=== PATIENT | female | born 1985 | race American Indian/Alaskan Native ===

== ENCOUNTER 2016-10-03 17:30 | Emergency (ER) | payer MEDICAID ==
--- NOTE | 2016-10-03 18:03 | EDM.PDOC ---
ED HPI Trauma - General Chief Complaint: Lower Extremity Injury/Pain Stated Complaint: LT LEG PAIN Time Seen by Provider: 10/03/16 17:40 Source: Reports: Patient History Limitations: Reports: No limitations - History of Present Illness INITIAL COMMENTS - FREE TEXT/NARRATIVE: Patient to the ER with c/o left leg/foot pain. She states she doctors with Dr. Delicia Aaron. She states she has traumatic nerve pain and has had a toe on the left foot removed. She states she gets her pain pills refilled by Dr. Aaron every 12 days. She called the clinic today and Dr. Aaron was out of the office until Saturday. She is wanting her pain pills refilled. She states she was up all night last night pacing and could not sleep due to the pain. Occurred When: other (chronic) Severity: severe Pain/Injury Location: Reports: lower extremity, left Associated Symptoms: Reports: no other symptoms Allergies/ADRs: Allergies No Known Allergies Allergy (Verified 10/03/16 17:45) Home Medications: Ambulatory Orders Acetaminophen [Acetaminophen Extra Strength] 2 tab PO Q6H PRN 08/08/15 [ Confirmed 10/03/16] LORazepam [Ativan] 1 tab PO BID 08/08/15 [Confirmed 10/03/16] QUEtiapine Fumarate [Seroquel] 2 tab PO BEDTIME 08/08/15 [Confirmed 10/03/16] Escitalopram Oxalate [Lexapro] 2 tab PO DAILY 02/08/16 [Confirmed 10/03/16] Multivitamin with Minerals [Multivitamins with Minerals] 1 tab PO DAILY [Confirmed 10/03/16] Ibuprofen [Motrin] 800 mg PO Q6H PRN 10/03/16 [Confirmed 10/03/16] oxyCODONE HCl [Oxycodone HCl] 20 mg PO 5XDAY PRN 10/03/16 [Confirmed 10/03/16] Past Medical History - Past Health History Medical/Surgical History: Denies Medical/Surgical History HEENT History: Reports: None, Impaired vision Cardiovascular History: Reports: Heart murmur Respiratory History: Reports: None Gastrointestinal History: Reports: PUD Genitourinary History: Reports: Renal calculus, STD, Other (see below) Other Genitourinary History: GENITAL WARTS SURVEY TECHNOLOGIST History: Reports: None, Musculoskeletal History: Reports: Back pain, chronic Neurological History: Reports: Seizure Other Neuro History: Seizure in Fe. or October 2015, Seizure 01/03/16: Seizure [id number] Psychiatric History: Reports: Anxiety, Depression, PTSD, Suicide attempt, Other (see below) Other Psychiatric History: CONVERSION DISORDER;. Suicide attempt 2008, Hosp. 2014 with suicidal feelings. Hx of noncompliance Endocrine/Metabolic History: Reports: None Hematologic History: Reports: None Immunologic History: Reports: None Oncologic (Cancer) History: Reports: None Dermatologic History: Reports: None - Infectious Disease History Infectious Disease History: Reports: Chicken pox Other Infectious Disease History: genital warts - Past Surgical History Head Surgeries/Procedures: Reports: None HEENT Surgical History: Reports: Other (see below) Other HEENT Surgeries/Procedures: LACERATION OF PINNA Cardiovascular Surgical History: Reports: None Respiratory Surgical History: Reports: None GI Surgical History: Reports: None Female Surgical History: Reports: None, Tubal ligation Musculoskeletal Surgical History: Reports: Other (see below) Other Musculoskeletal Surgeries/Procedures:: LEFT FOOT 3RD DIGIT TOE SURGERY X3 Social & Family History - Family History Family Medical History: Noncontributory - Tobacco Use Smoking Status *Q: Current Some Day Smoker Years of Tobacco use: 4 Packs/Tins Daily: 3 Used Tobacco, but Quit: No Second Hand Smoke Exposure: No - Caffeine Use Caffeine Use: Reports: Soda, Tea - Alcohol Use Days Per Week of Alcohol Use: 0 Number of Drinks Per Day: 4 Total Drinks Per Week: 0 - Recreational Drug Use Recreational Drug Use: No Recreational Drug Type: Reports: Marijuana/Hashish - Living Situation & Occupation Living situation: Reports: with family Occupation: employed Review of Systems - Review of Systems Review Of Systems: ROS reveals no pertinent complaints other than HPI. Trauma Exam - Physical Exam Exam: See Below Exam Limited By: No limitations General Appearance: Reports: alert, WD/WN, moderate distress Head: Reports: atraumatic, normocephalic Eyes: bilateral eye: normal inspection Ears: Reports: normal external exam, normal canal, hearing grossly normal, normal TMs Nose: Reports: normal inspection, normal mucousa, no blood Throat/Mouth: Reports: Normal inspection, Normal lips, Normal teeth, Normal gums , Normal oropharynx, Normal voice, No airway compromise Neck: Reports: non-tender, full range of motion, normal alignment, normal inspection Respiratory Exam: Reports: no respiratory distress, lungs clear, normal breath sounds Cardiovascular: Reports: normal peripheral pulses, regular rate, rhythm, no edema, no gallop, no JVD, no murmur, no rub GI/Abdominal: Reports: normal bowel sounds, soft, non tender, no organomegaly, no distention, no abnormal bruit, no mass (Female) Exam: Deferred Rectal (Female) Exam: Deferred Back: Reports: full range of motion, normal inspection, non-tender Extremities: Reports: no evidence of injury, no pedal edema, pain with movement , other (left foot pain) Neurologic: Reports: stem cutter II-XII nml as tested, no motor/sensory deficits, alert , normal mood/affect, oriented x 3 Skin: Reports: Normal color, Warm/dry Course - Vital Signs Last Recorded V/S: Last Vital Signs Temp 99.2 F 10/03/16 17:39 Pulse 95 10/03/16 17:39 Resp 20 10/03/16 17:39 BP 125/84 10/03/16 17:39 Pulse Ox 99 10/03/16 17:39 Departure - Departure Time of Disposition: 17:58 Disposition: Home, Self-Care 01 Condition: fair Clinical Impression: Neuropathic pain Instructions: Neuropathic Pain Forms: ED Department Discharge Additional Instructions: Neurontin 300mg po every 12 hours daily. Dispensed 6 (six) tablets. Follow up with primary care provider as soon as able.
== END 2016-10-03 18:06 | disposition home or self-care (01) ==
LOC: DL.ED 17:30
CPT/HCPCS: 99283

== ENCOUNTER 2016-10-30 18:46 | Emergency (ER) | payer MEDICAID ==
[2016-10-30 18:54] VITALS: BP 121/83
[2016-10-30 19:46] LABS: CHLORIDE,CL 100 mmol/L (101-111); SODIUM,NA 138 mmol/L (135-145)
--- NOTE | 2016-10-30 20:28 | EDM.PDOC ---
ED HPI GENERAL MEDICAL PROBLEM - General Chief Complaint: Chest Pain Stated Complaint: CHST PAIN/ABD PAIN Time Seen by Provider: 10/30/16 20:25 Source of Information: Reports: Patient History Limitations: Reports: No limitations - History of Present Illness INITIAL COMMENTS - FREE TEXT/NARRATIVE: 31 yo [place] Female c/o low abdome pain and N&V w/ some chest discomfort X 3 days Onset: gradual Onset Date: 10/27/16 Onset Time: 12:00 Duration: Day(s):, Getting worse Location: Reports: chest, abdomen Quality: Reports: Ache, Dull, Pressure Severity: moderate Worsens with: Reports: Eating, Movement Associated Symptoms: Reports: chest pain Left Chest Pain Score (Numeric/FACES): 6 - Related Data Allergies Allergy/AdvReac Type Severity Reaction Status Date / Time No Known Allergies Allergy Verified 10/30/16 18:54 Home Meds: Home Meds Acetaminophen [Acetaminophen Extra Strength] 2 tab PO Q6H PRN 08/08/15 [History] LORazepam [Ativan] 1 tab PO BID 08/08/15 [History] QUEtiapine Fumarate [Seroquel] 2 tab PO BEDTIME 08/08/15 [History] Escitalopram Oxalate [Lexapro] 2 tab PO DAILY 02/08/16 [History] Multivitamin with Minerals [Multivitamins with Minerals] 1 tab PO DAILY [History] Ibuprofen [Motrin] 800 mg PO Q6H PRN 10/03/16 [History] oxyCODONE HCl [Oxycodone HCl] 20 mg PO 5XDAY PRN 10/03/16 [History] Past Medical History - Past Health History Medical/Surgical History: Denies Medical/Surgical History HEENT History: Reports: None, Impaired vision Cardiovascular History: Reports: Heart murmur Respiratory History: Reports: None Gastrointestinal History: Reports: PUD Genitourinary History: Reports: Renal calculus, STD, Other (see below) Other Genitourinary History: GENITAL WARTS [employer] PERSON History: Reports: Musculoskeletal History: Reports: Back pain, chronic Neurological History: Reports: Seizure Other Neuro History: Seizure in Sep. or October 2015, Seizure 01/03/16: Seizure [id number] Psychiatric History: Reports: Anxiety, Depression, PTSD, Suicide attempt, Other (see below) Other Psychiatric History: CONVERSION DISORDER;. Suicide attempt 2008, Hosp. 2014 with suicidal feelings. Hx of noncompliance Endocrine/Metabolic History: Reports: None Hematologic History: Reports: None Immunologic History: Reports: None Oncologic (Cancer) History: Reports: None Dermatologic History: Reports: None - Infectious Disease History Infectious Disease History: Reports: Chicken pox Other Infectious Disease History: genital warts - Past Surgical History Head Surgeries/Procedures: Reports: None HEENT Surgical History: Reports: Other (see below) Other HEENT Surgeries/Procedures: LACERATION OF PINNA Cardiovascular Surgical History: Reports: None Respiratory Surgical History: Reports: None GI Surgical History: Reports: None Female Surgical History: Reports: None, Tubal ligation Musculoskeletal Surgical History: Reports: Other (see below) Other Musculoskeletal Surgeries/Procedures:: LEFT FOOT 3RD DIGIT TOE SURGERY X3 Social & Family History - Family History Family Medical History: Noncontributory - Tobacco Use Smoking Status *Q: Current Every Day Smoker Years of Tobacco use: 5 Packs/Tins Daily: 0.3 Used Tobacco, but Quit: No Second Hand Smoke Exposure: Yes - Caffeine Use Caffeine Use: Reports: Soda, Tea - Alcohol Use Days Per Week of Alcohol Use: 0 Number of Drinks Per Day: 4 Total Drinks Per Week: 0 - Recreational Drug Use Recreational Drug Use: No Recreational Drug Type: Reports: Marijuana/Hashish - Living Situation & Occupation Living situation: Reports: with family Occupation: employed ED ROS GENERAL - Review of Systems Review Of Systems: See Below Constitutional: Reports: no symptoms HEENT: Reports: No symptoms Respiratory: Reports: No Symptoms Cardiovascular: Reports: Chest pain Endocrine: Reports: no symptoms GI/Abdominal: Reports: Abdominal pain, Constipation (pt. take oxycontin for pain ) : Reports: no symptoms Musculoskeletal: Reports: no symptoms Skin: Reports: no symptoms Neurological: Reports: No Symptoms Psychiatric: Reports: No symptoms Hematologic/Lymphatic: Reports: no symptoms Immunologic: Reports: no symptoms ED EXAM, GENERAL - Physical Exam Exam: See Below Exam Limited By: No limitations General Appearance: alert, WD/WN, no apparent distress Ears: normal external exam Nose: normal inspection Throat/Mouth: Normal inspection Head: atraumatic Neck: normal inspection Respiratory/Chest: no respiratory distress, lungs clear Cardiovascular: normal peripheral pulses, regular rate, rhythm GI/Abdominal: distended, abnormal bowel sounds: Extremities: normal inspection Neurological: alert, oriented, CN II-XII intact Psychiatric: normal affect Skin Exam: Warm Lymphatic: no adenopathy Course - Vital Signs Last Recorded V/S: Last Vital Signs Temp 36.0 C 10/30/16 18:50 Pulse 86 10/30/16 18:50 Resp 18 10/30/16 18:50 BP 121/83 10/30/16 18:50 Pulse Ox 100 10/30/16 18:50 - Orders/Labs/Meds Orders: Active Orders 24 hr Category Date Time Status EKG 12 Lead [EKG Documentation Completion] [RC] STAT Care 10/30/16 19:38 Active HCG QUALITATIVE,URINE [URCHEM] Stat Lab 10/30/16 19:07 Uncollected UA W/MICROSCOPIC [URIN] Stat Lab 10/30/16 19:07 Uncollected Labs: Laboratory Tests 10/30/16 10/30/16 Range/Units 19:20 19:20 WBC 6.3 (5.0-10.0) 10^3/uL RBC 4.25 (4.2-5.4) 10^6/uL Hgb 11.5 L (12.0-16.0) g/dL Hct 36.4 L (37.0-47.0) % MCV 85.6 (80-100) fL MCH 27.1 (27.0-34.0) pg MCHC 31.6 L (33.0-35.0) g/dL Plt Count 340 (150-450) 10^3/uL Sodium 138 (135-145) mmol/L Potassium 4.2 (3.6-5.0) mmol/L Chloride 100 L (101-111) mmol/L Carbon Dioxide 30.0 (21.0-31.0) mmol/L Anion Gap 12.2 BUN 12 (7-18) mg/dL Creatinine 0.8 (0.6-1.3) mg/dL Est Cr Clr Drug Dosing 100.90 mL/min Estimated GFR (MDRD) > 60 BUN/Creatinine Ratio 15.00 Glucose 93 (74-105) mg/dL Calcium 9.1 (8.4-10.2) mg/dl Total Bilirubin 0.2 (0.2-1.0) mg/dL AST 23 (10-42) IU/L ALT 16 (10-60) IU/L Alkaline Phosphatase 60 (42-121) IU/L Troponin I < 0.02 (0.00-0.02) ng/ml Total Protein 7.3 (6.7-8.2) g/dl Albumin 3.9 (3.2-5.5) g/dl Globulin 3.4 Albumin/Globulin Ratio 1.15 Departure - Departure Time of Disposition: 20:33 Disposition: Home, Self-Care 01 Condition: good Clinical Impression: Non-cardiac chest pain, Constipation by delayed colonic transit Forms: ED Department Discharge Additional Instructions: Please increase intake of Water Tonight: 1) Try Fleet Enema X 1 2) Drink One Bottle of Magnesium Citrate and follow with 3 glasses of water 3) Take one Tablespoon of [place] oil and 3 glasses of water if poor results from above. 4) Chew prunes daily and increase fiber in diret ( Fruits/Vegetables ) TRY Movantik 25MG QD # 30 FOR OPIOID INDUCED CONSTIPATION F/U w/ PCP - My Orders Last 24 Hours: My Active Orders 10/30/16 19:07 HCG QUALITATIVE,URINE [URCHEM] Stat UA W/MICROSCOPIC [URIN] Stat 10/30/16 19:38 EKG 12 Lead [EKG Documentation Completion] [RC] STAT - Assessment/Plan Last 24 Hours: My Active Orders 10/30/16 19:07 HCG QUALITATIVE,URINE [URCHEM] Stat UA W/MICROSCOPIC [URIN] Stat 10/30/16 19:38 EKG 12 Lead [EKG Documentation Completion] [RC] STAT
--- NOTE | 2016-10-31 22:40 | EKG ---
10/30/2016 - KENZIE MCCANN - EKG shows normal sinus rhythm. [facility] /[id number]
== END 2016-10-30 20:45 | disposition home or self-care (01) ==
LOC: DL.ED 18:46
DX: R07.89 Other chest pain (principal); K59.01 Slow transit constipation; F41.9 Anxiety disorder, unspecified; F32.9 Major depressive disorder, single episode, unspecified; F17.210 Nicotine dependence, cigarettes, uncomplicated; Z79.899 Other long term (current) drug therapy
CPT/HCPCS: 36415; 71020; 74020; 80053; 84484; 85027; 93005; 99285

== ENCOUNTER 2017-08-12 11:45 | Emergency (ER) | payer MEDICAID ==
[2017-08-12] MEDS ORDERED: Sodium Chloride 0.9% 1,000 ML IV ONE (12:14)
[2017-08-12] MEDS ORDERED: diphenhydrAMINE 50 MG/ML SDV IVPUSH ONE (12:14)
[2017-08-12] MEDS ORDERED: fentaNYL 100 MCG/2 ML SDV IVPUSH ONE ×2 (12:15→14:26)
--- NOTE | 2017-08-12 12:27 | EDM.PDOC ---
ED HPI GENERAL MEDICAL PROBLEM - General Chief Complaint: Abdominal Pain Stated Complaint: APPY? Time Seen by Provider: 08/12/17 12:10 Source of Information: Reports: Patient History Limitations: Reports: No Limitations - History of Present Illness INITIAL COMMENTS - FREE TEXT/NARRATIVE: Patient comes emergency department today with complaints of right lower quadrant abdominal pain which started last night. Last night she felt like she had a bunch of bloating and/or gas pain in her right lower quadrant. It has continued throughout the night and got much worse throughout the day. She has vomited multiple times. She has a few loose stools but not real diarrheal. No fever or chills. No chest pain or shortness of breath no difficulty breathing. She denies any flank pain. She denies any hematuria dysuria or urinary frequency. She denies any chance of being . She denies any change in vaginal discharge or bleeding. She still has her gallbladder and her appendix and has had no surgeries on her abdomen. Right Lower Abdominal Pain Score (Numeric/FACES): 8 - Related Data Allergies Allergy/AdvReac Type Severity Reaction Status Date / Time No Known Allergies Allergy Verified 08/12/17 11:51 Home Meds: Home Meds Acetaminophen [Acetaminophen Extra Strength] 2 tab PO Q6H PRN 08/08/15 [History] LORazepam [Ativan] 1 mg PO BID 08/08/15 [History] QUEtiapine Fumarate [Seroquel] 150 mg PO BEDTIME 08/08/15 [History] Escitalopram Oxalate [Lexapro] 15 mg PO BID 02/08/16 [History] Multivitamin with Minerals [Multivitamins with Minerals] 1 tab PO DAILY [History] Ibuprofen [Motrin] 800 mg PO Q6H PRN 10/03/16 [History] oxyCODONE HCl [Oxycodone HCl] 20 mg PO QID PRN 10/03/16 [History] Past Medical History - Past Health History Medical/Surgical History: Denies Medical/Surgical History HEENT History: Reports: Impaired Vision Cardiovascular History: Reports: Heart Murmur Respiratory History: Reports: None Gastrointestinal History: Reports: PUD Genitourinary History: Reports: Renal Calculus, STD, Other (See Below) Other Genitourinary History: GENITAL WARTS [employer]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 or October 2015, Seizure 01/03/16: Seizure [id number] Psychiatric History: Reports: Anxiety, Depression, PTSD, Suicide Attempt, Other (See Below) Other Psychiatric History: CONVERSION DISORDER;. Suicide attempt 2008, Hosp. 2014 with suicidal feelings. Hx of noncompliance Endocrine/Metabolic History: Reports: None Hematologic History: Reports: None Immunologic History: Reports: None Oncologic (Cancer) History: Reports: None Dermatologic History: Reports: None - Infectious Disease History Infectious Disease History: Reports: Chicken Pox Other Infectious Disease History: genital warts - Past Surgical History Head Surgeries/Procedures: Reports: None HEENT Surgical History: Reports: Other (See Below) Respiratory Surgical History: Reports: None GI Surgical History: Reports: None Female Surgical History: Reports: None, Tubal Ligation Musculoskeletal Surgical History: Reports: Other (See Below) Social & Family History - Family History Family Medical History: Noncontributory - Tobacco Use Smoking Status *Q: Current Every Day Smoker Years of Tobacco use: 16 Packs/Tins Daily: 1 Used Tobacco, but Quit: No Second Hand Smoke Exposure: Yes - Caffeine Use Caffeine Use: Reports: Coffee - Alcohol Use Days Per Week of Alcohol Use: 0 Number of Drinks Per Day: 4 Total Drinks Per Week: 0 - Recreational Drug Use Recreational Drug Use: No Recreational Drug Type: Reports: Marijuana/Hashish - Living Situation & Occupation Living situation: Reports: with Family Occupation: Employed ED ROS GENERAL - Review of Systems Review Of Systems: ROS reveals no pertinent complaints other than HPI. ED EXAM, GI/ABD - Physical Exam Exam: See Below Text/Narrative:: Patient is laying on her side in the position and appears quite uncomfortable. Exam Limited By: No Limitations General Appearance: Alert, WD/WN (Obese patient), Moderate Distress Eyes: Bilateral: EOMI Ears: Normal External Exam, Normal Canal Nose: Normal Inspection, Normal Mucosa Throat/Mouth: Normal Inspection, Normal Lips, Normal Oropharynx Head: Atraumatic, Normocephalic Neck: Normal Inspection, Supple, Non-Tender Respiratory/Chest: No Respiratory Distress, Lungs Clear, Normal Breath Sounds Cardiovascular: Normal Peripheral Pulses, Regular Rate, Rhythm GI/Abdominal Exam: Guarding, Rebound (Right lower quadrant.), Tender (Right lower quadrant. Rest of the abdomen has referred pain to the right lower quadrant.). No: Normal Bowel Sounds (Hypoactive) (Female) Exam: Deferred Rectal (Female) Exam: Deferred Back Exam: Normal Inspection. No: CVA Tenderness (L), CVA Tenderness (R) Extremities: Normal Inspection, Normal Capillary Refill Neurological: Alert, Oriented, CN II-XII Intact Psychiatric: Normal Affect, Normal Mood Skin Exam: Intact, No Rash, Diaphoretic, Pallor Course - Vital Signs Last Recorded V/S: Last Vital Signs Temp 37.1 C 08/12/17 16:52 Pulse 81 08/12/17 16:52 Resp 16 08/12/17 16:52 BP 124/72 08/12/17 16:52 Pulse Ox 98 08/12/17 16:52 - Orders/Labs/Meds Orders: Active Orders 24 hr Category Date Time Status Peripheral IV Care [RC] . DIRECTED Care 08/12/17 12:15 Active Sodium Chloride 0.9% [Saline Flush] Med 08/12/17 12:15 Active 10 ml FLUSH ASDIRECTED PRN Peripheral IV Insertion Adult [OM.PC] Stat Oth 08/12/17 12:14 Ordered Medication Orders Sodium Chloride (Saline Flush) 10 ml FLUSH ASDIRECTED PRN PRN Reason: Keep Vein Open Last Admin: 08/12/17 15:04 Dose: 10 ml Admin: 08/12/17 12:34 Dose: 10 ml Labs: Laboratory Tests 08/12/17 08/12/17 08/12/17 Range/Units 12:24 12:24 12:24 WBC 7.7 (5.0-10.0) 10^3/uL RBC 4.46 (4.2-5.4) 10^6/uL Hgb 11.2 L (12.0-16.0) g/dL Hct 36.4 L (37.0-47.0) % MCV 81.6 D (80-100) fL MCH 25.1 L (27.0-34.0) pg MCHC 30.8 L (33.0-35.0) g/dL Plt Count 431 D (150-450) 10^3/uL Neut % (Auto) 50.8 (42.2-75.2) % Lymph % (Auto) 40.4 (20.5-50.1) % Dickson % (Auto) 4.9 (2-8) % Eos % (Auto) 3.4 H (1.0-3.0) % Baso % (Auto) 0.5 (0.0-1.0) % Sodium 140 (135-145) mmol/L Potassium 4.0 (3.6-5.0) mmol/L Chloride 105 (101-111) mmol/L Carbon Dioxide 24.0 (21.0-31.0) mmol/L Anion Gap 15.0 BUN 11 (7-18) mg/dL Creatinine 0.8 (0.6-1.3) mg/dL Est Cr Clr Drug Dosing 99.99 mL/min Estimated GFR (MDRD) > 60 BUN/Creatinine Ratio 13.75 Glucose 106 H (74-105) mg/dL Lactic Acid 1.1 (0.5-2.2) mmol/L Calcium 8.9 (8.4-10.2) mg/dl Total Bilirubin 0.1 L (0.2-1.0) mg/dL AST 18 (10-42) IU/L ALT 15 (10-60) IU/L Alkaline Phosphatase 55 (42-121) IU/L C-Reactive Protein (0.0-1.3) mg/dL Total Protein 7.5 (6.7-8.2) g/dl Albumin 4.0 (3.2-5.5) g/dl Globulin 3.5 Albumin/Globulin Ratio 1.14 Urine Color (YELLOW) Urine Appearance (CLEAR) Urine pH (5.0-9.0) Ur Specific [place] (1.005-1.030) Urine Protein (NEGATIVE) Urine Glucose (UA) (NEGATIVE) Urine Ketones (NEGATIVE) Urine Occult Blood (NEGATIVE) Urine Nitrite (NEGATIVE) Urine Bilirubin (NEGATIVE) Urine Urobilinogen (0.2-1.0) mg/dL Ur Leukocyte Esterase (NEGATIVE) Urine RBC /HPF Urine WBC (0-5/HPF) /HPF Ur Epithelial Cells /HPF Urine Bacteria (0-FEW/HPF) /HPF Urine Mucus /LPF Urine HCG, Qual 08/12/17 08/12/17 08/12/17 Range/Units 12:24 12:41 12:41 WBC (5.0-10.0) 10^3/uL RBC (4.2-5.4) 10^6/uL Hgb (12.0-16.0) g/dL Hct (37.0-47.0) % MCV (80-100) fL MCH (27.0-34.0) pg MCHC (33.0-35.0) g/dL Plt Count (150-450) 10^3/uL Neut % (Auto) (42.2-75.2) % Lymph % (Auto) (20.5-50.1) % Dickson % (Auto) (2-8) % Eos % (Auto) (1.0-3.0) % Baso % (Auto) (0.0-1.0) % Sodium (135-145) mmol/L Potassium (3.6-5.0) mmol/L Chloride (101-111) mmol/L Carbon Dioxide (21.0-31.0) mmol/L Anion Gap BUN (7-18) mg/dL Creatinine (0.6-1.3) mg/dL Est Cr Clr Drug Dosing mL/min Estimated GFR (MDRD) BUN/Creatinine Ratio Glucose (74-105) mg/dL Lactic Acid (0.5-2.2) mmol/L Calcium (8.4-10.2) mg/dl Total Bilirubin (0.2-1.0) mg/dL AST (10-42) IU/L ALT (10-60) IU/L Alkaline Phosphatase (42-121) IU/L C-Reactive Protein < 0.5 (0.0-1.3) mg/dL Total Protein (6.7-8.2) g/dl Albumin (3.2-5.5) g/dl Globulin Albumin/Globulin Ratio Urine Color Yellow (YELLOW) Urine Appearance Slightly cloudy (CLEAR) Urine pH 7.0 (5.0-9.0) Ur Specific [place] 1.025 (1.005-1.030) Urine Protein Negative (NEGATIVE) Urine Glucose (UA) Negative (NEGATIVE) Urine Ketones Negative (NEGATIVE) Urine Occult Blood Negative (NEGATIVE) Urine Nitrite Negative (NEGATIVE) Urine Bilirubin Negative (NEGATIVE) Urine Urobilinogen 0.2 (0.2-1.0) mg/dL Ur Leukocyte Esterase Negative (NEGATIVE) Urine RBC 0-5 /HPF Urine WBC 0-5 (0-5/HPF) /HPF Ur Epithelial Cells Many H /HPF Urine Bacteria Few (0-FEW/HPF) /HPF Urine Mucus Many H /LPF Urine HCG, Qual Negative Meds: Medications Generic Name Dose Route Start Last Admin Trade Name Luly PRN Reason Stop Dose Admin Sodium Chloride 10 ml 08/12/17 12:15 08/12/17 15:04 Saline Flush FLUSH 10 ml ASDIRECTED PRN Administration Keep Vein Open Discontinued Medications Generic Name Dose Route Start Last Admin Trade Name Luly PRN Reason Stop Dose Admin Diphenhydramine HCl 25 mg 08/12/17 12:14 08/12/17 12:33 Benadryl IVPUSH 08/12/17 12:15 25 mg ONETIME ONE Administration Fentanyl 50 mcg 08/12/17 12:15 08/12/17 12:33 Sublimaze IVPUSH 08/12/17 12:16 50 mcg ONETIME ONE Administration Fentanyl 50 mcg 08/12/17 14:26 08/12/17 15:03 Sublimaze IVPUSH 08/12/17 14:27 50 mcg ONETIME ONE Administration Sodium Chloride 1,000 mls @ 999 mls/hr 08/12/17 12:14 08/12/17 12:33 Normal Saline IV 08/12/17 13:14 999 mls/hr .BOLUS ONE Administration Iopamidol 100 ml 08/12/17 13:54 08/12/17 13:59 Isovue-300 (61%) IVPUSH 08/12/17 13:55 100 ml ONETIME ONE Administration - Radiology Interpretation Free Text/Narrative:: CT abdomen and pelvis with IV contrast. No acute intraperitoneal abnormality. Normal appendix and kidneys. Evidence of tubal ligation. Cholelithiasis Pelvic ultrasound. Physiologic ovarian cyst. Normal uterus. No pelvic adnexal mass lesion or free fluid in the cul-de-sac. Per radiology. - Re-Assessments/Exams Free Text/Narrative Re-Assessment/Exam: 08/12/17 12:26 IV normal saline 1 L wide open. Benadryl 25 mg IV push. Fentanyl 50 g IV push. 08/12/17 17:10 Patient did feel much better with the above therapy. She is resting completely on the cot. She does have oxycodone at home that she uses for pain in her right foot. She can use this for pain at home. We did incidentally find that she has some gallstones without any evidence of acute cholecystitis. Ultrasound shows an ovarian cyst most likely causing her pain. Laboratory evaluation is unremarkable. Departure - Departure Time of Disposition: 17:08 Disposition: Home, Self-Care 01 Clinical Impression: Cholelithiasis Qualifiers: Cholelithiasis location: gallbladder Cholecystitis presence: without cholecystitis Biliary obstruction: without biliary obstruction Qualified Code(s) : K80.20 - Calculus of gallbladder without cholecystitis without obstruction Ovarian cyst Qualifiers: Laterality: right Qualified Code(s): N83.201 - Unspecified ovarian cyst, right side - Discharge Information Instructions: Abdominal Pain, Adult, [id number], Cholelithiasis, [id number] , Ovarian Cyst, [id number] Forms: ED Department Discharge Additional Instructions: Tylenol and/or ibuprofen as needed for pain. Rest over the next couple of days. You may use her oxycodone that you have at home for pain at this time. Caution sedation. Treatment in emergency department if new or worsening symptoms. Primary care provider in the next 4-6 days if not improving sooner if worse. - My Orders Last 24 Hours: My Active Orders 08/12/17 12:14 Peripheral IV Insertion Adult [OM.PC] Stat 08/12/17 12:15 Peripheral IV Care [RC] . DIRECTED Sodium Chloride 0.9% [Saline Flush] 10 ml FLUSH ASDIRECTED PRN - Assessment/Plan Last 24 Hours: My Active Orders 08/12/17 12:14 Peripheral IV Insertion Adult [OM.PC] Stat 08/12/17 12:15 Peripheral IV Care [RC] . DIRECTED Sodium Chloride 0.9% [Saline Flush] 10 ml FLUSH ASDIRECTED PRN Assessment:: Ovarian cyst. Cholelithiasis no evidence of cholecystitis. Plan: Tylenol and/or ibuprofen as needed for pain. Rest over the next couple of days. You may use her oxycodone that you have at home for pain at this time. Caution sedation. Treatment in emergency department if new or worsening symptoms. Primary care provider in the next 4-6 days if not improving sooner if worse.
[2017-08-12] MEDS: Sodium Chloride 0.9% 10 ML Syringe FLUSH PRN ×2 (12:34→15:04)
[2017-08-12 12:52] LABS: CHLORIDE,CL 105 mmol/L (101-111); SODIUM,NA 140 mmol/L (135-145)
[2017-08-12] MEDS ORDERED: Iopamidol 612 MG/ML 100 ML Bottle IVPUSH ONE (13:54)
--- NOTE | 2017-08-12 14:18 | CT ---
CLINICAL HISTORY: 32-year-old 250 pound smoker with low-grade fever and right lower quadrant pain (no rmal white blood cell count and urinalysis) who was reported on CT exam 17 August 2016 to have "tuba l ligation and right ovarian cyst but normal appendix". Reevaluate please. (NOTE: Patient has had [facility] abdominal CT exams 2013, 2015, 2016 and 2017 prior to this exam) SCAN TECHNIQUE: Volume acquisition of data from the abdomen and pelvis obtained without oral contrast but during the intravenous administration of 100 cc nonionic Isovue contrast while the patient was l rhonda supine on the Siemens multislice CT scanner [place], [place] (3 c c/s via injector). INTERPRETATION: 1. Apparent gallstone (faintly calcified wall) lodged in the neck of the distended gallbladder right upper quadrant new since 17 August 2016. No other intraluminal calcifications or signs of mucosal wa ll edema. Normal liver. Pancreas unremarkable. 2. Normal reniform size, axis and configuration. No sign of nephrolithiasis or obstructive uropathy. Normal urinary bladder. 3. Normal appendix RLQ. Stomach, spleen, pancreas and adrenal glands unremarkable. 4. Normal midline uterus. Small cyst both ovaries but no sign of adnexal mass lesion or inflammatory "dirty" peritoneal fat. (Surgical clips oviducts bilaterally) 5. No pelvic or abdominal mass lesion, pelvic/mesenteric/retroperitoneal lymphadenopathy, inflammator y peritoneal fat, sign of mechanical bowel obstruction, ascites or free intraperitoneal air. 6. Normal caliber aortoiliac vessels. No heart. Lung bases clear. CONCLUSION: No acute intraperitoneal abnormality. Normal appendix and kidneys. Evidence of tubal liga tion. Cholelithiasis.
--- NOTE | 2017-08-12 16:00 | US ---
Clinical history: 32-year-old female right lower quadrant pelvic pain (LMP 04 August 2017) noted on CT scan earlier today to have probable "cholelithiasis" but no acute intraperitoneal abnormality (sm all ovarian cysts). Normal WBC and urinalysis. Interpretation: Midline uterus normal size and anatomic configuration with smooth contour. No sign of myometrial fibroid mass lesion or intra/\\slash extrauterine gestational sac. Uterus measures 10.7 cm L x 6.5 cm W4 0.8 cm AP diameter and has a normal 8.5 mm thin central endomet rial "stripe". Symmetric normal-appearing ovaries with tiny physiologic follicular type cysts (largest cyst right ov raman measures 9 x 10 mm while the largest cyst in the left ovary measures 17 x 10 mm diameter). No extraovarian adnexal mass lesions or free fluid in the cul-de-sac. Right ovary measures 2.8 cm L x 1.9 cm W x 2.2 cm AP diameter. Left ovary measures 2.6 cm L x 2.3 cm W1 0.8 cm AP diameter. CONCLUSION: Physiologic ovarian cysts. Normal uterus. No pelvic adnexal mass lesion or free fluid in the cul-de-sac.
[2017-08-12 16:52] VITALS: BP 124/72
[2017-08-12] MEDS ORDERED: Ketorolac 30 MG/ML SDV IVPUSH ONE (17:20)
== END 2017-08-12 17:46 | disposition home or self-care (01) ==
LOC: DL.ED 11:45
DX: K80.20 Calculus of gallbladder without cholecystitis without obstruction (principal); N83.201 Unspecified ovarian cyst, right side; F17.210 Nicotine dependence, cigarettes, uncomplicated; Z79.899 Other long term (current) drug therapy
CPT/HCPCS: 36415; 74177; 76830; 76857; 80053; 81001; 81025; 83605; 85025; 86140; 96361; 96374; 96375; 96376; 99284; J1200; J1885; J3010; J7030; J7050; Q9967

== ENCOUNTER 2017-11-23 14:40 | Emergency (ER) | payer MEDICAID ==
[2017-11-23 15:04] VITALS: BP 121/80
== END 2017-11-23 17:41 | disposition left against medical advice (07) ==
LOC: DL.ED 14:40
DX: Z53.21 Procedure and treatment not carried out due to patient leaving prior to being seen by health care provider (principal)

== ENCOUNTER 2017-12-06 22:10 | Emergency (ER) | payer MEDICAID ==
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
[2017-12-06 23:06] LABS: CHLORIDE,CL 107 mmol/L (101-111); SODIUM,NA 138 mmol/L (135-145)
[2017-12-07] MEDS ORDERED: Ketorolac 30 MG/ML SDV IM ONE (00:47)
[2017-12-07 01:00] VITALS: BP 116/93
== END 2017-12-07 01:03 | disposition home or self-care (01) ==
LOC: DL.ED 22:10
DX: S06.0X1A Concussion with loss of consciousness of 30 minutes or less, initial encounter (principal); S00.33XA Contusion of nose, initial encounter; F17.210 Nicotine dependence, cigarettes, uncomplicated; Z79.899 Other long term (current) drug therapy; Y04.8XXA Assault by other bodily force, initial encounter
CPT/HCPCS: 36415; 70450; 72125; 74176; 80053; 80305; 81001; 81025; 85025; 96372; 99284; G0480; J1885

== ENCOUNTER 2018-03-23 21:07 | Emergency (ER) | payer MEDICAID ==
[2018-03-23 21:26] VITALS: BP 115/65
[2018-03-23] MEDS ORDERED: Ondansetron 4 MG/2 ML SDV IV ONE (22:06)
[2018-03-23] MEDS ORDERED: Morphine 2 MG/ML Syringe IVPUSH ONE (22:06)
[2018-03-23] MEDS ORDERED: Sodium Chloride 0.9% 1,000 ML IV ONE (22:06)
--- NOTE | 2018-03-23 22:08 | EDM.PDOC ---
ED HPI GENERAL MEDICAL PROBLEM - General Chief Complaint: Abdominal Pain Stated Complaint: APPENDICITIS [id number] Time Seen by Provider: 03/23/18 22:07 Source of Information: Reports: Patient History Limitations: Reports: No Limitations - History of Present Illness INITIAL COMMENTS - FREE TEXT/NARRATIVE: onset RLQ pain last night not getting better unable to hold anything down all day worse tonight Right Lower Abdomen Pain Score (Numeric/FACES): 9 - Related Data Allergies Allergy/AdvReac Type Severity Reaction Status Date / Time No Known Allergies Allergy Verified 08/12/17 11:51 Home Meds: Home Meds Acetaminophen [Acetaminophen Extra Strength] 2 tab PO Q6H PRN 08/08/15 [History] QUEtiapine Fumarate [Seroquel] 150 mg PO BEDTIME 08/08/15 [History] Escitalopram Oxalate [Lexapro] 15 mg PO BID 02/08/16 [History] Multivitamin with Minerals [Multivitamins with Minerals] 1 tab PO DAILY [History] Ibuprofen [Motrin] 800 mg PO Q6H PRN 10/03/16 [History] Past Medical History - Past Health History Medical/Surgical History: Denies Medical/Surgical History HEENT History: Reports: Impaired Vision Cardiovascular History: Reports: Heart Murmur Respiratory History: Reports: None Gastrointestinal History: Reports: PUD Genitourinary History: Reports: Renal Calculus, STD, Other (See Below) Other Genitourinary History: GENITAL WARTS 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 Suicide attempt 2007, Hosp. 2013 with suicidal feelings. Hx of noncompliance Endocrine/Metabolic History: Reports: None Hematologic History: Reports: None Immunologic History: Reports: None Oncologic (Cancer) History: Reports: None Dermatologic History: Reports: None - Infectious Disease History Infectious Disease History: Reports: Chicken Pox Other Infectious Disease History: genital warts - Past Surgical History Head Surgeries/Procedures: Reports: None HEENT Surgical History: Reports: Other (See Below) Respiratory Surgical History: Reports: None GI Surgical History: Reports: None Female Surgical History: Reports: None, Tubal Ligation Musculoskeletal Surgical History: Reports: Amputation, Other (See Below) Other Musculoskeletal Surgeries/Procedures:: left foot surgeries Social & Family History - Family History Family Medical History: Noncontributory - Tobacco Use Smoking Status *Q: Current Every Day Smoker Years of Tobacco use: 15 Packs/Tins Daily: 1 - Caffeine Use Caffeine Use: Reports: Coffee, Energy Drinks, Tea - Recreational Drug Use Recreational Drug Use: No - Living Situation & Occupation Living situation: Reports: with Family Occupation: Employed ED ROS GENERAL - Review of Systems Review Of Systems: ROS reveals no pertinent complaints other than HPI. ED EXAM, GI/ABD - Physical Exam Exam: See Below Exam Limited By: No Limitations General Appearance: Alert, WD/WN, Mild Distress, Moderate Distress, Other ( crying) Ears: Hearing Grossly Normal Throat/Mouth: Normal Voice, No Airway Compromise Head: Atraumatic Neck: Non-Tender, Full Range of Motion Respiratory/Chest: No Respiratory Distress Cardiovascular: Regular Rate, Rhythm GI/Abdominal Exam: Guarding, Tender, Other (RLQ). No: Distended, Rigid, Rebound Neurological: Alert, Oriented, Normal Cognition, No Motor/Sensory Deficits Psychiatric: Tearful Skin Exam: Warm, Dry, Normal Color Course - Vital Signs Last Recorded V/S: Last Vital Signs Temp 36.3 C 03/23/18 21:25 Pulse 78 03/23/18 21:25 Resp 20 03/23/18 21:25 BP 115/65 03/23/18 21:25 Pulse Ox 100 03/23/18 21:25 - Orders/Labs/Meds Orders: Active Orders 24 hr Category Date Time Status Abdomen Pelvis w Cont [CT] Urgent Exams 03/23/18 22:51 Taken UA W/MICROSCOPIC [URIN] Stat Lab 03/23/18 21:36 Ordered Labs: Laboratory Tests 03/23/18 03/23/18 03/23/18 Range/Units 21:42 21:42 21:42 WBC 8.2 (5.0-10.0) 10^3/uL RBC 4.49 (4.2-5.4) 10^6/uL Hgb 11.8 L (12.0-16.0) g/dL Hct 37.3 (37.0-47.0) % MCV 83.1 D (80-100) fL MCH 26.3 L (27.0-34.0) pg MCHC 31.6 L (33.0-35.0) g/dL Plt Count 355 (150-450) 10^3/uL Neut % (Auto) 62.5 (42.2-75.2) % Lymph % (Auto) 30.0 (20.5-50.1) % [place] % (Auto) 5.5 (2-8) % Eos % (Auto) 1.6 (1.0-3.0) % Baso % (Auto) 0.4 (0.0-1.0) % Sodium 139 (135-145) mmol/L Potassium 3.7 (3.6-5.0) mmol/L Chloride 104 (101-111) mmol/L Carbon Dioxide 26.0 (21.0-31.0) mmol/L Anion Gap 12.7 BUN 13 (7-18) mg/dL Creatinine 0.8 (0.6-1.3) mg/dL Est Cr Clr Drug Dosing 100.93 mL/min Estimated GFR (MDRD) > 60 BUN/Creatinine Ratio 16.25 Glucose 93 (74-105) mg/dL Calcium 9.3 (8.4-10.2) mg/dl Total Bilirubin 0.3 (0.2-1.0) mg/dL AST 22 (10-42) IU/L ALT 20 (10-60) IU/L Alkaline Phosphatase 56 (42-121) IU/L Total Protein 7.5 (6.7-8.2) g/dl Albumin 4.1 (3.2-5.5) g/dl Globulin 3.4 Albumin/Globulin Ratio 1.21 HCG, Qual Negative Meds: Medications Discontinued Medications Generic Name Dose Route Start Last Admin Trade Name Freq PRN Reason Stop Dose Admin Butorphanol Tartrate 2 mg 03/23/18 23:23 03/23/18 23:27 Stadol IVPUSH 03/23/18 23:24 2 mg ONETIME ONE Administration Hydromorphone HCl 1 mg 03/23/18 22:39 03/23/18 22:47 Dilaudid IVPUSH 03/23/18 22:40 1 mg ONETIME ONE Administration Sodium Chloride 1,000 mls @ 999 mls/hr 03/23/18 22:06 03/23/18 22:18 Normal Saline IV 03/23/18 23:06 999 mls/hr .BOLUS ONE Administration Iopamidol 100 ml 03/23/18 22:51 03/23/18 23:00 Isovue-300 (61%) IVPUSH 03/23/18 22:52 100 ml ONETIME ONE Administration Morphine Sulfate 2 mg 03/23/18 22:06 03/23/18 22:23 Morphine IVPUSH 03/23/18 22:07 2 mg ONETIME ONE Administration Ondansetron HCl 4 mg 03/23/18 22:06 03/23/18 22:23 Zofran IV 03/23/18 22:07 4 mg ONETIME ONE Administration - Re-Assessments/Exams Free Text/Narrative Re-Assessment/Exam: 03/24/18 00:14 results discussed with pt. Departure - Departure Time of Disposition: 00:14 Disposition: Home, Self-Care 01 Condition: Good Clinical Impression: Cyst of ovary, right - Discharge Information Instructions: Ovarian Cyst Forms: ED Department Discharge Additional Instructions: 1) rest 2) see clinic tomorrow for follow up on OVARIAN CYSTE rx togo; ativan 1mg x 1 - My Orders Last 24 Hours: My Active Orders 03/23/18 21:36 UA W/MICROSCOPIC [URIN] Stat 03/23/18 22:51 Abdomen Pelvis w Cont [CT] Urgent - Assessment/Plan Last 24 Hours: My Active Orders 03/23/18 21:36 UA W/MICROSCOPIC [URIN] Stat 03/23/18 22:51 Abdomen Pelvis w Cont [CT] Urgent
[2018-03-23 22:15] LABS: ANION GAP 12.7; CHLORIDE,CL 104 mmol/L (101-111); SODIUM,NA 139 mmol/L (135-145)
[2018-03-23] MEDS ORDERED: HYDROmorphone 0.5 MG/0.5 ML Syringe IVPUSH ONE (22:39)
[2018-03-23] MEDS ORDERED: Iopamidol 612 MG/ML 100 ML Bottle IVPUSH ONE (22:51)
[2018-03-23] MEDS ORDERED: Butorphanol 2 MG/ML SDV IVPUSH ONE (23:23)
[2018-03-24] MEDS ORDERED: LORazepam 1 MG Tab ONE (00:18)
== END 2018-03-24 00:29 | disposition home or self-care (01) ==
LOC: DL.ED 21:07
DX: N83.201 Unspecified ovarian cyst, right side (principal); F17.210 Nicotine dependence, cigarettes, uncomplicated; Z79.899 Other long term (current) drug therapy
CPT/HCPCS: 36415; 74177; 80053; 84703; 85025; 96361; 96374; 96375; 99284; A9270; J0595; J1170; J2270; J2405; J7030; Q9967

== ENCOUNTER 2018-09-29 14:29 | Emergency (ER) | payer SELFPAY ==
[2018-09-29 15:18] LABS: ANION GAP 13.3; CHLORIDE,CL 101 mmol/L (101-111); SODIUM,NA 137 mmol/L (135-145)
--- NOTE | 2018-09-29 15:20 | EDM.PDOC ---
ED HPI GENERAL MEDICAL PROBLEM - General Stated Complaint: CHEST AND STOMACH PAIN Time Seen by Provider: 09/29/18 15:10 Source of Information: Reports: Patient History Limitations: Reports: No Limitations - History of Present Illness INITIAL COMMENTS - FREE TEXT/NARRATIVE: This 33 yo female patient reports to the ED with chest pain and shortness of breath. The patient initially stated that her chest pain started 1 year ago, then stated it started today. The patient reports her shortness of breath started a "couple of days ago, but got worse today", but then stated her shortness of breath started "just before she got into the ED. The patient reports she has been having seizures for the past 5-10 years, but is currently not on any medications for her seizures. The patient reports she did start Propranolol 2 weeks ago. The patient reported to nursing staff that she had nausea, vomiting and diarrhea. The patient also denied any chest pain or shortness of breath to nursing staff. The patient denies any drug or alcohol use. Onset: Unknown/Unsure Duration: Constant, Getting Worse Location: Reports: Chest, Abdomen, Generalized Quality: Reports: Other Severity: Moderate Improves with: Reports: None Worsens with: Reports: None Context: Reports: Other Left Chest Pain Score (Numeric/FACES): 10 Abdomen Pain Score (Numeric/FACES): 10 - Related Data Allergies Allergy/AdvReac Type Severity Reaction Status Date / Time No Known Allergies Allergy Verified 09/29/18 14:39 Home Meds: Home Meds Acetaminophen [Acetaminophen Extra Strength] 2 tab PO Q6H PRN 08/08/15 [History] QUEtiapine Fumarate [Seroquel] 150 mg PO BEDTIME 08/08/15 [History] Escitalopram Oxalate [Lexapro] 15 mg PO BID 02/08/16 [History] Multivitamin with Minerals [Multivitamins with Minerals] 1 tab PO DAILY [History] Ibuprofen [Motrin] 800 mg PO Q6H PRN 10/03/16 [History] Past Medical History - Past Health History Medical/Surgical History: Denies Medical/Surgical History HEENT History: Reports: Impaired Vision Cardiovascular History: Reports: Heart Murmur Respiratory History: Reports: None Gastrointestinal History: Reports: PUD Genitourinary History: Reports: Renal Calculus, STD, Other (See Below) Other Genitourinary History: GENITAL WARTS 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 or October 2015, Seizure 01/03/16: Seizure [id number] states seizures now in the last 3 days- states they are from "PTSD, and only happen when she is stressed and sick", and describes them as her staring into space and not responding to people who are talking to her. Psychiatric History: Reports: Anxiety, Depression, PTSD, Suicide Attempt, Other (See Below) Other Psychiatric History: CONVERSION DISORDER;. Suicide attempt 2007, Hosp. 2013 with suicidal feelings. Hx of noncompliance Endocrine/Metabolic History: Reports: None Hematologic History: Reports: None Immunologic History: Reports: None Oncologic (Cancer) History: Reports: None Dermatologic History: Reports: None - Infectious Disease History Infectious Disease History: Reports: Chicken Pox Other Infectious Disease History: genital warts - Past Surgical History Head Surgeries/Procedures: Reports: None HEENT Surgical History: Reports: Other (See Below) Respiratory Surgical History: Reports: None GI Surgical History: Reports: None Female Surgical History: Reports: None, Tubal Ligation Musculoskeletal Surgical History: Reports: Amputation, Other (See Below) Other Musculoskeletal Surgeries/Procedures:: left foot surgeries Social & Family History - Family History Family Medical History: Noncontributory - Tobacco Use Smoking Status *Q: Current Every Day Smoker Years of Tobacco use: 15 Packs/Tins Daily: 0.5 - Caffeine Use Caffeine Use: Reports: Coffee, Energy Drinks, Tea - Recreational Drug Use Recreational Drug Use: No - Living Situation & Occupation Living situation: Reports: with Family Occupation: Employed ED ROS GENERAL - Review of Systems Review Of Systems: ROS reveals no pertinent complaints other than HPI. ED EXAM, GENERAL - Physical Exam Exam: See Below Exam Limited By: No Limitations General Appearance: Alert, WD/WN, Mild Distress, Obese Eye Exam: Bilateral Eye: EOMI, Normal Inspection, PERRL Ears: Normal External Exam, Normal Canal, Hearing Grossly Normal, Normal TMs Nose: Normal Inspection, Normal Mucosa, No Blood Throat/Mouth: Normal Inspection, Normal Lips, Normal Teeth, Normal Gums, Normal Oropharynx, Normal Voice, No Airway Compromise Head: Atraumatic, Normocephalic Neck: Normal Inspection, Supple, Non-Tender, Full Range of Motion Respiratory/Chest: No Respiratory Distress, Lungs Clear, Normal Breath Sounds, No Accessory Muscle Use, Chest Non-Tender Cardiovascular: Normal Peripheral Pulses, Regular Rate, Rhythm, No Edema, No Gallop, No JVD, No Murmur, No Rub GI/Abdominal: Normal Bowel Sounds, Soft, Non-Tender, No Organomegaly, No Distention, No Abnormal Bruit, No Mass (Female) Exam: Deferred Rectal (Female) Exam: Deferred Back Exam: Normal Inspection Extremities: Normal Inspection, Normal Range of Motion, Non-Tender, Normal Capillary Refill, No Pedal Edema Neurological: Alert, Oriented, CN II-XII Intact, Normal Cognition, Normal Gait, Normal Reflexes, No Motor/Sensory Deficits Skin Exam: Warm, Dry, Intact, Normal Color, No Rash Lymphatic: No Adenopathy Course - Vital Signs Last Recorded V/S: Last Vital Signs Temp 37.0 C 09/29/18 14:44 Pulse 100 09/29/18 16:02 Resp 12 09/29/18 16:02 BP 115/69 09/29/18 16:02 Pulse Ox 100 09/29/18 16:02 - Orders/Labs/Meds Orders: Active Orders 24 hr Category Date Time Status EKG Documentation Completion [RC] URGENT Care 09/29/18 14:33 Ordered Sodium Chloride 0.9% [Normal Saline] 1,000 ml Med 09/29/18 15:24 Ordered IV .BOLUS Medication Orders Sodium Chloride (Normal Saline) 1,000 mls @ 999 mls/hr IV .BOLUS ONE Stop: 09/29/18 16:24 Last Admin: 09/29/18 15:45 Dose: 999 mls/hr Labs: Laboratory Tests 09/29/18 09/29/18 09/29/18 Range/Units 14:52 14:52 14:52 WBC 6.9 (5.0-10.0) 10^3/uL RBC 4.23 (4.2-5.4) 10^6/uL Hgb 11.2 L (12.0-16.0) g/dL Hct 35.2 L (37.0-47.0) % MCV 83.2 (80-100) fL MCH 26.5 L (27.0-34.0) pg MCHC 31.8 L (33.0-35.0) g/dL Plt Count 319 D (150-450) 10^3/uL Neut % (Auto) 48.5 (42.2-75.2) % Lymph % (Auto) 42.2 (20.5-50.1) % [place] % (Auto) 5.1 (2-8) % Eos % (Auto) 3.9 H (1.0-3.0) % Baso % (Auto) 0.3 (0.0-1.0) % Sodium 137 (135-145) mmol/L Potassium 3.3 L (3.6-5.0) mmol/L Chloride 101 (101-111) mmol/L Carbon Dioxide 26.0 (21.0-31.0) mmol/L Anion Gap 13.3 BUN 12 (7-18) mg/dL Creatinine 0.8 (0.6-1.3) mg/dL Est Cr Clr Drug Dosing 99.08 mL/min Estimated GFR (MDRD) > 60 BUN/Creatinine Ratio 15.00 Glucose 112 H (74-105) mg/dL Calcium 8.5 (8.4-10.2) mg/dl Total Bilirubin 0.6 (0.2-1.0) mg/dL AST 21 (10-42) IU/L ALT 18 (10-60) IU/L Alkaline Phosphatase 61 (42-121) IU/L Troponin I < 0.02 (0.00-0.02) ng/ml Total Protein 6.9 (6.7-8.2) g/dl Albumin 3.7 (3.2-5.5) g/dl Globulin 3.2 Albumin/Globulin Ratio 1.16 Amylase 17 L (28-100) U/L Urine Color (YELLOW) Urine Appearance (CLEAR) Urine pH (5.0-9.0) Ur Specific [place] (1.005-1.030) Urine Protein (NEGATIVE) Urine Glucose (UA) (NEGATIVE) Urine Ketones (NEGATIVE) Urine Occult Blood (NEGATIVE) Urine Nitrite (NEGATIVE) Urine Bilirubin (NEGATIVE) Urine Urobilinogen (0.2-1.0) mg/dL Ur Leukocyte Esterase (NEGATIVE) Urine HCG, Qual Urine Opiates Screen (NEGATIVE) Ur Oxycodone Screen (NEGATIVE) Urine Methadone Screen (NEGATIVE) Ur Barbiturates Screen (NEGATIVE) U Tricyclic Antidepress (NEGATIVE) Ur Phencyclidine Scrn (NEGATIVE) Ur Amphetamine Screen (NEGATIVE) U Methamphetamines Scrn (NEGATIVE) Urine MDMA Screen (NEGATIVE) U Benzodiazepines Scrn (NEGATIVE) Urine Cocaine Screen (NEGATIVE) U Marijuana (THC) Screen (NEGATIVE) Ethyl Alcohol < 5 mg/dL 09/29/18 09/29/18 09/29/18 Range/Units 16:01 16:01 16:01 WBC (5.0-10.0) 10^3/uL RBC (4.2-5.4) 10^6/uL Hgb (12.0-16.0) g/dL Hct (37.0-47.0) % MCV (80-100) fL MCH (27.0-34.0) pg MCHC (33.0-35.0) g/dL Plt Count (150-450) 10^3/uL Neut % (Auto) (42.2-75.2) % Lymph % (Auto) (20.5-50.1) % [place] % (Auto) (2-8) % Eos % (Auto) (1.0-3.0) % Baso % (Auto) (0.0-1.0) % Sodium (135-145) mmol/L Potassium (3.6-5.0) mmol/L Chloride (101-111) mmol/L Carbon Dioxide (21.0-31.0) mmol/L Anion Gap BUN (7-18) mg/dL Creatinine (0.6-1.3) mg/dL Est Cr Clr Drug Dosing mL/min Estimated GFR (MDRD) BUN/Creatinine Ratio Glucose (74-105) mg/dL Calcium (8.4-10.2) mg/dl Total Bilirubin (0.2-1.0) mg/dL AST (10-42) IU/L ALT (10-60) IU/L Alkaline Phosphatase (42-121) IU/L Troponin I (0.00-0.02) ng/ml Total Protein (6.7-8.2) g/dl Albumin (3.2-5.5) g/dl Globulin Albumin/Globulin Ratio Amylase (28-100) U/L Urine Color Yellow (YELLOW) Urine Appearance Clear (CLEAR) Urine pH 6.0 (5.0-9.0) Ur Specific [place] >= 1.030 (1.005-1.030) Urine Protein Negative (NEGATIVE) Urine Glucose (UA) Negative (NEGATIVE) Urine Ketones Negative (NEGATIVE) Urine Occult Blood Negative (NEGATIVE) Urine Nitrite Negative (NEGATIVE) Urine Bilirubin Negative (NEGATIVE) Urine Urobilinogen 0.2 (0.2-1.0) mg/dL Ur Leukocyte Esterase Negative (NEGATIVE) Urine HCG, Qual Negative Urine Opiates Screen Negative (NEGATIVE) Ur Oxycodone Screen Positive H (NEGATIVE) Urine Methadone Screen Negative (NEGATIVE) Ur Barbiturates Screen Negative (NEGATIVE) U Tricyclic Antidepress Positive H (NEGATIVE) Ur Phencyclidine Scrn Negative (NEGATIVE) Ur Amphetamine Screen Negative (NEGATIVE) U Methamphetamines Scrn Negative (NEGATIVE) Urine MDMA Screen Negative (NEGATIVE) U Benzodiazepines Scrn Negative (NEGATIVE) Urine Cocaine Screen Negative (NEGATIVE) U Marijuana (THC) Screen Positive H (NEGATIVE) Ethyl Alcohol mg/dL Meds: Medications Generic Name Dose Route Start Last Admin Trade Name Freq PRN Reason Stop Dose Admin Sodium Chloride 1,000 mls @ 999 mls/hr 09/29/18 15:24 09/29/18 15:45 Normal Saline IV 09/29/18 16:24 999 mls/hr .BOLUS ONE Administration - Re-Assessments/Exams Free Text/Narrative Re-Assessment/Exam: 09/29/18 15:38 The patient reported to nursing staff she was now having left sided facial numbness and left arm numbness. The patient initially reported the numbness started 3 days ago, but again changed the story to it just started when she got into the ED. 09/29/18 16:17 The patient was advised of the remaining lab results and chest x-ray results when the patient stated she was having a rash behind her left ear. The patient reports all of these symptoms started after she was started on the Propranolol. The patient was encouraged to return to the provider that prescribed that medication for any medication adjustments. Departure - Departure Time of Disposition: 16:19 Disposition: Home, Self-Care 01 Condition: Fair Clinical Impression: Medication side effects - Discharge Information *PRESCRIPTION DRUG MONITORING PROGRAM REVIEWED*: Yes *COPY OF PRESCRIPTION DRUG MONITORING REPORT IN PATIENT LINO: Yes Forms: ED Department Discharge Care Plan Goals: The patient was advised of the examination, lab, EKG and x-ray results during the visit. The patient was given a liter of IV fluids while in the ED. The patient was encouraged to return to the provider that prescribed her the most recent medication for continued evaluation and further management. If the patient has any additional symptoms or concerns, the patient should either return to the emergency department or visit her primary care facility. - My Orders Last 24 Hours: My Active Orders 09/29/18 14:33 EKG Documentation Completion [RC] URGENT 09/29/18 15:24 Sodium Chloride 0.9% [Normal Saline] 1,000 ml IV .BOLUS - Assessment/Plan Last 24 Hours: My Active Orders 09/29/18 14:33 EKG Documentation Completion [RC] URGENT 09/29/18 15:24 Sodium Chloride 0.9% [Normal Saline] 1,000 ml IV .BOLUS
[2018-09-29] MEDS ORDERED: Sodium Chloride 0.9% 1,000 ML IV ONE (15:24)
[2018-09-29 16:03] VITALS: BP 115/69
--- NOTE | 2018-09-29 16:13 | CR ---
Clinical history: 33-year-old female shortness of breath. Interpretation: No acute new cardiopulmonary abnormality identified in the interval since 30 October 2016 exam. Normal cardiac silhouette and pulmonary vascularity. No alveolar edema or dependent effusion. Hardy thorax unremarkable. No air trapping. No new lung mass, hilar lymphadenopathy or focal lobar pneumonia. No atelectasis/collapse. No pneumothorax.
== END 2018-09-29 16:28 | disposition home or self-care (01) ==
LOC: DL.ED 14:29
DX: R06.02 Shortness of breath (principal); R20.0 Anesthesia of skin; R21 Rash and other nonspecific skin eruption; T44.7X5A Adverse effect of beta-adrenoreceptor antagonists, initial encounter; F17.210 Nicotine dependence, cigarettes, uncomplicated; F41.9 Anxiety disorder, unspecified; F32.9 Major depressive disorder, single episode, unspecified; Z79.899 Other long term (current) drug therapy
CPT/HCPCS: 36415; 71046; 80053; 80305-QW; 81003; 81025; 82150; 84484; 85025; 87804; 93005; 96365; 99284; G0480; J7030

== ENCOUNTER 2019-01-25 18:47 | Emergency (ER) | payer MEDICAID, OTHER ==
[2019-01-25 19:24] VITALS: BP 127/87; PULSE 103
[2019-01-25] MEDS ORDERED: Ondansetron 4 MG/2 ML SDV IV ONE (20:02)
[2019-01-25] MEDS ORDERED: Ketorolac 30 MG/ML SDV IVPUSH ONE (20:02)
--- NOTE | 2019-01-25 20:06 | EDM.PDOC ---
ED HPI GENERAL MEDICAL PROBLEM - General Chief Complaint: Genitourinary Problem Stated Complaint: KIDNEY STONES [id number] Time Seen by Provider: 01/25/19 20:04 Source of Information: Reports: Patient History Limitations: Reports: No Limitations - History of Present Illness INITIAL COMMENTS - FREE TEXT/NARRATIVE: h/o K stones usually on left but today on right. onset this am and pain woke her up. 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: Reports: Acetaminophen Right Lower Back Pain Score (Numeric/FACES): 9 - Related Data Allergies Allergy/AdvReac Type Severity Reaction Status Date / Time No Known Allergies Allergy Verified 01/25/19 19:24 Home Meds: Home Meds Acetaminophen [Acetaminophen Extra Strength] 2 tab PO Q6H PRN 08/08/15 [History] QUEtiapine Fumarate [Seroquel] 150 mg PO BEDTIME 08/08/15 [History] Escitalopram Oxalate [Lexapro] 15 mg PO DAILY 02/08/16 [History] Multivitamin with Minerals [Multivitamins with Minerals] 1 tab PO DAILY [History] Past Medical History - Past Health History Medical/Surgical History: Denies Medical/Surgical History HEENT History: Reports: Impaired Vision Cardiovascular History: Reports: Heart Murmur Respiratory History: Reports: None Gastrointestinal History: Reports: PUD Genitourinary History: Reports: Renal Calculus, STD, Other (See Below) Other Genitourinary History: 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 Psychiatric History: Reports: Anxiety, Depression, PTSD, Suicide Attempt, Other (See Below) Other Psychiatric History: CONVERSION DISORDER;. Suicide attempt 2007, Hosp. 2013 with suicidal feelings. Hx of noncompliance Endocrine/Metabolic History: Reports: None Hematologic History: Reports: None Immunologic History: Reports: None Oncologic (Cancer) History: Reports: None Dermatologic History: Reports: None - Infectious Disease History Infectious Disease History: Reports: Chicken Pox Other Infectious Disease History: genital warts - Past Surgical History Head Surgeries/Procedures: Reports: None HEENT Surgical History: Reports: Other (See Below) Respiratory Surgical History: Reports: None GI Surgical History: Reports: None Female Surgical History: Reports: None, Tubal Ligation Musculoskeletal Surgical History: Reports: Amputation, Other (See Below) Other Musculoskeletal Surgeries/Procedures:: left foot surgeries 3rd toe Social & Family History - Family History Family Medical History: Noncontributory - Tobacco Use Smoking Status *Q: Current Every Day Smoker Years of Tobacco use: 10 Packs/Tins Daily: 0.5 Second Hand Smoke Exposure: No - Caffeine Use Caffeine Use: Reports: Coffee - Recreational Drug Use Recreational Drug Use: No - Living Situation & Occupation Living situation: Reports: with Family Occupation: Employed ED ROS GENERAL - Review of Systems Review Of Systems: ROS reveals no pertinent complaints other than HPI. ED EXAM, RENAL/ - Physical Exam Exam: See Below Exam Limited By: No Limitations General Appearance: Alert, WD/WN, Mild Distress, Other (discomfort) Ears: Hearing Grossly Normal Throat/Mouth: Normal Voice, No Airway Compromise Head: Atraumatic Neck: Non-Tender, Full Range of Motion Respiratory/Chest: No Respiratory Distress Cardiovascular: Regular Rate, Rhythm GI/Abdominal: Soft, Non-Tender Back Exam: CVA Tenderness (R) Neurological: Alert, Oriented, Normal Cognition, Normal Gait, No Motor/Sensory Deficits Psychiatric: Tearful Skin Exam: Warm, Dry, Normal Color Lymphatic: No Adenopathy Course - Vital Signs Last Recorded V/S: Last Vital Signs Temp 36.3 C 01/25/19 19:19 Pulse 103 H 01/25/19 19:19 Resp 20 01/25/19 19:19 BP 127/87 01/25/19 19:19 Pulse Ox 100 01/25/19 19:19 - Orders/Labs/Meds Orders: Active Orders 24 hr Category Date Time Status Abdomen Pelvis wo Cont [CT] Urgent Exams 01/25/19 20:25 Taken CULTURE URINE [RM] Routine Lab 01/25/19 19:08 Received Orphenadrine [Norflex] Med 01/25/19 22:00 Ordered 60 mg IM Q12H Medication Orders Orphenadrine Citrate (Norflex) 60 mg IM Q12H IONA Labs: Laboratory Tests 01/25/19 01/25/19 01/25/19 Range/Units 19:08 19:08 19:08 WBC (5.0-10.0) 10^3/uL RBC (4.2-5.4) 10^6/uL Hgb (12.0-16.0) g/dL Hct (37.0-47.0) % MCV (80-100) fL MCH (27.0-34.0) pg MCHC (33.0-35.0) g/dL Plt Count (150-450) 10^3/uL Neut % (Auto) (42.2-75.2) % Lymph % (Auto) (20.5-50.1) % [place] % (Auto) (2-8) % Eos % (Auto) (1.0-3.0) % Baso % (Auto) (0.0-1.0) % Sodium (135-145) mmol/L Potassium (3.6-5.0) mmol/L Chloride (101-111) mmol/L Carbon Dioxide (21.0-31.0) mmol/L Anion Gap BUN (7-18) mg/dL Creatinine (0.6-1.3) mg/dL Est Cr Clr Drug Dosing mL/min Estimated GFR (MDRD) BUN/Creatinine Ratio Glucose (74-105) mg/dL Calcium (8.4-10.2) mg/dl Total Bilirubin (0.2-1.0) mg/dL AST (10-42) IU/L ALT (10-60) IU/L Alkaline Phosphatase (42-121) IU/L Total Protein (6.7-8.2) g/dl Albumin (3.2-5.5) g/dl Globulin Albumin/Globulin Ratio Urine Color Yellow (YELLOW) Urine Appearance Clear (CLEAR) Urine pH 7.0 (5.0-9.0) Ur Specific [place] 1.025 (1.005-1.030) Urine Protein Negative (NEGATIVE) Urine Glucose (UA) Negative (NEGATIVE) Urine Ketones Negative (NEGATIVE) Urine Occult Blood Negative (NEGATIVE) Urine Nitrite Negative (NEGATIVE) Urine Bilirubin Negative (NEGATIVE) Urine Urobilinogen 0.2 (0.2-1.0) mg/dL Ur Leukocyte Esterase Trace H (NEGATIVE) Urine RBC 0-5 /HPF Urine WBC 5-10 H (0-5/HPF) /HPF Ur Epithelial Cells Moderate H (NOT SEEN) /HPF Urine Bacteria Few (0-FEW/HPF) /HPF Urine Mucus Few H (NOT SEEN) /LPF Urine HCG, Qual Negative Urine Opiates Screen Negative (NEGATIVE) Ur Oxycodone Screen Positive H (NEGATIVE) Urine Methadone Screen Negative (NEGATIVE) Ur Barbiturates Screen Negative (NEGATIVE) U Tricyclic Antidepress Positive H (NEGATIVE) Ur Phencyclidine Scrn Negative (NEGATIVE) Ur Amphetamine Screen Negative (NEGATIVE) U Methamphetamines Scrn Negative (NEGATIVE) Urine MDMA Screen Negative (NEGATIVE) U Benzodiazepines Scrn Negative (NEGATIVE) Urine Cocaine Screen Negative (NEGATIVE) U Marijuana (THC) Screen Positive H (NEGATIVE) 01/25/19 01/25/19 Range/Units 19:36 19:36 WBC 7.4 (5.0-10.0) 10^3/uL RBC 4.89 (4.2-5.4) 10^6/uL Hgb 13.0 D (12.0-16.0) g/dL Hct 40.7 (37.0-47.0) % MCV 83.2 (80-100) fL MCH 26.6 L (27.0-34.0) pg MCHC 31.9 L (33.0-35.0) g/dL Plt Count 366 (150-450) 10^3/uL Neut % (Auto) 60.7 (42.2-75.2) % Lymph % (Auto) 31.2 (20.5-50.1) % [place] % (Auto) 6.4 (2-8) % Eos % (Auto) 1.4 (1.0-3.0) % Baso % (Auto) 0.3 (0.0-1.0) % Sodium 138 (135-145) mmol/L Potassium 4.1 (3.6-5.0) mmol/L Chloride 106 (101-111) mmol/L Carbon Dioxide 23.0 (21.0-31.0) mmol/L Anion Gap 13.1 BUN 16 (7-18) mg/dL Creatinine 0.7 (0.6-1.3) mg/dL Est Cr Clr Drug Dosing 109.01 mL/min Estimated GFR (MDRD) > 60 BUN/Creatinine Ratio 22.85 Glucose 104 (74-105) mg/dL Calcium 9.3 (8.4-10.2) mg/dl Total Bilirubin 0.3 (0.2-1.0) mg/dL AST 19 (10-42) IU/L ALT 16 (10-60) IU/L Alkaline Phosphatase 59 (42-121) IU/L Total Protein 8.0 (6.7-8.2) g/dl Albumin 4.3 (3.2-5.5) g/dl Globulin 3.7 Albumin/Globulin Ratio 1.16 Urine Color (YELLOW) Urine Appearance (CLEAR) Urine pH (5.0-9.0) Ur Specific [place] (1.005-1.030) Urine Protein (NEGATIVE) Urine Glucose (UA) (NEGATIVE) Urine Ketones (NEGATIVE) Urine Occult Blood (NEGATIVE) Urine Nitrite (NEGATIVE) Urine Bilirubin (NEGATIVE) Urine Urobilinogen (0.2-1.0) mg/dL Ur Leukocyte Esterase (NEGATIVE) Urine RBC /HPF Urine WBC (0-5/HPF) /HPF Ur Epithelial Cells (NOT SEEN) /HPF Urine Bacteria (0-FEW/HPF) /HPF Urine Mucus (NOT SEEN) /LPF Urine HCG, Qual Urine Opiates Screen (NEGATIVE) Ur Oxycodone Screen (NEGATIVE) Urine Methadone Screen (NEGATIVE) Ur Barbiturates Screen (NEGATIVE) U Tricyclic Antidepress (NEGATIVE) Ur Phencyclidine Scrn (NEGATIVE) Ur Amphetamine Screen (NEGATIVE) U Methamphetamines Scrn (NEGATIVE) Urine MDMA Screen (NEGATIVE) U Benzodiazepines Scrn (NEGATIVE) Urine Cocaine Screen (NEGATIVE) U Marijuana (THC) Screen (NEGATIVE) Meds: Medications Generic Name Dose Route Start Last Admin Trade Name Freq PRN Reason Stop Dose Admin Orphenadrine Citrate 60 mg 01/25/19 22:00 Norflex IM Q12H IONA Discontinued Medications Generic Name Dose Route Start Last Admin Trade Name Freq PRN Reason Stop Dose Admin Ketorolac Tromethamine 30 mg 01/25/19 20:02 01/25/19 20:15 Toradol IVPUSH 01/25/19 20:03 30 mg ONETIME ONE Administration Morphine Sulfate 2 mg 01/25/19 21:26 01/25/19 21:31 Morphine IVPUSH 01/25/19 21:27 2 mg ONETIME ONE Administration Ondansetron HCl 4 mg 01/25/19 20:02 01/25/19 20:18 Zofran IV 01/25/19 20:03 4 mg ONETIME ONE Administration Trimethoprim/Sulfamethoxazole 1 tab 01/25/19 21:54 Septra Ds PO 01/25/19 21:55 ONETIME ONE - Re-Assessments/Exams Free Text/Narrative Re-Assessment/Exam: 01/25/19 21:55 results discussed with pt Departure - Departure Time of Disposition: 21:55 Disposition: Home, Self-Care 01 Condition: Good Clinical Impression: Lumbar paraspinal muscle spasm, UTI, Urinary tract infectious disease - Discharge Information Instructions: Muscle Cramps and Spasms, [id number] Forms: ED Department Discharge Additional Instructions: 1) avoid bending lifting straining 2) try ice or heat to sore areas 3) see clinic tomorrow for possible MRI SCAN of back rx given; bactrim DS bid x 20 - My Orders Last 24 Hours: My Active Orders 01/25/19 19:08 CULTURE URINE [RM] Routine 01/25/19 20:25 Abdomen Pelvis wo Cont [CT] Urgent 01/25/19 22:00 Orphenadrine [Norflex] 60 mg IM Q12H - Assessment/Plan Last 24 Hours: My Active Orders 01/25/19 19:08 CULTURE URINE [RM] Routine 01/25/19 20:25 Abdomen Pelvis wo Cont [CT] Urgent 01/25/19 22:00 Orphenadrine [Norflex] 60 mg IM Q12H
[2019-01-25 20:08] LABS: ANION GAP 13.1; CHLORIDE,CL 106 mmol/L (101-111); SODIUM,NA 138 mmol/L (135-145)
[2019-01-25] MEDS ORDERED: Morphine 2 MG/ML Syringe IVPUSH ONE (21:26)
[2019-01-25] MEDS ORDERED: Sulfamethoxazole/Trimethoprim 800-160 MG Tab PO ONE (21:54)
== END 2019-01-25 22:11 | disposition home or self-care (01) ==
LOC: DL.ED 18:47
DX: N39.0 Urinary tract infection, site not specified (principal); M62.830 Muscle spasm of back; F41.9 Anxiety disorder, unspecified; F32.9 Major depressive disorder, single episode, unspecified; F17.210 Nicotine dependence, cigarettes, uncomplicated; Z98.51 Tubal ligation status; Z79.899 Other long term (current) drug therapy
CPT/HCPCS: 36415; 74176; 80053; 80305; 81001; 81025; 85025; 87086; 96372; 96374; 96375; 99284; A9270; J1885; J2270; J2360; J2405

== ENCOUNTER 2019-01-29 08:06 | Day surgery (SDC) | payer MEDICAID ==
[~2019-01-29 08:06] MED LIST: Lactated Ringers 1,000 ML IV SCH; Sodium Chloride 0.9% 10 ML Syringe FLUSH PRN; ceFAZolin 2 GM in Premix Bag 1 BAG IV ONE
[2019-01-29] MEDS ORDERED: Midazolam 1 MG/ML 2 ML SDV IV ONE (08:07)
[2019-01-29] MEDS ORDERED: Ondansetron 4 MG/2 ML SDV IV ONE (08:07)
[2019-01-29] MEDS ORDERED: Dexamethasone 4 MG/ML SDV IV ONE (08:07)
[2019-01-29] MEDS ORDERED: fentaNYL 100 MCG/2 ML SDV IV ONE (08:07)
[2019-01-29] MEDS ORDERED: Propofol 200 MG/20 ML SDV IV ONE (08:07)
[2019-01-29] MEDS ORDERED: Ketorolac 30 MG/ML SDV IVPUSH ONE (08:07)
[2019-01-29] MEDS ORDERED: Lidocaine 1% 30 ML SDV ONE (09:24)
[2019-01-29] MEDS ORDERED: Bupivacaine 0.5% 30 ML SDV ONE (09:24)
[2019-01-29] MEDS ORDERED: Bupivacaine 0.5% 30 ML SDV INJECT ONE ×3 (10:03→13:12)
[2019-01-29] MEDS ORDERED: Lidocaine 1% 30 ML SDV INJECT ONE ×3 (10:03→13:12)
[2019-01-29] MEDS ORDERED: Betamethasone Acetate/Betamethasone Sod Phosphate 30 MG/5 ML MDV ONE ×2 (10:14→11:01)
[2019-01-29] MEDS ORDERED: Acetaminophen/oxyCODONE 325-5 MG Tab PO PRN (11:13)
--- NOTE | 2019-01-29 11:16 | PCM.OPNOTE ---
- General Post-Op/Procedure Note Date of Surgery/Procedure: 01/29/19 Operative Procedure(s): left foot revision 3rd digit amputation phalanx base and scar tissue excision, betamethasone injection Pre Op Diagnosis: left foot painful 3rd amputation site with scar tissue Post-Op Diagnosis: alphonso Anesthesia Technique: Local, MAC Primary Surgeon: Selam Aaron Anesthesia Provider: Walter Vilchis EBL in mLs: 5 Complications: none Condition: Good Free Text/Narrative:: Intake & Output 01/28/19 01/29/19 01/29/19 22:59 06:59 14:59 Intake Total 50 Balance 50 Pt tolerated procedure well and was transported to recovery with vascular status intact to left foot. Well padded compression dressing applied.
[2019-01-29] MEDS ORDERED: Pregabalin 75 MG Cap PO PRN (12:00)
[2019-01-29 12:32] VITALS: BP 96/75
[2019-01-29] MEDS ORDERED: Betamethasone Acetate/Betamethasone Sod Phosphate 30 MG/5 ML MDV IM ONE (13:12)
--- NOTE | 2019-01-30 21:02 | OR ---
DATE: 01/29/2019 PREOPERATIVE DIAGNOSIS: Left foot painful amputation site of the third digit with scar tissue. POSTOPERATIVE DIAGNOSIS: Left foot painful amputation site of the third digit with scar tissue. PROCEDURE PERFORMED: Left foot revision of third digit amputation of the proximal phalanx base with scar tissue excision. ANESTHESIA: Local MAC with preoperative local block of 10 mL of 1:1 mixture of 1% lidocaine plain and 0.5% Marcaine plain. TOURNIQUET TIME: 52 minutes of pneumatic ankle tourniquet. ESTIMATED BLOOD LOSS: Minimal. SPECIMENS: None. COMPLICATIONS: None. INDICATIONS: Therese is a 33-year-old female who presents for chronic left foot pain. She had an amputation of the left third digit a couple of years ago. She has been having pain in her foot still to that area. It is causing her to walk differently and has caused a stress fracture in her foot as well as sesamoid pain. Those have both since healed with Cam boot, but her third digit area is still very painful. Now she is having pain to underneath the amputation site where she feels a rubbing/clicking when she is trying to push off during gait. The foot will swell up on her. She has tried wearing ankle braces, which does help. She also is using a TENS unit and Voltaren Gel. She still gets cramping at night in that foot. She has also tried physical therapy and injections in the past. X-rays of the left foot reveal amputation site at the third digit with the base still intact of the proximal phalanx. MRI of the left foot reveals a stress fracture at base of second metatarsal, some increased signal at the tibial sesamoid, there is increased signal to the distal third digit amputation site, which looks like either possible seroma versus inflammation tissue at that site. No signs of neuroma. The patient voiced good understanding of the proposed procedure and possible complications and elects to have surgery at this time. DESCRIPTION OF PROCEDURE: The patient was taken to the operating room lying in supine position. After adequate anesthesia induction as described above, the left foot was prepped and draped in the usual sterile fashion. A pneumatic ankle tourniquet was inflated to 225 mmHg. Attention was then directed to the amputation site of the left foot third digit where a linear incision was made overlying the base of the proximal phalanx of the third toe. Sharp and blunt dissection were performed down to the level of the proximal phalanx base. Care was taken to retract all neurovascular structures. There was some scar tissue in this area and that was removed. The proximal phalanx base was completely excised from the foot. The area was inspected and there was noted to be some scarred tissue at the distal aspect of the amputation site. This was removed with a skin plasty going down all the way to the scar tissue. I also took the tendons and transected the tendons as far proximally as I could, both on the dorsal and plantar surface of that toe. I checked the second interspace where she was having some pain and there was not any type of neuroma or nerve present in that area. I inspected the area for any other signs of scar tissue or inflammation tissue and it was all cleared. I then simulated weightbearing push- offs, and I was not able to feel the clicking or rubbing that was present preoperatively. The area was then irrigated with copious amounts of sterile saline. Deep closure was completed with 3-0 Vicryl and skin closure was completed with 4-0 nylon and that skin plasty on the distal aspect closed nicely. I then injected the second and third interspace with betamethasone. The area was then dressed with Xeroform to the incision site, fluffs, Webril, and a well padded compression dressing was applied. She was placed into a Cam boot. The patient tolerated the procedure well and was transferred to recovery with vital signs stable and vascular status intact as noted by immediate hyperemia to all digits upon deflation of the ankle tourniquet. She was then discharged home when she met hospital discharge requirements. [facility] /[id number]
== END 2019-01-29 13:05 | disposition home or self-care (01) ==
LOC: DL.SDS 08:06
PROVIDERS: ATTEND Podiatrist
DX: M79.672 Pain in left foot (principal); G89.28 Other chronic postprocedural pain; L90.5 Scar conditions and fibrosis of skin; Z89.432 Acquired absence of left foot; K27.9 Peptic ulcer, site unspecified, unspecified as acute or chronic, without hemorrhage or perforation; F41.9 Anxiety disorder, unspecified; F32.9 Major depressive disorder, single episode, unspecified; F43.10 Post-traumatic stress disorder, unspecified; F17.210 Nicotine dependence, cigarettes, uncomplicated; F12.10 Cannabis abuse, uncomplicated; E66.9 Obesity, unspecified; Z68.38 Body mass index [BMI] 38.0-38.9, adult; Z79.899 Other long term (current) drug therapy
CPT/HCPCS: 81025; A4217; A9270-GY; J0690; J0702; J1100; J1885; J2001; J2250; J2405; J2704; J3010; J3490; J7120

== ENCOUNTER 2019-05-28 12:47 | Observation (INO) | payer MEDICAID ==
--- NOTE | 2019-05-28 13:19 | EDM.PDOC ---
ED HPI GENERAL MEDICAL PROBLEM - General Chief Complaint: Gastrointestinal Problem Stated Complaint: UNABLE TO CONTAIN SOLID FOOD Time Seen by Provider: 05/28/19 13:18 Source of Information: Reports: Patient, RN, RN Notes Reviewed History Limitations: Reports: No Limitations - History of Present Illness INITIAL COMMENTS - FREE TEXT/NARRATIVE: Pt to ER with c/o N/V since Saturday. Patient states no one else around her has been ill. She states she was in the ICU with her mother and unsure if she picked something up there. Patient states she last tried to have a popsicle at 0100 but vomited it up. Admits to chills, chest pains, and SOB at times. Denies diarrhea, fever, cough. Denies chances of , states tubes tied. States last BM this morning and was normal for her. Onset: Sudden Onset Date: 05/25/19 Duration: Intermittent Location: Reports: Abdomen Abdomen Pain Score (Numeric/FACES): 7 - Related Data Allergies Allergy/AdvReac Type Severity Reaction Status Date / Time No Known Allergies Allergy Verified 05/28/19 12:58 Home Meds: Home Meds Acetaminophen [Acetaminophen Extra Strength] 1,000 mg PO Q6H PRN 08/08/15 [ History] QUEtiapine Fumarate [Seroquel] 150 mg PO BEDTIME 08/08/15 [History] Escitalopram Oxalate [Lexapro] 15 mg PO DAILY 02/08/16 [History] Multivitamin with Minerals [Multivitamins with Minerals] 1 tab PO DAILY [History] Albuterol [Proventil HFA] 1 - 2 puff INH ASDIRECTED 01/28/19 [History] Cyclobenzaprine [Flexeril] 10 mg PO ASDIRECTED 01/28/19 [History] Diclofenac Sodium [Voltaren 1% Gel] 1 applic TOP ASDIRECTED PRN 01/28/19 [ History] buPROPion [Wellbutrin SR] 150 mg PO DAILY 01/28/19 [History] oxyCODONE HCl/Acetaminophen [Percocet 10-325 mg Tablet] 1 tab PO ASDIRECTED PRN 01/28/19 [History] Past Medical History - Past Health History Medical/Surgical History: Denies Medical/Surgical History HEENT History: Reports: Impaired Vision Other HEENT History: WEARS GLASSES Cardiovascular History: Reports: Heart Murmur Respiratory History: Reports: None Gastrointestinal History: Reports: PUD Genitourinary History: Reports: Renal Calculus, STD, Other (See Below) Other Genitourinary History: GENITAL WARTS VETERINARY PATHOLOGIST History: Reports: , Other (See Below) Other VETERINARY PATHOLOGIST History: HX OF GENITAL WARTS Musculoskeletal History: Reports: Arthritis, Back Pain, Chronic Other Musculoskeletal History: LEFT FOOT Neurological History: Reports: Seizure Other Neuro History: Seizure in or October 2015, Seizure 01/03/16: Seizure [id number] states they are from "PTSD, and only happen when she is stressed and sick", and describes them as her staring into space and not responding to people who are talking to her. Psychiatric History: Reports: Anxiety, Depression, PTSD, Suicide Attempt, Other (See Below) Other Psychiatric History: CONVERSION DISORDER;. Suicide attempt 2007, Hosp. 2013 with suicidal feelings. Hx of noncompliance Endocrine/Metabolic History: Reports: None, Obesity/BMI 30+ Hematologic History: Reports: None Immunologic History: Reports: None Oncologic (Cancer) History: Reports: None Dermatologic History: Reports: None - Infectious Disease History Infectious Disease History: Reports: Chicken Pox Other Infectious Disease History: genital warts - Past Surgical History Head Surgeries/Procedures: Reports: None HEENT Surgical History: Reports: Other (See Below) Other HEENT Surgeries/Procedures: LACERATION OF PINNA Cardiovascular Surgical History: Reports: None Respiratory Surgical History: Reports: None GI Surgical History: Reports: None Female Surgical History: Reports: None, Tubal Ligation Endocrine Surgical History: Reports: None Neurological Surgical History: Reports: None Musculoskeletal Surgical History: Reports: Amputation, Other (See Below) Other Musculoskeletal Surgeries/Procedures:: left foot surgeries 3rd toe Social & Family History - Family History Family Medical History: Noncontributory - Tobacco Use Smoking Status *Q: Current Every Day Smoker Years of Tobacco use: 15 Packs/Tins Daily: 0.5 Second Hand Smoke Exposure: No - Caffeine Use Caffeine Use: Reports: Coffee, Soda Other Caffeine Use: OCCASIONAL COFEE. OCCASIONAL ENERGY DRINK - Recreational Drug Use Recreational Drug Use: No - Living Situation & Occupation Living situation: Reports: with Family Occupation: Employed ED ROS GENERAL - Review of Systems Review Of Systems: ROS reveals no pertinent complaints other than HPI. ED EXAM, GI/ABD - Physical Exam Exam: See Below Exam Limited By: No Limitations General Appearance: Alert, WD/WN, Mild Distress Eyes: Bilateral: Normal Appearance, EOMI Ears: Normal External Exam, Hearing Grossly Normal Nose: Normal Inspection Throat/Mouth: Normal Inspection, Normal Voice, No Airway Compromise Head: Atraumatic, Normocephalic Neck: Normal Inspection, Supple, Non-Tender, Full Range of Motion Respiratory/Chest: No Respiratory Distress, Lungs Clear, Normal Breath Sounds, No Accessory Muscle Use, Chest Non-Tender Cardiovascular: Normal Peripheral Pulses, Regular Rate, Rhythm, No Edema, No Gallop, No JVD, No Murmur, No Rub GI/Abdominal Exam: Normal Bowel Sounds, Soft, No Organomegaly, No Distention, No Abnormal Bruit, No Mass, Pelvis Stable, Tender (Female) Exam: Deferred Rectal (Female) Exam: Deferred Back Exam: Normal Inspection, Full Range of Motion, NT Extremities: Normal Inspection, Normal Range of Motion, Non-Tender, Normal Capillary Refill, No Pedal Edema Neurological: Alert, Oriented, CN II-XII Intact, Normal Cognition, Normal Gait, Normal Reflexes, No Motor/Sensory Deficits Psychiatric: Normal Affect, Normal Mood Skin Exam: Dry, Intact, No Rash, Cool, Pallor Lymphatic: No Adenopathy Course - Vital Signs Last Recorded V/S: Last Vital Signs Temp 98.6 F 05/28/19 16:01 Pulse 80 05/28/19 16:01 Resp 18 05/28/19 16:01 BP 117/55 L 05/28/19 16:01 Pulse Ox 100 05/28/19 16:01 - Orders/Labs/Meds Orders: Active Orders 24 hr Category Date Time Status Peripheral IV Care [RC] . DIRECTED Care 05/28/19 13:24 Active Sodium Chloride 0.9% [Saline Flush] Med 05/28/19 13:24 Active 10 ml FLUSH ASDIRECTED PRN Peripheral IV Insertion Adult [OM.PC] Stat Oth 05/28/19 13:24 Ordered Medication Orders Sodium Chloride (Saline Flush) 10 ml FLUSH ASDIRECTED PRN PRN Reason: Keep Vein Open Last Admin: 05/28/19 13:58 Dose: 10 ml Labs: Laboratory Tests 05/28/19 05/28/19 05/28/19 Range/Units 13:45 13:45 13:45 WBC 7.6 (5.0-10.0) 10^3/uL RBC 4.79 (4.2-5.4) 10^6/uL Hgb 12.7 (12.0-16.0) g/dL Hct 40.0 (37.0-47.0) % MCV 83.5 (80-100) fL MCH 26.5 L (27.0-34.0) pg MCHC 31.8 L (33.0-35.0) g/dL Plt Count 402 (150-450) 10^3/uL Neut % (Auto) 67.4 (42.2-75.2) % Lymph % (Auto) 23.1 (20.5-50.1) % Victoria % (Auto) 4.8 (2-8) % Eos % (Auto) 4.2 H (1.0-3.0) % Baso % (Auto) 0.5 (0.0-1.0) % Sodium 137 (135-145) mmol/L Potassium 4.5 (3.6-5.0) mmol/L Chloride 102 (101-111) mmol/L Carbon Dioxide 25.0 (21.0-31.0) mmol/L Anion Gap 14.5 BUN 11 (7-18) mg/dL Creatinine 0.7 (0.6-1.3) mg/dL Est Cr Clr Drug Dosing 110.10 mL/min Estimated GFR (MDRD) > 60 BUN/Creatinine Ratio 15.71 Glucose 99 (74-105) mg/dL Calcium 9.3 (8.4-10.2) mg/dl Total Bilirubin 0.8 (0.2-1.0) mg/dL AST 30 (10-42) IU/L ALT 22 (10-60) IU/L Alkaline Phosphatase 60 (42-121) IU/L Total Protein 8.1 (6.7-8.2) g/dl Albumin 4.2 (3.2-5.5) g/dl Globulin 3.9 Albumin/Globulin Ratio 1.08 Amylase 20 L (28-100) U/L Lipase 26 (22-51) U/L HCG, Qual Urine Color (YELLOW) Urine Appearance (CLEAR) Urine pH (5.0-9.0) Ur Specific [place] (1.005-1.030) Urine Protein (NEGATIVE) Urine Glucose (UA) (NEGATIVE) Urine Ketones (NEGATIVE) Urine Occult Blood (NEGATIVE) Urine Nitrite (NEGATIVE) Urine Bilirubin (NEGATIVE) Urine Urobilinogen (0.2-1.0) mg/dL Ur Leukocyte Esterase (NEGATIVE) Urine Opiates Screen (NEGATIVE) Ur Oxycodone Screen (NEGATIVE) Urine Methadone Screen (NEGATIVE) Ur Barbiturates Screen (NEGATIVE) U Tricyclic Antidepress (NEGATIVE) Ur Phencyclidine Scrn (NEGATIVE) Ur Amphetamine Screen (NEGATIVE) U Methamphetamines Scrn (NEGATIVE) Urine MDMA Screen (NEGATIVE) U Benzodiazepines Scrn (NEGATIVE) Urine Cocaine Screen (NEGATIVE) U Marijuana (THC) Screen (NEGATIVE) Ethyl Alcohol < 5 mg/dL 05/28/19 05/28/19 05/28/19 Range/Units 13:45 15:20 15:20 WBC (5.0-10.0) 10^3/uL RBC (4.2-5.4) 10^6/uL Hgb (12.0-16.0) g/dL Hct (37.0-47.0) % MCV (80-100) fL MCH (27.0-34.0) pg MCHC (33.0-35.0) g/dL Plt Count (150-450) 10^3/uL Neut % (Auto) (42.2-75.2) % Lymph % (Auto) (20.5-50.1) % Victoria % (Auto) (2-8) % Eos % (Auto) (1.0-3.0) % Baso % (Auto) (0.0-1.0) % Sodium (135-145) mmol/L Potassium (3.6-5.0) mmol/L Chloride (101-111) mmol/L Carbon Dioxide (21.0-31.0) mmol/L Anion Gap BUN (7-18) mg/dL Creatinine (0.6-1.3) mg/dL Est Cr Clr Drug Dosing mL/min Estimated GFR (MDRD) BUN/Creatinine Ratio Glucose (74-105) mg/dL Calcium (8.4-10.2) mg/dl Total Bilirubin (0.2-1.0) mg/dL AST (10-42) IU/L ALT (10-60) IU/L Alkaline Phosphatase (42-121) IU/L Total Protein (6.7-8.2) g/dl Albumin (3.2-5.5) g/dl Globulin Albumin/Globulin Ratio Amylase (28-100) U/L Lipase (22-51) U/L HCG, Qual Negative Urine Color Yellow (YELLOW) Urine Appearance Clear (CLEAR) Urine pH 7.0 (5.0-9.0) Ur Specific [place] 1.015 (1.005-1.030) Urine Protein Negative (NEGATIVE) Urine Glucose (UA) Negative (NEGATIVE) Urine Ketones 40 H (NEGATIVE) Urine Occult Blood Negative (NEGATIVE) Urine Nitrite Negative (NEGATIVE) Urine Bilirubin Negative (NEGATIVE) Urine Urobilinogen 0.2 (0.2-1.0) mg/dL Ur Leukocyte Esterase Negative (NEGATIVE) Urine Opiates Screen Negative (NEGATIVE) Ur Oxycodone Screen Positive H (NEGATIVE) Urine Methadone Screen Negative (NEGATIVE) Ur Barbiturates Screen Negative (NEGATIVE) U Tricyclic Antidepress Negative (NEGATIVE) Ur Phencyclidine Scrn Negative (NEGATIVE) Ur Amphetamine Screen Negative (NEGATIVE) U Methamphetamines Scrn Negative (NEGATIVE) Urine MDMA Screen Negative (NEGATIVE) U Benzodiazepines Scrn Negative (NEGATIVE) Urine Cocaine Screen Negative (NEGATIVE) U Marijuana (THC) Screen Positive H (NEGATIVE) Ethyl Alcohol mg/dL Meds: Medications Generic Name Dose Route Start Last Admin Trade Name Freq PRN Reason Stop Dose Admin Sodium Chloride 10 ml 05/28/19 13:24 05/28/19 13:58 Saline Flush FLUSH 10 ml ASDIRECTED PRN Administration Keep Vein Open Discontinued Medications Generic Name Dose Route Start Last Admin Trade Name Freq PRN Reason Stop Dose Admin Hydromorphone HCl 1 mg 05/28/19 15:20 05/28/19 15:24 Dilaudid IVPUSH 05/28/19 15:21 1 mg ONETIME ONE Administration Lactated Ringer's 1,000 mls @ 999 mls/hr 05/28/19 13:24 05/28/19 13:54 Ringers, Lactated IV 05/28/19 14:24 999 mls/hr .BOLUS ONE Administration Sodium Chloride 1,000 mls @ 999 mls/hr 05/28/19 15:20 05/28/19 15:23 Normal Saline IV 05/28/19 16:20 999 mls/hr .BOLUS ONE Administration Iopamidol 100 ml 05/28/19 14:24 05/28/19 15:03 Isovue-300 (61%) IVPUSH 05/28/19 14:25 100 ml ONETIME ONE Administration Metoclopramide HCl 10 mg 05/28/19 14:23 05/28/19 14:28 Reglan IVPUSH 05/28/19 14:24 10 mg ONETIME ONE Administration Ondansetron HCl 4 mg 05/28/19 13:24 05/28/19 13:57 Zofran IV 05/28/19 13:25 4 mg ONETIME ONE Administration Promethazine HCl 25 mg 05/28/19 14:42 05/28/19 14:53 Phenergan IM 05/28/19 14:43 25 mg ONETIME ONE Administration - Radiology Interpretation Free Text/Narrative:: CT Abdomen/Pelvis with contrast: Tubal ligation. Diverticulosis left colon. Solitary 3 cm left ovarian cyst. No sign of acute inflammation or other intraperitoneal abnormality. See rad report - Re-Assessments/Exams Free Text/Narrative Re-Assessment/Exam: 05/28/19 16:20 Discussed patient case with Dr. Pedro who agreed to accept the patient for observation admission. 05/28/19 16:21 Departure - Departure Time of Disposition: 16:21 Disposition: Refer to Observation Condition: Fair Clinical Impression: Vomiting Abdominal pain Qualifiers: Abdominal location: lower abdomen, unspecified Qualified Code(s): R10.30 - Lower abdominal pain, unspecified - Discharge Information *PRESCRIPTION DRUG MONITORING PROGRAM REVIEWED*: No *COPY OF PRESCRIPTION DRUG MONITORING REPORT IN PATIENT LINO: No Forms: ED Department Discharge - My Orders Last 24 Hours: My Active Orders 05/28/19 13:24 Peripheral IV Care [RC] . DIRECTED Sodium Chloride 0.9% [Saline Flush] 10 ml FLUSH ASDIRECTED PRN Peripheral IV Insertion Adult [OM.PC] Stat - Assessment/Plan Last 24 Hours: My Active Orders 05/28/19 13:24 Peripheral IV Care [RC] . DIRECTED Sodium Chloride 0.9% [Saline Flush] 10 ml FLUSH ASDIRECTED PRN Peripheral IV Insertion Adult [OM.PC] Stat
[2019-05-28] MEDS ORDERED: Lactated Ringers 1,000 ML IV ONE (13:24)
[2019-05-28] MEDS ORDERED: Ondansetron 4 MG/2 ML SDV IV ONE (13:24)
[2019-05-28] MEDS ORDERED: Sodium Chloride 0.9% 10 ML Syringe FLUSH PRN (13:24)
[2019-05-28 14:12] LABS: ANION GAP 14.5; CHLORIDE,CL 102 mmol/L (101-111); SODIUM,NA 137 mmol/L (135-145)
[2019-05-28] MEDS ORDERED: Metoclopramide 10 MG/2 ML SDV IVPUSH ONE (14:23)
[2019-05-28] MEDS ORDERED: Iopamidol 612 MG/ML 100 ML Bottle IVPUSH ONE (14:24)
[2019-05-28] MEDS ORDERED: Promethazine 25 MG/ML SDV IM ONE (14:42)
[2019-05-28] MEDS ORDERED: Sodium Chloride 0.9% 1,000 ML IV ONE (15:20)
[2019-05-28] MEDS ORDERED: HYDROmorphone 1 MG/ML Syringe IVPUSH ONE (15:20)
--- NOTE | 2019-05-28 16:07 | CT ---
EXAMINATION: Abdomen Pelvis w Cont SEX: Female AGE: 34 years CLINICAL HISTORY: 34-year-old 260 pound female complaining of 3 days LUQ PAIN and severe vomiting (with abd pain). Scan technique: Volume acquisition of data from the abdomen and pelvis obtained on emergency basis without oral contrast but during the intravenous administration 100 cc nonionic Isovue (3 cc/s via injector) while patient was lying supine on the Siemens multislice scanner [place], [place]. All data archived in the PACS system for storage, reformatting axial/sagittal/coronal planes and study. Interpretation: 1. Gallbladder distended (RUQ) but otherwise unremarkable. No calcified stones or wall inflammation. 2. Liver, stomach, spleen, pancreas and adrenal glands unremarkable. 3. Normal reniform size, axis, configuration bilaterally. No sign of renal cortical mass lesion, nephrolithiasis or obstructive uropathy. Symmetrically distended normal appearing urinary bladder. 4. Diverticula scattered along the course of descending left colon but without associated signs of inflammation i.e. no pericolonic inflammatory "dirty" peritoneal fat, abscess, mechanical bowel obstruction, ascites or free intraperitoneal air. 5. Bilateral tubal ligation (fluid in the endometrial canal). 3 cm diameter cyst left ovary. 6. No other pelvic mass lesion and no sign of pelvic, mesenteric, retroperitoneal lymphadenopathy or abdominal mass lesion. 7. No ventral wall hernias (large abdominal pannus). No mechanical bowel obstruction. Normal appendix RLQ. 8. Normal cardiac silhouette. Lung bases clear. Lumbar spine unremarkable. Normal aorta iliac vessels. CONCLUSION: Tubal ligation. Diverticulosis left colon. Solitary 3 cm left ovarian cyst. No sign of acute inflammation or other intraperitoneal abnormality.
[2019-05-28 16:52] VITALS: BP 146/93; PULSE 81
[2019-05-28] MEDS ORDERED: Morphine 2 MG/ML Syringe IVPUSH PRN (17:12)
[2019-05-28] MEDS ORDERED: Zolpidem 5 MG Tab PO PRN (17:12)
[2019-05-28] MEDS ORDERED: Ondansetron 4 MG/2 ML SDV IVPUSH PRN (17:12)
[2019-05-28] MEDS ORDERED: Pantoprazole 40 MG Vial IVPUSH SCH (17:12)
[2019-05-28] MEDS ORDERED: Cyclobenzaprine 10 MG Tab PO PRN (17:16)
[2019-05-28] MEDS ORDERED: Non-Formulary Medication 1 Each (Diclofenac Sodium [Voltaren 1% Gel] 1 APPLIC) TOP PRN (17:16)
[2019-05-28] MEDS ORDERED: Acetaminophen 500 MG Tab PO PRN (17:16)
[2019-05-28] MEDS ORDERED: GI Cocktail Oral Solution 30 ML PO PRN (17:18)
[2019-05-28] MEDS ORDERED: Sucralfate Suspension 1 GM/10 ML Cup PO SCH (17:30)
[2019-05-28] MEDS ORDERED: oxyCODONE 5 MG Tab PO PRN (17:34)
[2019-05-28] MEDS ORDERED: Acetaminophen/oxyCODONE 325-5 MG Tab PO PRN (17:45)
--- NOTE | 2019-05-28 17:46 | HP ---
CHIEF COMPLAINT: Nausea, vomiting, and abdominal pain. HISTORY OF PRESENTING ILLNESS: Ms. Therese Decker is a 34-year-old female with a medical history significant for depression, anxiety, posttraumatic stress disorder, history of marijuana use and tobacco use in the past, obesity who presented to the ER with complaints of increasing abdominal pain, nausea, vomiting for the last 4 days. The patient was given Zofran, Reglan, and also Dilaudid in the ER which did not help her and needing admission to the hospital. At this time, the patient claims that the abdominal pain has been going on for the last 4 days, which has been progressively getting worse. She also complains of nausea and vomiting. She had at least 8 to 10 episodes of vomiting each day. The abdominal pain is mostly in the epigastric region, which is 7 to 8 out of 10 in intensity, aggravated on eating, relieved partially with pain medication, radiating towards the back, associated with nausea and vomiting. Denied any fevers or chills in the last few days. No complaints of chest pain. No complaints of shortness of breath. The patient had good bowel movements. Her last bowel movement was this morning. The patient had a CT scan of the abdomen and pelvis done in the emergency room, which did not show any acute pathology, except for distended gallbladder without any evidence of cholelithiasis. She denied any history of similar complaints in the past. The patient denied any history of chest pains on exertion. No history of dyspnea on exertion. No history of orthopnea or paroxysmal nocturnal dyspnea. The patient denied any history of hematemesis, hematochezia, or melenic stools. Normal bowel and bladder habits otherwise. REVIEW OF SYSTEMS: A complete review of system including skin; ear, nose, and throat; cardiovascular system; respiratory system; gastrointestinal system; genitourinary system; hematology, oncology; neurology; allergy, immunology; constitutional were all evaluated and were negative except for the above-said notes. PAST MEDICAL HISTORY: Significant for anxiety, depression, seizures, posttraumatic stress disorder, history of marijuana use, chronic opioid use and continued use, history of suicidal thoughts in the past. PAST SURGICAL HISTORY: Significant for toe surgery with amputation. FAMILY HISTORY: Significant for cancer in her mother, depression and bipolar disorder in her sister, and diabetes and cancer in her maternal grandmother. SOCIAL HISTORY: The patient has history of smoking tobacco, but the patient claims that she has not been using tobacco lately. History of alcohol intake, the patient claims that her last alcohol intake was back in November. History of marijuana use, but the patient denied any recent marijuana abuse. ALLERGIES: No known drug allergies. PHYSICAL EXAMINATION: Vitals: Temperature of 98.5, pulse of 81, blood pressure 131/75, respiratory rate of 20, saturating at 100% on room air. General Appearance: The patient is well oriented to time, place, and person. Follows commands spontaneously. Cardiovascular System: S1, S2 heard with normal intensity. No gallops. Respiratory System: Clear to auscultation bilaterally. No wheeze. No crepitations. Abdomen: Soft. Bowel sounds positive. Mild tenderness in the epigastric region. No rigidity. No guarding. No rebound tenderness. Extremities: No edema of bilateral lower extremities. MEDICATIONS: Home medications include Percocet 10/325 mg every 8 hours as needed, Wellbutrin 150 mg at bedtime, Seroquel 150 mg at bedtime, multivitamin 1 tablet at bedtime, Lexapro 15 mg at bedtime, Flexeril 10 mg at bedtime as needed, albuterol 1 to 2 puffs inhalation as needed. LABORATORY DATA: WBC 7.6, hemoglobin 12.7, hematocrit 40, platelet count 402. Sodium 137, potassium 4.5, chloride 102, bicarb 25, BUN 11, creatinine 0.7, glucose 99. Total bilirubin 0.8, AST 30, ALT 22, alkaline phosphatase 60. Lipase 26. Beta-HCG negative. Urinalysis negative for nitrites, negative for leukocytes. Urine toxicology screen positive for oxycodone and positive for marijuana. Ethyl alcohol less than 5. ASSESSMENT: 1. Intractable nausea and vomiting. 2. Abdominal pain, possible gastritis. 3. History of anxiety, depression, posttraumatic stress disorder, obesity. PLAN: 1. Intractable nausea and vomiting. The patient presents with nausea, vomiting, and abdominal pain. Unsure if the patient had any viral gastroenteritis versus gastritis. The patient will be admitted to the hospital. We will keep her n.p.o. for now. We will have her on IV fluids. We will start her on IV Protonix and also have her on sucralfate for symptom control, and we will closely follow. We will use Reglan as needed. Put her on antiemetic protocol including Zofran. The patient's urine toxicology screen is positive for marijuana, but the patient denies any use of marijuana, unsure if the patient has any withdrawals. Use Ativan as needed for anxiety and for symptom control. Closely follow. 2. DVT prophylaxis. We will have her on Lovenox for DVT prophylaxis. 3. Abdominal pain. The patient is complaining of increasing abdominal pain. The patient has normal laboratory testing including normal lipase. CT scan of the abdomen and pelvis did not show any acute etiology to explain for her abdominal pain. She has mildly distended gallbladder, which could be resulting from nausea and vomiting also, but no evidence of cholelithiasis or choledocholithiasis. No evidence of pancreatitis noted. The patient noted to have some ovarian cyst, benign, and diverticulosis, other than that no acute pathology to explain her abdominal pain. Discussed with Rosa, ER physician, regarding the plan of care. Reviewed the labs and medications. Reviewed the old charts. ADDENDUM: Patient left AMA few hours after admission, claiming her abdominal pain has improved and She needs to go home to take care of her pets. She is advised to take Tums for discomfort. She is advised to come back to ER if her symptoms gets worse. [facility] /[id number] [place]
[2019-05-28] MEDS ORDERED: QUEtiapine 100 MG Tab PO SCH (21:00)
[2019-05-28] MEDS ORDERED: buPROPion 150 MG Tab.SR PO SCH (21:00)
[2019-05-28] MEDS ORDERED: Multivitamins, Therapeutic with Minerals Tab PO SCH (21:00)
[2019-05-28] MEDS ORDERED: Escitalopram 10 MG Tab PO SCH (21:00)
[2019-05-29] MEDS ORDERED: Enoxaparin 40 MG/0.4 ML Syringe SUBCUT SCH (09:00)
== END 2019-05-28 18:10 | disposition left against medical advice (07) ==
LOC: DL.ED 12:47 → DL.MS 16:23
PROVIDERS: ADMIT Internal Medicine; ATTEND Internal Medicine
DX: R11.2 Nausea with vomiting, unspecified (principal); R10.13 Epigastric pain; F32.9 Major depressive disorder, single episode, unspecified; E66.9 Obesity, unspecified; Z87.891 Personal history of nicotine dependence; Z79.899 Other long term (current) drug therapy; Z68.41 Body mass index [BMI] 40.0-44.9, adult
CPT/HCPCS: 36415; 74177; 80053; 80305; 80320; 81003; 82150; 83690; 84703; 85025; 96361; 96372; 96374; 96375; 99285; A9270; C9113; G0378; J1170; J2405; J2550; J2765; J7030; J7120; Q9967; G0480

== ENCOUNTER 2019-10-08 19:22 | Emergency (ER) | payer MEDICAID ==
[2019-10-08] MEDS ORDERED: Ondansetron 4 MG Tab.DIS PO ONE (19:23)
[2019-10-08] MEDS ORDERED: Ondansetron 4 MG/2 ML SDV IVPUSH ONE (19:33)
[2019-10-08] MEDS ORDERED: Sodium Chloride 0.9% 10 ML Syringe FLUSH PRN (19:33)
[2019-10-08] MEDS ORDERED: Sodium Chloride 0.9% 1,000 ML IV ONE (19:44)
--- NOTE | 2019-10-08 19:44 | EDM.PDOC ---
ED HPI GENERAL MEDICAL PROBLEM - General Chief Complaint: Abdominal Pain Stated Complaint: APENDIX, RIGHT SIDE PAIN, PER PT Time Seen by Provider: 10/08/19 19:44 Source of Information: Reports: Patient, RN, RN Notes Reviewed History Limitations: Reports: No Limitations - History of Present Illness INITIAL COMMENTS - FREE TEXT/NARRATIVE: Patient presents to ER with complaint of right lower quadrant pain. Patient states a sharp shooting pain began suddenly a few hours ago. Patient states she' s been vomiting for the last 3 days and has been unable to keep anything down. Patient states normal bowel movements. Patient states history of tubal ligation , no chances of . Patient states 3 months ago she had surgery because her "gallbladder ruptured". states she still has her appendix. Onset: Today, Sudden Duration: Intermittent Location: Reports: Abdomen Quality: Reports: Sharp, Stabbing Severity: Moderate Right Upper Abdomen Pain Score (Numeric/FACES): 8 - Related Data Allergies Allergy/AdvReac Type Severity Reaction Status Date / Time No Known Allergies Allergy Verified 05/28/19 16:47 Home Meds: Home Meds Acetaminophen [Acetaminophen Extra Strength] 1,000 mg PO Q6H PRN 08/08/15 [ History] QUEtiapine Fumarate [Seroquel] 150 mg PO BEDTIME 08/08/15 [History] Escitalopram Oxalate [Lexapro] 15 mg PO BEDTIME 02/08/16 [History] Multivitamin with Minerals [Multivitamins with Minerals] 1 tab PO BEDTIME [History] Albuterol [Proventil HFA] 1 - 2 puff INH ASDIRECTED 01/28/19 [History] Cyclobenzaprine [Flexeril] 10 mg PO BEDTIME PRN 01/28/19 [History] Diclofenac Sodium [Voltaren 1% Gel] 1 applic TOP ASDIRECTED PRN 01/28/19 [ History] buPROPion [Wellbutrin SR] 150 mg PO BEDTIME 01/28/19 [History] oxyCODONE HCl/Acetaminophen [Percocet 10-325 mg Tablet] 1 tab PO Q8H PRN [History] Past Medical History - Past Health History Medical/Surgical History: Denies Medical/Surgical History HEENT History: Reports: Impaired Vision Other HEENT History: WEARS GLASSES Cardiovascular History: Reports: Heart Murmur, Other (See Below) Other Cardiovascular History: as child Respiratory History: Reports: None Gastrointestinal History: Reports: PUD Genitourinary History: Reports: Renal Calculus, STD, Other (See Below) Other Genitourinary History: GENITAL WARTS CATEGORY ANALYST History: Reports: , Other (See Below) Other CATEGORY ANALYST History: HX OF GENITAL WARTS Musculoskeletal History: Reports: Arthritis, Back Pain, Chronic Other Musculoskeletal History: LEFT FOOT Neurological History: Reports: Seizure Other Neuro History: Seizure in or October 2015, Seizure 01/03/16: Seizure [id number] states they are from "PTSD, and only happen when she is stressed and sick", and describes them as her staring into space and not responding to people who are talking to her. Psychiatric History: Reports: Anxiety, Depression, PTSD, Suicide Attempt, Other (See Below) Other Psychiatric History: CONVERSION DISORDER;. Suicide attempt 2007, Hosp. 2013 with suicidal feelings. Hx of noncompliance Endocrine/Metabolic History: Reports: None, Obesity/BMI 30+ Hematologic History: Reports: None Immunologic History: Reports: None Oncologic (Cancer) History: Reports: None Dermatologic History: Reports: None - Infectious Disease History Infectious Disease History: Reports: Human Papilloma Virus (HPV) Other Infectious Disease History: genital warts - Past Surgical History Head Surgeries/Procedures: Reports: None HEENT Surgical History: Reports: Other (See Below) Other HEENT Surgeries/Procedures: LACERATION OF PINNA Cardiovascular Surgical History: Reports: None Respiratory Surgical History: Reports: None GI Surgical History: Reports: None Female Surgical History: Reports: None, Tubal Ligation Endocrine Surgical History: Reports: None Neurological Surgical History: Reports: None Musculoskeletal Surgical History: Reports: Amputation, Other (See Below) Other Musculoskeletal Surgeries/Procedures:: left foot surgeries 3rd toe Social & Family History - Family History Family Medical History: Noncontributory - Tobacco Use Smoking Status *Q: Current Every Day Smoker Years of Tobacco use: 15 Packs/Tins Daily: 0.5 Second Hand Smoke Exposure: Yes - Caffeine Use Caffeine Use: Reports: Coffee, Soda Other Caffeine Use: OCCASIONAL COFEE. OCCASIONAL ENERGY DRINK - Recreational Drug Use Recreational Drug Use: No - Living Situation & Occupation Living situation: Reports: with Family Occupation: Employed ED ROS GENERAL - Review of Systems Review Of Systems: Comprehensive ROS is negative, except as noted in HPI. ED EXAM, GI/ABD - Physical Exam Exam: See Below Exam Limited By: No Limitations General Appearance: Alert, WD/WN, Moderate Distress Eyes: Bilateral: Normal Appearance, EOMI Ears: Normal External Exam, Hearing Grossly Normal Nose: Normal Inspection Throat/Mouth: Normal Inspection, Normal Voice, No Airway Compromise Head: Atraumatic, Normocephalic Neck: Normal Inspection, Supple, Non-Tender, Full Range of Motion Respiratory/Chest: No Respiratory Distress, Lungs Clear, Normal Breath Sounds, No Accessory Muscle Use, Chest Non-Tender Cardiovascular: Normal Peripheral Pulses, Regular Rate, Rhythm, No Edema, No Gallop, No JVD, No Murmur, No Rub GI/Abdominal Exam: Normal Bowel Sounds, Soft, Tender (right lower quadrant, right upper quadrant) (Female) Exam: Deferred Rectal (Female) Exam: Normal Exam, Normal Rectal Tone Back Exam: Normal Inspection, Full Range of Motion Extremities: Normal Inspection, Normal Range of Motion, Non-Tender, Normal Capillary Refill, No Pedal Edema Neurological: Alert, Oriented, CN II-XII Intact, Normal Cognition, Normal Gait, Normal Reflexes, No Motor/Sensory Deficits Psychiatric: Normal Affect, Normal Mood Skin Exam: Warm, Dry, Intact, Normal Color, No Rash Lymphatic: No Adenopathy Course - Vital Signs Last Recorded V/S: Last Vital Signs Temp 97.8 F 10/08/19 19:26 Pulse 115 H 10/08/19 19:26 Resp 18 10/08/19 19:26 BP 134/101 H 10/08/19 19:26 Pulse Ox 100 10/08/19 19:26 - Orders/Labs/Meds Orders: Active Orders 24 hr Category Date Time Status Peripheral IV Care [RC] . DIRECTED Care 10/08/19 19:34 Active CULTURE BLOOD [BC] Stat Lab 10/08/19 19:40 Received Ondansetron [Zofran] Med 10/08/19 23:52 Once 4 mg IV ONETIME ONE Sodium Chloride 0.9% [Saline Flush] Med 10/08/19 19:33 Active 10 ml FLUSH ASDIRECTED PRN fentaNYL [Sublimaze] Med 10/08/19 23:52 Once 100 mcg IVPUSH ONETIME ONE Peripheral IV Insertion Adult [OM.PC] Routine Oth 10/08/19 19:33 Ordered Medication Orders Sodium Chloride (Saline Flush) 10 ml FLUSH ASDIRECTED PRN PRN Reason: Keep Vein Open Last Admin: 10/08/19 19:48 Dose: 10 ml Labs: Laboratory Tests 10/08/19 10/08/19 10/08/19 Range/Units 19:40 19:40 19:40 WBC 8.3 (5.0-10.0) 10^3/uL RBC 4.34 (4.2-5.4) 10^6/uL Hgb 11.5 L (12.0-16.0) g/dL Hct 35.4 L (37.0-47.0) % MCV 81.6 (80-100) fL MCH 26.5 L (27.0-34.0) pg MCHC 32.5 L (33.0-35.0) g/dL Plt Count 429 (150-450) 10^3/uL Neut % (Auto) 52.9 (42.2-75.2) % Lymph % (Auto) 36.0 (20.5-50.1) % [place] % (Auto) 8.2 H (2-8) % Eos % (Auto) 2.5 (1.0-3.0) % Baso % (Auto) 0.4 (0.0-1.0) % Sodium 138 (135-145) mmol/L Potassium 3.8 (3.6-5.0) mmol/L Chloride 107 (101-111) mmol/L Carbon Dioxide 23.0 (21.0-31.0) mmol/L Anion Gap 11.8 BUN 10 (7-18) mg/dL Creatinine 0.8 (0.6-1.3) mg/dL Est Cr Clr Drug Dosing 94.51 mL/min Estimated GFR (MDRD) > 60 BUN/Creatinine Ratio 12.50 Glucose 109 H (74-105) mg/dL Lactic Acid 1.3 (0.5-2.0) mmol/L Calcium 9.3 (8.4-10.2) mg/dl Total Bilirubin 0.3 (0.2-1.0) mg/dL AST 23 (10-42) IU/L ALT 29 (10-60) IU/L Alkaline Phosphatase 75 (42-121) IU/L Total Protein 7.8 (6.7-8.2) g/dl Albumin 4.4 (3.2-5.5) g/dl Globulin 3.4 Albumin/Globulin Ratio 1.29 Urine Color (YELLOW) Urine Appearance (CLEAR) Urine pH (5.0-9.0) Ur Specific [place] (1.005-1.030) Urine Protein (NEGATIVE) Urine Glucose (UA) (NEGATIVE) Urine Ketones (NEGATIVE) Urine Occult Blood (NEGATIVE) Urine Nitrite (NEGATIVE) Urine Bilirubin (NEGATIVE) Urine Urobilinogen (0.2-1.0) mg/dL Ur Leukocyte Esterase (NEGATIVE) Urine HCG, Qual Urine Opiates Screen (NEGATIVE) Ur Oxycodone Screen (NEGATIVE) Urine Methadone Screen (NEGATIVE) Ur Barbiturates Screen (NEGATIVE) U Tricyclic Antidepress (NEGATIVE) Ur Phencyclidine Scrn (NEGATIVE) Ur Amphetamine Screen (NEGATIVE) U Methamphetamines Scrn (NEGATIVE) Urine MDMA Screen (NEGATIVE) U Benzodiazepines Scrn (NEGATIVE) Urine Cocaine Screen (NEGATIVE) U Marijuana (THC) Screen (NEGATIVE) 10/08/19 10/08/19 10/08/19 Range/Units 21:02 21:02 21:02 WBC (5.0-10.0) 10^3/uL RBC (4.2-5.4) 10^6/uL Hgb (12.0-16.0) g/dL Hct (37.0-47.0) % MCV (80-100) fL MCH (27.0-34.0) pg MCHC (33.0-35.0) g/dL Plt Count (150-450) 10^3/uL Neut % (Auto) (42.2-75.2) % Lymph % (Auto) (20.5-50.1) % [place] % (Auto) (2-8) % Eos % (Auto) (1.0-3.0) % Baso % (Auto) (0.0-1.0) % Sodium (135-145) mmol/L Potassium (3.6-5.0) mmol/L Chloride (101-111) mmol/L Carbon Dioxide (21.0-31.0) mmol/L Anion Gap BUN (7-18) mg/dL Creatinine (0.6-1.3) mg/dL Est Cr Clr Drug Dosing mL/min Estimated GFR (MDRD) BUN/Creatinine Ratio Glucose (74-105) mg/dL Lactic Acid (0.5-2.0) mmol/L Calcium (8.4-10.2) mg/dl Total Bilirubin (0.2-1.0) mg/dL AST (10-42) IU/L ALT (10-60) IU/L Alkaline Phosphatase (42-121) IU/L Total Protein (6.7-8.2) g/dl Albumin (3.2-5.5) g/dl Globulin Albumin/Globulin Ratio Urine Color Yellow (YELLOW) Urine Appearance Slightly cloudy (CLEAR) Urine pH 6.0 (5.0-9.0) Ur Specific [place] >= 1.030 (1.005-1.030) Urine Protein Negative (NEGATIVE) Urine Glucose (UA) Negative (NEGATIVE) Urine Ketones Negative (NEGATIVE) Urine Occult Blood Negative (NEGATIVE) Urine Nitrite Negative (NEGATIVE) Urine Bilirubin Negative (NEGATIVE) Urine Urobilinogen 0.2 (0.2-1.0) mg/dL Ur Leukocyte Esterase Negative (NEGATIVE) Urine HCG, Qual Negative Urine Opiates Screen Positive H (NEGATIVE) Ur Oxycodone Screen Positive H (NEGATIVE) Urine Methadone Screen Negative (NEGATIVE) Ur Barbiturates Screen Negative (NEGATIVE) U Tricyclic Antidepress Negative (NEGATIVE) Ur Phencyclidine Scrn Negative (NEGATIVE) Ur Amphetamine Screen Negative (NEGATIVE) U Methamphetamines Scrn Negative (NEGATIVE) Urine MDMA Screen Negative (NEGATIVE) U Benzodiazepines Scrn Negative (NEGATIVE) Urine Cocaine Screen Negative (NEGATIVE) U Marijuana (THC) Screen Positive H (NEGATIVE) Meds: Medications Generic Name Dose Route Start Last Admin Trade Name Freq PRN Reason Stop Dose Admin Sodium Chloride 10 ml 10/08/19 19:33 10/08/19 19:48 Saline Flush FLUSH 10 ml ASDIRECTED PRN Administration Keep Vein Open Discontinued Medications Generic Name Dose Route Start Last Admin Trade Name Freq PRN Reason Stop Dose Admin Dicyclomine HCl 20 mg 10/08/19 22:38 10/08/19 23:02 Bentyl IM 10/08/19 22:39 20 mg ONETIME ONE Administration Hydromorphone HCl 1 mg 10/08/19 20:04 10/08/19 20:13 Dilaudid IVPUSH 10/08/19 20:05 1 mg ONETIME ONE Administration Sodium Chloride 1,000 mls @ 999 mls/hr 10/08/19 19:44 10/08/19 19:46 Normal Saline IV 10/08/19 20:44 999 mls/hr .BOLUS ONE Administration Iopamidol 100 ml 10/08/19 21:14 10/08/19 21:24 Isovue-300 (61%) IVPUSH 10/08/19 21:15 100 ml ONETIME ONE Administration Ondansetron HCl 4 mg 10/08/19 19:33 10/08/19 19:48 Zofran IVPUSH 10/08/19 19:34 4 mg ONETIME ONE Administration Simethicone 160 mg 10/08/19 23:19 10/08/19 23:27 Simethicone PO 10/08/19 23:20 160 mg ONETIME ONE Administration - Radiology Interpretation Free Text/Narrative:: CT Abdomen/Pelvis with contrast: FINDINGS: Lungs: The lung bases are clear. There are no pleural effusions. Liver: There is diffuse fatty infiltration of the liver. No focal hepatic lesions are identified. Gallbladder and bile ducts: The gallbladder is surgically absent. There is no biliary ductal dilatation. Pancreas: The pancreas is within normal limits. Spleen: The spleen is normal in size. Adrenals: The adrenal glands are normal in appearance. Kidneys and ureters: The kidneys are symmetric in size. There are tiny nonobstructing calculi in both kidneys. There is no hydronephrosis. No ureteral calculi are identified. Stomach and bowel: The stomach is moderately distended with ingested material. No pathologically dilated small bowel loops are identified. There is no evidence of colonic wall thickening or pericolonic inflammation. Appendix: There is a normal appendix in the right lower quadrant. Intraperitoneal space: There is no free air or free fluid in the abdomen or pelvis. Vasculature: The abdominal aorta is normal in caliber. The celiac axis, SMA and ALEJANDRO are patent. Lymph nodes: No pathologically enlarged lymph nodes are identified in the abdomen or pelvis. Bladder: The urinary bladder is decompressed and not well evaluated. Reproductive: The uterus is normal in appearance. There are bilateral adnexal clips in keeping with prior tubal ligation. The ovaries appear unremarkable. Bones/joints: There is normal alignment throughout the visualized portion of the spine. No acute fractures or aggressive bone lesions are identified. Soft tissues: There is a small umbilical hernia which is fat containing only, unchanged. IMPRESSION: 1. There are small nonobstructing renal calculi, but there is no evidence of hydronephrosis or ureteral calculus. 2. Fatty infiltration of the liver, finding which can be due to benign steatosis versus alcoholic or non alcoholic steatohepatitis. 3. Normal appendix. 4. If the patient's pain might be gynecologic in etiology, further evaluation with pelvic ultrasound might be helpful. Thank you for allowing us to participate in the care of your patient. Dictated and Authenticated by: Martha Paula MD 10/08/2019 10:19 PM Central Time ([place] & [place]) See rad report Departure - Departure Time of Disposition: 22:27 Disposition: Home, Self-Care 01 Condition: Fair Clinical Impression: Abdominal pain Qualifiers: Abdominal location: lower abdomen, unspecified Qualified Code(s): R10.30 - Lower abdominal pain, unspecified Constipation Qualifiers: Constipation type: unspecified constipation type Qualified Code(s): K59.00 - Constipation, unspecified - Discharge Information *PRESCRIPTION DRUG MONITORING PROGRAM REVIEWED*: No *COPY OF PRESCRIPTION DRUG MONITORING REPORT IN PATIENT LINO: No Instructions: Abdominal Pain, Adult, [id number], Constipation, Adult, Easy-to -Read Forms: ED Department Discharge Additional Instructions: Rx: Zofran Drink plenty of water Use MiraLAX or mag citrate [id number] as directed for constipation Follow-up with her primary care provider Sepsis Event Note - Evaluation Sepsis Screening Result: No Definite Risk - Focused Exam Vital Signs: Vital Signs Temp Pulse Resp BP Pulse Ox 10/08/19 19:26 97.8 F 115 H 18 134/101 H 100 Date Exam was Performed: 10/08/19 Time Exam was Performed: 23:53 - My Orders Last 24 Hours: My Active Orders 10/08/19 19:33 Sodium Chloride 0.9% [Saline Flush] 10 ml FLUSH ASDIRECTED PRN Peripheral IV Insertion Adult [OM.PC] Routine 10/08/19 19:34 Peripheral IV Care [RC] . DIRECTED 10/08/19 19:40 CULTURE BLOOD [BC] Stat 10/08/19 23:52 Ondansetron [Zofran] 4 mg IV ONETIME ONE fentaNYL [Sublimaze] 100 mcg IVPUSH ONETIME ONE - Assessment/Plan Last 24 Hours: My Active Orders 10/08/19 19:33 Sodium Chloride 0.9% [Saline Flush] 10 ml FLUSH ASDIRECTED PRN Peripheral IV Insertion Adult [OM.PC] Routine 10/08/19 19:34 Peripheral IV Care [RC] . DIRECTED 10/08/19 19:40 CULTURE BLOOD [BC] Stat 10/08/19 23:52 Ondansetron [Zofran] 4 mg IV ONETIME ONE fentaNYL [Sublimaze] 100 mcg IVPUSH ONETIME ONE
[2019-10-08 20:04] LABS: ANION GAP 11.8; CHLORIDE,CL 107 mmol/L (101-111); SODIUM,NA 138 mmol/L (135-145)
[2019-10-08] MEDS ORDERED: HYDROmorphone 1 MG/ML Syringe IVPUSH ONE (20:04)
[2019-10-08] MEDS ORDERED: Iopamidol 612 MG/ML 100 ML Bottle IVPUSH ONE (21:14)
[2019-10-08] MEDS ORDERED: Dicyclomine 20 MG/2 ML SDV IM ONE (22:38)
[2019-10-08] MEDS ORDERED: Simethicone 80 MG Tab.Chew PO ONE (23:19)
[2019-10-08] MEDS ORDERED: fentaNYL 100 MCG/2 ML SDV IVPUSH ONE ×2 (23:52→23:56)
[2019-10-08] MEDS ORDERED: Ondansetron 4 MG/2 ML SDV IV ONE (23:52)
[2019-10-09] MEDS ORDERED: Ondansetron 4 MG Tab.DIS ONE (00:12)
[2019-10-09 00:39] VITALS: BP 133/88; PULSE 103
== END 2019-10-09 00:35 | disposition home or self-care (01) ==
LOC: DL.ED 19:22
DX: K59.00 Constipation, unspecified (principal); R10.11 Right upper quadrant pain; F41.9 Anxiety disorder, unspecified; F32.9 Major depressive disorder, single episode, unspecified; F17.210 Nicotine dependence, cigarettes, uncomplicated; Z79.899 Other long term (current) drug therapy
CPT/HCPCS: 36415; 74177; 80053; 80305; 81003; 81025; 83605; 85025; 87040; 96361; 96372; 96374; 96375; 96376; 99284; A9270; J0500; J1170; J2405; J3010; J7030; Q9967; 99283

== ENCOUNTER 2020-01-21 17:22 | Emergency (ER) | payer MEDICAID ==
[2020-01-21] MEDS ORDERED: Aspirin 81 MG Tab.Chew PO ONE (17:28)
--- NOTE | 2020-01-21 17:31 | EDM.PDOC ---
ED HPI GENERAL MEDICAL PROBLEM - General Stated Complaint: chest pain Time Seen by Provider: 01/21/20 17:30 Source of Information: Reports: Patient History Limitations: Reports: No Limitations - History of Present Illness INITIAL COMMENTS - FREE TEXT/NARRATIVE: This 34 yo female patient reports to the ED with a 30 minute history of chest pain. The patient reports her chest pain started when she was cleaning the house and taking her daughter's dog outside when the pain started. The patient reports her pain is sharp. The patient also reports heaviness to her left arm and some numbness in the left side of her face. The patient reports she took some Tylenol at the onset of her symptoms. 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 Onset: Today Duration: Minutes: (30), Constant Location: Reports: Chest (left sided chest pain) Quality: Reports: Ache, Sharp Severity: Moderate Improves with: Reports: None Worsens with: Reports: None Context: Reports: Other Associated Symptoms: Reports: Chest Pain Treatments PATIENT SERVICE COORDINATOR: Reports: Acetaminophen Chest Pain Score (Numeric/FACES): 7 - Related Data Allergies Allergy/AdvReac Type Severity Reaction Status Date / Time No Known Allergies Allergy Verified 01/21/20 17:30 Home Meds: Home Meds Acetaminophen [Acetaminophen Extra Strength] 1,000 mg PO Q6H PRN 08/08/15 [History] QUEtiapine Fumarate [Seroquel] 150 mg PO BEDTIME 08/08/15 [History] Escitalopram Oxalate [Lexapro] 15 mg PO BEDTIME 02/08/16 [History] Multivitamin with Minerals [Multivitamins with Minerals] 1 tab PO BEDTIME 02/08/16 [History] Albuterol [Proventil HFA] 1 - 2 puff INH ASDIRECTED 01/28/19 [History] Cyclobenzaprine [Flexeril] 10 mg PO BEDTIME PRN 01/28/19 [History] Diclofenac Sodium [Voltaren 1% Gel] 1 applic TOP ASDIRECTED PRN 01/28/19 [History] buPROPion [Wellbutrin SR] 150 mg PO BEDTIME 01/28/19 [History] oxyCODONE HCl/Acetaminophen [Percocet 10-325 mg Tablet] 1 tab PO Q8H PRN 01/28/19 [History] Past Medical History - Past Health History Medical/Surgical History: Denies Medical/Surgical History HEENT History: Reports: Impaired Vision Other HEENT History: WEARS GLASSES Cardiovascular History: Reports: Heart Murmur, Other (See Below) Other Cardiovascular History: as child Respiratory History: Reports: None Gastrointestinal History: Reports: PUD Genitourinary History: Reports: Renal Calculus, STD, Other (See Below) Other Genitourinary History: GENITAL WARTS 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 Psychiatric History: Reports: Anxiety, Depression, PTSD, Suicide Attempt, Other (See Below) Other Psychiatric History: CONVERSION DISORDER;. Suicide attempt 2007, Hosp. 2013 with suicidal feelings. Hx of noncompliance Endocrine/Metabolic History: Reports: None, Obesity/BMI 30+ Hematologic History: Reports: None Immunologic History: Reports: None Oncologic (Cancer) History: Reports: None Dermatologic History: Reports: None - Infectious Disease History Infectious Disease History: Reports: Human Papilloma Virus (HPV) Other Infectious Disease History: genital warts - Past Surgical History Head Surgeries/Procedures: Reports: None HEENT Surgical History: Reports: Other (See Below) Other HEENT Surgeries/Procedures: LACERATION OF PINNA Cardiovascular Surgical History: Reports: None Respiratory Surgical History: Reports: None GI Surgical History: Reports: None Female Surgical History: Reports: None, Tubal Ligation Endocrine Surgical History: Reports: None Neurological Surgical History: Reports: None Musculoskeletal Surgical History: Reports: Amputation, Other (See Below) Other Musculoskeletal Surgeries/Procedures:: left foot surgeries 3rd toe Social & Family History - Family History Family Medical History: Noncontributory - Caffeine Use Caffeine Use: Reports: Coffee, Soda Other Caffeine Use: OCCASIONAL COFEE. OCCASIONAL ENERGY DRINK - Living Situation & Occupation Living situation: Reports: with Family Occupation: Employed ED ROS GENERAL - Review of Systems Review Of Systems: Comprehensive ROS is negative, except as noted in HPI. ED EXAM, GENERAL - Physical Exam Exam: See Below Exam Limited By: No Limitations General Appearance: Alert, WD/WN, Mild Distress, Obese Eye Exam: Bilateral Eye: EOMI, Normal Inspection, PERRL Ears: Normal External Exam, Normal Canal, Hearing Grossly Normal, Normal TMs Nose: Normal Inspection, Normal Mucosa, No Blood Throat/Mouth: Normal Inspection, Normal Lips, Normal Teeth, Normal Gums, Normal Oropharynx, Normal Voice, No Airway Compromise Head: Atraumatic, Normocephalic Neck: Normal Inspection, Supple, Non-Tender, Full Range of Motion Respiratory/Chest: No Respiratory Distress, Lungs Clear, Normal Breath Sounds, No Accessory Muscle Use, Chest Non-Tender Cardiovascular: Normal Peripheral Pulses GI/Abdominal: Normal Bowel Sounds, Soft, Non-Tender, No Organomegaly, No Distention, No Abnormal Bruit, No Mass, Other (obese) (Female) Exam: Deferred Rectal (Female) Exam: Deferred Back Exam: Normal Inspection, Full Range of Motion, NT Extremities: Normal Inspection, Normal Range of Motion, Non-Tender, Normal Capillary Refill, No Pedal Edema Neurological: Alert, Oriented, CN II-XII Intact, Normal Cognition, Normal Gait, Normal Reflexes, No Motor/Sensory Deficits Psychiatric: Normal Affect, Normal Mood Skin Exam: Warm, Dry, Intact, Normal Color, No Rash Lymphatic: No Adenopathy Course - Vital Signs Last Recorded V/S: Last Vital Signs Temp 36.6 C 01/21/20 17:32 Pulse 84 01/21/20 17:32 Resp 18 01/21/20 17:32 BP 136/75 01/21/20 17:32 Pulse Ox 100 01/21/20 17:32 - Orders/Labs/Meds Orders: Active Orders 24 hr Category Date Time Status EKG Documentation Completion [RC] STAT Care 01/21/20 17:24 Ordered Labs: Laboratory Tests 01/21/20 01/21/20 01/21/20 Range/Units 17:35 17:35 17:35 WBC 9.0 (5.0-10.0) 10^3/uL RBC 4.07 L (4.2-5.4) 10^6/uL Hgb 10.5 L (12.0-16.0) g/dL Hct 33.6 L (37.0-47.0) % MCV 82.6 (80-100) fL MCH 25.8 L (27.0-34.0) pg MCHC 31.3 L (33.0-35.0) g/dL Plt Count 381 (150-450) 10^3/uL Neut % (Auto) 49.6 (42.2-75.2) % Lymph % (Auto) 41.4 (20.5-50.1) % [place] % (Auto) 7.0 (2-8) % Eos % (Auto) 1.8 (1.0-3.0) % Baso % (Auto) 0.2 (0.0-1.0) % Sodium 140 (136-145) mmol/L Potassium 4.2 (3.5-5.1) mmol/L Chloride 105 (98-107) mmol/L Carbon Dioxide 31 (21-32) mmol/L Anion Gap 8.2 (7-13) mEq/L BUN 15 (7-18) mg/dL Creatinine 0.97 (0.55-1.02) mg/dL Est Cr Clr Drug Dosing 77.95 mL/min Estimated GFR (MDRD) > 60 BUN/Creatinine Ratio 15.5 (No establ ref range) Glucose 97 (74-99) mg/dL Lactic Acid 1.1 (0.4-2.0) mmol/L Calcium 7.9 L (8.5-10.1) mg/dL Total Bilirubin 0.2 (0.2-1.0) mg/dL AST 12 L (15-37) U/L ALT 25 (14-59) U/L Alkaline Phosphatase 65 (46-116) U/L Troponin I < 0.017 (0.000-0.056) ng/mL Total Protein 6.6 (6.4-8.2) g/dL Albumin 3.3 L (3.4-5.0) g/dL Globulin 3.3 Albumin/Globulin Ratio 1.00 Urine Color (YELLOW) Urine Appearance (CLEAR) Urine pH (5.0-9.0) Ur Specific [place] (1.005-1.030) Urine Protein (NEGATIVE) Urine Glucose (UA) (NEGATIVE) Urine Ketones (NEGATIVE) Urine Occult Blood (NEGATIVE) Urine Nitrite (NEGATIVE) Urine Bilirubin (NEGATIVE) Urine Urobilinogen (0.2-1.0) mg/dL Ur Leukocyte Esterase (NEGATIVE) Urine Opiates Screen (NEGATIVE) Ur Oxycodone Screen (NEGATIVE) Urine Methadone Screen (NEGATIVE) Ur Barbiturates Screen (NEGATIVE) U Tricyclic Antidepress (NEGATIVE) Ur Phencyclidine Scrn (NEGATIVE) Ur Amphetamine Screen (NEGATIVE) U Methamphetamines Scrn (NEGATIVE) Urine MDMA Screen (NEGATIVE) U Benzodiazepines Scrn (NEGATIVE) Urine Cocaine Screen (NEGATIVE) U Marijuana (THC) Screen (NEGATIVE) 01/21/20 01/21/20 Range/Units 17:53 17:53 WBC (5.0-10.0) 10^3/uL RBC (4.2-5.4) 10^6/uL Hgb (12.0-16.0) g/dL Hct (37.0-47.0) % MCV (80-100) fL MCH (27.0-34.0) pg MCHC (33.0-35.0) g/dL Plt Count (150-450) 10^3/uL Neut % (Auto) (42.2-75.2) % Lymph % (Auto) (20.5-50.1) % [place] % (Auto) (2-8) % Eos % (Auto) (1.0-3.0) % Baso % (Auto) (0.0-1.0) % Sodium (136-145) mmol/L Potassium (3.5-5.1) mmol/L Chloride (98-107) mmol/L Carbon Dioxide (21-32) mmol/L Anion Gap (7-13) mEq/L BUN (7-18) mg/dL Creatinine (0.55-1.02) mg/dL Est Cr Clr Drug Dosing mL/min Estimated GFR (MDRD) BUN/Creatinine Ratio (No establ ref range) Glucose (74-99) mg/dL Lactic Acid (0.4-2.0) mmol/L Calcium (8.5-10.1) mg/dL Total Bilirubin (0.2-1.0) mg/dL AST (15-37) U/L ALT (14-59) U/L Alkaline Phosphatase (46-116) U/L Troponin I (0.000-0.056) ng/mL Total Protein (6.4-8.2) g/dL Albumin (3.4-5.0) g/dL Globulin Albumin/Globulin Ratio Urine Color Yellow (YELLOW) Urine Appearance Clear (CLEAR) Urine pH 8.0 (5.0-9.0) Ur Specific [place] 1.020 (1.005-1.030) Urine Protein Negative (NEGATIVE) Urine Glucose (UA) Negative (NEGATIVE) Urine Ketones Negative (NEGATIVE) Urine Occult Blood Negative (NEGATIVE) Urine Nitrite Negative (NEGATIVE) Urine Bilirubin Negative (NEGATIVE) Urine Urobilinogen 0.2 (0.2-1.0) mg/dL Ur Leukocyte Esterase Negative (NEGATIVE) Urine Opiates Screen Positive H (NEGATIVE) Ur Oxycodone Screen Positive H (NEGATIVE) Urine Methadone Screen Negative (NEGATIVE) Ur Barbiturates Screen Negative (NEGATIVE) U Tricyclic Antidepress Negative (NEGATIVE) Ur Phencyclidine Scrn Negative (NEGATIVE) Ur Amphetamine Screen Negative (NEGATIVE) U Methamphetamines Scrn Negative (NEGATIVE) Urine MDMA Screen Negative (NEGATIVE) U Benzodiazepines Scrn Negative (NEGATIVE) Urine Cocaine Screen Negative (NEGATIVE) U Marijuana (THC) Screen Positive H (NEGATIVE) Meds: Medications Discontinued Medications Generic Name Dose Route Start Last Admin Trade Name Freq PRN Reason Stop Dose Admin Aspirin 324 mg 01/21/20 17:28 01/21/20 17:42 Aspirin PO 01/21/20 17:29 324 mg ONETIME ONE Administration Departure - Departure Time of Disposition: 18:17 Disposition: Home, Self-Care 01 Condition: Fair Clinical Impression: Left-sided chest wall pain Left shoulder pain Qualifiers: Chronicity: acute Qualified Code(s): M25.512 - Pain in left shoulder Instructions: Nonspecific Chest Pain, Adult, [id number] Forms: ED Department Discharge Care Plan Goals: The patient was advised of the examination, lab, EKG and x-ray results during the visit. The patient was encouraged to continue to monitor her symptoms. The patient should follow-up with her primary care facility for continued evaluation and management. If the patient has any additional symptoms or concerns, the patient should either return to the emergency department or visit her primary care facility. Sepsis Event Note (ED) - Focused Exam Vital Signs: Vital Signs Temp Pulse Resp BP Pulse Ox 01/21/20 17:32 36.6 C 84 18 136/75 100 - My Orders Last 24 Hours: My Active Orders 01/21/20 17:24 EKG Documentation Completion [RC] STAT - Assessment/Plan Last 24 Hours: My Active Orders 01/21/20 17:24 EKG Documentation Completion [RC] STAT
[2020-01-21 17:37] VITALS: BP 136/75; PULSE 84
--- NOTE | 2020-01-21 17:58 | CR ---
PROCEDURE INFORMATION: Exam: XR Chest, 1 View Exam date and time: 01/21/2020 5:47 PM Age: 34 years old Clinical indication: Other: Pain; Additional info: Chest pain (left side) TECHNIQUE: Imaging protocol: XR of the chest Views: 1 view. COMPARISON: CR Chest 2V 09/29/2018 3:54 PM FINDINGS: Lungs: Unremarkable. No consolidation. Pleural space: Unremarkable. No pleural effusion. No pneumothorax. Heart/Mediastinum: Unremarkable. No cardiomegaly. Bones/joints: Unremarkable. IMPRESSION: No acute findings.
[2020-01-21 18:01] LABS: ANION GAP 8.2 mEq/L (7-13); CHLORIDE,CL 105 mmol/L (98-107); SODIUM,NA 140 mmol/L (136-145)
== END 2020-01-21 18:22 | disposition home or self-care (01) ==
LOC: DL.ED 17:22
DX: R07.89 Other chest pain (principal); M25.512 Pain in left shoulder; F41.9 Anxiety disorder, unspecified; F32.9 Major depressive disorder, single episode, unspecified; E66.9 Obesity, unspecified; Z68.41 Body mass index [BMI] 40.0-44.9, adult; Z79.899 Other long term (current) drug therapy
CPT/HCPCS: 36415; 71045; 80053; 80305-QW; 81003; 83605; 84484; 85025; 93005; 99285-25; A9270-GY

== ENCOUNTER 2020-05-31 19:40 | Emergency (ER) | payer MEDICAID ==
[2020-05-31] MEDS ORDERED: Ondansetron 4 MG/2 ML SDV ONE (19:50)
[2020-05-31] MEDS ORDERED: Ondansetron 4 MG/2 ML SDV IVPUSH ONE (19:52)
[2020-05-31] MEDS ORDERED: Iopamidol 612 MG/ML 100 ML Bottle IVPUSH ONE (20:17)
[2020-05-31] MEDS ORDERED: HYDROmorphone 1 MG/ML Syringe IVPUSH ONE ×2 (20:17→20:35)
[2020-05-31] MEDS ORDERED: Sodium Chloride 0.9% 1,000 ML IV ONE (20:18)
[2020-05-31 20:20] LABS: ANION GAP 12.9 mEq/L (7-13); CHLORIDE,CL 105 mmol/L (98-107); SODIUM,NA 142 mmol/L (136-145)
--- NOTE | 2020-05-31 21:17 | CT ---
PROCEDURE INFORMATION: Exam: CT Abdomen And Pelvis With Contrast Exam date and time: 05/31/2020 8:32 PM Age: 35 years old Clinical indication: Abdominal pain; Generalized; Additional info: Rlq pain TECHNIQUE: Imaging protocol: Computed tomography of the abdomen and pelvis with intravenous contrast. Radiation optimization: All CT scans at this facility use at least one of these dose optimization techniques: automated exposure control; mA and/or kV adjustment per patient size (includes targeted exams where dose is matched to clinical indication); or iterative reconstruction. Contrast material: [id number]; Contrast volume: 97 ml; Contrast route: INTRAVENOUS (IV); COMPARISON: CT Abdomen Pelvis w Cont 10/08/2019 9:38 PM FINDINGS: Liver: Normal. No mass. Gallbladder and bile ducts: The gallbladder is absent. There is mild dilation of the extrahepatic bile ducts which may be seen following cholecystectomy. Pancreas: Normal. No ductal dilation. Spleen: Normal. No splenomegaly. Adrenal glands: Normal. No mass. Kidneys and ureters: There are a couple punctate nonobstructive left renal stones. No hydronephrosis or hydroureter. No ureteral stones. Normal bilateral renal parenchymal enhancement. Stomach and bowel: Unremarkable. No obstruction. No mucosal thickening. Appendix: Normal appendix. No acute appendicitis. Intraperitoneal space: There is trivial free pelvic fluid which is nonspecific but may be physiologic. No focal fluid collections. No free air. Vasculature: Unremarkable. No abdominal aortic aneurysm. Lymph nodes: Unremarkable. No enlarged lymph nodes. Urinary bladder: Unremarkable as visualized. Reproductive: Status post tubal ligation. Bones/joints: Unremarkable. No acute fracture. Soft tissues: There is a small fat-containing umbilical hernia. IMPRESSION: 1. No acute findings. No acute appendicitis. 2. Non-acute findings are described above.
[2020-05-31] MEDS ORDERED: Ketorolac 30 MG/ML SDV IVPUSH ONE (21:20)
[2020-05-31] MEDS ORDERED: Famotidine 20 MG/2 ML SDV IVPUSH ONE (21:51)
[2020-05-31 22:12] VITALS: BP 128/95; PULSE 74
--- NOTE | 2020-05-31 22:12 | EDM.PDOC ---
ED HPI GENERAL MEDICAL PROBLEM - General Chief Complaint: Abdominal Pain Stated Complaint: SEVERE APPENDIX PAIN Time Seen by Provider: 05/31/20 19:50 Source of Information: Reports: Patient History Limitations: Reports: No Limitations - History of Present Illness INITIAL COMMENTS - FREE TEXT/NARRATIVE: ED with c/o sever lower abdominal pain with intermittent nausea and diarrhea since yesterday. No cough, No ENT sx. No known exposure. Unsure if any blood in diarrhea, No hx of GI bleed. 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 ROOM NURSE: Reports: Acetaminophen Right Upper Abdomen Pain Score (Numeric/FACES): 9 - Related Data Allergies Allergy/AdvReac Type Severity Reaction Status Date / Time No Known Allergies Allergy Verified 05/31/20 19:56 Home Meds: Home Meds Acetaminophen [Acetaminophen Extra Strength] 1,000 mg PO Q6H PRN 08/08/15 [History] QUEtiapine Fumarate [Seroquel] 150 mg PO BEDTIME 08/08/15 [History] Escitalopram Oxalate [Lexapro] 15 mg PO BEDTIME 02/08/16 [History] Multivitamin with Minerals [Multivitamins with Minerals] 1 tab PO BEDTIME 02/08/16 [History] Albuterol [Proventil HFA] 1 - 2 puff INH ASDIRECTED 01/28/19 [History] Cyclobenzaprine [Flexeril] 10 mg PO BEDTIME PRN 01/28/19 [History] Diclofenac Sodium [Voltaren 1% Gel] 1 applic TOP ASDIRECTED PRN 01/28/19 [History] buPROPion [Wellbutrin SR] 150 mg PO BEDTIME 01/28/19 [History] oxyCODONE HCl/Acetaminophen [Percocet 10-325 mg Tablet] 1 tab PO Q8H PRN 01/28/19 [History] Past Medical History - Past Health History Medical/Surgical History: Denies Medical/Surgical History HEENT History: Reports: Impaired Vision Other HEENT History: WEARS GLASSES Cardiovascular History: Reports: Heart Murmur, Other (See Below) Other Cardiovascular History: as child Respiratory History: Reports: None Gastrointestinal History: Reports: PUD Genitourinary History: Reports: Renal Calculus, STD, Other (See Below) Other Genitourinary History: GENITAL WARTS 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 Psychiatric History: Reports: Anxiety, Depression, PTSD, Suicide Attempt, Other (See Below) Other Psychiatric History: CONVERSION DISORDER;. Suicide attempt 2007, Hosp. 2014 with suicidal feelings. Hx of noncompliance Endocrine/Metabolic History: Reports: None, Obesity/BMI 30+ Hematologic History: Reports: None Immunologic History: Reports: None Oncologic (Cancer) History: Reports: None Dermatologic History: Reports: None - Infectious Disease History Infectious Disease History: Reports: Human Papilloma Virus (HPV) Other Infectious Disease History: genital warts - Past Surgical History Head Surgeries/Procedures: Reports: None HEENT Surgical History: Reports: Other (See Below) Other HEENT Surgeries/Procedures: LACERATION OF PINNA Cardiovascular Surgical History: Reports: None Respiratory Surgical History: Reports: None GI Surgical History: Reports: None Female Surgical History: Reports: None, Tubal Ligation Endocrine Surgical History: Reports: None Neurological Surgical History: Reports: None Musculoskeletal Surgical History: Reports: Amputation, Other (See Below) Other Musculoskeletal Surgeries/Procedures:: left foot surgeries 3rd toe Social & Family History - Family History Family Medical History: Noncontributory - Tobacco Use Years of Tobacco use: 10 Packs/Tins Daily: 0.5 - Caffeine Use Caffeine Use: Reports: Coffee Other Caffeine Use: OCCASIONAL COFEE. OCCASIONAL ENERGY DRINK - Recreational Drug Use Recreational Drug Use: No - Living Situation & Occupation Living situation: Reports: with Family Occupation: Employed ED ROS GENERAL - Review of Systems Review Of Systems: Comprehensive ROS is negative, except as noted in HPI. ED EXAM, GI/ABD - Physical Exam Exam: See Below Exam Limited By: No Limitations General Appearance: Alert, Moderate Distress Eyes: Bilateral: EOMI Ears: Normal TMs Nose: Normal Inspection Throat/Mouth: Normal Inspection Head: Atraumatic, Normocephalic Neck: Normal Inspection, Full Range of Motion Respiratory/Chest: No Respiratory Distress, Lungs Clear, Normal Breath Sounds Cardiovascular: Normal Peripheral Pulses, Regular Rate, Rhythm GI/Abdominal Exam: Rebound, Tender (mid, RLQ), Abnormal Bowel Sounds (decrease). No: Distended, Guarding, Mass Back Exam: Normal Inspection, Full Range of Motion Extremities: Normal Inspection, Normal Range of Motion Course - Vital Signs Last Recorded V/S: Last Vital Signs Temp 97.1 F 05/31/20 22:11 Pulse 74 05/31/20 22:11 Resp 19 05/31/20 22:11 BP 128/95 H 05/31/20 22:11 Pulse Ox 98 05/31/20 22:11 - Orders/Labs/Meds Orders: Active Orders 24 hr Category Date Time Status CULTURE BLOOD [BC] Stat Lab 05/31/20 20:06 Received Labs: Laboratory Tests 05/31/20 05/31/20 05/31/20 Range/Units 19:46 19:46 20:06 WBC 8.5 (5.0-10.0) 10^3/uL RBC 4.58 (4.2-5.4) 10^6/uL Hgb 11.6 L (12.0-16.0) g/dL Hct 37.1 (37.0-47.0) % MCV 81.0 (80-100) fL MCH 25.3 L (27.0-34.0) pg MCHC 31.3 L (33.0-35.0) g/dL Plt Count 461 H D (150-450) 10^3/uL Neut % (Auto) 60.8 (42.2-75.2) % Lymph % (Auto) 29.5 (20.5-50.1) % [place] % (Auto) 8.3 H (2-8) % Eos % (Auto) 0.7 L (1.0-3.0) % Baso % (Auto) 0.7 (0.0-1.0) % Sodium 142 (136-145) mmol/L Potassium 3.9 (3.5-5.1) mmol/L Chloride 105 (98-107) mmol/L Carbon Dioxide 28 (21-32) mmol/L Anion Gap 12.9 (7-13) mEq/L BUN 12 (7-18) mg/dL Creatinine 0.87 (0.55-1.02) mg/dL Est Cr Clr Drug Dosing 87.77 mL/min Estimated GFR (MDRD) > 60 BUN/Creatinine Ratio 13.8 (No establ ref range) Glucose 123 H (74-99) mg/dL Lactic Acid 1.1 (0.4-2.0) mmol/L Calcium 8.9 (8.5-10.1) mg/dL Total Bilirubin 0.3 (0.2-1.0) mg/dL AST 17 (15-37) U/L ALT 29 (14-59) U/L Alkaline Phosphatase 64 (46-116) U/L Total Protein 7.5 (6.4-8.2) g/dL Albumin 3.8 (3.4-5.0) g/dL Globulin 3.7 Albumin/Globulin Ratio 1.0 Amylase 35 (25-115) U/L Lipase 168 (73-393) U/L HCG, Qual Negative Urine Color (YELLOW) Urine Appearance (CLEAR) Urine pH (5.0-9.0) Ur Specific [place] (1.005-1.030) Urine Protein (NEGATIVE) Urine Glucose (UA) (NEGATIVE) Urine Ketones (NEGATIVE) Urine Occult Blood (NEGATIVE) Urine Nitrite (NEGATIVE) Urine Bilirubin (NEGATIVE) Urine Urobilinogen (0.2-1.0) mg/dL Ur Leukocyte Esterase (NEGATIVE) Urine Opiates Screen (NEGATIVE) Ur Oxycodone Screen (NEGATIVE) Urine Methadone Screen (NEGATIVE) Ur Barbiturates Screen (NEGATIVE) U Tricyclic Antidepress (NEGATIVE) Ur Phencyclidine Scrn (NEGATIVE) Ur Amphetamine Screen (NEGATIVE) U Methamphetamines Scrn (NEGATIVE) Urine MDMA Screen (NEGATIVE) U Benzodiazepines Scrn (NEGATIVE) Urine Cocaine Screen (NEGATIVE) U Marijuana (THC) Screen (NEGATIVE) 05/31/20 05/31/20 Range/Units 21:15 21:20 WBC (5.0-10.0) 10^3/uL RBC (4.2-5.4) 10^6/uL Hgb (12.0-16.0) g/dL Hct (37.0-47.0) % MCV (80-100) fL MCH (27.0-34.0) pg MCHC (33.0-35.0) g/dL Plt Count (150-450) 10^3/uL Neut % (Auto) (42.2-75.2) % Lymph % (Auto) (20.5-50.1) % [place] % (Auto) (2-8) % Eos % (Auto) (1.0-3.0) % Baso % (Auto) (0.0-1.0) % Sodium (136-145) mmol/L Potassium (3.5-5.1) mmol/L Chloride (98-107) mmol/L Carbon Dioxide (21-32) mmol/L Anion Gap (7-13) mEq/L BUN (7-18) mg/dL Creatinine (0.55-1.02) mg/dL Est Cr Clr Drug Dosing mL/min Estimated GFR (MDRD) BUN/Creatinine Ratio (No establ ref range) Glucose (74-99) mg/dL Lactic Acid (0.4-2.0) mmol/L Calcium (8.5-10.1) mg/dL Total Bilirubin (0.2-1.0) mg/dL AST (15-37) U/L ALT (14-59) U/L Alkaline Phosphatase (46-116) U/L Total Protein (6.4-8.2) g/dL Albumin (3.4-5.0) g/dL Globulin Albumin/Globulin Ratio Amylase (25-115) U/L Lipase (73-393) U/L HCG, Qual Urine Color Yellow (YELLOW) Urine Appearance Slightly cloudy (CLEAR) Urine pH 7.0 (5.0-9.0) Ur Specific [place] 1.020 (1.005-1.030) Urine Protein Negative (NEGATIVE) Urine Glucose (UA) Negative (NEGATIVE) Urine Ketones Negative (NEGATIVE) Urine Occult Blood Negative (NEGATIVE) Urine Nitrite Negative (NEGATIVE) Urine Bilirubin Negative (NEGATIVE) Urine Urobilinogen 0.2 (0.2-1.0) mg/dL Ur Leukocyte Esterase Negative (NEGATIVE) Urine Opiates Screen Positive H (NEGATIVE) Ur Oxycodone Screen Negative (NEGATIVE) Urine Methadone Screen Negative (NEGATIVE) Ur Barbiturates Screen Negative (NEGATIVE) U Tricyclic Antidepress Negative (NEGATIVE) Ur Phencyclidine Scrn Negative (NEGATIVE) Ur Amphetamine Screen Negative (NEGATIVE) U Methamphetamines Scrn Negative (NEGATIVE) Urine MDMA Screen Negative (NEGATIVE) U Benzodiazepines Scrn Negative (NEGATIVE) Urine Cocaine Screen Negative (NEGATIVE) U Marijuana (THC) Screen Positive H (NEGATIVE) Meds: Medications Discontinued Medications Generic Name Dose Route Start Last Admin Trade Name Luly PRN Reason Stop Dose Admin Famotidine 20 mg 05/31/20 21:51 05/31/20 22:07 Pepcid IVPUSH 05/31/20 21:52 20 mg ONETIME ONE Administration Hydromorphone HCl 1 mg 05/31/20 20:17 05/31/20 20:20 Dilaudid IVPUSH 05/31/20 20:18 1 mg ONETIME ONE Administration Hydromorphone HCl 1 mg 05/31/20 20:35 05/31/20 20:38 Dilaudid IVPUSH 05/31/20 20:36 1 mg ONETIME ONE Administration Sodium Chloride 1,000 mls @ 999 mls/hr 05/31/20 20:18 05/31/20 20:22 Normal Saline IV 05/31/20 21:18 999 mls/hr .BOLUS ONE Administration Iopamidol 100 ml 05/31/20 20:17 05/31/20 21:03 Isovue-300 (61%) IVPUSH 05/31/20 20:18 100 ml ONETIME ONE Administration Ketorolac Tromethamine 30 mg 05/31/20 21:20 05/31/20 22:09 Toradol IVPUSH 05/31/20 21:21 30 mg ONETIME ONE Administration Ondansetron HCl Confirm 05/31/20 19:50 05/31/20 20:00 Zofran Administered 05/31/20 19:51 Not Given Dose 4 mg .ROUTE .STK-MED ONE Ondansetron HCl 4 mg 05/31/20 19:52 05/31/20 19:59 Zofran IVPUSH 05/31/20 19:53 4 mg ONETIME ONE Administration - Re-Assessments/Exams Free Text/Narrative Re-Assessment/Exam: Pain appears controlled with medication. Lessening of moaning and thrashing especially when staff not in direct visual field. Results of labs and CT discussed. Departure - Departure Time of Disposition: 22:09 Disposition: Home, Self-Care 01 Condition: Good Clinical Impression: Gastroenteritis - Discharge Information *PRESCRIPTION DRUG MONITORING PROGRAM REVIEWED*: No *COPY OF PRESCRIPTION DRUG MONITORING REPORT IN PATIENT LINO: No Instructions: Abdominal Pain, Adult, [id number] Forms: ED Department Discharge Additional Instructions: light diet start liquid if tolerating then advance slowly bland foods, low fat avoid milk products for 24 hours, avoid alcohol caffeine follow up as needed Sepsis Event Note (ED) - Evaluation Sepsis Screening Result: No Definite Risk - Focused Exam Vital Signs: Vital Signs Temp Pulse Resp BP Pulse Ox 05/31/20 22:11 97.1 F 74 19 128/95 H 98 05/31/20 19:45 98.6 F 110 H 22 H 149/83 H 98 - My Orders Last 24 Hours: My Active Orders 05/31/20 20:06 CULTURE BLOOD [BC] Stat - Assessment/Plan Last 24 Hours: My Active Orders 05/31/20 20:06 CULTURE BLOOD [BC] Stat
== END 2020-05-31 22:38 | disposition home or self-care (01) ==
LOC: DL.ED 19:40
DX: K52.9 Noninfective gastroenteritis and colitis, unspecified (principal)
CPT/HCPCS: 36415; 74177; 80053; 80305; 81003; 82150; 82272; 83605; 83690; 84703; 85025; 87040; 96374; 96375; 99284; J1170; J1885; J2405; J3490; J7030; Q9967

== ENCOUNTER 2020-08-19 00:28 | Emergency (ER) | payer MEDICAID ==
[2020-08-19 00:43] VITALS: BP 138/91; PULSE 108
--- NOTE | 2020-08-19 01:13 | EDM.PDOC ---
ED HPI GENERAL MEDICAL PROBLEM - General Chief Complaint: Lower Extremity Injury/Pain Stated Complaint: NERVE DAMAGE TROUBLE WALKING Time Seen by Provider: 08/19/20 00:50 Source of Information: Reports: Patient History Limitations: Reports: No Limitations - History of Present Illness INITIAL COMMENTS - FREE TEXT/NARRATIVE: ED c/o severe right heel pain x 2 weeks, unable ot sleep tonight and past few night. no injury. foot some times swells. Increased pain with weight bearing. Denies injury. Had been seeing foot Dr for Left but provider moved and has not found new one. Was on Gabapentin and Nucynta. Rx stopped until new provider. Last filled 07/27. Has tried tylenol and ibuprofen and not helping. Right Foot Pain Score (Numeric/FACES): 6 - Related Data Allergies Allergy/AdvReac Type Severity Reaction Status Date / Time No Known Allergies Allergy Verified 08/19/20 00:38 Home Meds: Home Meds Acetaminophen [Acetaminophen Extra Strength] 1,000 mg PO Q6H PRN 08/08/15 [History] QUEtiapine Fumarate [Seroquel] 150 mg PO BEDTIME 08/08/15 [History] Escitalopram Oxalate [Lexapro] 15 mg PO BEDTIME 02/08/16 [History] Multivitamin with Minerals [Multivitamins with Minerals] 1 tab PO BEDTIME 02/08/16 [History] Albuterol [Proventil HFA] 1 - 2 puff INH ASDIRECTED 01/28/19 [History] Cyclobenzaprine [Flexeril] 10 mg PO BEDTIME PRN 01/28/19 [History] Diclofenac Sodium [Voltaren 1% Gel] 1 applic TOP ASDIRECTED PRN 01/28/19 [History] buPROPion [Wellbutrin SR] 150 mg PO BEDTIME 01/28/19 [History] oxyCODONE HCl/Acetaminophen [Percocet 10-325 mg Tablet] 1 tab PO Q8H PRN 01/28/19 [History] Past Medical History - Past Health History Medical/Surgical History: Denies Medical/Surgical History HEENT History: Reports: Impaired Vision Other HEENT History: WEARS GLASSES Cardiovascular History: Reports: Heart Murmur, Other (See Below) Other Cardiovascular History: as child Respiratory History: Reports: None Gastrointestinal History: Reports: PUD Genitourinary History: Reports: Renal Calculus, STD, Other (See Below) Other Genitourinary History: GENITAL WARTS 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 Psychiatric History: Reports: Anxiety, Depression, PTSD, Suicide Attempt, Other (See Below) Other Psychiatric History: CONVERSION DISORDER;. Suicide attempt 2007, Hosp. 2013 with suicidal feelings. Hx of noncompliance Endocrine/Metabolic History: Reports: None, Obesity/BMI 30+ Hematologic History: Reports: None Immunologic History: Reports: None Oncologic (Cancer) History: Reports: None Dermatologic History: Reports: None - Infectious Disease History Infectious Disease History: Reports: Human Papilloma Virus (HPV) Other Infectious Disease History: genital warts - Past Surgical History Head Surgeries/Procedures: Reports: None HEENT Surgical History: Reports: Other (See Below) Other HEENT Surgeries/Procedures: LACERATION OF PINNA Cardiovascular Surgical History: Reports: None Respiratory Surgical History: Reports: None GI Surgical History: Reports: None Female Surgical History: Reports: None, Tubal Ligation Endocrine Surgical History: Reports: None Neurological Surgical History: Reports: None Musculoskeletal Surgical History: Reports: Amputation, Other (See Below) Other Musculoskeletal Surgeries/Procedures:: left foot surgeries 3rd toe Social & Family History - Family History Family Medical History: No Pertinent Family History - Tobacco Use Tobacco Use Status *Q: Current Every Day Tobacco User Years of Tobacco use: 10 Packs/Tins Daily: 0.5 - Caffeine Use Caffeine Use: Reports: Coffee, Energy Drinks, Soda, Tea Other Caffeine Use: OCCASIONAL COFEE. OCCASIONAL ENERGY DRINK - Recreational Drug Use Recreational Drug Use: No - Living Situation & Occupation Living situation: Reports: with Family Occupation: Employed Review of Systems - Review of Systems Review Of Systems: Comprehensive ROS is negative, except as noted in HPI. ED EXAM, GENERAL - Physical Exam Exam: See Below Exam Limited By: No Limitations General Appearance: Alert, Mild Distress, Obese Ears: Normal External Exam Nose: Normal Inspection Throat/Mouth: Normal Voice Neck: Full Range of Motion Cardiovascular: Normal Peripheral Pulses, Regular Rate, Rhythm Extremities: Normal Range of Motion, Other (No redness or swelling. No open lesions, No callous . Tender mid heel plantar surface, mild tenderness mid arch with lateral pressure. ). No: Pedal Edema Neurological: Alert, Oriented, Normal Cognition Course - Vital Signs Last Recorded V/S: Last Vital Signs Temp 97.6 F 08/19/20 00:40 Pulse 108 H 08/19/20 00:40 Resp 22 H 08/19/20 00:40 BP 138/91 H 08/19/20 00:40 Pulse Ox 100 08/19/20 00:40 Departure - Departure Time of Disposition: 01:50 Disposition: Home, Self-Care 01 Condition: Good Clinical Impression: Heel spur Qualifiers: Laterality: right Qualified Code(s): M77.31 - Calcaneal spur, right foot - Discharge Information *PRESCRIPTION DRUG MONITORING PROGRAM REVIEWED*: Yes *COPY OF PRESCRIPTION DRUG MONITORING REPORT IN PATIENT LINO: Yes Instructions: Heel Spur, Plantar Fasciitis Forms: ED Department Discharge Additional Instructions: follow up with Podiatry cushion heel support limit weight bearing alternate tylenol 650mg and ibuprofen 600mg every 4 hours as needed benadryl 25mg at bedtime as needed Sepsis Event Note (ED) - Evaluation Sepsis Screening Result: No Definite Risk - Focused Exam Vital Signs: Vital Signs Temp Pulse Resp BP Pulse Ox 08/19/20 00:40 97.6 F 108 H 22 H 138/91 H 100
--- NOTE | 2020-08-19 01:33 | CR ---
PROCEDURE INFORMATION: Exam: XR Right Foot Complete Exam date and time: 08/19/2020 1:10 AM Age: 35 years old Clinical indication: Other: No trauma; Additional info: Right foot heel pain, TECHNIQUE: Imaging protocol: XR Right foot. Views: 3 or more views. COMPARISON: No relevant prior studies available. FINDINGS: Bones/joints: Small plantar calcaneal spur measuring approximately 7 mm in length. Calcaneus is otherwise unremarkable. Mild hallux valgus of the great toe. No fractures. No suspicious bone lesions. Soft tissues: No soft tissue swelling or foreign body. No plantar fascial calcification. IMPRESSION: 1. Small plantar calcaneal spur. 2. Mild hallux valgus. 3. No acute findings of bones or soft tissue.
[2020-08-19] MEDS ORDERED: diphenhydrAMINE 25 MG Tab PO ONE (01:49)
[2020-08-19] MEDS ORDERED: Ketorolac 30 MG/ML SDV IM ONE (01:49)
== END 2020-08-19 02:10 | disposition home or self-care (01) ==
LOC: DL.ED 00:28
DX: M77.31 Calcaneal spur, right foot (principal); E66.9 Obesity, unspecified; Z72.0 Tobacco use; Z68.41 Body mass index [BMI] 40.0-44.9, adult
CPT/HCPCS: 73630; 96372; 99283; A9270; J1885

== ENCOUNTER 2020-09-04 22:54 | Emergency (ER) | payer MEDICAID ==
[2020-09-04] MEDS ORDERED: Hydrocortisone/Neomycin/Polymyxin B Otic Susp 10 ML Bottle EARBOTH ONE (22:55)
--- NOTE | 2020-09-04 23:48 | EDM.PDOC ---
ED HPI GENERAL MEDICAL PROBLEM - General Chief Complaint: ENT Problem Stated Complaint: DOUBLE EAR INFECTION Time Seen by Provider: 09/04/20 23:45 Source of Information: Reports: Patient History Limitations: Reports: No Limitations - History of Present Illness INITIAL COMMENTS - FREE TEXT/NARRATIVE: states her grand kids gave her bilateral ear infection. - Related Data Allergies Allergy/AdvReac Type Severity Reaction Status Date / Time No Known Allergies Allergy Verified 08/19/20 00:38 Home Meds: Home Meds Acetaminophen [Acetaminophen Extra Strength] 1,000 mg PO Q6H PRN 08/08/15 [History] QUEtiapine Fumarate [Seroquel] 150 mg PO BEDTIME 08/08/15 [History] Escitalopram Oxalate [Lexapro] 15 mg PO BEDTIME 02/08/16 [History] Multivitamin with Minerals [Multivitamins with Minerals] 1 tab PO BEDTIME 02/08/16 [History] Albuterol [Proventil HFA] 1 - 2 puff INH ASDIRECTED 01/28/19 [History] Cyclobenzaprine [Flexeril] 10 mg PO BEDTIME PRN 01/28/19 [History] Diclofenac Sodium [Voltaren 1% Gel] 1 applic TOP ASDIRECTED PRN 01/28/19 [History] buPROPion [Wellbutrin SR] 150 mg PO BEDTIME 01/28/19 [History] oxyCODONE HCl/Acetaminophen [Percocet 10-325 mg Tablet] 1 tab PO Q8H PRN 01/28/19 [History] Past Medical History - Past Health History Medical/Surgical History: Denies Medical/Surgical History HEENT History: Reports: Impaired Vision Other HEENT History: WEARS GLASSES Cardiovascular History: Reports: Heart Murmur, Other (See Below) Other Cardiovascular History: as child Respiratory History: Reports: None Gastrointestinal History: Reports: PUD Genitourinary History: Reports: Renal Calculus, STD, Other (See Below) Other Genitourinary History: GENITAL WARTS 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 or October 2015, Seizure 01/03/16: Seizure [id number] states they are from "PTSD, and only happen when she is stressed and sick", and describes them as her staring into space and not responding to people who are talking to her. Psychiatric History: Reports: Anxiety, Depression, PTSD, Suicide Attempt, Other (See Below) Other Psychiatric History: CONVERSION DISORDER;. Suicide attempt 2008, Hosp. 2014 with suicidal feelings. Hx of noncompliance Endocrine/Metabolic History: Reports: None, Obesity/BMI 30+ Hematologic History: Reports: None Immunologic History: Reports: None Oncologic (Cancer) History: Reports: None Dermatologic History: Reports: None - Infectious Disease History Infectious Disease History: Reports: Human Papilloma Virus (HPV) Other Infectious Disease History: genital warts - Past Surgical History Head Surgeries/Procedures: Reports: None HEENT Surgical History: Reports: Other (See Below) Other HEENT Surgeries/Procedures: LACERATION OF PINNA Cardiovascular Surgical History: Reports: None Respiratory Surgical History: Reports: None GI Surgical History: Reports: None Female Surgical History: Reports: None, Tubal Ligation Endocrine Surgical History: Reports: None Neurological Surgical History: Reports: None Musculoskeletal Surgical History: Reports: Amputation, Other (See Below) Other Musculoskeletal Surgeries/Procedures:: left foot surgeries 3rd toe Social & Family History - Family History Family Medical History: No Pertinent Family History - Caffeine Use Caffeine Use: Reports: Coffee, Energy Drinks, Soda, Tea Other Caffeine Use: OCCASIONAL COFEE. OCCASIONAL ENERGY DRINK - Living Situation & Occupation Living situation: Reports: with Family Occupation: Employed ED ROS ENT - Review of Systems Review Of Systems: Comprehensive ROS is negative, except as noted in HPI. ED EXAM, ENT - Physical Exam Exam: See Below Exam Limited By: No Limitations General Appearance: Alert, WD/WN, Mild Distress, Other (tearful) Ears: Hearing Grossly Normal, Canal Swelling, TM Dullness, Other (bilateral) Nose: Normal Inspection Mouth/Throat: Normal Inspection Head: Atraumatic Neck: Non-Tender, Full Range of Motion Respiratory/Chest: No Respiratory Distress Cardiovascular: Regular Rate, Rhythm GI/Abdominal: Soft, Non-Tender (Female) Exam: Deferred Rectal (Female) Exam: Deferred Back: Full Range of Motion Extremities: Normal Range of Motion Neurological: Alert, Oriented, Normal Cognition, Normal Gait, No Motor/Sensory Deficits Psychiatric: Tearful Skin: Warm, Dry, Normal Color Lymphatic: No Adenopathy Course - Orders/Labs/Meds Meds: Medications Discontinued Medications Generic Name Dose Route Start Last Admin Trade Name Luly PRN Reason Stop Dose Admin Hydrocodone Bitart/Acetaminophen 1 tab 09/04/20 23:44 [place] 325-10 Mg PO 09/04/20 23:45 ONETIME ONE Azithromycin 500 mg 09/04/20 23:44 Zithromax PO 09/04/20 23:45 ONETIME ONE Departure - Departure Time of Disposition: 23:47 Disposition: Home, Self-Care 01 Condition: Good Clinical Impression: Otitis externa Qualifiers: Otitis externa type: diffuse Chronicity: acute Laterality: bilateral Qualified Code(s): H60.313 - Diffuse otitis externa, bilateral Otitis media Qualifiers: Otitis media type: serous Chronicity: acute Laterality: bilateral Recurrence: non-recurrent Qualified Code(s): H65.03 - Acute serous otitis media, bilateral - Discharge Information Instructions: Otitis Externa, [id number] Additional Instructions: 1) don't get water into ears 2) follow up at clinic rx togo; corticosporin otic 2 drops qid x 1 week rx given; z-miguel angel
[2020-09-04 23:49] VITALS: BP 131/92; PULSE 88
[2020-09-04] MEDS: Acetaminophen/HYDROcodone 325-10 MG Tab PO ONE (23:57)
[2020-09-04] MEDS: Azithromycin 250 MG Tab PO ONE (23:57)
[2020-09-04] MEDS: Hydrocortisone/Neomycin/Polymyxin B Otic Susp 10 ML Bottle ONE (23:58)
== END 2020-09-05 00:01 | disposition home or self-care (01) ==
LOC: DL.ED 22:54
DX: H65.03 Acute serous otitis media, bilateral (principal); H60.313 Diffuse otitis externa, bilateral; H60.503 Unspecified acute noninfective otitis externa, bilateral; E66.9 Obesity, unspecified; Z68.38 Body mass index [BMI] 38.0-38.9, adult; Z79.899 Other long term (current) drug therapy
CPT/HCPCS: 99282; A9270

== ENCOUNTER 2020-09-09 14:06 | Emergency (ER) | payer MEDICAID ==
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
[2020-09-09] MEDS ORDERED: LORazepam 1 MG Tab PO ONE (14:27)
[2020-09-09 14:28] VITALS: BP 157/93; PULSE 127
--- NOTE | 2020-09-09 15:05 | CR ---
PROCEDURE INFORMATION: Exam: XR Chest, 1 View Exam date and time: 09/09/2020 2:55 PM Age: 35 years old Clinical indication: Chest pain; Additional info: Chest pain, short of breath, cold exposure TECHNIQUE: Imaging protocol: XR of the chest Views: 1 view. COMPARISON: CR Chest 1V Frontal 01/21/2020 5:47 PM FINDINGS: Lungs: Unremarkable. No consolidation. Pleural spaces: Unremarkable. No pleural effusion. No pneumothorax. Heart/Mediastinum: Unremarkable. No cardiomegaly. Bones/joints: Unremarkable. IMPRESSION: No acute findings.
[2020-09-09] MEDS ORDERED: Lidocaine 2% Viscous Solution 15 ML Cup PO ONE (15:26)
== END 2020-09-09 16:10 | disposition home or self-care (01) ==
LOC: DL.ED 14:06
DX: T69.9XXA Effect of reduced temperature, unspecified, initial encounter (principal); F41.9 Anxiety disorder, unspecified; E66.9 Obesity, unspecified; Z68.39 Body mass index [BMI] 39.0-39.9, adult; Z79.899 Other long term (current) drug therapy
CPT/HCPCS: 71045; 99283; A9270

== ENCOUNTER 2020-09-25 22:30 | Emergency (ER) | payer MEDICAID ==
[2020-09-25 22:39] VITALS: BP 114/62; PULSE 102
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
[2020-09-25] MEDS ORDERED: LORazepam 2 MG/ML SDV IVPUSH ONE (23:12)
[2020-09-25 23:18] LABS: ANION GAP 15.5 mEq/L (7-13); CHLORIDE,CL 102 mmol/L (98-107); SODIUM,NA 140 mmol/L (136-145)
[2020-09-25] MEDS ORDERED: Ketorolac 30 MG/ML SDV IVPUSH ONE (23:43)
[2020-09-25] MEDS ORDERED: GI Cocktail Oral Solution 30 ML PO ONE (23:43)
== END 2020-09-26 00:29 | disposition home or self-care (01) ==
LOC: DL.ED 22:30
DX: F41.9 Anxiety disorder, unspecified (principal); E66.9 Obesity, unspecified; Z72.0 Tobacco use; Z68.41 Body mass index [BMI] 40.0-44.9, adult
CPT/HCPCS: 36415; 80053; 80305; 80307; 81001; 81025; 84484; 85025; 93005; 93010; 96374; 96375; 99284; 99285; A9270; J1885; J2060

== ENCOUNTER 2020-10-12 21:59 | Emergency (ER) | payer MEDICAID ==
[2020-10-12] MEDS ORDERED: Cyclobenzaprine 10 MG Tab PO ONE ×2 (22:00→23:50)
[2020-10-12 22:54] VITALS: BP 142/98; PULSE 73
[2020-10-13] MEDS ORDERED: Ketorolac 30 MG/ML SDV IVPUSH ONE (00:04)
--- NOTE | 2020-10-13 00:07 | EDM.PDOC ---
ED HPI GENERAL MEDICAL PROBLEM - General Chief Complaint: Abdominal Pain Stated Complaint: SEVERE CRAMPING Time Seen by Provider: 10/12/20 23:00 Source of Information: Reports: Patient, RN, RN Notes Reviewed History Limitations: Reports: No Limitations - History of Present Illness INITIAL COMMENTS - FREE TEXT/NARRATIVE: Patient presents to the ED via personal vehicle with complaints of menstrual cramping. The patient reports she is on day two of her menses and is experiencing significant bilateral lower abdominal cramping. She states this is not unusual for her to experience during her cycle. The patient reports she typically takes Flexeril for this problem, but she is currently out of this medication and does not have an appointment with her primary until October 17. She states she has been evaluated by an OBGYN and is awaiting a hysterectomy d/t menorrhagia and dysmenorrhea. She denies fever, shaking chills, nausea, vomiting, dysuria, hematuria, melena, or hematochezia. She does attest to mild diarrhea which is normal for her during menses. The patient reports she has attempted supportive cares at home, including warm baths, heating pad to the abdomen, multiple doses of Tylenol 1000mg, and one dose of Motrin 400mg. She reports [id number] alleviation of pain with these measures. Lower Abdomen Pain Score (Numeric/FACES): 8 - Related Data Allergies Allergy/AdvReac Type Severity Reaction Status Date / Time No Known Allergies Allergy Verified 10/12/20 22:54 Home Meds: Home Meds QUEtiapine Fumarate [Seroquel] 150 mg PO BEDTIME 08/08/15 [History] cloNIDine [Catapres] 0.1 mg PO Q8H 09/25/20 [History] Past Medical History - Past Health History Medical/Surgical History: Denies Medical/Surgical History HEENT History: Reports: Impaired Vision Other HEENT History: WEARS GLASSES Cardiovascular History: Reports: Heart Murmur, Other (See Below) Other Cardiovascular History: as child Respiratory History: Reports: None Gastrointestinal History: Reports: PUD Genitourinary History: Reports: Renal Calculus, STD, Other (See Below) Other Genitourinary History: GENITAL WARTS 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 Psychiatric History: Reports: Anxiety, Depression, PTSD, Suicide Attempt, Other (See Below) Other Psychiatric History: CONVERSION DISORDER;. Suicide attempt 2008, Hosp. 2014 with suicidal feelings. 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) Other Infectious Disease History: genital warts - Past Surgical History Head Surgeries/Procedures: Reports: None HEENT Surgical History: Reports: Other (See Below) Other HEENT Surgeries/Procedures: LACERATION OF PINNA Cardiovascular Surgical History: Reports: None Respiratory Surgical History: Reports: None GI Surgical History: Reports: None Female Surgical History: Reports: None, Tubal Ligation Endocrine Surgical History: Reports: None Neurological Surgical History: Reports: None Musculoskeletal Surgical History: Reports: Amputation, Other (See Below) Other Musculoskeletal Surgeries/Procedures:: left foot surgeries 3rd toe Social & Family History - Family History Family Medical History: No Pertinent Family History - Tobacco Use Tobacco Use Status *Q: Current Every Day Tobacco User Years of Tobacco use: 15 Packs/Tins Daily: 1 - Caffeine Use Caffeine Use: Reports: Coffee Other Caffeine Use: OCCASIONAL COFEE. OCCASIONAL ENERGY DRINK - Recreational Drug Use Recreational Drug Use: No - Living Situation & Occupation Living situation: Reports: with Family Occupation: Employed ED ROS GENERAL - Review of Systems Review Of Systems: Comprehensive ROS is negative, except as noted in HPI. ED EXAM, GI/ABD - Physical Exam Exam: See Below Exam Limited By: No Limitations General Appearance: Alert, Mild Distress (Abdominal cramping) Throat/Mouth: Normal Inspection, Normal Voice, No Airway Compromise Head: Atraumatic, Normocephalic Respiratory/Chest: No Respiratory Distress, Lungs Clear, Normal Breath Sounds, No Accessory Muscle Use, Chest Non-Tender Cardiovascular: Normal Peripheral Pulses, Regular Rate, Rhythm, No Edema, No Gallop, No JVD, No Murmur, No Rub GI/Abdominal Exam: Soft, No Distention, No Mass, Pelvis Stable, Guarding, Tender (To palpation of bilateral lower abdomen), Abnormal Bowel Sounds (Hyperactive bowel sounds). No: Rigid, Rebound, Hernia (Female) Exam: Deferred Rectal (Female) Exam: Deferred Back Exam: Normal Inspection, Full Range of Motion. No: CVA Tenderness (L), CVA Tenderness (R), Muscle Spasm, Paraspinal Tenderness, Vertebral Tenderness Extremities: Normal Inspection, Normal Range of Motion, Non-Tender, Normal Capillary Refill, No Pedal Edema Neurological: Alert, Oriented, CN II-XII Intact, Normal Cognition, Normal Gait, No Motor/Sensory Deficits Psychiatric: Anxious, Tearful Skin Exam: Warm, Dry, Intact, Normal Color, No Rash. No: Ecchymosis, Erythema, Jaundice, Mottled, Pallor, Petechiae Course - Vital Signs Last Recorded V/S: Last Vital Signs Temp 97.5 F 10/12/20 22:36 Pulse 73 10/12/20 22:36 Resp 17 10/12/20 22:36 BP 142/98 H 10/12/20 22:36 Pulse Ox 100 10/12/20 22:36 - Orders/Labs/Meds Labs: Laboratory Tests 10/12/20 Range/Units 23:25 Urine Color Yellow (YELLOW) Urine Appearance Slightly cloudy (CLEAR) Urine pH 6.0 (5.0-9.0) Ur Specific [place]oks >= 1.030 (1.005-1.030) Urine Protein Negative (NEGATIVE) Urine Glucose (UA) Negative (NEGATIVE) Urine Ketones Negative (NEGATIVE) Urine Occult Blood Moderate H (NEGATIVE) Urine Nitrite Negative (NEGATIVE) Urine Bilirubin Negative (NEGATIVE) Urine Urobilinogen 0.2 (0.2-1.0) mg/dL Ur Leukocyte Esterase Negative (NEGATIVE) Urine RBC 5-10 H /HPF Urine WBC 0-5 (0-5/HPF) /HPF Ur Epithelial Cells Few (NOT SEEN) /HPF Urine Bacteria Rare (0-FEW/HPF) /HPF - Re-Assessments/Exams Free Text/Narrative Re-Assessment/Exam: 10/13/20 UA unremarkable for acute processes; no evidence of infection. Occult blood and RBCs likely related to menses. Discussed findings of examination of lab work with patient. Will treat acute pain with Flexeril, as per patient's normal plan of care. Patient verbalizes refusal of Flexeril stating she has to work in the AM and Flexeril will make her too sleepy. She states she would like a medication to treat her pain "right now." Will treat with Ketorolac 30mg IM. Patient request to take Flexeril with her for after work as she cannot get into her primary for a few more days. Patient verbalized understanding and agreement with the plan of care. Departure - Departure Time of Disposition: 00:05 Disposition: Home, Self-Care 01 Condition: Good Clinical Impression: Severe menstrual cramps - Discharge Information *PRESCRIPTION DRUG MONITORING PROGRAM REVIEWED*: Not Applicable *COPY OF PRESCRIPTION DRUG MONITORING REPORT IN PATIENT LINO: Not Applicable Instructions: Abdominal Pain, Adult, [id number] Referrals: Nikolay Sanders NP [Primary Care Provider] - Forms: ED Department Discharge Additional Instructions: 1.) Follow up with your primary care provider, as previously scheduled. 2.) Do not take ibuprofen or NSAIDS until tomorrow, as the medication you received in the emergency department is similar to these medications. 3.) Drink plenty of water to stay hydrated. Sepsis Event Note (ED) - Evaluation Sepsis Screening Result: No Definite Risk - Focused Exam Vital Signs: Vital Signs Temp Pulse Resp BP Pulse Ox 10/12/20 22:36 97.5 F 73 17 142/98 H 100
== END 2020-10-13 00:14 | disposition home or self-care (01) ==
LOC: DL.ED 21:59
DX: N94.6 Dysmenorrhea, unspecified (principal); E66.9 Obesity, unspecified; Z79.899 Other long term (current) drug therapy; Z72.0 Tobacco use
CPT/HCPCS: 81001; 96374; 99284; A9270; J1885

== ENCOUNTER 2020-12-22 17:36 | Emergency (ER) | payer MEDICAID ==
[2020-12-22 17:55] VITALS: BP 114/67; PULSE 102
--- NOTE | 2020-12-22 18:00 | EDM.PDOC ---
ED HPI GENERAL MEDICAL PROBLEM - General Source of Information: Reports: Patient History Limitations: Reports: No Limitations - History of Present Illness Onset: Today Duration: Intermittent (4 episodes today) Location: Reports: Generalized Quality: Reports: Other Severity: Moderate Improves with: Reports: None Worsens with: Reports: None Context: Reports: Other Head Pain Score (Numeric/FACES): 6 <Molina Ruiz - Last Filed: 12/22/20 18:45> <Efra Romero - Last Filed: 12/22/20 22:57> - General Chief Complaint: Neurological Problem Stated Complaint: [facility] Time Seen by Provider: 12/22/20 17:50 - History of Present Illness INITIAL COMMENTS - FREE TEXT/NARRATIVE: This 35 yo female patient was brought to the ED by [facility] due to frequent seizures today. The patient reports she has had four different seizures today (first one was about 0200 this morning). The patient reports she has a history of seizures, has not had a seizure in about 1 year and is not taking any medications for her seizures. The patient reports she did have an appointment with neurology in the past, but was not started on any seizure medications. The patient reports she was advised that she has seizures due to her PTSD. The patient reports her seizures were witnessed by her boyfriend ("who knows what seizures are"). The patient denies any incontinence, but reports she did bite her tongue during one of the seizures. The patient reports she currently has a small headache and her legs hurt from having seizures. The patient has not taken anything today for her seizures. (Molina Ruiz) - Related Data Allergies Allergy/AdvReac Type Severity Reaction Status Date / Time No Known Allergies Allergy Verified 12/22/20 17:59 Home Meds: Home Meds QUEtiapine Fumarate [Seroquel] 150 mg PO BEDTIME 08/08/15 [History] cloNIDine [Catapres] 0.1 mg PO Q8H 09/25/20 [History] Past Medical History - Past Health History Medical/Surgical History: Denies Medical/Surgical History HEENT History: Reports: Impaired Vision Other HEENT History: WEARS GLASSES Cardiovascular History: Reports: Heart Murmur, Other (See Below) Other Cardiovascular History: as child Respiratory History: Reports: None Gastrointestinal History: Reports: PUD Genitourinary History: Reports: Renal Calculus, STD, Other (See Below) Other Genitourinary History: GENITAL WARTS 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 Psychiatric History: Reports: Anxiety, Depression, PTSD, Suicide Attempt, Other (See Below) Other Psychiatric History: CONVERSION DISORDER;. Suicide attempt 2007, Hosp. 2013 with suicidal feelings. 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) Other Infectious Disease History: genital warts - Past Surgical History Head Surgeries/Procedures: Reports: None HEENT Surgical History: Reports: Other (See Below) Other HEENT Surgeries/Procedures: LACERATION OF PINNA Cardiovascular Surgical History: Reports: None Respiratory Surgical History: Reports: None GI Surgical History: Reports: None Female Surgical History: Reports: None, Tubal Ligation Endocrine Surgical History: Reports: None Neurological Surgical History: Reports: None Musculoskeletal Surgical History: Reports: Amputation, Other (See Below) Other Musculoskeletal Surgeries/Procedures:: left foot surgeries 3rd toe <Molina Ruiz M - Last Filed: 12/22/20 18:45> Social & Family History - Family History Family Medical History: No Pertinent Family History - Caffeine Use Caffeine Use: Reports: Coffee Other Caffeine Use: OCCASIONAL COFEE. OCCASIONAL ENERGY DRINK - Living Situation & Occupation Living situation: Reports: with Family Occupation: Employed <Molina Ruiz - Last Filed: 12/22/20 18:45> ED ROS GENERAL - Review of Systems Review Of Systems: Comprehensive ROS is negative, except as noted in HPI. <Molina Ruiz - Last Filed: 12/22/20 18:45> - Physical Exam Exam: See Below Exam Limited By: No Limitations General Appearance: Alert, WD/WN, Moderate Distress, Obese Eye Exam: Bilateral Eye: EOMI, Normal Inspection, PERRL Ears: Normal External Exam, Normal Canal, Hearing Grossly Normal, Normal TMs Nose: Normal Inspection, Normal Mucosa, No Blood Throat/Mouth: Normal Lips, Normal Teeth, Normal Gums, Normal Voice, No Airway Compromise, Evidence of Tongue Biting Head Exam: Atraumatic, Normocephalic Respiratory/Chest: No Respiratory Distress, Lungs Clear, Normal Breath Sounds, No Accessory Muscle Use, Chest Non-Tender Cardiovascular: Normal Peripheral Pulses, Regular Rate, Rhythm, No Edema, No Gallop, No JVD, No Murmur, No Rub GI/Abdominal: Normal Bowel Sounds, Soft, Non-Tender, No Organomegaly, No Distention, No Abnormal Bruit, No Mass (Female) Exam: Deferred Rectal (Female) Exam: Deferred Neuro Exam (Abbreviated): Alert, Oriented, CN II-XII Intact, Normal Cognition, Normal Gait, Normal Reflexes, No Motor/Sensory Deficits Back Exam: Normal Inspection, Full Range of Motion, NT Extremities: Normal Inspection, Normal Range of Motion, Non-Tender, No Pedal Edema, Normal Capillary Refill Psychiatric: Normal Affect, Normal Mood Skin Exam: Warm, Dry, Intact, Normal Color, No Rash <Molina Ruiz M - Last Filed: 12/22/20 18:45> Course <Efra Romero - Last Filed: 12/22/20 22:57> - Vital Signs Last Recorded V/S: Last Vital Signs Temp 98.5 F 12/22/20 17:54 Pulse 102 H 12/22/20 17:54 Resp 20 12/22/20 17:54 BP 114/67 12/22/20 17:54 Pulse Ox 100 12/22/20 17:54 - Orders/Labs/Meds Labs: Laboratory Tests 12/22/20 12/22/20 12/22/20 Range/Units 17:57 17:57 17:57 WBC 12.3 H (5.0-10.0) 10^3/uL RBC 4.32 (4.2-5.4) 10^6/uL Hgb 10.5 L (12.0-16.0) g/dL Hct 34.5 L (37.0-47.0) % MCV 79.9 L (80-100) fL MCH 24.3 L (27.0-34.0) pg MCHC 30.4 L (33.0-35.0) g/dL Plt Count 447 (150-450) 10^3/uL Neut % (Auto) 91.2 H (42.2-75.2) % Lymph % (Auto) 4.5 L (20.5-50.1) % [place] % (Auto) 3.9 (2-8) % Eos % (Auto) 0.2 L (1.0-3.0) % Baso % (Auto) 0.2 (0.0-1.0) % Sodium 142 (136-145) mmol/L Potassium 3.9 (3.5-5.1) mmol/L Chloride 104 (98-107) mmol/L Carbon Dioxide 26 (21-32) mmol/L Anion Gap 15.9 H (7-13) mEq/L BUN 15 (7-18) mg/dL Creatinine 0.88 (0.55-1.02) mg/dL Est Cr Clr Drug Dosing TNP Estimated GFR (MDRD) > 60 BUN/Creatinine Ratio 17.0 (No establ ref range) Glucose 101 H (70-99) mg/dL Lactic Acid 1.6 (0.4-2.0) mmol/L Calcium 8.3 L (8.5-10.1) mg/dL Total Bilirubin 0.4 (0.2-1.0) mg/dL AST 24 (15-37) U/L ALT 47 (14-59) U/L Alkaline Phosphatase 80 (46-116) U/L Total Protein 7.2 (6.4-8.2) g/dL Albumin 3.5 (3.4-5.0) g/dL Globulin 3.7 Albumin/Globulin Ratio 0.9 HCG, Qual Urine Color (YELLOW) Urine Appearance (CLEAR) Urine pH (5.0-9.0) Ur Specific [place] (1.005-1.030) Urine Protein (NEGATIVE) Urine Glucose (UA) (NEGATIVE) Urine Ketones (NEGATIVE) Urine Occult Blood (NEGATIVE) Urine Nitrite (NEGATIVE) Urine Bilirubin (NEGATIVE) Urine Urobilinogen (0.2-1.0) mg/dL Ur Leukocyte Esterase (NEGATIVE) Urine RBC /HPF Urine WBC (0-5/HPF) /HPF Ur Epithelial Cells (NOT SEEN) /HPF Amorphous Sediment (NOT SEEN) /HPF Urine Bacteria (0-FEW/HPF) /HPF Urine Mucus (NOT SEEN) /LPF Urine Other Urine Opiates Screen (NEGATIVE) Ur Oxycodone Screen (NEGATIVE) Urine Methadone Screen (NEGATIVE) Ur Barbiturates Screen (NEGATIVE) U Tricyclic Antidepress (NEGATIVE) Ur Phencyclidine Scrn (NEGATIVE) Ur Amphetamine Screen (NEGATIVE) U Methamphetamines Scrn (NEGATIVE) Urine MDMA Screen (NEGATIVE) U Benzodiazepines Scrn (NEGATIVE) Urine Cocaine Screen (NEGATIVE) U Marijuana (THC) Screen (NEGATIVE) 12/22/20 12/22/20 12/22/20 Range/Units 17:57 21:42 21:42 WBC (5.0-10.0) 10^3/uL RBC (4.2-5.4) 10^6/uL Hgb (12.0-16.0) g/dL Hct (37.0-47.0) % MCV (80-100) fL MCH (27.0-34.0) pg MCHC (33.0-35.0) g/dL Plt Count (150-450) 10^3/uL Neut % (Auto) (42.2-75.2) % Lymph % (Auto) (20.5-50.1) % [place] % (Auto) (2-8) % Eos % (Auto) (1.0-3.0) % Baso % (Auto) (0.0-1.0) % Sodium (136-145) mmol/L Potassium (3.5-5.1) mmol/L Chloride (98-107) mmol/L Carbon Dioxide (21-32) mmol/L Anion Gap (7-13) mEq/L BUN (7-18) mg/dL Creatinine (0.55-1.02) mg/dL Est Cr Clr Drug Dosing Estimated GFR (MDRD) BUN/Creatinine Ratio (No establ ref range) Glucose (70-99) mg/dL Lactic Acid (0.4-2.0) mmol/L Calcium (8.5-10.1) mg/dL Total Bilirubin (0.2-1.0) mg/dL AST (15-37) U/L ALT (14-59) U/L Alkaline Phosphatase (46-116) U/L Total Protein (6.4-8.2) g/dL Albumin (3.4-5.0) g/dL Globulin Albumin/Globulin Ratio HCG, Qual Negative Urine Color Yellow (YELLOW) Urine Appearance Slightly cloudy (CLEAR) Urine pH 6.0 (5.0-9.0) Ur Specific [place] >= 1.030 (1.005-1.030) Urine Protein Trace H (NEGATIVE) Urine Glucose (UA) Negative (NEGATIVE) Urine Ketones Trace H (NEGATIVE) Urine Occult Blood Negative (NEGATIVE) Urine Nitrite Negative (NEGATIVE) Urine Bilirubin Negative (NEGATIVE) Urine Urobilinogen 1.0 (0.2-1.0) mg/dL Ur Leukocyte Esterase Negative (NEGATIVE) Urine RBC 0-5 /HPF Urine WBC 0-5 (0-5/HPF) /HPF Ur Epithelial Cells Moderate H (NOT SEEN) /HPF Amorphous Sediment Few (NOT SEEN) /HPF Urine Bacteria Occasional (0-FEW/HPF) /HPF Urine Mucus Moderate H (NOT SEEN) /LPF Urine Other See note Urine Opiates Screen Negative (NEGATIVE) Ur Oxycodone Screen Positive H (NEGATIVE) Urine Methadone Screen Negative (NEGATIVE) Ur Barbiturates Screen Negative (NEGATIVE) U Tricyclic Antidepress Negative (NEGATIVE) Ur Phencyclidine Scrn Negative (NEGATIVE) Ur Amphetamine Screen Negative (NEGATIVE) U Methamphetamines Scrn Negative (NEGATIVE) Urine MDMA Screen Negative (NEGATIVE) U Benzodiazepines Scrn Negative (NEGATIVE) Urine Cocaine Screen Negative (NEGATIVE) U Marijuana (THC) Screen Positive H (NEGATIVE) Meds: Medications Discontinued Medications Generic Name Dose Route Start Last Admin Trade Name Freq PRN Reason Stop Dose Admin Lactated Ringer's 1,000 mls @ 1,000 mls/hr 12/22/20 20:06 12/22/20 20:24 Ringers, Lactated IV 12/22/20 21:05 1,000 mls/hr .BOLUS ONE Administration Ketorolac Tromethamine 30 mg 12/22/20 22:34 12/22/20 22:41 Ketorolac 30 Mg/Ml Sdv IVPUSH 12/22/20 22:35 30 mg ONETIME ONE Administration - Radiology Interpretation Free Text/Narrative:: CT of the head per radiology shows no acute intercranial process. (Efra Romero) - Re-Assessments/Exams Free Text/Narrative Re-Assessment/Exam: 12/22/20 19:53 Assumed care of the patient at shift change at 1900 hrs. The patient has received no medications for her reported seizures and has had no seizure activity while in the ED. In the CT scanner waiting for results. 12/22/20 22:56 CT of the head per radiology shows no acute intracranial process. Urine drug screen positive for oxycodone and marijuana. The patient was monitored for multiple hours in the emergency department and had no recurrence of any seizure activity. She rested quite comfortably. She had no complaints other than some generalized muscle aches that she reports from having these multiple reported seizures although we have seen no activity and she is on a normal lactic acid in the emergency department. She has been followed by neurology in the past and has not been placed on anything for her reported seizures in the past. We will discharge her home have her follow-up with primary care this could be somewhat related to a psychosomatic overlay that she reports herself from having seizures from PTSD and being little bit more stressed recently. Have her follow-up with her primary care if any continued problems long-term management of her chronic illness. Discharge directions as below are explained to the patient she was comfortable this plan and her questions were answered. (Efra Romero) Departure <Molina Ruiz - Last Filed: 12/22/20 18:45> - Departure Time of Disposition: 22:31 <Efra Romero - Last Filed: 12/22/20 22:57> - Departure Disposition: Home, Self-Care 01 Clinical Impression: Seizure - Discharge Information Instructions: Non-Epileptic Seizures, Adult, Seizure, Adult, [id number] Referrals: PCP,None [Primary Care Provider] - Forms: ED Department Discharge Additional Instructions: Home rest tonight. Continue your previous medications. Follow up with PCP in the next 2-3 days. Return to the ED if new or worsening symptoms. Sepsis Event Note (ED) - Focused Exam Vital Signs: Vital Signs Temp Pulse Resp BP Pulse Ox 12/22/20 17:54 98.5 F 102 H 20 114/67 100
[2020-12-22 18:21] LABS: ANION GAP 15.9 mEq/L (7-13); CHLORIDE,CL 104 mmol/L (98-107); SODIUM,NA 142 mmol/L (136-145)
--- NOTE | 2020-12-22 19:27 | CT ---
PROCEDURE INFORMATION: Exam: CT Head Without Contrast Exam date and time: 12/22/2020 6:54 PM Age: 35 years old Clinical indication: Other: Siezure; Additional info: Seizures TECHNIQUE: Imaging protocol: Computed tomography of the head without contrast. Total images: 149 Radiation optimization: All CT scans at this facility use at least one of these dose optimization techniques: automated exposure control; mA and/or kV adjustment per patient size (includes targeted exams where dose is matched to clinical indication); or iterative reconstruction. COMPARISON: CT Head wo Cont 12/06/2017 11:06 PM FINDINGS: Brain: Normal. No hemorrhage. Unremarkable white matter. No mass effect. Cerebral ventricles: No ventriculomegaly. Bones/joints: Unremarkable. No acute fracture. Paranasal sinuses: Minimal mucosal thickening right sphenoid sinus. Mastoid air cells: Visualized mastoid air cells are well aerated. Soft tissues: Unremarkable. IMPRESSION: No acute intracranial process.
[2020-12-22] MEDS ORDERED: Lactated Ringers 1,000 ML IV ONE (20:06)
[2020-12-22] MEDS ORDERED: Ketorolac 30 MG/ML SDV IVPUSH ONE (22:34)
== END 2020-12-22 22:49 | disposition home or self-care (01) ==
LOC: DL.ED 17:36
DX: R56.9 Unspecified convulsions (principal); E66.9 Obesity, unspecified; Z68.30 Body mass index [BMI] 30.0-30.9, adult
CPT/HCPCS: 36415; 70450; 80053; 80305-QW; 81001; 83605; 84703; 85025; 96374; 99283; 99285-25; J1885; J7120

== ENCOUNTER 2020-12-27 00:27 | Emergency (ER) | payer MEDICAID ==
[2020-12-27 00:44] VITALS: BP 127/74; PULSE 90
[2020-12-27 01:10] LABS: CHLORIDE,CL 108 mmol/L (98-107); SODIUM,NA 143 mmol/L (136-145)
--- NOTE | 2020-12-27 02:13 | EDM.PDOC ---
ED HPI GENERAL MEDICAL PROBLEM - General Chief Complaint: General Stated Complaint: FEVER,SEIZURES ON SATURDAY Time Seen by Provider: 12/27/20 00:45 Source of Information: Reports: Patient History Limitations: Reports: No Limitations - History of Present Illness INITIAL COMMENTS - FREE TEXT/NARRATIVE: ED with c/o of feeling "sick", vague c/o intermittent fever, chills, nausea, No vomiting. Chronic diarrhea, No change. No urnary symptoms, but urine dark. Was in ED last week with 6 seizures. No medication for seizures. Has seen neurolgy remotely. In clinic today. Covid testing done. No exposure. Has cough, smoker, reports as chronic. . Rt. lower abd. pain Pain Score (Numeric/FACES): 4 - Related Data Allergies Allergy/AdvReac Type Severity Reaction Status Date / Time No Known Allergies Allergy Verified 12/27/20 00:38 Home Meds: Home Meds QUEtiapine Fumarate [Seroquel] 150 mg PO BEDTIME 08/08/15 [History] cloNIDine [Catapres] 0.1 mg PO Q8H 09/25/20 [History] Past Medical History - Past Health History Medical/Surgical History: Denies Medical/Surgical History HEENT History: Reports: Impaired Vision Other HEENT History: WEARS GLASSES Cardiovascular History: Reports: Heart Murmur, Other (See Below) Other Cardiovascular History: as child Respiratory History: Reports: None Gastrointestinal History: Reports: PUD Genitourinary History: Reports: Renal Calculus, STD, Other (See Below) Other Genitourinary History: GENITAL WARTS 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 or October 2015, Seizure 01/03/16: Seizure [id number] states they are from "PTSD, and only happen when she is stressed and sick", and describes them as her staring into space and not responding to people who are talking to her. Psychiatric History: Reports: Anxiety, Depression, PTSD, Suicide Attempt, Other (See Below) Other Psychiatric History: CONVERSION DISORDER;. Suicide attempt 2007, Hosp. 2014 with suicidal feelings. 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) Other Infectious Disease History: genital warts - Past Surgical History Head Surgeries/Procedures: Reports: None HEENT Surgical History: Reports: Other (See Below) Other HEENT Surgeries/Procedures: LACERATION OF PINNA Cardiovascular Surgical History: Reports: None Respiratory Surgical History: Reports: None GI Surgical History: Reports: None Female Surgical History: Reports: None, Tubal Ligation Endocrine Surgical History: Reports: None Neurological Surgical History: Reports: None Musculoskeletal Surgical History: Reports: Amputation, Other (See Below) Other Musculoskeletal Surgeries/Procedures:: left foot surgeries 3rd toe Social & Family History - Family History Family Medical History: No Pertinent Family History - Tobacco Use Tobacco Use Status *Q: Never Tobacco User - Caffeine Use Caffeine Use: Reports: Coffee Other Caffeine Use: OCCASIONAL COFEE. OCCASIONAL ENERGY DRINK - Recreational Drug Use Recreational Drug Use: No - Living Situation & Occupation Living situation: Reports: with Family Occupation: Employed ED ROS GENERAL - Review of Systems Review Of Systems: Comprehensive ROS is negative, except as noted in HPI. ED EXAM, GENERAL - Physical Exam Exam: See Below Exam Limited By: No Limitations General Appearance: Alert, Anxious Eye Exam: Bilateral Eye: EOMI, PERRL Ears: Normal External Exam, Hearing Grossly Normal Nose: Normal Inspection Throat/Mouth: Normal Inspection Head: Atraumatic, Normocephalic Neck: Normal Inspection, Full Range of Motion Respiratory/Chest: No Respiratory Distress, Lungs Clear, Normal Breath Sounds Cardiovascular: Normal Peripheral Pulses, Regular Rate, Rhythm GI/Abdominal: Normal Bowel Sounds, Soft, Non-Tender. No: Guarding, Rebound Back Exam: Normal Inspection, Full Range of Motion Extremities: Normal Inspection Neurological: Alert, Oriented, Normal Cognition Psychiatric: Flat Affect Skin Exam: Warm, Dry, Intact, Normal Color Course - Vital Signs Last Recorded V/S: Last Vital Signs Temp 97.8 F 12/27/20 00:38 Pulse 90 12/27/20 00:38 Resp 20 12/27/20 00:38 BP 127/74 12/27/20 00:38 Pulse Ox 99 12/27/20 00:38 - Orders/Labs/Meds Labs: Laboratory Tests 12/27/20 12/27/20 12/27/20 Range/Units 00:45 00:45 00:45 WBC 7.0 (5.0-10.0) 10^3/uL RBC 4.06 L (4.2-5.4) 10^6/uL Hgb 10.0 L (12.0-16.0) g/dL Hct 32.8 L (37.0-47.0) % MCV 80.8 (80-100) fL MCH 24.6 L (27.0-34.0) pg MCHC 30.5 L (33.0-35.0) g/dL Plt Count 430 (150-450) 10^3/uL Neut % (Auto) 46.9 (42.2-75.2) % Lymph % (Auto) 38.5 (20.5-50.1) % [place] % (Auto) 6.6 (2-8) % Eos % (Auto) 7.6 H (1.0-3.0) % Baso % (Auto) 0.4 (0.0-1.0) % Sodium 143 (136-145) mmol/L Potassium 4.0 (3.5-5.1) mmol/L Chloride 108 H (98-107) mmol/L Carbon Dioxide 27 (21-32) mmol/L Anion Gap 12.0 (7-13) mEq/L BUN 14 (7-18) mg/dL Creatinine 0.76 (0.55-1.02) mg/dL Est Cr Clr Drug Dosing 98.56 mL/min Estimated GFR (MDRD) > 60 BUN/Creatinine Ratio 18.4 (No establ ref range) Glucose 94 (70-99) mg/dL Lactic Acid 0.6 (0.4-2.0) mmol/L Calcium 8.5 (8.5-10.1) mg/dL Total Bilirubin 0.2 (0.2-1.0) mg/dL AST 13 L (15-37) U/L ALT 32 (14-59) U/L Alkaline Phosphatase 89 (46-116) U/L Total Protein 6.8 (6.4-8.2) g/dL Albumin 3.2 L (3.4-5.0) g/dL Globulin 3.6 Albumin/Globulin Ratio 0.89 Amylase 25 (25-115) U/L Lipase 90 (73-393) U/L TSH, Ultra Sensitive (0.36-3.74) uIU/mL Urine Color (YELLOW) Urine Appearance (CLEAR) Urine pH (5.0-9.0) Ur Specific [place] (1.005-1.030) Urine Protein (NEGATIVE) Urine Glucose (UA) (NEGATIVE) Urine Ketones (NEGATIVE) Urine Occult Blood (NEGATIVE) Urine Nitrite (NEGATIVE) Urine Bilirubin (NEGATIVE) Urine Urobilinogen (0.2-1.0) mg/dL Ur Leukocyte Esterase (NEGATIVE) Urine Opiates Screen (NEGATIVE) Ur Oxycodone Screen (NEGATIVE) Urine Methadone Screen (NEGATIVE) Ur Barbiturates Screen (NEGATIVE) U Tricyclic Antidepress (NEGATIVE) Ur Phencyclidine Scrn (NEGATIVE) Ur Amphetamine Screen (NEGATIVE) U Methamphetamines Scrn (NEGATIVE) Urine MDMA Screen (NEGATIVE) U Benzodiazepines Scrn (NEGATIVE) Urine Cocaine Screen (NEGATIVE) U Marijuana (THC) Screen (NEGATIVE) 12/27/20 12/27/20 12/27/20 Range/Units 00:45 01:40 01:40 WBC (5.0-10.0) 10^3/uL RBC (4.2-5.4) 10^6/uL Hgb (12.0-16.0) g/dL Hct (37.0-47.0) % MCV (80-100) fL MCH (27.0-34.0) pg MCHC (33.0-35.0) g/dL Plt Count (150-450) 10^3/uL Neut % (Auto) (42.2-75.2) % Lymph % (Auto) (20.5-50.1) % [place] % (Auto) (2-8) % Eos % (Auto) (1.0-3.0) % Baso % (Auto) (0.0-1.0) % Sodium (136-145) mmol/L Potassium (3.5-5.1) mmol/L Chloride (98-107) mmol/L Carbon Dioxide (21-32) mmol/L Anion Gap (7-13) mEq/L BUN (7-18) mg/dL Creatinine (0.55-1.02) mg/dL Est Cr Clr Drug Dosing mL/min Estimated GFR (MDRD) BUN/Creatinine Ratio (No establ ref range) Glucose (70-99) mg/dL Lactic Acid (0.4-2.0) mmol/L Calcium (8.5-10.1) mg/dL Total Bilirubin (0.2-1.0) mg/dL AST (15-37) U/L ALT (14-59) U/L Alkaline Phosphatase (46-116) U/L Total Protein (6.4-8.2) g/dL Albumin (3.4-5.0) g/dL Globulin Albumin/Globulin Ratio Amylase (25-115) U/L Lipase (73-393) U/L TSH, Ultra Sensitive 2.43 (0.36-3.74) uIU/mL Urine Color Yellow (YELLOW) Urine Appearance Clear (CLEAR) Urine pH 6.5 (5.0-9.0) Ur Specific [place] >= 1.030 (1.005-1.030) Urine Protein Negative (NEGATIVE) Urine Glucose (UA) Negative (NEGATIVE) Urine Ketones Negative (NEGATIVE) Urine Occult Blood Negative (NEGATIVE) Urine Nitrite Negative (NEGATIVE) Urine Bilirubin Negative (NEGATIVE) Urine Urobilinogen 0.2 (0.2-1.0) mg/dL Ur Leukocyte Esterase Negative (NEGATIVE) Urine Opiates Screen Negative (NEGATIVE) Ur Oxycodone Screen Negative (NEGATIVE) Urine Methadone Screen Negative (NEGATIVE) Ur Barbiturates Screen Negative (NEGATIVE) U Tricyclic Antidepress Negative (NEGATIVE) Ur Phencyclidine Scrn Negative (NEGATIVE) Ur Amphetamine Screen Negative (NEGATIVE) U Methamphetamines Scrn Negative (NEGATIVE) Urine MDMA Screen Negative (NEGATIVE) U Benzodiazepines Scrn Negative (NEGATIVE) Urine Cocaine Screen Negative (NEGATIVE) U Marijuana (THC) Screen Positive H (NEGATIVE) Departure - Departure Time of Disposition: 01:54 Disposition: Home, Self-Care 01 Condition: Good Clinical Impression: Malaise, Mild dehydration - Discharge Information *PRESCRIPTION DRUG MONITORING PROGRAM REVIEWED*: No *COPY OF PRESCRIPTION DRUG MONITORING REPORT IN PATIENT LINO: No Instructions: Weakness, [id number] Referrals: Bc Tristan [Primary Care Provider] - Forms: ED Department Discharge Additional Instructions: Clinic follow up for neurology consult increase fluids clinic recheck tylenol 650mg every 4 hours as needed for discomfort/fever no driving until seen by neurology Sepsis Event Note (ED) - Evaluation Sepsis Screening Result: No Definite Risk - Focused Exam Vital Signs: Vital Signs Temp Pulse Resp BP Pulse Ox 12/27/20 00:38 97.8 F 90 20 127/74 99
== END 2020-12-27 02:24 | disposition home or self-care (01) ==
LOC: DL.ED 00:27
DX: E86.0 Dehydration (principal); E66.9 Obesity, unspecified; Z68.41 Body mass index [BMI] 40.0-44.9, adult; Z79.899 Other long term (current) drug therapy
CPT/HCPCS: 36415; 80053; 80305-QW; 81003; 82150; 83605; 83690; 84443; 85025; 99284

== ENCOUNTER 2020-12-28 12:47 | Emergency (ER) | payer MEDICAID ==
[2020-12-28 13:25] VITALS: BP 155/85; PULSE 101
[2020-12-28 13:42] LABS: CORONAVIRUS COVID-19 NAA NEGATIVE (NEGATIVE)
[2020-12-28 13:44] LABS: ANION GAP 16.4 mEq/L (7-13); CHLORIDE,CL 103 mmol/L (98-107); SODIUM,NA 142 mmol/L (136-145)
--- NOTE | 2020-12-28 14:19 | EDM.PDOC ---
ED HPI GENERAL MEDICAL PROBLEM - General Chief Complaint: General Stated Complaint: AMBULANCE Time Seen by Provider: 12/28/20 14:00 Source of Information: Reports: Patient History Limitations: Reports: No Limitations - History of Present Illness INITIAL COMMENTS - FREE TEXT/NARRATIVE: This 35 yo female patient was brought to the ED by [facility] due to shortness of breath, chest pain and left upper quadrant abdominal pain. The patient reports she has been seen in this ED 3 times over the past 6 days. The patient reports her initial visit was on 12/22/20 for seizures. The patient was seen yesterday for a viral upper respiratory tract infection. The patient reports she wanted to go to the [place] ED today. The patient reports her symptoms started today at 1200 and have been getting worse. The patient has been coughing and reports a wet cough. Onset: Today Onset Date: 12/28/20 Onset Time: 12:00 Duration: Constant, Getting Worse Location: Reports: Chest, Abdomen Quality: Reports: Ache, Sharp, Stabbing Severity: Severe Improves with: Reports: None Worsens with: Reports: None Context: Reports: Other Associated Symptoms: Reports: Chest Pain, cough w sputum, Shortness of Breath Generalized Pain Score (Numeric/FACES): 8 - Related Data Allergies Allergy/AdvReac Type Severity Reaction Status Date / Time No Known Allergies Allergy Verified 12/28/20 13:25 Home Meds: Home Meds QUEtiapine Fumarate [Seroquel] 150 mg PO BEDTIME 08/08/15 [History] cloNIDine [Catapres] 0.1 mg PO Q8H 09/25/20 [History] Past Medical History - Past Health History Medical/Surgical History: Denies Medical/Surgical History HEENT History: Reports: Impaired Vision Other HEENT History: WEARS GLASSES Cardiovascular History: Reports: Heart Murmur, Other (See Below) Other Cardiovascular History: as child Respiratory History: Reports: None Gastrointestinal History: Reports: PUD Genitourinary History: Reports: Renal Calculus, STD, Other (See Below) Other Genitourinary History: GENITAL WARTS 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 Psychiatric History: Reports: Anxiety, Depression, PTSD, Suicide Attempt, Other (See Below) Other Psychiatric History: CONVERSION DISORDER;. Suicide attempt 2008, Hosp. 2014 with suicidal feelings. 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) Other Infectious Disease History: genital warts - Past Surgical History Head Surgeries/Procedures: Reports: None HEENT Surgical History: Reports: Other (See Below) Other HEENT Surgeries/Procedures: LACERATION OF PINNA Cardiovascular Surgical History: Reports: None Respiratory Surgical History: Reports: None GI Surgical History: Reports: None Female Surgical History: Reports: None, Tubal Ligation Endocrine Surgical History: Reports: None Neurological Surgical History: Reports: None Musculoskeletal Surgical History: Reports: Amputation, Other (See Below) Other Musculoskeletal Surgeries/Procedures:: left foot surgeries 3rd toe Social & Family History - Family History Family Medical History: No Pertinent Family History - Tobacco Use Tobacco Use Status *Q: Current Every Day Tobacco User Years of Tobacco use: 18 Packs/Tins Daily: 1 - Caffeine Use Caffeine Use: Reports: Coffee Other Caffeine Use: OCCASIONAL COFEE. OCCASIONAL ENERGY DRINK - Recreational Drug Use Recreational Drug Use: Yes - Living Situation & Occupation Living situation: Reports: with Family Occupation: Employed ED ROS GENERAL - Review of Systems Review Of Systems: Comprehensive ROS is negative, except as noted in HPI. ED EXAM, GENERAL - Physical Exam Exam: See Below Exam Limited By: No Limitations General Appearance: Alert, WD/WN, Moderate Distress, Obese Eye Exam: Bilateral Eye: EOMI, Normal Inspection, PERRL Ears: Normal External Exam, Normal Canal, Hearing Grossly Normal, Normal TMs Nose: Normal Inspection, Normal Mucosa, No Blood Throat/Mouth: Normal Inspection, Normal Lips, Normal Teeth, Normal Gums, Normal Oropharynx, Normal Voice, No Airway Compromise Head: Atraumatic, Normocephalic Neck: Normal Inspection, Supple, Non-Tender, Full Range of Motion Respiratory/Chest: Decreased Breath Sounds, Rhonchi Cardiovascular: Normal Peripheral Pulses, Regular Rate, Rhythm, No Edema, No Gallop, No JVD, No Murmur, No Rub GI/Abdominal: Normal Bowel Sounds, No Organomegaly, No Distention, No Abnormal Bruit, No Mass, Pelvis Stable, Tender (left upper quadrant), Other (morbid obesity) (Female) Exam: Deferred Rectal (Female) Exam: Deferred Back Exam: Normal Inspection, Full Range of Motion, NT Extremities: Normal Inspection, Normal Range of Motion, Non-Tender, Normal Capillary Refill, No Pedal Edema Neurological: Alert, Oriented, CN II-XII Intact, Normal Cognition, Normal Gait, Normal Reflexes, No Motor/Sensory Deficits Psychiatric: Depressed Mood, Flat Affect Skin Exam: Warm, Dry, Intact, Normal Color, No Rash Lymphatic: No Adenopathy #1 Interpretation EKG Date: 12/28/20 Time: 14:49 Rhythm: NSR Rate (Beats/Min): 82 Spur: Normal P-Wave: Present QRS: Normal ST-T: Normal QT: Normal Comparison: NA - No Prior EKG Course - Vital Signs Last Recorded V/S: Last Vital Signs Temp 98.6 F 12/28/20 13:21 Pulse 101 H 12/28/20 13:21 Resp 18 12/28/20 13:21 BP 155/85 H 12/28/20 13:21 Pulse Ox 100 12/28/20 13:21 - Orders/Labs/Meds Orders: Active Orders 24 hr Category Date Time Status EKG Documentation Completion [RC] STAT Care 12/28/20 14:10 Active cefTRIAXone [Rocephin] 1 gm Med 12/28/20 15:55 Ordered Sodium Chloride 0.9% [Normal Saline] 50 ml IV ONETIME Medication Orders Ceftriaxone Sodium 1 gm/ (Sodium Chloride) 50 mls @ 100 mls/hr IV ONETIME ONE Stop: 12/28/20 16:24 Labs: Laboratory Tests 12/28/20 12/28/20 12/28/20 Range/Units 12:52 13:14 13:14 WBC 8.9 (5.0-10.0) 10^3/uL RBC 4.46 (4.2-5.4) 10^6/uL Hgb 10.7 L (12.0-16.0) g/dL Hct 35.5 L (37.0-47.0) % MCV 79.6 L (80-100) fL MCH 24.0 L (27.0-34.0) pg MCHC 30.1 L (33.0-35.0) g/dL Plt Count 474 H (150-450) 10^3/uL Neut % (Auto) 53.6 (42.2-75.2) % Lymph % (Auto) 36.7 (20.5-50.1) % [place] % (Auto) 5.5 (2-8) % Eos % (Auto) 3.9 H (1.0-3.0) % Baso % (Auto) 0.3 (0.0-1.0) % D-Dimer, Quantitative (0-400) ng/mL Sodium 142 (136-145) mmol/L Potassium 3.4 L (3.5-5.1) mmol/L Chloride 103 (98-107) mmol/L Carbon Dioxide 26 (21-32) mmol/L Anion Gap 16.4 H (7-13) mEq/L BUN 15 (7-18) mg/dL Creatinine 0.86 (0.55-1.02) mg/dL Est Cr Clr Drug Dosing 100.61 mL/min Estimated GFR (MDRD) > 60 BUN/Creatinine Ratio 17.4 (No establ ref range) Glucose 140 H (70-99) mg/dL Lactic Acid (0.4-2.0) mmol/L Calcium 8.7 (8.5-10.1) mg/dL Total Bilirubin 0.2 (0.2-1.0) mg/dL AST 18 (15-37) U/L ALT 31 (14-59) U/L Alkaline Phosphatase 80 (46-116) U/L Troponin I (0.000-0.056) ng/mL Total Protein 7.5 (6.4-8.2) g/dL Albumin 3.6 (3.4-5.0) g/dL Globulin 3.9 Albumin/Globulin Ratio 0.9 Amylase (25-115) U/L Lipase (73-393) U/L Urine Color (YELLOW) Urine Appearance (CLEAR) Urine pH (5.0-9.0) Ur Specific [place] (1.005-1.030) Urine Protein (NEGATIVE) Urine Glucose (UA) (NEGATIVE) Urine Ketones (NEGATIVE) Urine Occult Blood (NEGATIVE) Urine Nitrite (NEGATIVE) Urine Bilirubin (NEGATIVE) Urine Urobilinogen (0.2-1.0) mg/dL Ur Leukocyte Esterase (NEGATIVE) Salicylates (2.8-20(Therapeutic)) mg/dL Urine Opiates Screen (NEGATIVE) Ur Oxycodone Screen (NEGATIVE) Urine Methadone Screen (NEGATIVE) Acetaminophen (10-30 (Therapeutic)) ug/mL Ur Barbiturates Screen (NEGATIVE) U Tricyclic Antidepress (NEGATIVE) Ur Phencyclidine Scrn (NEGATIVE) Ur Amphetamine Screen (NEGATIVE) U Methamphetamines Scrn (NEGATIVE) Urine MDMA Screen (NEGATIVE) U Benzodiazepines Scrn (NEGATIVE) Urine Cocaine Screen (NEGATIVE) U Marijuana (THC) Screen (NEGATIVE) Influenza Type A RNA Negative (NEGATIVE) Influenza Type B RNA Negative (NEGATIVE) SARS-CoV-2 RNA (JEEVAN) Negative (NEGATIVE) 12/28/20 12/28/20 12/28/20 Range/Units 13:14 13:14 13:14 WBC (5.0-10.0) 10^3/uL RBC (4.2-5.4) 10^6/uL Hgb (12.0-16.0) g/dL Hct (37.0-47.0) % MCV (80-100) fL MCH (27.0-34.0) pg MCHC (33.0-35.0) g/dL Plt Count (150-450) 10^3/uL Neut % (Auto) (42.2-75.2) % Lymph % (Auto) (20.5-50.1) % [place] % (Auto) (2-8) % Eos % (Auto) (1.0-3.0) % Baso % (Auto) (0.0-1.0) % D-Dimer, Quantitative 126 (0-400) ng/mL Sodium (136-145) mmol/L Potassium (3.5-5.1) mmol/L Chloride (98-107) mmol/L Carbon Dioxide (21-32) mmol/L Anion Gap (7-13) mEq/L BUN (7-18) mg/dL Creatinine (0.55-1.02) mg/dL Est Cr Clr Drug Dosing mL/min Estimated GFR (MDRD) BUN/Creatinine Ratio (No establ ref range) Glucose (70-99) mg/dL Lactic Acid 1.3 (0.4-2.0) mmol/L Calcium (8.5-10.1) mg/dL Total Bilirubin (0.2-1.0) mg/dL AST (15-37) U/L ALT (14-59) U/L Alkaline Phosphatase (46-116) U/L Troponin I < 0.017 (0.000-0.056) ng/mL Total Protein (6.4-8.2) g/dL Albumin (3.4-5.0) g/dL Globulin Albumin/Globulin Ratio Amylase 27 (25-115) U/L Lipase 78 (73-393) U/L Urine Color (YELLOW) Urine Appearance (CLEAR) Urine pH (5.0-9.0) Ur Specific [place] (1.005-1.030) Urine Protein (NEGATIVE) Urine Glucose (UA) (NEGATIVE) Urine Ketones (NEGATIVE) Urine Occult Blood (NEGATIVE) Urine Nitrite (NEGATIVE) Urine Bilirubin (NEGATIVE) Urine Urobilinogen (0.2-1.0) mg/dL Ur Leukocyte Esterase (NEGATIVE) Salicylates (2.8-20(Therapeutic)) mg/dL Urine Opiates Screen (NEGATIVE) Ur Oxycodone Screen (NEGATIVE) Urine Methadone Screen (NEGATIVE) Acetaminophen 0 L (10-30 (Therapeutic)) ug/mL Ur Barbiturates Screen (NEGATIVE) U Tricyclic Antidepress (NEGATIVE) Ur Phencyclidine Scrn (NEGATIVE) Ur Amphetamine Screen (NEGATIVE) U Methamphetamines Scrn (NEGATIVE) Urine MDMA Screen (NEGATIVE) U Benzodiazepines Scrn (NEGATIVE) Urine Cocaine Screen (NEGATIVE) U Marijuana (THC) Screen (NEGATIVE) Influenza Type A RNA (NEGATIVE) Influenza Type B RNA (NEGATIVE) SARS-CoV-2 RNA (JEEVAN) (NEGATIVE) 12/28/20 12/28/20 12/28/20 Range/Units 13:14 14:25 14:25 WBC (5.0-10.0) 10^3/uL RBC (4.2-5.4) 10^6/uL Hgb (12.0-16.0) g/dL Hct (37.0-47.0) % MCV (80-100) fL MCH (27.0-34.0) pg MCHC (33.0-35.0) g/dL Plt Count (150-450) 10^3/uL Neut % (Auto) (42.2-75.2) % Lymph % (Auto) (20.5-50.1) % [place] % (Auto) (2-8) % Eos % (Auto) (1.0-3.0) % Baso % (Auto) (0.0-1.0) % D-Dimer, Quantitative (0-400) ng/mL Sodium (136-145) mmol/L Potassium (3.5-5.1) mmol/L Chloride (98-107) mmol/L Carbon Dioxide (21-32) mmol/L Anion Gap (7-13) mEq/L BUN (7-18) mg/dL Creatinine (0.55-1.02) mg/dL Est Cr Clr Drug Dosing mL/min Estimated GFR (MDRD) BUN/Creatinine Ratio (No establ ref range) Glucose (70-99) mg/dL Lactic Acid (0.4-2.0) mmol/L Calcium (8.5-10.1) mg/dL Total Bilirubin (0.2-1.0) mg/dL AST (15-37) U/L ALT (14-59) U/L Alkaline Phosphatase (46-116) U/L Troponin I (0.000-0.056) ng/mL Total Protein (6.4-8.2) g/dL Albumin (3.4-5.0) g/dL Globulin Albumin/Globulin Ratio Amylase (25-115) U/L Lipase (73-393) U/L Urine Color Yellow (YELLOW) Urine Appearance Clear (CLEAR) Urine pH 7.0 (5.0-9.0) Ur Specific [place] 1.025 (1.005-1.030) Urine Protein Negative (NEGATIVE) Urine Glucose (UA) Negative (NEGATIVE) Urine Ketones Negative (NEGATIVE) Urine Occult Blood Negative (NEGATIVE) Urine Nitrite Negative (NEGATIVE) Urine Bilirubin Negative (NEGATIVE) Urine Urobilinogen 0.2 (0.2-1.0) mg/dL Ur Leukocyte Esterase Negative (NEGATIVE) Salicylates 3.4 (2.8-20(Therapeutic)) mg/dL Urine Opiates Screen Negative (NEGATIVE) Ur Oxycodone Screen Negative (NEGATIVE) Urine Methadone Screen Negative (NEGATIVE) Acetaminophen (10-30 (Therapeutic)) ug/mL Ur Barbiturates Screen Negative (NEGATIVE) U Tricyclic Antidepress Negative (NEGATIVE) Ur Phencyclidine Scrn Negative (NEGATIVE) Ur Amphetamine Screen Negative (NEGATIVE) U Methamphetamines Scrn Negative (NEGATIVE) Urine MDMA Screen Negative (NEGATIVE) U Benzodiazepines Scrn Negative (NEGATIVE) Urine Cocaine Screen Negative (NEGATIVE) U Marijuana (THC) Screen Positive H (NEGATIVE) Influenza Type A RNA (NEGATIVE) Influenza Type B RNA (NEGATIVE) SARS-CoV-2 RNA (JEEVAN) (NEGATIVE) Meds: Medications Generic Name Dose Route Start Last Admin Trade Name Freq PRN Reason Stop Dose Admin Ceftriaxone Sodium 1 gm/ 50 mls @ 100 mls/hr 12/28/20 15:55 Sodium Chloride IV 12/28/20 16:24 ONETIME ONE Discontinued Medications Generic Name Dose Route Start Last Admin Trade Name Freq PRN Reason Stop Dose Admin Guaifenesin/Codeine Phosphate 5 ml 12/28/20 15:56 Codeine/Guaifenesin 10-100 Mg/5 Ml Syrup 5 Ml Cup PO 12/28/20 15:57 ONETIME ONE Methylprednisolone Sodium Succinate 125 mg 12/28/20 15:55 Methylprednisolone Sodium Succinate 125 Mg/2 Ml Sdv IVPUSH 12/28/20 15:56 ONETIME ONE Departure - Departure Time of Disposition: 16:00 Disposition: Home, Self-Care 01 Condition: Fair Clinical Impression: URI (upper respiratory infection) Qualifiers: URI type: unspecified URI Qualified Code(s): J06.9 - Acute upper respiratory infection, unspecified - Discharge Information *PRESCRIPTION DRUG MONITORING PROGRAM REVIEWED*: Not Applicable *COPY OF PRESCRIPTION DRUG MONITORING REPORT IN PATIENT LINO: Not Applicable Instructions: Upper Respiratory Infection, Adult, [id number] Forms: ED Department Discharge Care Plan Goals: The patient was advised of the examination and lab results during the visit. The patient was given an IV dose of Rocephin (1 gram) and Rocephin AC while in the ED. The patient was discharged with a script for Azithromycin (500 mg) #5 to take 1 by mouth for 5 days, Prednisone (20 mg) #10 to take 2 by mouth daily for 5 days and Robitussin AC #100 mL to take 5 mL by mouth every 6 hours for cough. If the patient has any additional symptoms or concerns, the patient should visit her primary care facility or return to the emergency department. Sepsis Event Note (ED) - Evaluation Sepsis Screening Result: No Definite Risk - Focused Exam Vital Signs: Vital Signs Temp Pulse Resp BP Pulse Ox 12/28/20 13:21 98.6 F 101 H 18 155/85 H 100 - My Orders Last 24 Hours: My Active Orders 12/28/20 14:10 EKG Documentation Completion [RC] STAT 12/28/20 15:55 cefTRIAXone [Rocephin] 1 gm Sodium Chloride 0.9% [Normal Saline] 50 ml IV ONETIME - Assessment/Plan Last 24 Hours: My Active Orders 12/28/20 14:10 EKG Documentation Completion [RC] STAT 12/28/20 15:55 cefTRIAXone [Rocephin] 1 gm Sodium Chloride 0.9% [Normal Saline] 50 ml IV ONETIME
[2020-12-28 14:38] LABS: ACETAMINOPHEN 0 ug/mL (10-30 (Therapeutic))
--- NOTE | 2020-12-28 15:42 | CR ---
EXAMINATION: Chest 2V SEX: Female AGE: 35 years CLINICAL HISTORY: 35-year-old female with cough and chest pain. Comparison exam 09 September 2020. Interpretation: Negative exam. 1. Less than optimal inspiratory effort obese patient but CXR unchanged except for technique since 09 September 2020.. 2. Normal cardiac silhouette (size and configuration). Left-sided aortic arch. 3. No pulmonary vascular congestion, cephalization of flow, alveolar edema or dependent effusion. 4. No new lung mass or hilar lymphadenopathy. Midline normal tracheobronchial airway. 5. No alveolar infiltrate, atelectasis/collapse, or peripheral "groundglass" interstitial lung densities.
[2020-12-28] MEDS ORDERED: cefTRIAXone 1 GM in Sodium Chloride 0.9% 50 ML IV ONE (15:55)
[2020-12-28] MEDS ORDERED: methylPREDNISolone Sodium Succinate 125 MG/2 ML SDV IVPUSH ONE (15:55)
[2020-12-28] MEDS ORDERED: Codeine/guaiFENesin 10-100 MG/5 ML Syrup 5 ML Cup PO ONE (15:56)
== END 2020-12-28 16:57 | disposition home or self-care (01) ==
LOC: DL.ED 12:47
DX: J06.9 Acute upper respiratory infection, unspecified (principal); R10.12 Left upper quadrant pain; E66.01 Morbid (severe) obesity due to excess calories; Z68.36 Body mass index [BMI] 36.0-36.9, adult; Z72.0 Tobacco use; Z79.899 Other long term (current) drug therapy; Z20.822 Contact with and (suspected) exposure to COVID-19
CPT/HCPCS: 0240U; 36415; 71046; 80053; 80143; 80179; 80305; 81003; 82150; 83605; 83690; 84484; 85025; 85379; 93005; 96365; 96375; 99285; A9270; J0696; J2930

== ENCOUNTER 2020-12-29 16:57 | Emergency (ER) | payer MEDICAID ==
[2020-12-29] MEDS ORDERED: Sodium Chloride 0.9% 1,000 ML IV ONE (17:36)
[2020-12-29 18:30] LABS: ANION GAP 15.3 mEq/L (7-13); CHLORIDE,CL 108 mmol/L (98-107); SODIUM,NA 145 mmol/L (136-145)
[2020-12-29 18:31] LABS: ACETAMINOPHEN 0 ug/mL (10-30 (Therapeutic))
[2020-12-29] MEDS ORDERED: GI Cocktail Oral Solution 30 ML PO ONE (19:54)
[2020-12-29] MEDS ORDERED: Ketorolac 30 MG/ML SDV IVPUSH ONE (20:51)
--- NOTE | 2020-12-29 21:46 | EDM.PDOC ---
ED HPI GENERAL MEDICAL PROBLEM - General Chief Complaint: Abdominal Pain Stated Complaint: SEVERE STOMACH PAIN Time Seen by Provider: 12/29/20 19:00 Source of Information: Reports: Patient, Old Records, RN, RN Notes Reviewed History Limitations: Reports: No Limitations - History of Present Illness INITIAL COMMENTS - FREE TEXT/NARRATIVE: Kenzie is a 35 y/o female who presents to the ED via personal vehicle with complaints of RUQ pain that began abruptly at approximately 1500 today. She reports she was attempting to be evaluated at the [facility] for follow up of her ED examination at this facility yesterday when she noted a significant pain in her RUQ; she was examined at this facility yesterday for acute respiratory symptoms and was treated with Azithromycin and prednisone. She reports the nausea and vomited started shortly after the pain. She denies shaking chills, palpitations, hematemesis, dysuria, hematuria, melena, or hematochezia. She does attest to a fever of 101 today and diarrhea for the past couple of days. She has not taken any medications for her abdominal symptoms. The patient reports history of cholecystectomy and tubal ligation. She attests to smoking 1/2 pack of cigarettes per day and denies alcohol or recreational drug use. Bilateral Upper Abdomen Pain Score (Numeric/FACES): 10 - Related Data Allergies Allergy/AdvReac Type Severity Reaction Status Date / Time No Known Allergies Allergy Verified 12/28/20 13:25 Home Meds: Home Meds QUEtiapine Fumarate [Seroquel] 150 mg PO BEDTIME 08/08/15 [History] Past Medical History - Past Health History Medical/Surgical History: Denies Medical/Surgical History HEENT History: Reports: Impaired Vision Other HEENT History: WEARS GLASSES Cardiovascular History: Reports: Heart Murmur, Other (See Below) Other Cardiovascular History: as child Respiratory History: Reports: None Gastrointestinal History: Reports: PUD Genitourinary History: Reports: Renal Calculus, STD, Other (See Below) Other Genitourinary History: GENITAL WARTS 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 Psychiatric History: Reports: Anxiety, Depression, PTSD, Suicide Attempt, Other (See Below) Other Psychiatric History: CONVERSION DISORDER;. Suicide attempt 2008, Hosp. 2014 with suicidal feelings. 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) Other Infectious Disease History: genital warts - Past Surgical History Head Surgeries/Procedures: Reports: None HEENT Surgical History: Reports: Other (See Below) Other HEENT Surgeries/Procedures: LACERATION OF PINNA Cardiovascular Surgical History: Reports: None Respiratory Surgical History: Reports: None GI Surgical History: Reports: None Female Surgical History: Reports: None, Tubal Ligation Endocrine Surgical History: Reports: None Neurological Surgical History: Reports: None Musculoskeletal Surgical History: Reports: Amputation, Other (See Below) Other Musculoskeletal Surgeries/Procedures:: left foot surgeries 3rd toe Social & Family History - Family History Family Medical History: No Pertinent Family History - Tobacco Use Tobacco Use Status *Q: Current Every Day Tobacco User Years of Tobacco use: 15 Packs/Tins Daily: 0.5 - Caffeine Use Caffeine Use: Reports: None Other Caffeine Use: OCCASIONAL COFEE. OCCASIONAL ENERGY DRINK - Recreational Drug Use Recreational Drug Use: No - Living Situation & Occupation Living situation: Reports: with Family Occupation: Employed ED ROS GENERAL - Review of Systems Review Of Systems: Comprehensive ROS is negative, except as noted in HPI. ED EXAM, GI/ABD - Physical Exam Exam: See Below Exam Limited By: No Limitations General Appearance: Alert, Mild Distress (Abdominal pain) Eyes: Bilateral: Normal Appearance, EOMI Throat/Mouth: Normal Inspection, Normal Oropharynx, Normal Voice, No Airway Compromise Head: Atraumatic, Normocephalic Respiratory/Chest: No Respiratory Distress, Lungs Clear, Normal Breath Sounds, No Accessory Muscle Use, Chest Non-Tender Cardiovascular: Normal Peripheral Pulses, Regular Rate, Rhythm, No Edema, No Gallop, No JVD, No Murmur, No Rub GI/Abdominal Exam: Soft, No Distention, No Abnormal Bruit, No Mass, Pelvis Stable, Guarding, Tender (To palpation of RUQ and RLQ). No: Rigid, Rebound (Female) Exam: Deferred Rectal (Female) Exam: Deferred Back Exam: Normal Inspection, Full Range of Motion, CVA Tenderness (L). No: CVA Tenderness (R) Extremities: Normal Inspection, Normal Range of Motion, Non-Tender, No Pedal Edema, Normal Capillary Refill Neurological: Alert, Oriented, CN II-XII Intact, Normal Cognition, Normal Gait, No Motor/Sensory Deficits Psychiatric: Anxious, Tearful Skin Exam: Warm, Dry, Intact, Normal Color, No Rash. No: Ecchymosis, Erythema, Jaundice, Mottled, Pallor, Petechiae Course - Vital Signs Last Recorded V/S: Last Vital Signs Temp 98.0 F 12/29/20 22:10 Pulse 58 L 12/29/20 22:10 Resp 20 12/29/20 22:10 BP 112/56 L 12/29/20 22:10 Pulse Ox 100 12/29/20 22:10 - Orders/Labs/Meds Labs: Laboratory Tests 12/29/20 12/29/20 12/29/20 Range/Units 17:53 17:53 17:53 WBC 9.2 (5.0-10.0) 10^3/uL RBC 4.00 L (4.2-5.4) 10^6/uL Hgb 9.5 L (12.0-16.0) g/dL Hct 32.2 L (37.0-47.0) % MCV 80.5 (80-100) fL MCH 23.8 L (27.0-34.0) pg MCHC 29.5 L (33.0-35.0) g/dL Plt Count 436 (150-450) 10^3/uL Neut % (Auto) 66.4 (42.2-75.2) % Lymph % (Auto) 26.9 (20.5-50.1) % [place] % (Auto) 6.2 (2-8) % Eos % (Auto) 0.3 L (1.0-3.0) % Baso % (Auto) 0.2 (0.0-1.0) % Sodium 145 (136-145) mmol/L Potassium 3.3 L (3.5-5.1) mmol/L Chloride 108 H (98-107) mmol/L Carbon Dioxide 25 (21-32) mmol/L Anion Gap 15.3 H (7-13) mEq/L BUN 15 (7-18) mg/dL Creatinine 0.91 (0.55-1.02) mg/dL Est Cr Clr Drug Dosing 82.32 mL/min Estimated GFR (MDRD) > 60 BUN/Creatinine Ratio 16.5 (No establ ref range) Glucose 97 (70-99) mg/dL Lactic Acid (0.4-2.0) mmol/L Calcium 8.3 L (8.5-10.1) mg/dL Magnesium 1.8 (1.8-2.4) mg/dL Total Bilirubin 0.2 (0.2-1.0) mg/dL AST 22 (15-37) U/L ALT 29 (14-59) U/L Alkaline Phosphatase 60 (46-116) U/L Ammonia < 10 L (11-32) umol/L Total Protein 6.7 (6.4-8.2) g/dL Albumin 3.3 L (3.4-5.0) g/dL Globulin 3.4 Albumin/Globulin Ratio 0.97 Amylase 23 L (25-115) U/L Lipase 45 L (73-393) U/L Urine Color (YELLOW) Urine Appearance (CLEAR) Urine pH (5.0-9.0) Ur Specific [place] (1.005-1.030) Urine Protein (NEGATIVE) Urine Glucose (UA) (NEGATIVE) Urine Ketones (NEGATIVE) Urine Occult Blood (NEGATIVE) Urine Nitrite (NEGATIVE) Urine Bilirubin (NEGATIVE) Urine Urobilinogen (0.2-1.0) mg/dL Ur Leukocyte Esterase (NEGATIVE) Urine Opiates Screen (NEGATIVE) Ur Oxycodone Screen (NEGATIVE) Urine Methadone Screen (NEGATIVE) Acetaminophen 0 L (10-30 (Therapeutic)) ug/mL Ur Barbiturates Screen (NEGATIVE) U Tricyclic Antidepress (NEGATIVE) Ur Phencyclidine Scrn (NEGATIVE) Ur Amphetamine Screen (NEGATIVE) U Methamphetamines Scrn (NEGATIVE) Urine MDMA Screen (NEGATIVE) U Benzodiazepines Scrn (NEGATIVE) Urine Cocaine Screen (NEGATIVE) U Marijuana (THC) Screen (NEGATIVE) Ethyl Alcohol < 3 (0) mg/dL 12/29/20 12/29/20 12/29/20 Range/Units 17:53 18:38 18:38 WBC (5.0-10.0) 10^3/uL RBC (4.2-5.4) 10^6/uL Hgb (12.0-16.0) g/dL Hct (37.0-47.0) % MCV (80-100) fL MCH (27.0-34.0) pg MCHC (33.0-35.0) g/dL Plt Count (150-450) 10^3/uL Neut % (Auto) (42.2-75.2) % Lymph % (Auto) (20.5-50.1) % [place] % (Auto) (2-8) % Eos % (Auto) (1.0-3.0) % Baso % (Auto) (0.0-1.0) % Sodium (136-145) mmol/L Potassium (3.5-5.1) mmol/L Chloride (98-107) mmol/L Carbon Dioxide (21-32) mmol/L Anion Gap (7-13) mEq/L BUN (7-18) mg/dL Creatinine (0.55-1.02) mg/dL Est Cr Clr Drug Dosing mL/min Estimated GFR (MDRD) BUN/Creatinine Ratio (No establ ref range) Glucose (70-99) mg/dL Lactic Acid 1.7 (0.4-2.0) mmol/L Calcium (8.5-10.1) mg/dL Magnesium (1.8-2.4) mg/dL Total Bilirubin (0.2-1.0) mg/dL AST (15-37) U/L ALT (14-59) U/L Alkaline Phosphatase (46-116) U/L Ammonia (11-32) umol/L Total Protein (6.4-8.2) g/dL Albumin (3.4-5.0) g/dL Globulin Albumin/Globulin Ratio Amylase (25-115) U/L Lipase (73-393) U/L Urine Color Yellow (YELLOW) Urine Appearance Slightly cloudy (CLEAR) Urine pH 6.0 (5.0-9.0) Ur Specific [place] >= 1.030 (1.005-1.030) Urine Protein Negative (NEGATIVE) Urine Glucose (UA) Negative (NEGATIVE) Urine Ketones Negative (NEGATIVE) Urine Occult Blood Negative (NEGATIVE) Urine Nitrite Negative (NEGATIVE) Urine Bilirubin Negative (NEGATIVE) Urine Urobilinogen 0.2 (0.2-1.0) mg/dL Ur Leukocyte Esterase Negative (NEGATIVE) Urine Opiates Screen Positive H (NEGATIVE) Ur Oxycodone Screen Negative (NEGATIVE) Urine Methadone Screen Negative (NEGATIVE) Acetaminophen (10-30 (Therapeutic)) ug/mL Ur Barbiturates Screen Negative (NEGATIVE) U Tricyclic Antidepress Negative (NEGATIVE) Ur Phencyclidine Scrn Negative (NEGATIVE) Ur Amphetamine Screen Negative (NEGATIVE) U Methamphetamines Scrn Negative (NEGATIVE) Urine MDMA Screen Negative (NEGATIVE) U Benzodiazepines Scrn Negative (NEGATIVE) Urine Cocaine Screen Negative (NEGATIVE) U Marijuana (THC) Screen Positive H (NEGATIVE) Ethyl Alcohol (0) mg/dL Meds: Medications Discontinued Medications Generic Name Dose Route Start Last Admin Trade Name Freq PRN Reason Stop Dose Admin Al Hydroxide/Mg Hydroxide 30 ml 12/29/20 19:54 12/29/20 20:01 Gi Cocktail Oral Solution 30 Ml PO 12/29/20 19:55 30 ml ONETIME ONE Administration Sodium Chloride 1,000 mls @ 500 mls/hr 12/29/20 17:36 12/29/20 18:00 Normal Saline IV 12/29/20 19:35 500 mls/hr .BOLUS ONE Administration Iopamidol 100 ml 12/29/20 21:51 12/29/20 21:52 Iopamidol 612 Mg/Ml 100 Ml Bottle IVPUSH 12/29/20 21:52 100 ml ONETIME ONE Administration Ketorolac Tromethamine 30 mg 12/29/20 20:51 12/29/20 20:58 Ketorolac 30 Mg/Ml Sdv IVPUSH 12/29/20 20:52 30 mg ONETIME ONE Administration - Radiology Interpretation Free Text/Narrative:: [facility] Final Radiology Report Call: [phone] assistance Online chat: [email or web address] Name: KENZIE MCCANN Age: 35Years F Date: 12/29/2020 SSN: -- : [id number] Study: CT ABDOMEN W CONT Requesting Physician: Shaista Allison Images: 233 Addl Studies: Provided Clinical History: RUQ pain x5days, worse today; Vomiting and Diarrhe Contrast: With Contrast Medium: Isovue 300 Contrast Amount: 100 mL Contrast Method: Intravenous (IV) Page 1 of 2 PROCEDURE INFORMATION: Exam: CT Abdomen With Contrast Exam date and time: 12/29/2020 9:11 PM Age: 35 years old Clinical indication: Abdominal pain; Localized; Right upper quadrant (ruq); Prior surgery; Surgery date: 6+ months; Additional info: Ruq pain x5days, worse today; Vomiting and diarrhe TECHNIQUE: Imaging protocol: Computed tomography images of the abdomen with intravenous contrast. Radiation optimization: All CT scans at this facility use at least one of these dose optimization techniques: automated exposure control; mA and/or kV adjustment per patient size (includes targeted exams where dose is matched to clinical indication); or iterative reconstruction. Contrast material: ISOVUE 300; Contrast volume: 100 ml; Contrast route: INTRAVENOUS (IV); COMPARISON: CT Abdomen Pelvis w Cont 05/31/2020 8:32 PM FINDINGS: Lungs: Lung bases are clear. Liver: Normal. No mass. Gallbladder and bile ducts: Prior cholecystectomy. No significant biliary ductal dilation. Pancreas: Normal. No ductal dilation. Spleen: Normal. No splenomegaly. Adrenals: Normal. No mass. Kidneys and ureters: Punctate nonobstructive left renal stone. The kidneys are otherwise unremarkable. The ureters are normal. Stomach and bowel: Visualized stomach and bowel are unremarkable. No obstruction. No mucosal thickening. Intraperitoneal space: Unremarkable. No free air. No significant fluid collection. Lymph nodes: Unremarkable. No enlarged lymph nodes. Vasculature: Unremarkable. No abdominal aortic aneurysm. Bones/joints: Unremarkable. No acute fracture. No dislocation. Soft tissues: There is a fat-containing umbilical hernia. IMPRESSION: No acute pathology is identified. Thank you for allowing us to participate in the care of your patient. Dictated and Authenticated by: Rc Breen MD 12/29/2020 9:54 PM Central Time ([place] & [place]) - Re-Assessments/Exams Free Text/Narrative Re-Assessment/Exam: 12/29/20 IVF bolus initiated while labs pending prior to arrival of news writer. Report received from Zackery Ruiz; assumed care of patient at 1900 GI cocktail administered. Normocytic, hypochromic anemia noted with Hgb 9.5, stable for patient with review of previous charts. WBC appropriate at 9.5 with no left shift. Kidney and liver function appropriate via CMP; potassium slightly reduced at 3.3 Amylase and Lipase low. UA unremarkable for acute processes. EOTH negative. Tox screen positive for opiates and THC. Findings of examination and lab work reviewed with patient. She now states she does have her gallbladder and that she has a history of stones; news writer reiterated lack of acute processes in lab work to patient. Patient significantly upset stating her pain is "...unbearable." No relief from GI cocktail. She states, "..I have been to two different ERs with this pain and no one is doing anything about it." Review of records shows patient was examined for seizures x2 and respiratory symptoms x1 in past seven days. Will obtain CT abdomen given stated persistent pain and poor history. CT abdomen unremarkable for acute processes; nonobstructive L renal stone noted as well as clips noted from previous cholecystectomy. Findings reviewed with patient. Supportive cares for gastroenteritis reviewed. Patient verbalized understanding and agreement with the plan of care. Departure - Departure Time of Disposition: 21:56 Disposition: Home, Self-Care 01 Condition: Good Clinical Impression: Gastroenteritis Gastritis Qualifiers: Gastritis type: unspecified gastritis Chronicity: acute Gastritis bleeding: without bleeding Qualified Code(s): K29.00 - Acute gastritis without bleeding - Discharge Information *PRESCRIPTION DRUG MONITORING PROGRAM REVIEWED*: Not Applicable *COPY OF PRESCRIPTION DRUG MONITORING REPORT IN PATIENT LINO: Not Applicable Instructions: Viral Gastroenteritis, Adult, [id number], Nausea and Vomiting, Adult, [id number] Referrals: PCP,None [Ordering Only Provider] - Forms: ED Department Discharge Additional Instructions: 1.) Continue on your previously prescribed medications. 2.) Drink plenty of water to stay hydrated 3.) Eat small, snack-like meals while nausea persists; eat a bland diet, avoiding spicy, greasy, high-fat foods. Sepsis Event Note (ED) - Evaluation Sepsis Screening Result: No Definite Risk
[2020-12-29] MEDS ORDERED: Iopamidol 612 MG/ML 100 ML Bottle IVPUSH ONE (21:51)
--- NOTE | 2020-12-29 21:54 | CT ---
PROCEDURE INFORMATION: Exam: CT Abdomen With Contrast Exam date and time: 12/29/2020 9:11 PM Age: 35 years old Clinical indication: Abdominal pain; Localized; Right upper quadrant (ruq); Prior surgery; Surgery date: 6+ months; Additional info: Ruq pain x5days, worse today; Vomiting and diarrhe TECHNIQUE: Imaging protocol: Computed tomography images of the abdomen with intravenous contrast. Radiation optimization: All CT scans at this facility use at least one of these dose optimization techniques: automated exposure control; mA and/or kV adjustment per patient size (includes targeted exams where dose is matched to clinical indication); or iterative reconstruction. Contrast material: ISOVUE 300; Contrast volume: 100 ml; Contrast route: INTRAVENOUS (IV); COMPARISON: CT Abdomen Pelvis w Cont 05/31/2020 8:32 PM FINDINGS: Lungs: Lung bases are clear. Liver: Normal. No mass. Gallbladder and bile ducts: Prior cholecystectomy. No significant biliary ductal dilation. Pancreas: Normal. No ductal dilation. Spleen: Normal. No splenomegaly. Adrenals: Normal. No mass. Kidneys and ureters: Punctate nonobstructive left renal stone. The kidneys are otherwise unremarkable. The ureters are normal. Stomach and bowel: Visualized stomach and bowel are unremarkable. No obstruction. No mucosal thickening. Intraperitoneal space: Unremarkable. No free air. No significant fluid collection. Lymph nodes: Unremarkable. No enlarged lymph nodes. Vasculature: Unremarkable. No abdominal aortic aneurysm. Bones/joints: Unremarkable. No acute fracture. No dislocation. Soft tissues: There is a fat-containing umbilical hernia. IMPRESSION: No acute pathology is identified.
[2020-12-29 22:15] VITALS: BP 112/56; PULSE 58
== END 2020-12-29 22:13 | disposition home or self-care (01) ==
LOC: DL.ED 16:57
DX: K52.9 Noninfective gastroenteritis and colitis, unspecified (principal); K29.70 Gastritis, unspecified, without bleeding; E66.9 Obesity, unspecified; Z68.30 Body mass index [BMI] 30.0-30.9, adult; Z72.0 Tobacco use
CPT/HCPCS: 36415; 74160; 80053; 80143; 80305-QW; 80307; 81003; 82140; 82150; 83605; 83690; 83735; 85025; 96374; 99284-25; A9270-GY; J1885; J7030; Q9967

== ENCOUNTER 2021-02-11 05:24 | Emergency (ER) | payer MEDICAID ==
[2021-02-11 05:37] VITALS: BP 130/72; PULSE 69
[2021-02-11] MEDS ORDERED: Sodium Chloride 0.9% 1,000 ML IV ONE (05:37)
[2021-02-11] MEDS ORDERED: Ondansetron 4 MG/2 ML SDV IVPUSH ONE (05:37)
[2021-02-11] MEDS ORDERED: fentaNYL 100 MCG/2 ML SDV IVPUSH ONE (05:39)
--- NOTE | 2021-02-11 06:25 | EDM.PDOC ---
<Shaista Allison - Last Filed: 02/11/21 09:19> ED HPI GENERAL MEDICAL PROBLEM - General Chief Complaint: Abdominal Pain Stated Complaint: ABDOMIN PAIN LEFT SIDE Time Seen by Provider: 02/11/21 05:40 - Related Data Allergies Allergy/AdvReac Type Severity Reaction Status Date / Time No Known Allergies Allergy Verified 02/11/21 05:41 Home Meds: Home Meds . [No Known Home Meds] 02/11/21 [History] ED ROS GENERAL - Review of Systems Review Of Systems: Comprehensive ROS is negative, except as noted in HPI. ED EXAM, GI/ABD - Physical Exam Exam: See Below Exam Limited By: No Limitations General Appearance: Alert, Mild Distress (Pain). No: Active Emesis Eyes: Bilateral: Normal Appearance, EOMI Ears: Normal External Exam, Hearing Grossly Normal Nose: Normal Inspection Throat/Mouth: Normal Voice, No Airway Compromise. No: Normal Oropharynx (Dry mucous membranes) Head: Atraumatic, Normocephalic Neck: Normal Inspection, Supple, Non-Tender, Full Range of Motion Respiratory/Chest: No Respiratory Distress, Lungs Clear, Normal Breath Sounds, No Accessory Muscle Use, Chest Non-Tender Cardiovascular: Normal Peripheral Pulses, Regular Rate, Rhythm, No Edema, No Gallop, No JVD, No Murmur, No Rub GI/Abdominal Exam: Soft, Non-Tender, No Distention, No Abnormal Bruit, No Mass, Pelvis Stable, Abnormal Bowel Sounds (Hypoactive ) (Female) Exam: Deferred Rectal (Female) Exam: Deferred Back Exam: Normal Inspection, Full Range of Motion, CVA Tenderness (L). No: CVA Tenderness (R) Extremities: Normal Inspection, Normal Range of Motion, Non-Tender, Normal Capillary Refill, No Pedal Edema Neurological: Alert, Oriented, CN II-XII Intact, Normal Cognition, Normal Gait, No Motor/Sensory Deficits Psychiatric: Normal Affect, Normal Mood Skin Exam: Warm, Intact, Normal Color, No Rash, Diaphoretic. No: Cyanosis, Jaundice, Mottled, Pallor Course - Radiology Interpretation Free Text/Narrative:: [facility] [place] [facility] Final Radiology Report Call: [phone] assistance Online chat: [email or web address] Name: KENZIE MCCANN Age: 35Years F Date: 02/11/2021 SSN: -- : [id number] Study: CT ABDOMEN PELVIS W CONT Requesting Physician: EDUAR DAVID Images: [id number] Addl Studies: Provided Clinical History: left abdominal pain radiate to back Contrast: With Contrast Medium: isovue 300 Contrast Amount: 100 mL Contrast Method: Intravenous (IV) Page 1 of 2 PROCEDURE INFORMATION: Exam: CT Abdomen And Pelvis With Contrast Exam date and time: 02/11/2021 7:11 AM Age: 35 years old Clinical indication: Abdominal pain; Localized; Left; Patient HX: History of renal stones; Additional info: Left abdominal pain radiate to back TECHNIQUE: Imaging protocol: Computed tomography of the abdomen and pelvis with contrast. Radiation optimization: All CT scans at this facility use at least one of these dose optimization techniques: automated exposure control; mA and/or kV adjustment per patient size (includes targeted exams where dose is matched to clinical indication); or iterative re construction. Contrast material: ISOVUE 300; Contrast volume: 100 ml; Contrast route: INTRAVENOUS (IV); COMPARISON: CT Abdomen w Cont, Abdomen w Cont 12/29/2020 9:11 PM FINDINGS: Lungs: Unremarkable.No mass or nodule. Liver: Normal. No mass. Gallbladder and bile ducts: Post cholecystectomy. Pancreas: Normal. No ductal dilation. Spleen: Normal. No splenomegaly. Adrenal glands: Normal. No mass. Kidneys and ureters: Normal. No hydronephrosis. Stomach and bowel: Unremarkable. No obstruction. No mucosal thickening. Appendix: Normal appendix. Intraperitoneal space: Unremarkable. No free air. No significant fluid collection. Vasculature: Unremarkable. No abdominal aortic aneurysm. Lymph nodes: Unremarkable. No enlarged lymph nodes. Urinary bladder: Unremarkable as visualized. Reproductive: Bilateral tubal ligation clips. Bones/joints: Unremarkable. No acute fracture. Soft tissues: Small fat containing umbilical hernia. IMPRESSION: No acute abdominal or pelvic findings identified. Thank you for allowing us to participate in the care of your patient. Dictated and Authenticated by: Andrew De La Vega MD 02/11/2021 9:14 AM Central Time ([place] & [place]) [facility] Final Radiology Report with Addendum Call: [phone] assistance Online chat: [email or web address] Name: KENZIE MCCANN Age: 35Years F Date: 02/11/2021 SSN: -- : [id number] Study: CT ABDOMEN PELVIS W CONT Requesting Physician: EDUAR DAVID Images: [id number] Addl Studies: Provided Clinical History: left abdominal pain radiate to back Contrast: With Contrast Medium: isovue 300 Contrast Amount: 100 mL Contrast Method: Intravenous (IV) Page 1 of 2 Addendum created by Andrew De La Vega MD on 02/11/2021 10:02 AM Central Time ([place] & [place]): Left ureter appears mildly dilated. 2 mm calcification at the left UV junction likely represents partially obstructing calculus Impression: 2 mm obstructing calculus at the left ureterovesical junction. Initial Report created on 02/11/2021 9:14 AM Central Time ([place] & [place]): PROCEDURE INFORMATION: Exam: CT Abdomen And Pelvis With Contrast Exam date and time: 02/11/2021 7:11 AM Age: 35 years old Clinical indication: Abdominal pain; Localized; Left; Patient HX: History of renal stones; Additional info: Left abdominal pain radiate to back TECHNIQUE: Imaging protocol: Computed tomography of the abdomen and pelvis with contrast. Radiation optimization: All CT scans at this facility use at least one of these dose optimization techniques: automated exposure control; mA and/or kV adjustment per patient size (includes targeted exams where dose is matched to clinical indication); or iterative reconstruction. Contrast material: ISOVUE 300; Contrast volume: 100 ml; Contrast route: INTRAVENOUS (IV); COMPARISON: CT Abdomen w Cont, Abdomen w Cont 12/29/2020 9:11 PM FINDINGS: Lungs: Unremarkable.No mass or nodule. Liver: Normal. No mass. Gallbladder and bile ducts: Post cholecystectomy. KENZIE MCCANN | Final Radiology Report CONFIDENTIALITY STATEMENT This report is intended only for use by the referring physician, and only in accordance with law. If you received this in error, call [phone]. Page 2 of 2 Pancreas: Normal. No ductal dilation. Spleen: Normal. No splenomegaly. Adrenal glands: Normal. No mass. Kidneys and ureters: Normal. No hydronephrosis. Stomach and bowel: Unremarkable. No obstruction. No mucosal thickening. Appendix: Normal appendix. Intraperitoneal space: Unremarkable. No free air. No significant fluid collection. Vasculature: Unremarkable. No abdominal aortic aneurysm. Lymph nodes: Unremarkable. No enlarged lymph nodes. Urinary bladder: Unremarkable as visualized. Reproductive: Bilateral tubal ligation clips. Bones/joints: Unremarkable. No acute fracture. Soft tissues: Small fat containing umbilical hernia. IMPRESSION: No acute abdominal or pelvic findings identified. Thank you for allowing us to participate in the care of your patient. Dictated and Authenticated by: Andrew De La Vega MD 02/11/2021 9:14 AM Central Time ([place] & [place]) - Re-Assessments/Exams Free Text/Narrative Re-Assessment/Exam: 02/11/21 Findings of examination, lab work, and imaging reviewed with patient. Will treat kidney stone with Flomax, Zofran, and Percocet. Discussed supportive cares for kidney stone. Red flag signs and symptoms which would warrant reevaluation reviewed. Patient verbalized understanding and agreement with the plan of care. Departure - Departure Time of Disposition: 10:09 Disposition: Home, Self-Care 01 Condition: Good Clinical Impression: Left ureter dilated, Left renal stone - Discharge Information *PRESCRIPTION DRUG MONITORING PROGRAM REVIEWED*: Not Applicable *COPY OF PRESCRIPTION DRUG MONITORING REPORT IN PATIENT LINO: Not Applicable Instructions: Low-Purine Eating Plan, Kidney Stones, [id number] Forms: ED Department Discharge Additional Instructions: Rx: Zofran ODT Rx: Flomax Rx: Percocet 1.) In addition to Percocet, you may take and additional acetaminophen (Tylenol) 325mg every six hours. You may also take take ibuprofen (Advil/Motrin) 400mg every six hours, as pain persists. You may stagger these medications so you are receiving a dose every three hours. 2.) Drink plenty of water to stay hydrated and flush out ureters and bladder. 3.) Follow up with primary care provider, or return to the emergency department, with any fever, shaking chills, or inability to void. <Eduar David - Last Filed: 02/12/21 06:49> ED HPI GENERAL MEDICAL PROBLEM - General Source of Information: Reports: Patient, RN History Limitations: Reports: No Limitations - History of Present Illness INITIAL COMMENTS - FREE TEXT/NARRATIVE: ED with c/o severe abdominal pain, started last martha, worse pat 2 hours Nausea without vomiting. No fever or chills. pain LLQ radiates upward and to back. hx kidney stones in past but this feels worse. Difficulty urinating, frequency and small amounts Left Lower Abdomen Pain Score (Numeric/FACES): 8 Past Medical History - Past Health History Medical/Surgical History: Denies Medical/Surgical History HEENT History: Reports: Impaired Vision Other HEENT History: WEARS GLASSES Cardiovascular History: Reports: Heart Murmur, Other (See Below) Other Cardiovascular History: as child Respiratory History: Reports: None Gastrointestinal History: Reports: PUD Genitourinary History: Reports: Renal Calculus, STD, Other (See Below) Other Genitourinary History: GENITAL WARTS PATIENT FINANCIAL SPECIALIST History: Reports: , Other (See Below) Other PATIENT FINANCIAL SPECIALIST History: HX OF GENITAL WARTS Musculoskeletal History: Reports: Arthritis, Back Pain, Chronic Other Musculoskeletal History: LEFT FOOT Neurological History: Reports: Seizure Other Neuro History: Seizure in or October 2015, Seizure 01/03/16: Seizure onJ anuary 2016 states they are from "PTSD, and only happen when she is stressed and sick", and describes them as her staring into space and not responding to people who are talking to her. Psychiatric History: Reports: Anxiety, Depression, PTSD, Suicide Attempt, Other (See Below) Other Psychiatric History: CONVERSION DISORDER;. Suicide attempt 2007, Hosp. 2014 with suicidal feelings. 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) Other Infectious Disease History: genital warts - Past Surgical History Head Surgeries/Procedures: Reports: None HEENT Surgical History: Reports: Other (See Below) Other HEENT Surgeries/Procedures: LACERATION OF PINNA Cardiovascular Surgical History: Reports: None Respiratory Surgical History: Reports: None GI Surgical History: Reports: None Female Surgical History: Reports: None, Tubal Ligation Endocrine Surgical History: Reports: None Neurological Surgical History: Reports: None Musculoskeletal Surgical History: Reports: Amputation, Other (See Below) Other Musculoskeletal Surgeries/Procedures:: left foot surgeries 3rd toe Social & Family History - Family History Family Medical History: No Pertinent Family History - Tobacco Use Tobacco Use Status *Q: Current Every Day Tobacco User Years of Tobacco use: 15 Packs/Tins Daily: 0.5 - Caffeine Use Caffeine Use: Reports: Coffee Other Caffeine Use: OCCASIONAL COFEE. OCCASIONAL ENERGY DRINK - Recreational Drug Use Recreational Drug Use: No - Living Situation & Occupation Living situation: Reports: with Family Occupation: Employed Course - Vital Signs Last Recorded V/S: Last Vital Signs Temp 97.4 F 02/11/21 05:34 Pulse 69 02/11/21 05:34 Resp 16 02/11/21 05:34 BP 130/72 02/11/21 05:34 Pulse Ox 100 02/11/21 05:34 - Orders/Labs/Meds Labs: Laboratory Tests 02/11/21 02/11/21 02/11/21 Range/Units 05:55 05:55 05:55 WBC 10.1 H (5.0-10.0) 10^3/uL RBC 4.18 L (4.2-5.4) 10^6/uL Hgb 10.0 L (12.0-16.0) g/dL Hct 33.4 L (37.0-47.0) % MCV 79.9 L (80-100) fL MCH 23.9 L (27.0-34.0) pg MCHC 29.9 L (33.0-35.0) g/dL Plt Count 455 H (150-450) 10^3/uL Neut % (Auto) 74.2 (42.2-75.2) % Lymph % (Auto) 17.7 L (20.5-50.1) % [place] % (Auto) 5.0 (2-8) % Eos % (Auto) 2.9 (1.0-3.0) % Baso % (Auto) 0.2 (0.0-1.0) % Sodium 142 (136-145) mmol/L Potassium 3.7 (3.5-5.1) mmol/L Chloride 104 (98-107) mmol/L Carbon Dioxide 28 (21-32) mmol/L Anion Gap 13.7 H (7-13) mEq/L BUN 16 (7-18) mg/dL Creatinine 0.98 (0.55-1.02) mg/dL Est Cr Clr Drug Dosing 76.44 mL/min Estimated GFR (MDRD) > 60 BUN/Creatinine Ratio 16.3 (No establ ref range) Glucose 118 H (70-99) mg/dL Lactic Acid 0.9 (0.4-2.0) mmol/L Calcium 8.4 L (8.5-10.1) mg/dL Total Bilirubin 0.2 (0.2-1.0) mg/dL AST 147 H (15-37) U/L ALT 125 H (14-59) U/L Alkaline Phosphatase 121 H (46-116) U/L Total Protein 6.9 (6.4-8.2) g/dL Albumin 3.5 (3.4-5.0) g/dL Globulin 3.4 Albumin/Globulin Ratio 1.0 Amylase 18 L (25-115) U/L Lipase 46 L (73-393) U/L HCG, Qual Negative Urine Opiates Screen (NEGATIVE) Ur Oxycodone Screen (NEGATIVE) Urine Methadone Screen (NEGATIVE) Ur Barbiturates Screen (NEGATIVE) U Tricyclic Antidepress (NEGATIVE) Ur Phencyclidine Scrn (NEGATIVE) Ur Amphetamine Screen (NEGATIVE) U Methamphetamines Scrn (NEGATIVE) Urine MDMA Screen (NEGATIVE) U Benzodiazepines Scrn (NEGATIVE) Urine Cocaine Screen (NEGATIVE) U Marijuana (THC) Screen (NEGATIVE) 02/11/21 Range/Units 08:41 WBC (5.0-10.0) 10^3/uL RBC (4.2-5.4) 10^6/uL Hgb (12.0-16.0) g/dL Hct (37.0-47.0) % MCV (80-100) fL MCH (27.0-34.0) pg MCHC (33.0-35.0) g/dL Plt Count (150-450) 10^3/uL Neut % (Auto) (42.2-75.2) % Lymph % (Auto) (20.5-50.1) % [place] % (Auto) (2-8) % Eos % (Auto) (1.0-3.0) % Baso % (Auto) (0.0-1.0) % Sodium (136-145) mmol/L Potassium (3.5-5.1) mmol/L Chloride (98-107) mmol/L Carbon Dioxide (21-32) mmol/L Anion Gap (7-13) mEq/L BUN (7-18) mg/dL Creatinine (0.55-1.02) mg/dL Est Cr Clr Drug Dosing mL/min Estimated GFR (MDRD) BUN/Creatinine Ratio (No establ ref range) Glucose (70-99) mg/dL Lactic Acid (0.4-2.0) mmol/L Calcium (8.5-10.1) mg/dL Total Bilirubin (0.2-1.0) mg/dL AST (15-37) U/L ALT (14-59) U/L Alkaline Phosphatase (46-116) U/L Total Protein (6.4-8.2) g/dL Albumin (3.4-5.0) g/dL Globulin Albumin/Globulin Ratio Amylase (25-115) U/L Lipase (73-393) U/L HCG, Qual Urine Opiates Screen Negative (NEGATIVE) Ur Oxycodone Screen Positive H (NEGATIVE) Urine Methadone Screen Negative (NEGATIVE) Ur Barbiturates Screen Negative (NEGATIVE) U Tricyclic Antidepress Negative (NEGATIVE) Ur Phencyclidine Scrn Negative (NEGATIVE) Ur Amphetamine Screen Negative (NEGATIVE) U Methamphetamines Scrn Negative (NEGATIVE) Urine MDMA Screen Negative (NEGATIVE) U Benzodiazepines Scrn Negative (NEGATIVE) Urine Cocaine Screen Negative (NEGATIVE) U Marijuana (THC) Screen Positive H (NEGATIVE) Meds: Medications Discontinued Medications Generic Name Dose Route Start Last Admin Trade Name Freq PRN Reason Stop Dose Admin Fentanyl 50 mcg 02/11/21 05:39 02/11/21 05:55 Fentanyl 100 Mcg/2 Ml Sdv IVPUSH 02/11/21 05:40 50 mcg ONETIME ONE Administration Sodium Chloride 1,000 mls @ 999 mls/hr 02/11/21 05:37 02/11/21 05:54 Normal Saline IV 02/11/21 06:37 999 mls/hr .BOLUS ONE Administration Iopamidol 100 ml 02/11/21 06:44 02/11/21 08:19 Iopamidol 612 Mg/Ml 100 Ml Bottle IVPUSH 02/11/21 06:45 100 ml ONETIME ONE Administration Ondansetron HCl 4 mg 02/11/21 05:37 02/11/21 05:55 Ondansetron 4 Mg/2 Ml Sdv IVPUSH 02/11/21 05:38 4 mg ONETIME ONE Administration Tamsulosin HCl 0.4 mg 02/11/21 08:31 02/11/21 09:30 Tamsulosin 0.4 Mg Cap.Er PO 02/11/21 08:32 0.4 mg ONETIME ONE Administration Sepsis Event Note (ED) - Evaluation Sepsis Screening Result: No Definite Risk
[2021-02-11 06:38] LABS: ANION GAP 13.7 mEq/L (7-13); CHLORIDE,CL 104 mmol/L (98-107); SODIUM,NA 142 mmol/L (136-145)
[2021-02-11] MEDS ORDERED: Iopamidol 612 MG/ML 100 ML Bottle IVPUSH ONE (06:44)
[2021-02-11] MEDS ORDERED: Tamsulosin 0.4 MG Cap.ER PO ONE (08:31)
--- NOTE | 2021-02-11 09:15 | CT ---
PROCEDURE INFORMATION: Exam: CT Abdomen And Pelvis With Contrast Exam date and time: 02/11/2021 7:11 AM Age: 35 years old Clinical indication: Abdominal pain; Localized; Left; Patient HX: History of renal stones; Additional info: Left abdominal pain radiate to back TECHNIQUE: Imaging protocol: Computed tomography of the abdomen and pelvis with contrast. Radiation optimization: All CT scans at this facility use at least one of these dose optimization techniques: automated exposure control; mA and/or kV adjustment per patient size (includes targeted exams where dose is matched to clinical indication); or iterative reconstruction. Contrast material: ISOVUE 300; Contrast volume: 100 ml; Contrast route: INTRAVENOUS (IV); COMPARISON: CT Abdomen w Cont, Abdomen w Cont 12/29/2020 9:11 PM FINDINGS: Lungs: Unremarkable.No mass or nodule. Liver: Normal. No mass. Gallbladder and bile ducts: Post cholecystectomy. Pancreas: Normal. No ductal dilation. Spleen: Normal. No splenomegaly. Adrenal glands: Normal. No mass. Kidneys and ureters: Normal. No hydronephrosis. Stomach and bowel: Unremarkable. No obstruction. No mucosal thickening. Appendix: Normal appendix. Intraperitoneal space: Unremarkable. No free air. No significant fluid collection. Vasculature: Unremarkable. No abdominal aortic aneurysm. Lymph nodes: Unremarkable. No enlarged lymph nodes. Urinary bladder: Unremarkable as visualized. Reproductive: Bilateral tubal ligation clips. Bones/joints: Unremarkable. No acute fracture. Soft tissues: Small fat containing umbilical hernia. IMPRESSION: No acute abdominal or pelvic findings identified.
== END 2021-02-11 10:31 | disposition home or self-care (01) ==
LOC: DL.ED 05:24
DX: N28.82 Megaloureter (principal); N20.2 Calculus of kidney with calculus of ureter; E66.9 Obesity, unspecified; Z68.39 Body mass index [BMI] 39.0-39.9, adult; Z72.0 Tobacco use; Z90.49 Acquired absence of other specified parts of digestive tract
CPT/HCPCS: 36415; 74177; 80053; 80305; 82150; 83605; 83690; 84703; 85025; 96374; 96375; 99284; A9270; J2405; J3010; J7030; Q9967

== ENCOUNTER 2021-06-03 13:59 | Emergency (ER) | payer MEDICAID ==
[2021-06-03 14:18] VITALS: BP 124/87; PULSE 88
[2021-06-03] MEDS ORDERED: Ondansetron 4 MG/2 ML SDV IVPUSH ONE (14:25)
[2021-06-03] MEDS ORDERED: Sodium Chloride 0.9% 1,000 ML IV ONE (14:25)
[2021-06-03] MEDS ORDERED: Ketorolac 30 MG/ML SDV IVPUSH ONE (14:25)
[2021-06-03] MEDS ORDERED: Sodium Chloride 0.9% 10 ML Syringe FLUSH PRN (14:25)
[2021-06-03 15:06] LABS: ANION GAP 15.1 mEq/L (7-13); CHLORIDE,CL 106 mmol/L (98-107); SODIUM,NA 142 mmol/L (136-145)
[2021-06-03] MEDS ORDERED: Acetaminophen/HYDROcodone 325-5 MG Tab PO ONE (15:36)
--- NOTE | 2021-06-03 15:40 | EDM.PDOC ---
Scribed by Marisa Ordoñez 06/03/21 [id number] for Britany Linares MD ED HPI GENERAL MEDICAL PROBLEM - General Chief Complaint: Genitourinary Problem Stated Complaint: POSTIVE FOR COVID KIDNEY STONES Time Seen by Provider: 06/03/21 15:13 Source of Information: Reports: Patient, RN, RN Notes Reviewed History Limitations: Reports: No Limitations - History of Present Illness INITIAL COMMENTS - FREE TEXT/NARRATIVE: Patient is here for right-sided flank pain and a previous history of renal stones. She notes the pain started about 2 hours ago and radiates around. Symptoms are similar to previous renal stones. She had been avoiding Tylenol as it exacerbates her stones, but she developed a low grade fever 2 days ago due to COVID. She has been using Tylenol to help manage her fever and now has right flank pain. Patient denies any chills other than right now from the fluids. She does endorse nausea. 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 Pain Score (Numeric/FACES): 5 - Related Data Allergies Allergy/AdvReac Type Severity Reaction Status Date / Time No Known Allergies Allergy Verified 06/03/21 14:19 Home Meds: Home Meds Acetaminophen [Tylenol Extra Strength] 1,000 mg PO Q5H PRN 06/03/21 [History] QUEtiapine Fumarate [Seroquel] 50 mg PO BEDTIME 06/03/21 [History] Past Medical History - Past Health History Medical/Surgical History: Denies Medical/Surgical History HEENT History: Reports: Impaired Vision Other HEENT History: WEARS GLASSES Cardiovascular History: Reports: Heart Murmur, Other (See Below) Other Cardiovascular History: as child Respiratory History: Reports: None Gastrointestinal History: Reports: PUD Genitourinary History: Reports: Renal Calculus, STD, Other (See Below) Other Genitourinary History: GENITAL WARTS 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 or October 2015, Seizure 01/03/16: Seizure [id number] states they are from "PTSD, and only happen when she is stressed and sick", and describes them as her staring into space and not responding to people who are talking to her. Psychiatric History: Reports: Anxiety, Depression, PTSD, Suicide Attempt, Other (See Below) Other Psychiatric History: CONVERSION DISORDER;. Suicide attempt 2008, Hosp. 2014 with suicidal feelings. 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) Other Infectious Disease History: genital warts - Past Surgical History Head Surgeries/Procedures: Reports: None HEENT Surgical History: Reports: Other (See Below) Other HEENT Surgeries/Procedures: LACERATION OF PINNA Cardiovascular Surgical History: Reports: None Respiratory Surgical History: Reports: None GI Surgical History: Reports: None Female Surgical History: Reports: None, Tubal Ligation Endocrine Surgical History: Reports: None Neurological Surgical History: Reports: None Musculoskeletal Surgical History: Reports: Amputation, Other (See Below) Other Musculoskeletal Surgeries/Procedures:: left foot surgeries 3rd toe Social & Family History - Family History Family Medical History: No Pertinent Family History - Tobacco Use Tobacco Use Status *Q: Current Every Day Tobacco User Years of Tobacco use: 10 Packs/Tins Daily: 0.5 - Caffeine Use Caffeine Use: Reports: Coffee Other Caffeine Use: OCCASIONAL COFEE. OCCASIONAL ENERGY DRINK - Recreational Drug Use Recreational Drug Use: No - Living Situation & Occupation Living situation: Reports: with Family Occupation: Employed ED ROS GENERAL - Review of Systems Review Of Systems: Comprehensive ROS is negative, except as noted in HPI. ED EXAM, RENAL/ - Physical Exam Exam: See Below Exam Limited By: No Limitations General Appearance: Alert, WD/WN, No Apparent Distress Eye Exam: Bilateral Eye: EOMI, Normal Inspection, PERRL Ears: Normal External Exam, Normal Canal, Hearing Grossly Normal, Normal TMs Nose: Normal Inspection, Normal Mucosa, No Blood Throat/Mouth: Normal Inspection, Normal Lips, Normal Teeth, Normal Gums, Normal Oropharynx, Normal Voice, No Airway Compromise Head: Atraumatic, Normocephalic Neck: Normal Inspection, Supple, Non-Tender, Full Range of Motion Respiratory/Chest: No Respiratory Distress, Lungs Clear, Normal Breath Sounds, No Accessory Muscle Use, Chest Non-Tender Cardiovascular: Normal Peripheral Pulses, Regular Rate, Rhythm, No Edema, No Gallop, No JVD, No Murmur, No Rub GI/Abdominal: Normal Bowel Sounds, Soft, Non-Tender, No Organomegaly, No Distention, No Abnormal Bruit, No Mass (Female) Exam: Deferred Rectal (Female) Exam: Deferred Back Exam: CVA Tenderness (R). No: CVA Tenderness (L) Extremities: Normal Inspection, Normal Range of Motion, Non-Tender, Normal Capillary Refill, No Pedal Edema Neurological: Alert, Oriented, CN II-XII Intact, Normal Cognition, Normal Gait, Normal Reflexes, No Motor/Sensory Deficits Psychiatric: Normal Affect, Normal Mood Skin Exam: Warm, Dry, Intact, Normal Color, No Rash Course - Vital Signs Last Recorded V/S: Last Vital Signs Temp 97.6 F 06/03/21 14:12 Pulse 88 06/03/21 14:12 Resp 20 06/03/21 14:12 BP 124/87 06/03/21 14:12 Pulse Ox 98 06/03/21 14:12 - Orders/Labs/Meds Orders: Active Orders 24 hr Category Date Time Status Peripheral IV Care [RC] . DIRECTED Care 06/03/21 14:25 Ordered Sodium Chloride 0.9% [Saline Flush] Med 06/03/21 14:25 Ordered 10 ml FLUSH ASDIRECTED PRN Peripheral IV Insertion Adult [OM.PC] Stat Oth 06/03/21 14:25 Ordered Medication Orders Sodium Chloride (Sodium Chloride 0.9% 10 Ml Syringe) 10 ml FLUSH ASDIRECTED PRN PRN Reason: Keep Vein Open Last Admin: 06/03/21 14:46 Dose: 10 ml Documented by: GIRMA Labs: Laboratory Tests 06/03/21 06/03/21 06/03/21 Range/Units 14:30 14:39 14:39 WBC 2.3 L (5.0-10.0) 10^3/uL RBC 4.43 (4.2-5.4) 10^6/uL Hgb 10.6 L (12.0-16.0) g/dL Hct 34.5 L (37.0-47.0) % MCV 77.9 L (80-100) fL MCH 23.9 L (27.0-34.0) pg MCHC 30.7 L (33.0-35.0) g/dL Plt Count 347 D (150-450) 10^3/uL Neut % (Auto) 30.8 L (42.2-75.2) % Lymph % (Auto) 58.2 H (20.5-50.1) % [place] % (Auto) 10.2 H (2-8) % Eos % (Auto) 0.4 L (1.0-3.0) % Baso % (Auto) 0.4 (0.0-1.0) % Sodium 142 (136-145) mmol/L Potassium 4.1 (3.5-5.1) mmol/L Chloride 106 (98-107) mmol/L Carbon Dioxide 25 (21-32) mmol/L Anion Gap 15.1 H (7-13) mEq/L BUN 10 (7-18) mg/dL Creatinine 0.73 (0.55-1.02) mg/dL Est Cr Clr Drug Dosing 101.65 mL/min Estimated GFR (MDRD) > 60 BUN/Creatinine Ratio 13.7 (No establ ref range) Glucose 92 (70-99) mg/dL Calcium 8.4 L (8.5-10.1) mg/dL Total Bilirubin 0.1 L (0.2-1.0) mg/dL AST 19 (15-37) U/L ALT 26 (14-59) U/L Alkaline Phosphatase 72 (46-116) U/L Total Protein 7.3 (6.4-8.2) g/dL Albumin 3.6 (3.4-5.0) g/dL Globulin 3.7 Albumin/Globulin Ratio 1.0 Urine Color Yellow (YELLOW) Urine Appearance Slightly cloudy (CLEAR) Urine pH 6.0 (5.0-9.0) Ur Specific [place] >= 1.030 (1.005-1.030) Urine Protein Trace H (NEGATIVE) Urine Glucose (UA) Negative (NEGATIVE) Urine Ketones Negative (NEGATIVE) Urine Occult Blood Negative (NEGATIVE) Urine Nitrite Negative (NEGATIVE) Urine Bilirubin Negative (NEGATIVE) Urine Urobilinogen 0.2 (0.2-1.0) mg/dL Ur Leukocyte Esterase Negative (NEGATIVE) Urine RBC 0-5 (0-5) /HPF Urine WBC 0-5 (0-5/HPF) /HPF Ur Epithelial Cells Few (NOT SEEN) /HPF Amorphous Sediment Rare (NOT SEEN) /HPF Urine Bacteria Rare (0-FEW/HPF) /HPF Urine Mucus Many H (NOT SEEN) /LPF Meds: Medications Generic Name Dose Route Start Last Admin Trade Name Luly PRN Reason Stop Dose Admin Sodium Chloride 10 ml 06/03/21 14:25 06/03/21 14:46 Sodium Chloride 0.9% 10 Ml Syringe FLUSH 10 ml ASDIRECTED PRN Administration Keep Vein Open Discontinued Medications Generic Name Dose Route Start Last Admin Trade Name Luly PRN Reason Stop Dose Admin Hydrocodone Bitart/Acetaminophen 1 tab 06/03/21 15:36 Acetaminophen/Hydrocodone 325-5 Mg Tab PO 06/03/21 15:37 ONETIME ONE Sodium Chloride 1,000 mls @ 999 mls/hr 06/03/21 14:25 06/03/21 14:42 Normal Saline IV 06/03/21 15:25 999 mls/hr .BOLUS ONE Administration Ketorolac Tromethamine 30 mg 06/03/21 14:25 06/03/21 14:45 Ketorolac 30 Mg/Ml Sdv IVPUSH 06/03/21 14:26 30 mg ONETIME ONE Administration Ondansetron HCl 4 mg 06/03/21 14:25 06/03/21 14:45 Ondansetron 4 Mg/2 Ml Sdv IVPUSH 06/03/21 14:26 4 mg ONETIME ONE Administration Departure - Departure Time of Disposition: 15:37 Disposition: Home, Self-Care 01 Condition: Good Clinical Impression: Kidney stone - Discharge Information *PRESCRIPTION DRUG MONITORING PROGRAM REVIEWED*: Not Applicable *COPY OF PRESCRIPTION DRUG MONITORING REPORT IN PATIENT LINO: Not Applicable Instructions: Kidney Stones Forms: ED Department Discharge Additional Instructions: RX: Zomax twice a day. RX: [place] 5-325 p.r.n. Drink plenty of water. Quarantine per CDC guidelines for COVID. Follow up with primary. Sepsis Event Note (ED) - Evaluation Sepsis Screening Result: No Definite Risk - Focused Exam Vital Signs: Vital Signs Temp Pulse Resp BP Pulse Ox 06/03/21 14:12 97.6 F 88 20 124/87 98 - My Orders Last 24 Hours: My Active Orders 06/03/21 14:25 Peripheral IV Care [RC] . DIRECTED Sodium Chloride 0.9% [Saline Flush] 10 ml FLUSH ASDIRECTED PRN Peripheral IV Insertion Adult [OM.PC] Stat - Assessment/Plan Last 24 Hours: My Active Orders 06/03/21 14:25 Peripheral IV Care [RC] . DIRECTED Sodium Chloride 0.9% [Saline Flush] 10 ml FLUSH ASDIRECTED PRN Peripheral IV Insertion Adult [OM.PC] Stat I have read and agree with the documentation that has been completed regarding this visit. By signing this record, I attest that the documentation was completed in my physical presence and is an accurate record of the encounter.
== END 2021-06-03 15:52 | disposition home or self-care (01) ==
LOC: DL.ED 13:59
DX: N20.0 Calculus of kidney (principal); E66.9 Obesity, unspecified; Z68.39 Body mass index [BMI] 39.0-39.9, adult; Z72.0 Tobacco use
CPT/HCPCS: 36415; 80053; 81001; 85025; 96374; 96375; 99284; A9270; J1885; J2405; J7030

== ENCOUNTER 2021-06-06 16:09 | Emergency (ER) | payer MEDICAID ==
[2021-06-06] MEDS ORDERED: Ondansetron 4 MG/2 ML SDV IV ONE (16:28)
[2021-06-06] MEDS ORDERED: Sodium Chloride 0.9% 10 ML Syringe FLUSH PRN (16:28)
[2021-06-06] MEDS ORDERED: Sodium Chloride 0.9% 1,000 ML IV ONE (16:28)
[2021-06-06] MEDS ORDERED: HYDROmorphone 1 MG/ML Syringe IVPUSH ONE ×2 (16:28→17:20)
[2021-06-06] MEDS ORDERED: Ketorolac 30 MG/ML SDV IVPUSH ONE (16:28)
[2021-06-06 16:54] VITALS: BP 142/95; PULSE 62
[2021-06-06 17:22] LABS: ANION GAP 14.6 mEq/L (7-13); CHLORIDE,CL 107 mmol/L (98-107); SODIUM,NA 142 mmol/L (136-145)
--- NOTE | 2021-06-06 17:24 | EDM.PDOC ---
Scribed by Marisa Ordoñez 06/06/21 1159 for Danielito Gonzalez MD ED HPI GENERAL MEDICAL PROBLEM - General Chief Complaint: Genitourinary Problem Stated Complaint: COVID POSITIVE, KIDNEY STONES Time Seen by Provider: 06/06/21 16:26 Source of Information: Reports: Patient, RN, RN Notes Reviewed History Limitations: Reports: No Limitations - History of Present Illness INITIAL COMMENTS - FREE TEXT/NARRATIVE: Patient presents to ED by POV with complaint of right flank pain that started times 3 to 4 days. She was diagnosed with kidney stone on 06/03/21 incidentally COVID positive. Denies shortness of breath or respiratory symptoms. Rates the flank pain as 9/10 Nothing aggravates or alleviates it. Admits to random fevers, which she attributes to COVID. Denies dysuria. She was sent home with Eldena with no relief. Onset: Gradual Duration: Getting Worse Location: Reports: Other (right flank) Quality: Reports: Ache Severity: Severe Improves with: Reports: None Worsens with: Reports: None Associated Symptoms: Reports: No Other Symptoms Right Flank Pain Score (Numeric/FACES): 6 - Related Data Allergies Allergy/AdvReac Type Severity Reaction Status Date / Time No Known Allergies Allergy Verified 06/06/21 16:43 Home Meds: Home Meds Acetaminophen [Tylenol Extra Strength] 1,000 mg PO Q5H PRN 06/03/21 [History] QUEtiapine Fumarate [Seroquel] 50 mg PO BEDTIME 06/03/21 [History] Past Medical History - Past Health History Medical/Surgical History: Denies Medical/Surgical History HEENT History: Reports: Impaired Vision Other HEENT History: WEARS GLASSES Cardiovascular History: Reports: Heart Murmur, Other (See Below) Other Cardiovascular History: as child Respiratory History: Reports: None Gastrointestinal History: Reports: PUD Genitourinary History: Reports: Renal Calculus, STD, Other (See Below) Other Genitourinary History: GENITAL WARTS 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 or October 2015, Seizure 01/03/16: Seizure [id number] states they are from "PTSD, and only happen when she is stressed and sick", and describes them as her staring into space and not responding to people who are talking to her. Psychiatric History: Reports: Anxiety, Depression, PTSD, Suicide Attempt, Other (See Below) Other Psychiatric History: CONVERSION DISORDER;. Suicide attempt 2008, Hosp. 2014 with suicidal feelings. 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) Other Infectious Disease History: genital warts - Past Surgical History Head Surgeries/Procedures: Reports: None HEENT Surgical History: Reports: Other (See Below) Other HEENT Surgeries/Procedures: LACERATION OF PINNA Cardiovascular Surgical History: Reports: None Respiratory Surgical History: Reports: None GI Surgical History: Reports: None Female Surgical History: Reports: None, Tubal Ligation Endocrine Surgical History: Reports: None Neurological Surgical History: Reports: None Musculoskeletal Surgical History: Reports: Amputation, Other (See Below) Other Musculoskeletal Surgeries/Procedures:: left foot surgeries 3rd toe Social & Family History - Family History Family Medical History: No Pertinent Family History - Caffeine Use Caffeine Use: Reports: Coffee Other Caffeine Use: OCCASIONAL COFEE. OCCASIONAL ENERGY DRINK - Living Situation & Occupation Living situation: Reports: with Family Occupation: Employed ED ROS GENERAL - Review of Systems Review Of Systems: Comprehensive ROS is negative, except as noted in HPI. ED EXAM, RENAL/ - Physical Exam Exam: See Below Exam Limited By: No Limitations General Appearance: Alert, WD/WN, Mild Distress (Due to pain) Eye Exam: Bilateral Eye: Normal Inspection Nose: Normal Inspection, Normal Mucosa, No Blood Throat/Mouth: Normal Inspection, Normal Lips, Normal Teeth, Normal Gums, Normal Oropharynx, Normal Voice, No Airway Compromise Head: Atraumatic, Normocephalic Neck: Normal Inspection, Supple, Non-Tender, Full Range of Motion Respiratory/Chest: No Respiratory Distress, Lungs Clear, Normal Breath Sounds, No Accessory Muscle Use, Chest Non-Tender Cardiovascular: Normal Peripheral Pulses, Regular Rate, Rhythm, No Edema, No Gallop, No JVD, No Murmur, No Rub GI/Abdominal: Normal Bowel Sounds, Soft, No Distention, Tender (Mild generalized right abdominal tenderness). No: Guarding, Rigid, Rebound Back Exam: Full Range of Motion, CVA Tenderness (R). No: CVA Tenderness (L), Vertebral Tenderness Extremities: Normal Inspection Neurological: Alert, Oriented, CN II-XII Intact, Normal Cognition, No Motor/Sensory Deficits Psychiatric: Normal Affect, Normal Mood Skin Exam: Warm, Dry, Intact, Normal Color, No Rash Course - Vital Signs Last Recorded V/S: Last Vital Signs Temp 98.0 F 06/06/21 16:30 Pulse 62 06/06/21 16:30 Resp 18 06/06/21 16:30 BP 142/95 H 06/06/21 16:30 Pulse Ox 99 06/06/21 16:30 - Orders/Labs/Meds Orders: Active Orders 24 hr Category Date Time Status Peripheral IV Care [RC] . DIRECTED Care 06/06/21 16:28 Active C-REACTIVE PROTEIN [CHEM] Stat Lab 06/06/21 16:40 Received CBC WITH AUTO DIFF [HEME] Stat Lab 06/06/21 16:40 Results COMPREHENSIVE METABOLIC PN,CMP [CHEM] Stat Lab 06/06/21 16:40 Received MANUAL DIFFERENTIAL QA/NC [HEME] Stat Lab 06/06/21 16:40 Results HYDROmorphone [Dilaudid] Med 06/06/21 17:20 Once 1 mg IVPUSH ONETIME ONE Sodium Chloride 0.9% [Normal Saline] 1,000 ml Med 06/06/21 16:28 Active IV .BOLUS Sodium Chloride 0.9% [Saline Flush] Med 06/06/21 16:28 Active 10 ml FLUSH ASDIRECTED PRN Peripheral IV Insertion Adult [OM.PC] Stat Oth 06/06/21 16:27 Ordered Medication Orders Sodium Chloride (Normal Saline) 1,000 mls @ 999 mls/hr IV .BOLUS ONE Stop: 06/06/21 17:28 Last Admin: 06/06/21 16:41 Dose: 999 mls/hr Documented by: MAREN Sodium Chloride (Sodium Chloride 0.9% 10 Ml Syringe) 10 ml FLUSH ASDIRECTED PRN PRN Reason: Keep Vein Open Last Admin: 06/06/21 16:43 Dose: 10 ml Documented by: MAREN Labs: Laboratory Tests 06/06/21 06/06/21 06/06/21 Range/Units 16:27 16:27 16:40 WBC 3.1 L (5.0-10.0) 10^3/uL RBC 4.66 (4.2-5.4) 10^6/uL Hgb 11.1 L (12.0-16.0) g/dL Hct 36.3 L (37.0-47.0) % MCV 77.9 L (80-100) fL MCH 23.8 L (27.0-34.0) pg MCHC 30.6 L (33.0-35.0) g/dL Plt Count 342 (150-450) 10^3/uL Neut % (Auto) 41.8 L (42.2-75.2) % Lymph % (Auto) 48.4 (20.5-50.1) % [place] % (Auto) 8.8 H (2-8) % Eos % (Auto) 0.3 L (1.0-3.0) % Baso % (Auto) 0.7 (0.0-1.0) % Add Manual Diff Yes Lactic Acid (0.4-2.0) mmol/L Urine Color Yellow (YELLOW) Urine Appearance Clear (CLEAR) Urine pH 6.0 (5.0-9.0) Ur Specific [place] 1.025 (1.005-1.030) Urine Protein Negative (NEGATIVE) Urine Glucose (UA) Negative (NEGATIVE) Urine Ketones Negative (NEGATIVE) Urine Occult Blood Moderate H (NEGATIVE) Urine Nitrite Negative (NEGATIVE) Urine Bilirubin Negative (NEGATIVE) Urine Urobilinogen 0.2 (0.2-1.0) mg/dL Ur Leukocyte Esterase Negative (NEGATIVE) Urine RBC 40-50 H (0-5) /HPF Urine WBC 0-5 (0-5/HPF) /HPF Ur Epithelial Cells Moderate H (NOT SEEN) /HPF Urine Bacteria Few (0-FEW/HPF) /HPF Urine Mucus Few H (NOT SEEN) /LPF Urine HCG, Qual Negative 06/06/21 Range/Units 16:40 WBC (5.0-10.0) 10^3/uL RBC (4.2-5.4) 10^6/uL Hgb (12.0-16.0) g/dL Hct (37.0-47.0) % MCV (80-100) fL MCH (27.0-34.0) pg MCHC (33.0-35.0) g/dL Plt Count (150-450) 10^3/uL Neut % (Auto) (42.2-75.2) % Lymph % (Auto) (20.5-50.1) % [place] % (Auto) (2-8) % Eos % (Auto) (1.0-3.0) % Baso % (Auto) (0.0-1.0) % Add Manual Diff Lactic Acid 1.0 (0.4-2.0) mmol/L Urine Color (YELLOW) Urine Appearance (CLEAR) Urine pH (5.0-9.0) Ur Specific [place] (1.005-1.030) Urine Protein (NEGATIVE) Urine Glucose (UA) (NEGATIVE) Urine Ketones (NEGATIVE) Urine Occult Blood (NEGATIVE) Urine Nitrite (NEGATIVE) Urine Bilirubin (NEGATIVE) Urine Urobilinogen (0.2-1.0) mg/dL Ur Leukocyte Esterase (NEGATIVE) Urine RBC (0-5) /HPF Urine WBC (0-5/HPF) /HPF Ur Epithelial Cells (NOT SEEN) /HPF Urine Bacteria (0-FEW/HPF) /HPF Urine Mucus (NOT SEEN) /LPF Urine HCG, Qual Meds: Medications Generic Name Dose Route Start Last Admin Trade Name Freq PRN Reason Stop Dose Admin Sodium Chloride 1,000 mls @ 999 mls/hr 06/06/21 16:28 06/06/21 16:41 Normal Saline IV 06/06/21 17:28 999 mls/hr .BOLUS ONE Administration Sodium Chloride 10 ml 06/06/21 16:28 06/06/21 16:43 Sodium Chloride 0.9% 10 Ml Syringe FLUSH 10 ml ASDIRECTED PRN Administration Keep Vein Open Discontinued Medications Generic Name Dose Route Start Last Admin Trade Name Freq PRN Reason Stop Dose Admin Hydromorphone HCl 1 mg 06/06/21 16:28 06/06/21 16:42 Hydromorphone 1 Mg/Ml Syringe IVPUSH 06/06/21 16:29 1 mg ONETIME ONE Administration Ketorolac Tromethamine 30 mg 06/06/21 16:28 06/06/21 16:41 Ketorolac 30 Mg/Ml Sdv IVPUSH 06/06/21 16:29 30 mg ONETIME ONE Administration Ondansetron HCl 4 mg 06/06/21 16:28 06/06/21 16:41 Ondansetron 4 Mg/2 Ml Sdv IV 06/06/21 16:29 4 mg ONETIME ONE Administration - Re-Assessments/Exams Free Text/Narrative Re-Assessment/Exam: 06/06/21 17:17 Pt relieved from renal colic and feels well enough to go home. D/c'd with Rx for Percocet 10mg/325mg and instructed to f/u in clinic for recheck this week and discuss with her PCP to see is a referral to urology may be needed. I see no indication for repeat imaging, admission, or transfer at this time. Departure - Departure Time of Disposition: 17:40 Disposition: Home, Self-Care 01 Condition: Fair Clinical Impression: Kidney stone, Renal colic on right side, COVID-19 virus infection - Discharge Information *PRESCRIPTION DRUG MONITORING PROGRAM REVIEWED*: No *COPY OF PRESCRIPTION DRUG MONITORING REPORT IN PATIENT LINO: No Instructions: Kidney Stones, Renal Colic, 10 Things You Can Do to Manage Your COVID-19 Symptoms at Home - [facility] [place] (02/17/2021) Forms: ED Department Discharge Additional Instructions: Rx: Percocet (Oxycodone APAP) 10mg/325mg *Do not drive while taking this medication. Use a stool softener, eat prunes/drink prune juice, and drink plenty of water to avoid constipation from the pain medication. Follow up in clinic this week for recheck and consideration of referral to urology if needed. Sepsis Event Note (ED) - Focused Exam Vital Signs: Vital Signs Temp Pulse Resp BP Pulse Ox 06/06/21 16:30 98.0 F 62 18 142/95 H 99 - My Orders Last 24 Hours: My Active Orders 06/06/21 16:27 Peripheral IV Insertion Adult [OM.PC] Stat 06/06/21 16:28 Peripheral IV Care [RC] . DIRECTED Sodium Chloride 0.9% [Normal Saline] 1,000 ml IV .BOLUS Sodium Chloride 0.9% [Saline Flush] 10 ml FLUSH ASDIRECTED PRN 06/06/21 16:40 C-REACTIVE PROTEIN [CHEM] Stat CBC WITH AUTO DIFF [HEME] Stat COMPREHENSIVE METABOLIC PN,CMP [CHEM] Stat MANUAL DIFFERENTIAL QA/NC [HEME] Stat 06/06/21 17:20 HYDROmorphone [Dilaudid] 1 mg IVPUSH ONETIME ONE - Assessment/Plan Last 24 Hours: My Active Orders 06/06/21 16:27 Peripheral IV Insertion Adult [OM.PC] Stat 06/06/21 16:28 Peripheral IV Care [RC] . DIRECTED Sodium Chloride 0.9% [Normal Saline] 1,000 ml IV .BOLUS Sodium Chloride 0.9% [Saline Flush] 10 ml FLUSH ASDIRECTED PRN 06/06/21 16:40 C-REACTIVE PROTEIN [CHEM] Stat CBC WITH AUTO DIFF [HEME] Stat COMPREHENSIVE METABOLIC PN,CMP [CHEM] Stat MANUAL DIFFERENTIAL QA/NC [HEME] Stat 06/06/21 17:20 HYDROmorphone [Dilaudid] 1 mg IVPUSH ONETIME ONE I have read and agree with the documentation that has been completed regarding this visit. By signing this record, I attest that the documentation was completed in my physical presence and is an accurate record of the encounter.
== END 2021-06-06 17:51 | disposition home or self-care (01) ==
LOC: DL.ED 16:09
DX: N20.0 Calculus of kidney (principal); U07.1 COVID-19
CPT/HCPCS: 36415; 80053; 81001; 81025; 83605; 85025; 86140; 96374; 96375; 96376; 99284; J1170; J1885; J2405; J7030

== ENCOUNTER 2021-06-27 13:12 | Emergency (ER) | payer MEDICAID ==
[2021-06-27] MEDS ORDERED: Ketorolac 30 MG/ML SDV IVPUSH ONE (16:27)
[2021-06-27] MEDS ORDERED: Sodium Chloride 0.9% 1,000 ML IV ONE (16:38)
[2021-06-27 16:59] VITALS: BP 116/95; PULSE 91
--- NOTE | 2021-06-27 16:59 | CT ---
EXAMINATION: Abdomen Pelvis wo Cont SEX: Female AGE: 36 years CLINICAL HISTORY: 36-year-old 240 pound female smoker complaining of right flank pain. CT scan 11 February 2021 revealed "no acute abdominal or pelvic findings". History of cholecystectomy and "kidney stones". Scan technique: Volume acquisition of data emergency unenhanced CT exam of the abdomen and pelvis (kidneys/ureters/bladder) obtained with the patient lying supine on the Siemens multi slice scanner [place], [place]. All data archived in the PACS system for storage, reformatting axial/sagittal/coronal planes and study. Interpretation: 1. Sigmoid diverticula without associated signs of inflammation. 2. Normal appendix RLQ. Liver, stomach, spleen, pancreas and adrenal glands unremarkable. 3. Bilateral tubal ligation. Midline uterus unremarkable. Tiny physiologic ovarian cysts. No ascites. 4. Normal reniform size, axis and configuration bilaterally. No cystic or solid renal cortical mass lesions (unenhanced exam). Isolated tiny punctate calcification lower pole calyx left kidney (asymptomatic side). No other evidence of nephrolithiasis or obstructive uropathy i.e. no pyelocaliectasis or ureterectasis. Collapsed urinary bladder. Phleboliths. 5. Lung bases clear. Normal cardiac silhouette. No pericardial or pleural effusions. Normal caliber aortoiliac vessels. 6. No abdominal or pelvic mass lesion. No inflammatory "dirty" peritoneal fat, mechanical bowel obstruction, or free air. 7. Lumbar spine unremarkable. CONCLUSION: Cholecystectomy and sterilization procedure. Normal appendix. Sigmoid diverticulosis. *Solitary tiny calcification lower pole left kidney without obstruction. No sign of abdominal malignancy, mechanical bowel obstruction, or acute peritonitis.
[2021-06-27 17:10] LABS: CHLORIDE,CL 105 mmol/L (98-107); SODIUM,NA 141 mmol/L (136-145)
--- NOTE | 2021-06-27 18:01 | EDM.PDOC ---
Scribed by Marisa Ordoñez 06/27/21 1809 for Molina Ruiz PA ED HPI GENERAL MEDICAL PROBLEM - General Chief Complaint: Abdominal Pain Stated Complaint: [id number] KIDNEY STONES COVID+ Time Seen by Provider: 06/27/21 16:10 Source of Information: Reports: Patient, RN, RN Notes Reviewed History Limitations: Reports: No Limitations - History of Present Illness INITIAL COMMENTS - FREE TEXT/NARRATIVE: A 36-year-old female reports to ED with right flank pain that started today at 0200 hours. The patient has a history of right kidney stones. The patient is supposed to have a follow up next month. Onset: Today Duration: Getting Worse Location: Reports: Other (right flank) Quality: Reports: Ache Severity: Moderate Improves with: Reports: None Worsens with: Reports: None Associated Symptoms: Reports: No Other Symptoms - Related Data Allergies Allergy/AdvReac Type Severity Reaction Status Date / Time No Known Allergies Allergy Verified 06/27/21 16:52 Home Meds: Home Meds Acetaminophen [Tylenol Extra Strength] 1,000 mg PO Q5H PRN 06/03/21 [History] QUEtiapine Fumarate [Seroquel] 50 mg PO BEDTIME 06/03/21 [History] Cyclobenzaprine [Flexeril] 10 mg PO ASDIRECTED PRN 06/27/21 [History] Diclofenac Sodium [Voltaren Arthritis Pain] 1 appful TOP ASDIRECTED PRN 06/27/21 [History] Past Medical History - Past Health History Medical/Surgical History: Denies Medical/Surgical History HEENT History: Reports: Impaired Vision Other HEENT History: WEARS GLASSES Cardiovascular History: Reports: Heart Murmur, Other (See Below) Other Cardiovascular History: as child Respiratory History: Reports: None Gastrointestinal History: Reports: PUD Genitourinary History: Reports: Renal Calculus, STD, Other (See Below) Other Genitourinary History: GENITAL WARTS 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 Psychiatric History: Reports: Anxiety, Depression, PTSD, Suicide Attempt, Other (See Below) Other Psychiatric History: CONVERSION DISORDER;. Suicide attempt 2008, Hosp. 2014 with suicidal feelings. 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), Novel Coronavirus Other Infectious Disease History: genital warts - Past Surgical History Head Surgeries/Procedures: Reports: None HEENT Surgical History: Reports: Other (See Below) Other HEENT Surgeries/Procedures: LACERATION OF PINNA Cardiovascular Surgical History: Reports: None Respiratory Surgical History: Reports: None GI Surgical History: Reports: None Female Surgical History: Reports: None, Tubal Ligation Endocrine Surgical History: Reports: None Neurological Surgical History: Reports: None Musculoskeletal Surgical History: Reports: Amputation, Other (See Below) Other Musculoskeletal Surgeries/Procedures:: left foot surgeries 3rd toe Social & Family History - Family History Family Medical History: No Pertinent Family History - Caffeine Use Caffeine Use: Reports: Coffee, Soda Other Caffeine Use: OCCASIONAL COFEE. OCCASIONAL ENERGY DRINK - Living Situation & Occupation Living situation: Reports: with Family Occupation: Employed ED ROS GENERAL - Review of Systems Review Of Systems: Comprehensive ROS is negative, except as noted in HPI. ED EXAM, RENAL/ - Physical Exam Exam: See Below Exam Limited By: No Limitations General Appearance: Alert, WD/WN, No Apparent Distress Eye Exam: Bilateral Eye: EOMI, Normal Inspection, PERRL Ears: Normal External Exam, Normal Canal, Hearing Grossly Normal, Normal TMs Nose: Normal Inspection, Normal Mucosa, No Blood Throat/Mouth: Normal Inspection, Normal Lips, Normal Teeth, Normal Gums, Normal Oropharynx, Normal Voice, No Airway Compromise Head: Atraumatic, Normocephalic Neck: Normal Inspection, Supple, Non-Tender, Full Range of Motion Respiratory/Chest: No Respiratory Distress, Lungs Clear, Normal Breath Sounds, No Accessory Muscle Use, Chest Non-Tender Cardiovascular: Normal Peripheral Pulses, Regular Rate, Rhythm, No Edema, No Gallop, No JVD, No Murmur, No Rub GI/Abdominal: Other (right flank pain) (Female) Exam: Deferred Rectal (Female) Exam: Deferred Back Exam: Normal Inspection, Full Range of Motion, NT Extremities: Normal Inspection, Normal Range of Motion, Non-Tender, Normal Ca pillary Refill, No Pedal Edema Neurological: Alert, Oriented, CN II-XII Intact, Normal Cognition, Normal Gait, Normal Reflexes, No Motor/Sensory Deficits Psychiatric: Normal Affect, Normal Mood Skin Exam: Warm, Dry, Intact, Normal Color, No Rash Lymphatic: No Adenopathy Course - Vital Signs Last Recorded V/S: Last Vital Signs Temp 98.2 F 06/27/21 16:05 Pulse 91 06/27/21 16:05 Resp 28 H 06/27/21 16:05 BP 116/95 H 06/27/21 16:05 Pulse Ox 98 06/27/21 16:05 - Orders/Labs/Meds Orders: Active Orders 24 hr Category Date Time Status CULTURE URINE [RM] Urgent Lab 06/27/21 16:10 Received Labs: Laboratory Tests 06/27/21 06/27/21 06/27/21 Range/Units 16:10 16:45 16:45 WBC 6.8 (5.0-10.0) 10^3/uL RBC 4.42 (4.2-5.4) 10^6/uL Hgb 10.5 L (12.0-16.0) g/dL Hct 34.8 L (37.0-47.0) % MCV 78.7 L (80-100) fL MCH 23.8 L (27.0-34.0) pg MCHC 30.2 L (33.0-35.0) g/dL Plt Count 544 H D (150-450) 10^3/uL Neut % (Auto) 50.0 (42.2-75.2) % Lymph % (Auto) 41.3 (20.5-50.1) % Imperial % (Auto) 6.0 (2-8) % Eos % (Auto) 2.4 (1.0-3.0) % Baso % (Auto) 0.3 (0.0-1.0) % Sodium 141 (136-145) mmol/L Potassium 4.0 (3.5-5.1) mmol/L Chloride 105 (98-107) mmol/L Carbon Dioxide 25 (21-32) mmol/L Anion Gap 15.0 H (7-13) mEq/L BUN 13 (7-18) mg/dL Creatinine 0.77 (0.55-1.02) mg/dL Est Cr Clr Drug Dosing 96.37 mL/min Estimated GFR (MDRD) > 60 BUN/Creatinine Ratio 16.9 (No establ ref range) Glucose 81 (70-99) mg/dL Lactic Acid (0.4-2.0) mmol/L Calcium 8.8 (8.5-10.1) mg/dL Total Bilirubin 0.3 (0.2-1.0) mg/dL AST 21 (15-37) U/L ALT 26 (14-59) U/L Alkaline Phosphatase 70 (46-116) U/L Total Protein 7.8 (6.4-8.2) g/dL Albumin 3.8 (3.4-5.0) g/dL Globulin 4.0 Albumin/Globulin Ratio 0.9 Urine Color Yellow (YELLOW) Urine Appearance Clear (CLEAR) Urine pH 6.0 (5.0-9.0) Ur Specific Allred >= 1.030 (1.005-1.030) Urine Protein Negative (NEGATIVE) Urine Glucose (UA) Negative (NEGATIVE) Urine Ketones Negative (NEGATIVE) Urine Occult Blood Trace-intact H (NEGATIVE) Urine Nitrite Negative (NEGATIVE) Urine Bilirubin Negative (NEGATIVE) Urine Urobilinogen 0.2 (0.2-1.0) mg/dL Ur Leukocyte Esterase Trace H (NEGATIVE) Urine RBC 0-5 (0-5) /HPF Urine WBC 5-10 H (0-5/HPF) /HPF Ur Epithelial Cells Many H (NOT SEEN) /HPF Urine Bacteria Few (0-FEW/HPF) /HPF Urine Mucus Many H (NOT SEEN) /LPF 06/27/ Range/Units 16:45 WBC (5.0-10.0) 10^3/uL RBC (4.2-5.4) 10^6/uL Hgb (12.0-16.0) g/dL Hct (37.0-47.0) % MCV (80-100) fL MCH (27.0-34.0) pg MCHC (33.0-35.0) g/dL Plt Count (150-450) 10^3/uL Neut % (Auto) (42.2-75.2) % Lymph % (Auto) (20.5-50.1) % Imperial % (Auto) (2-8) % Eos % (Auto) (1.0-3.0) % Baso % (Auto) (0.0-1.0) % Sodium (136-145) mmol/L Potassium (3.5-5.1) mmol/L Chloride (98-107) mmol/L Carbon Dioxide (21-32) mmol/L Anion Gap (7-13) mEq/L BUN (7-18) mg/dL Creatinine (0.55-1.02) mg/dL Est Cr Clr Drug Dosing mL/min Estimated GFR (MDRD) BUN/Creatinine Ratio (No establ ref range) Glucose (70-99) mg/dL Lactic Acid 1.0 (0.4-2.0) mmol/L Calcium (8.5-10.1) mg/dL Total Bilirubin (0.2-1.0) mg/dL AST (15-37) U/L ALT (14-59) U/L Alkaline Phosphatase (46-116) U/L Total Protein (6.4-8.2) g/dL Albumin (3.4-5.0) g/dL Globulin Albumin/Globulin Ratio Urine Color (YELLOW) Urine Appearance (CLEAR) Urine pH (5.0-9.0) Ur Specific Allred (1.005-1.030) Urine Protein (NEGATIVE) Urine Glucose (UA) (NEGATIVE) Urine Ketones (NEGATIVE) Urine Occult Blood (NEGATIVE) Urine Nitrite (NEGATIVE) Urine Bilirubin (NEGATIVE) Urine Urobilinogen (0.2-1.0) mg/dL Ur Leukocyte Esterase (NEGATIVE) Urine RBC (0-5) /HPF Urine WBC (0-5/HPF) /HPF Ur Epithelial Cells (NOT SEEN) /HPF Urine Bacteria (0-FEW/HPF) /HPF Urine Mucus (NOT SEEN) /LPF Meds: Medications Discontinued Medications Generic Name Dose Route Start Last Admin Trade Name Freq PRN Reason Stop Dose Admin Sodium Chloride 1,000 mls @ 999 mls/hr 06/27/21 16:38 06/27/21 16:44 Normal Saline IV 06/27/21 17:38 999 mls/hr .BOLUS ONE Administration Ketorolac Tromethamine 30 mg 06/27/21 16:27 06/27/21 16:44 Ketorolac 30 Mg/Ml Sdv IVPUSH 06/27/21 16:28 30 mg ONETIME ONE Administration Departure - Departure Time of Disposition: 18:01 Disposition: Against Medical Advice 07 Condition: Undetermined Clinical Impression: Flank pain - Discharge Information Forms: ED Department Discharge Care Plan Goals: The patient left prior to her lab results being received. Sepsis Event Note (ED) - Focused Exam Vital Signs: Vital Signs Temp Pulse Resp BP Pulse Ox 06/27/21 16:05 98.2 F 91 28 H 116/95 H 98 - My Orders Last 24 Hours: My Active Orders 06/27/21 16:10 CULTURE URINE [RM] Urgent - Assessment/Plan Last 24 Hours: My Active Orders 06/27/21 16:10 CULTURE URINE [RM] Urgent I have read and agree with the documentation that has been completed regarding this visit. By signing this record, I attest that the documentation was completed in my physical presence and is an accurate record of the encounter.
== END 2021-06-27 17:29 | disposition left against medical advice (07) ==
LOC: DL.ED 13:12
DX: R10.9 Unspecified abdominal pain (principal); E66.9 Obesity, unspecified; Z68.38 Body mass index [BMI] 38.0-38.9, adult; Z79.899 Other long term (current) drug therapy
CPT/HCPCS: 36415; 74176; 80053; 81001; 83605; 85025; 87086; 96374; 99284; J1885; J7030

== ENCOUNTER 2021-07-08 04:39 | Emergency (ER) | payer MEDICAID ==
--- NOTE | 2021-07-08 04:53 | EDM.PDOC ---
<Shaista Allison - Last Filed: 07/08/21 06:50> ED HPI GENERAL MEDICAL PROBLEM - General Chief Complaint: Abdominal Pain Stated Complaint: APPENDISITOUS PER PT Time Seen by Provider: 07/08/21 04:52 Source of Information: Reports: Patient, Old Records, RN, RN Notes Reviewed History Limitations: Reports: No Limitations - History of Present Illness INITIAL COMMENTS - FREE TEXT/NARRATIVE: Therese is a 36 y/o female who presents to the ED via personal vehicle with complaints of fever, nausea, diarrhea, and right lower quadrant abdominal pain. The patient reports her symptoms began yesterday afternoon and have progressively worsened in that time. She characterizes the pain in her abdomen as sharp and cramping with radiation into her right upper abdomen; she rates the pain 7/10. Her TMax at home was 102 which did not reduce with a dose of acetaminophen. Her last meal was 2300 last night which consisted of soup and bread. She is currently on her menses. She denies chest pain/pressure, palpitations, shortness of breath, dysuria, hematuria, hematochezia, or melena. The patient attests to smoking 1/2 pack of cigarettes per day; she denies alcohol or recreational drug use. Right Abdomen Pain Score (Numeric/FACES): 5 - Related Data Allergies Allergy/AdvReac Type Severity Reaction Status Date / Time No Known Allergies Allergy Verified 07/08/21 04:52 Home Meds: Home Meds Acetaminophen [Tylenol Extra Strength] 1,000 mg PO Q5H PRN 06/03/21 [History] QUEtiapine Fumarate [Seroquel] 50 mg PO BEDTIME 06/03/21 [History] Cyclobenzaprine [Flexeril] 10 mg PO ASDIRECTED PRN 06/27/21 [History] Diclofenac Sodium [Voltaren Arthritis Pain] 1 appful TOP ASDIRECTED PRN 06/27/21 [History] Past Medical History - Past Health History Medical/Surgical History: Denies Medical/Surgical History HEENT History: Reports: Impaired Vision Other HEENT History: WEARS GLASSES Cardiovascular History: Reports: Heart Murmur, Other (See Below) Other Cardiovascular History: as child Respiratory History: Reports: None Gastrointestinal History: Reports: PUD Genitourinary History: Reports: Renal Calculus, STD, Other (See Below) Other Genitourinary History: GENITAL WARTS 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 Psychiatric History: Reports: Anxiety, Depression, PTSD, Suicide Attempt, Other (See Below) Other Psychiatric History: CONVERSION DISORDER;. Suicide attempt 2007, Hosp. 2014 with suicidal feelings. 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), Novel Coronavirus Other Infectious Disease History: genital warts - Past Surgical History Head Surgeries/Procedures: Reports: None HEENT Surgical History: Reports: Other (See Below) Other HEENT Surgeries/Procedures: LACERATION OF PINNA Cardiovascular Surgical History: Reports: None Respiratory Surgical History: Reports: None GI Surgical History: Reports: None Female Surgical History: Reports: None, Tubal Ligation Endocrine Surgical History: Reports: None Neurological Surgical History: Reports: None Musculoskeletal Surgical History: Reports: Amputation, Other (See Below) Other Musculoskeletal Surgeries/Procedures:: left foot surgeries 3rd toe Social & Family History - Family History Family Medical History: No Pertinent Family History - Caffeine Use Caffeine Use: Reports: Coffee, Soda Other Caffeine Use: OCCASIONAL COFEE. OCCASIONAL ENERGY DRINK - Living Situation & Occupation Living situation: Reports: with Family Occupation: Employed ED ROS GENERAL - Review of Systems Review Of Systems: Comprehensive ROS is negative, except as noted in HPI. ED EXAM, GI/ABD - Physical Exam Exam: See Below Exam Limited By: No Limitations General Appearance: Alert, Mild Distress (RLQ abdominal pain), Obese. No: Active Emesis Eyes: Bilateral: Normal Appearance, EOMI Ears: Normal External Exam Nose: Normal Inspection Throat/Mouth: Normal Inspection, Normal Oropharynx, Normal Voice, No Airway Compromise Head: Atraumatic, Normocephalic Neck: Normal Inspection, Supple, Non-Tender, Full Range of Motion. No: Lymphadenopathy (L), Lymphadenopathy (R) Respiratory/Chest: No Respiratory Distress, Lungs Clear, Normal Breath Sounds, No Accessory Muscle Use, Chest Non-Tender. No: Crackles, Rales, Rhonchi, Wheezing, Stridor Cardiovascular: Normal Peripheral Pulses, Regular Rate, Rhythm, No Gallop, No Murmur, No Rub, Tachycardia GI/Abdominal Exam: Normal Bowel Sounds, Soft, No Distention, No Abnormal Bruit, No Mass, Pelvis Stable, Guarding, Rebound (To RLQ), Tender (To palpation of RLQ and RUQ). No: Rigid (Female) Exam: Deferred Rectal (Female) Exam: Deferred Back Exam: Normal Inspection, Full Range of Motion, CVA Tenderness (R). No: CVA Tenderness (L) Extremities: Normal Inspection, Normal Range of Motion, Normal Capillary Refill Neurological: Alert, Oriented, CN II-XII Intact, Normal Cognition, Normal Gait, No Motor/Sensory Deficits Psychiatric: Normal Affect, Normal Mood Skin Exam: Warm, Dry, Intact, Normal Color, No Rash. No: Cyanosis, Jaundice, Mottled, Pallor Course - Re-Assessments/Exams Free Text/Narrative Re-Assessment/Exam: 07/08/21 Care of patient transferred to Dr. Gonzalez at 0700. Departure - Departure Disposition: Home, Self-Care 01 Clinical Impression: Viral gastritis Abdominal pain Qualifiers: Abdominal location: generalized Qualified Code(s): R10.84 - Generalized abdominal pain - Discharge Information Instructions: Gastritis, Adult, [id number], Abdominal Pain, Adult, [id number] Forms: ED Department Discharge Additional Instructions: Rx: Zofran 4mg Rx: Bentyl (Dicyclomine) 20mg Clear liquid diet today, then advance to soft bland diet as tolerated. Follow up in clinic if not improving in 2 to 3 days. Return to ER if worse at any time. <Danielito Gonzalez - Last Filed: 07/08/21 08:57> Course - Vital Signs Last Recorded V/S: Last Vital Signs Temp 100.5 F 07/08/21 06:33 Pulse 94 07/08/21 06:45 Resp 26 H 07/08/21 06:45 BP 90/52 L 07/08/21 06:45 Pulse Ox 95 07/08/21 06:45 - Orders/Labs/Meds Labs: Laboratory Tests 07/08/21 07/08/21 07/08/21 Range/Units 04:47 04:47 04:47 WBC (5.0-10.0) 10^3/uL RBC (4.2-5.4) 10^6/uL Hgb (12.0-16.0) g/dL Hct (37.0-47.0) % MCV (80-100) fL MCH (27.0-34.0) pg MCHC (33.0-35.0) g/dL Plt Count (150-450) 10^3/uL Neut % (Auto) (42.2-75.2) % Lymph % (Auto) (20.5-50.1) % [place] % (Auto) (2-8) % Eos % (Auto) (1.0-3.0) % Baso % (Auto) (0.0-1.0) % Sodium (136-145) mmol/L Potassium (3.5-5.1) mmol/L Chloride (98-107) mmol/L Carbon Dioxide (21-32) mmol/L Anion Gap (7-13) mEq/L BUN (7-18) mg/dL Creatinine (0.55-1.02) mg/dL Est Cr Clr Drug Dosing mL/min Estimated GFR (MDRD) BUN/Creatinine Ratio (No establ ref range) Glucose (70-99) mg/dL Lactic Acid (0.4-2.0) mmol/L Calcium (8.5-10.1) mg/dL Magnesium (1.8-2.4) mg/dL Total Bilirubin (0.2-1.0) mg/dL AST (15-37) U/L ALT (14-59) U/L Alkaline Phosphatase (46-116) U/L C-Reactive Protein (0.0-0.9) mg/dL Total Protein (6.4-8.2) g/dL Albumin (3.4-5.0) g/dL Globulin Albumin/Globulin Ratio Amylase (25-115) U/L Lipase (73-393) U/L Urine Color Yellow (YELLOW) Urine Appearance Clear (CLEAR) Urine pH 7.0 (5.0-9.0) Ur Specific [place] 1.025 (1.005-1.030) Urine Protein Negative (NEGATIVE) Urine Glucose (UA) Negative (NEGATIVE) Urine Ketones Negative (NEGATIVE) Urine Occult Blood Negative (NEGATIVE) Urine Nitrite Negative (NEGATIVE) Urine Bilirubin Negative (NEGATIVE) Urine Urobilinogen 0.2 (0.2-1.0) mg/dL Ur Leukocyte Esterase Negative (NEGATIVE) Urine HCG, Qual Negative Urine Opiates Screen Negative (NEGATIVE) Ur Oxycodone Screen Positive H (NEGATIVE) Urine Methadone Screen Negative (NEGATIVE) Ur Barbiturates Screen Negative (NEGATIVE) U Tricyclic Antidepress Negative (NEGATIVE) Ur Phencyclidine Scrn Negative (NEGATIVE) Ur Amphetamine Screen Negative (NEGATIVE) U Methamphetamines Scrn Negative (NEGATIVE) Urine MDMA Screen Negative (NEGATIVE) U Benzodiazepines Scrn Negative (NEGATIVE) Urine Cocaine Screen Negative (NEGATIVE) U Marijuana (THC) Screen Positive H (NEGATIVE) Ethyl Alcohol (0) mg/dL SARS-CoV-2 RNA (JEEVAN) (NEGATIVE) 07/08/21 07/08/21 07/08/21 Range/Units 05:05 05:05 05:05 WBC 12.5 H (5.0-10.0) 10^3/uL RBC 3.76 L (4.2-5.4) 10^6/uL Hgb 9.1 L (12.0-16.0) g/dL Hct 30.0 L (37.0-47.0) % MCV 79.8 L (80-100) fL MCH 24.2 L (27.0-34.0) pg MCHC 30.3 L (33.0-35.0) g/dL Plt Count 395 D (150-450) 10^3/uL Neut % (Auto) 85.8 H (42.2-75.2) % Lymph % (Auto) 9.1 L (20.5-50.1) % [place] % (Auto) 4.2 (2-8) % Eos % (Auto) 0.7 L (1.0-3.0) % Baso % (Auto) 0.2 (0.0-1.0) % Sodium 136 (136-145) mmol/L Potassium 3.3 L (3.5-5.1) mmol/L Chloride 100 (98-107) mmol/L Carbon Dioxide 24 (21-32) mmol/L Anion Gap 15.3 H (7-13) mEq/L BUN 15 (7-18) mg/dL Creatinine 0.90 (0.55-1.02) mg/dL Est Cr Clr Drug Dosing 85.65 mL/min Estimated GFR (MDRD) > 60 BUN/Creatinine Ratio 16.7 (No establ ref range) Glucose 116 H (70-99) mg/dL Lactic Acid 1.5 (0.4-2.0) mmol/L Calcium 8.2 L (8.5-10.1) mg/dL Magnesium 1.7 L (1.8-2.4) mg/dL Total Bilirubin 0.2 (0.2-1.0) mg/dL AST 15 (15-37) U/L ALT 20 (14-59) U/L Alkaline Phosphatase 64 (46-116) U/L C-Reactive Protein 2.4 H (0.0-0.9) mg/dL Total Protein 7.0 (6.4-8.2) g/dL Albumin 3.5 (3.4-5.0) g/dL Globulin 3.5 Albumin/Globulin Ratio 1.0 Amylase 18 L (25-115) U/L Lipase 47 L (73-393) U/L Urine Color (YELLOW) Urine Appearance (CLEAR) Urine pH (5.0-9.0) Ur Specific [place] (1.005-1.030) Urine Protein (NEGATIVE) Urine Glucose (UA) (NEGATIVE) Urine Ketones (NEGATIVE) Urine Occult Blood (NEGATIVE) Urine Nitrite (NEGATIVE) Urine Bilirubin (NEGATIVE) Urine Urobilinogen (0.2-1.0) mg/dL Ur Leukocyte Esterase (NEGATIVE) Urine HCG, Qual Urine Opiates Screen (NEGATIVE) Ur Oxycodone Screen (NEGATIVE) Urine Methadone Screen (NEGATIVE) Ur Barbiturates Screen (NEGATIVE) U Tricyclic Antidepress (NEGATIVE) Ur Phencyclidine Scrn (NEGATIVE) Ur Amphetamine Screen (NEGATIVE) U Methamphetamines Scrn (NEGATIVE) Urine MDMA Screen (NEGATIVE) U Benzodiazepines Scrn (NEGATIVE) Urine Cocaine Screen (NEGATIVE) U Marijuana (THC) Screen (NEGATIVE) Ethyl Alcohol < 3 (0) mg/dL SARS-CoV-2 RNA (JEEVAN) (NEGATIVE) 07/08/21 Range/Units 05:09 WBC (5.0-10.0) 10^3/uL RBC (4.2-5.4) 10^6/uL Hgb (12.0-16.0) g/dL Hct (37.0-47.0) % MCV (80-100) fL MCH (27.0-34.0) pg MCHC (33.0-35.0) g/dL Plt Count (150-450) 10^3/uL Neut % (Auto) (42.2-75.2) % Lymph % (Auto) (20.5-50.1) % [place] % (Auto) (2-8) % Eos % (Auto) (1.0-3.0) % Baso % (Auto) (0.0-1.0) % Sodium (136-145) mmol/L Potassium (3.5-5.1) mmol/L Chloride (98-107) mmol/L Carbon Dioxide (21-32) mmol/L Anion Gap (7-13) mEq/L BUN (7-18) mg/dL Creatinine (0.55-1.02) mg/dL Est Cr Clr Drug Dosing mL/min Estimated GFR (MDRD) BUN/Creatinine Ratio (No establ ref range) Glucose (70-99) mg/dL Lactic Acid (0.4-2.0) mmol/L Calcium (8.5-10.1) mg/dL Magnesium (1.8-2.4) mg/dL Total Bilirubin (0.2-1.0) mg/dL AST (15-37) U/L ALT (14-59) U/L Alkaline Phosphatase (46-116) U/L C-Reactive Protein (0.0-0.9) mg/dL Total Protein (6.4-8.2) g/dL Albumin (3.4-5.0) g/dL Globulin Albumin/Globulin Ratio Amylase (25-115) U/L Lipase (73-393) U/L Urine Color (YELLOW) Urine Appearance (CLEAR) Urine pH (5.0-9.0) Ur Specific [place] (1.005-1.030) Urine Protein (NEGATIVE) Urine Glucose (UA) (NEGATIVE) Urine Ketones (NEGATIVE) Urine Occult Blood (NEGATIVE) Urine Nitrite (NEGATIVE) Urine Bilirubin (NEGATIVE) Urine Urobilinogen (0.2-1.0) mg/dL Ur Leukocyte Esterase (NEGATIVE) Urine HCG, Qual Urine Opiates Screen (NEGATIVE) Ur Oxycodone Screen (NEGATIVE) Urine Methadone Screen (NEGATIVE) Ur Barbiturates Screen (NEGATIVE) U Tricyclic Antidepress (NEGATIVE) Ur Phencyclidine Scrn (NEGATIVE) Ur Amphetamine Screen (NEGATIVE) U Methamphetamines Scrn (NEGATIVE) Urine MDMA Screen (NEGATIVE) U Benzodiazepines Scrn (NEGATIVE) Urine Cocaine Screen (NEGATIVE) U Marijuana (THC) Screen (NEGATIVE) Ethyl Alcohol (0) mg/dL SARS-CoV-2 RNA (JEEVAN) Negative (NEGATIVE) Meds: Medications Discontinued Medications Generic Name Dose Route Start Last Admin Trade Name Freq PRN Reason Stop Dose Admin Bisacodyl 10 mg 07/08/21 08:48 Bisacodyl 5 Mg Tab PO 07/08/21 08:49 ONETIME ONE Fentanyl 50 mcg 07/08/21 06:01 07/08/21 06:10 Fentanyl 100 Mcg/2 Ml Sdv IVPUSH 07/08/21 06:02 50 mcg ONETIME ONE Administration Protocol Hydromorphone HCl 1 mg 07/08/21 05:09 07/08/21 05:19 Hydromorphone 1 Mg/Ml Syringe IVPUSH 07/08/21 05:10 1 mg ONETIME ONE Administration Lactated Ringer's 1,000 mls @ 999 mls/hr 07/08/21 04:59 07/08/21 05:10 Ringers, Lactated IV 07/08/21 05:59 999 mls/hr .BOLUS ONE Administration Lactated Ringer's 1,000 mls @ 999 mls/hr 07/08/21 06:48 07/08/21 06:49 Ringers, Lactated IV 07/08/21 07:48 999 mls/hr .BOLUS ONE Administration Ibuprofen 400 mg 07/08/21 05:10 07/08/21 05:18 Ibuprofen 400 Mg Tab PO 07/08/21 05:11 400 mg ONETIME ONE Administration Iopamidol 100 ml 07/08/21 05:47 07/08/21 06:25 Iopamidol 612 Mg/Ml 100 Ml Bottle IVPUSH 07/08/21 05:48 100 ml ONETIME ONE Administration Ketorolac Tromethamine 30 mg 07/08/21 08:49 Ketorolac 30 Mg/Ml Sdv IVPUSH 07/08/21 08:50 ONETIME ONE Lactulose 20 gm 07/08/21 08:48 Lactulose Soln 10 Gm/15 Ml 30 Ml Ud Cup PO 07/08/21 08:49 ONETIME ONE Metoclopramide HCl 10 mg 07/08/21 06:00 07/08/21 06:08 Metoclopramide 10 Mg/2 Ml Sdv IVPUSH 07/08/21 06:01 10 mg ONETIME ONE Administration Ondansetron HCl 4 mg 07/08/21 04:59 07/08/21 05:10 Ondansetron 4 Mg/2 Ml Sdv IVPUSH 07/08/21 05:00 4 mg ONETIME ONE Administration Ondansetron HCl Confirm 07/08/21 05:00 07/08/21 05:23 Ondansetron 4 Mg/2 Ml Sdv Administered 07/08/21 05:01 Not Given Dose 4 mg .ROUTE .STK-MED ONE Ondansetron HCl 4 mg 07/08/21 08:48 Ondansetron 4 Mg/2 Ml Sdv IV 07/08/21 08:49 ONETIME ONE - Re-Assessments/Exams Free Text/Narrative Re-Assessment/Exam: 07/08/21 No changes to CC/HPI, Hx, ROS, exam, or lab results as documented by Amaury Allison LUNG GUN OPERATOR for this encounter. Pt has no acute findings on CT Abd/Pelvis. She likely has a viral gastritis type syndrome, and may have some symptoms related to constipation as well. Departure - Departure Time of Disposition: 08:53 Condition: Good - Discharge Information *PRESCRIPTION DRUG MONITORING PROGRAM REVIEWED*: Not Applicable *COPY OF PRESCRIPTION DRUG MONITORING REPORT IN PATIENT LINO: Not Applicable Sepsis Event Note (ED) - Focused Exam Vital Signs: Vital Signs Temp Temp Pulse Resp BP BP Pulse Ox 07/08/21 06:45 94 26 H 90/52 L 95 07/08/21 06:33 100.5 F 92 20 91/51 L 95 07/08/21 05:30 102 H 22 H 104/52 L 95 07/08/21 05:18 103.5 F H 07/08/21 05:00 124 H 24 H 120/75 96 07/08/21 04:55 103.5 F H 126 H 28 H 103/51 L 95
[2021-07-08] MEDS ORDERED: Ondansetron 4 MG/2 ML SDV IVPUSH ONE (04:59)
[2021-07-08] MEDS ORDERED: Lactated Ringers 1,000 ML IV ONE ×2 (04:59→06:48)
[2021-07-08] MEDS ORDERED: Ondansetron 4 MG/2 ML SDV ONE (05:00)
[2021-07-08] MEDS ORDERED: HYDROmorphone 1 MG/ML Syringe IVPUSH ONE (05:09)
[2021-07-08] MEDS ORDERED: Ibuprofen 400 MG Tab PO ONE (05:10)
[2021-07-08 05:30] LABS: AMPHETAMINES,URINE NEGATIVE (NEGATIVE); BARBITURATES,URINE NEGATIVE (NEGATIVE); BENZODIAZEPINE,URINE NEGATIVE (NEGATIVE); MDMA (ECSTASY), URINE NEGATIVE (NEGATIVE); METHADONE,URINE NEGATIVE (NEGATIVE); METHAMPHETAMINES,URINE NEGATIVE (NEGATIVE); OPIATES,URINE NEGATIVE (NEGATIVE); OXYCODONE,URINE POSITIVE (NEGATIVE); PHENCYCLIDINE,URINE NEGATIVE (NEGATIVE); TCA,URINE NEGATIVE (NEGATIVE)
[2021-07-08 05:36] LABS: ANION GAP 15.3 mEq/L (7-13); CHLORIDE,CL 100 mmol/L (98-107); SODIUM,NA 136 mmol/L (136-145)
[2021-07-08] MEDS ORDERED: Iopamidol 612 MG/ML 100 ML Bottle IVPUSH ONE (05:47)
[2021-07-08] MEDS ORDERED: Metoclopramide 10 MG/2 ML SDV IVPUSH ONE (06:00)
[2021-07-08] MEDS ORDERED: fentaNYL 100 MCG/2 ML SDV IVPUSH ONE (06:01)
[2021-07-08 06:49] VITALS: BP 90/52; PULSE 94
--- NOTE | 2021-07-08 08:25 | CT ---
PROCEDURE INFORMATION: Exam: CT Abdomen And Pelvis With Contrast Exam date and time: 07/08/2021 6:16 AM Age: 36 years old Clinical indication: Other: R/O appendicitis; Rlq pain with rebound tenderness TECHNIQUE: Imaging protocol: Computed tomography of the abdomen and pelvis with contrast. Radiation optimization: All CT scans at this facility use at least one of these dose optimization techniques: automated exposure control; mA and/or kV adjustment per patient size (includes targeted exams where dose is matched to clinical indication); or iterative reconstruction. Contrast material: ISOVUE 300; Contrast volume: 100 ml; Contrast route: INTRAVENOUS (IV); COMPARISON: CT Abdomen Pelvis wo Cont 06/27/2021 4:29 PM FINDINGS: Liver: Normal. No mass. Gallbladder and bile ducts: Status post cholecystectomy. Pancreas: Normal. No ductal dilation. Spleen: The spleen is mildly prominent. Adrenal glands: Normal. No mass. Kidneys and ureters: Punctate non-obstructing left intrarenal calculus. Stomach and bowel: Unremarkable. No obstruction. No mucosal thickening. Appendix: The appendix is seen and is normal in appearance. Intraperitoneal space: Unremarkable. No free air. No significant fluid collection. Vasculature: Unremarkable. No abdominal aortic aneurysm. Lymph nodes: Unremarkable. No enlarged lymph nodes. Urinary bladder: Unremarkable as visualized. Reproductive: Tubal ligation clips are present. Bones/joints: Unremarkable. No acute fracture. Soft tissues: Unremarkable. IMPRESSION: No definite evidence of acute abdominal or pelvic pathology. Remainder of findings as described above.
[2021-07-08] MEDS ORDERED: Bisacodyl 5 MG Tab PO ONE (08:48)
[2021-07-08] MEDS ORDERED: Ondansetron 4 MG/2 ML SDV IV ONE (08:48)
[2021-07-08] MEDS ORDERED: Lactulose Soln 10 GM/15 ML 30 ML UD Cup PO ONE (08:48)
[2021-07-08] MEDS ORDERED: Ketorolac 30 MG/ML SDV IVPUSH ONE (08:49)
== END 2021-07-08 09:11 | disposition home or self-care (01) ==
LOC: DL.ED 04:39
DX: A08.4 Viral intestinal infection, unspecified (principal); E66.9 Obesity, unspecified; Z68.39 Body mass index [BMI] 39.0-39.9, adult
CPT/HCPCS: 36415; 74177; 80053; 80305; 80307; 81003; 81025; 82150; 83605; 83690; 83735; 85025; 86140; 87635; 96374; 96375; 96376; 99284; A9270; J1170; J1885; J2405; J2765; J3010; J7120; Q9967; U0002

== ENCOUNTER 2021-07-08 16:09 | Emergency (ER) | payer MEDICAID ==
[2021-07-08 17:13] VITALS: BP 118/65; PULSE 90
[2021-07-08] MEDS ORDERED: Ketorolac 30 MG/ML SDV IM ONE (17:56)
[2021-07-08] MEDS ORDERED: Acetaminophen 500 MG Tab PO ONE (19:23)
--- NOTE | 2021-07-08 19:50 | EDM.PDOC ---
ED HPI GENERAL MEDICAL PROBLEM - General Chief Complaint: Abdominal Pain Stated Complaint: APENDEX Time Seen by Provider: 07/08/21 17:15 Source of Information: Reports: Patient History Limitations: Reports: No Limitations - History of Present Illness INITIAL COMMENTS - FREE TEXT/NARRATIVE: 36 y/o F c/o R lower abd pn and fever. Was seen here earlier this morning for the same thing and worked up with labs and a CT. CT showed no acute findings. Labs demonstrated a slight elevation in WBC and low hemoglobin. She reports the pain has been 5/10 sharp, non radiating. Her fever has persisted today and she reports earleir she took 1500mg of tylenol around 2pm today. She was nauseated at her earlier appointment but reports no nausea now. She denies myles, cp, db, back n, diff voiding. Right Lower Abdomen Pain Score (Numeric/FACES): 6 - Related Data Allergies Allergy/AdvReac Type Severity Reaction Status Date / Time No Known Allergies Allergy Verified 07/08/21 17:10 Home Meds: Home Meds Acetaminophen [Tylenol Extra Strength] 1,000 mg PO Q5H PRN 06/03/21 [History] QUEtiapine Fumarate [Seroquel] 50 mg PO BEDTIME 06/03/21 [History] Cyclobenzaprine [Flexeril] 10 mg PO ASDIRECTED PRN 06/27/21 [History] Diclofenac Sodium [Voltaren Arthritis Pain] 1 appful TOP ASDIRECTED PRN 06/27/21 [History] Past Medical History - Past Health History Medical/Surgical History: Denies Medical/Surgical History HEENT History: Reports: Impaired Vision Other HEENT History: WEARS GLASSES Cardiovascular History: Reports: Heart Murmur, Other (See Below) Other Cardiovascular History: as child Respiratory History: Reports: None Gastrointestinal History: Reports: PUD Genitourinary History: Reports: Renal Calculus, STD, Other (See Below) Other Genitourinary History: GENITAL WARTS 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 or October 2015, Seizure 01/03/16: Seizure [id number] states they are from "PTSD, and only happen when she is stressed and sick", and describes them as her staring into space and not responding to people who are talking to her. Psychiatric History: Reports: Anxiety, Depression, PTSD, Suicide Attempt, Other (See Below) Other Psychiatric History: CONVERSION DISORDER;. Suicide attempt 2008, Hosp. 2014 with suicidal feelings. 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), Novel Coronavirus Other Infectious Disease History: genital warts - Past Surgical History Head Surgeries/Procedures: Reports: None HEENT Surgical History: Reports: Other (See Below) Other HEENT Surgeries/Procedures: LACERATION OF PINNA Cardiovascular Surgical History: Reports: None Respiratory Surgical History: Reports: None GI Surgical History: Reports: None Female Surgical History: Reports: None, Tubal Ligation Endocrine Surgical History: Reports: None Neurological Surgical History: Reports: None Musculoskeletal Surgical History: Reports: Amputation, Other (See Below) Other Musculoskeletal Surgeries/Procedures:: left foot surgeries 3rd toe Social & Family History - Family History Family Medical History: No Pertinent Family History - Tobacco Use Tobacco Use Status *Q: Current Every Day Tobacco User Years of Tobacco use: 13 Packs/Tins Daily: 1 - Caffeine Use Caffeine Use: Reports: Coffee Other Caffeine Use: OCCASIONAL COFEE. OCCASIONAL ENERGY DRINK - Recreational Drug Use Recreational Drug Use: No - Living Situation & Occupation Living situation: Reports: with Family Occupation: Employed ED ROS GENERAL - Review of Systems Review Of Systems: Comprehensive ROS is negative, except as noted in HPI. ED EXAM, GI/ABD - Physical Exam Exam: See Below Exam Limited By: No Limitations General Appearance: Alert, No Apparent Distress Ears: Normal External Exam, Normal Canal, Hearing Grossly Normal, Normal TMs Nose: Normal Inspection, Normal Mucosa, No Blood Throat/Mouth: Normal Inspection, Normal Lips, Normal Teeth, Normal Gums, Normal Oropharynx, Normal Voice, No Airway Compromise Head: Atraumatic, Normocephalic Neck: Normal Inspection, Supple, Non-Tender, Full Range of Motion Respiratory/Chest: No Respiratory Distress, Lungs Clear, Normal Breath Sounds, No Accessory Muscle Use, Chest Non-Tender Cardiovascular: Normal Peripheral Pulses GI/Abdominal Exam: Soft, Tender (tender R lower quad) (Female) Exam: Deferred Rectal (Female) Exam: Deferred Back Exam: Normal Inspection, Full Range of Motion Extremities: Normal Inspection, Normal Range of Motion, Non-Tender, Normal Capillary Refill, No Pedal Edema Neurological: Alert, Oriented, CN II-XII Intact, Normal Cognition, Normal Gait, Normal Reflexes, No Motor/Sensory Deficits Psychiatric: Normal Affect, Normal Mood Skin Exam: Warm, Dry, Intact, Normal Color, No Rash Lymphatic: No Adenopathy Course - Vital Signs Last Recorded V/S: Last Vital Signs Temp 99.5 F 07/08/21 17:11 Pulse 90 07/08/21 17:11 Resp 18 07/08/21 17:11 BP 118/65 07/08/21 17:11 Pulse Ox 97 07/08/21 17:11 - Orders/Labs/Meds Labs: Laboratory Tests 07/08/21 07/08/21 07/08/21 Range/Units 18:00 18:00 18:00 WBC 9.1 (5.0-10.0) 10^3/uL RBC 3.56 L (4.2-5.4) 10^6/uL Hgb 8.7 L (12.0-16.0) g/dL Hct 28.5 L (37.0-47.0) % MCV 80.1 (80-100) fL MCH 24.4 L (27.0-34.0) pg MCHC 30.5 L (33.0-35.0) g/dL Plt Count 382 (150-450) 10^3/uL Neut % (Auto) 81.3 H (42.2-75.2) % Lymph % (Auto) 12.7 L (20.5-50.1) % [place]ount % (Auto) 5.3 (2-8) % Eos % (Auto) 0.6 L (1.0-3.0) % Baso % (Auto) 0.1 (0.0-1.0) % Iron 8 L (50-170) ug/dL Ferritin 17 (8-252) mg/mL C-Reactive Protein 10.1 H (0.0-0.9) mg/dL Meds: Medications Discontinued Medications Generic Name Dose Route Start Last Admin Trade Name Freq PRN Reason Stop Dose Admin Acetaminophen 1,000 mg 12/04/21 19:23 07/08/21 19:30 Acetaminophen 500 Mg Tab PO 07/08/21 19:24 1,000 mg ONETIME ONE Administration Ketorolac Tromethamine 30 mg 07/08/21 17:56 07/08/21 18:14 Ketorolac 30 Mg/Ml Sdv IM 07/08/21 17:57 30 mg ONETIME ONE Administration - Re-Assessments/Exams Free Text/Narrative Re-Assessment/Exam: 07/08/21 19:52 I discussed the labs and exam with the pt and informed her she likely has a viral illness. I also informed her that she has an iron deficiency anemia and to follow up with her primary care facility for further treatment. Departure - Departure Time of Disposition: 19:56 Disposition: Home, Self-Care 01 Condition: Good Clinical Impression: Viral illness Iron (Fe) deficiency anemia Qualifiers: Iron deficiency anemia type: other iron deficiency Qualified Code(s): D50.8 - Other iron deficiency anemias - Discharge Information *PRESCRIPTION DRUG MONITORING PROGRAM REVIEWED*: Not Applicable *COPY OF PRESCRIPTION DRUG MONITORING REPORT IN PATIENT LINO: Not Applicable Instructions: Iron Deficiency Anemia, Adult, Viral Illness, Adult Forms: ED Department Discharge Additional Instructions: Use tylenol and ibuprofen for pain and fever control as needed. Purchase and start taking an over the counter iron supplement as you have iron deficiency anemia. Follow up with your primary care facility next week about your iron deficiency anemia. If any new symptoms or concerns develop contact your primary care facility or return to the ER. Sepsis Event Note (ED) - Evaluation Sepsis Screening Result: No Definite Risk - Focused Exam Vital Signs: Vital Signs Temp Pulse Resp BP Pulse Ox 07/08/21 17:11 99.5 F 90 18 118/65 97
== END 2021-07-08 20:19 | disposition home or self-care (01) ==
LOC: DL.ED 16:09
DX: D50.8 Other iron deficiency anemias (principal); B34.9 Viral infection, unspecified; E66.9 Obesity, unspecified; Z68.30 Body mass index [BMI] 30.0-30.9, adult; Z86.16 Personal history of COVID-19; Z72.0 Tobacco use
CPT/HCPCS: 36415; 82272; 82728; 83540; 85025; 86140; 96372; 99284; A9270; J1885

== ENCOUNTER 2021-07-11 22:18 | Emergency (ER) | payer MEDICAID ==
[2021-07-11 23:06] VITALS: BP 138/93
[2021-07-11 23:30] LABS: AMPHETAMINES,URINE NEGATIVE (NEGATIVE); BARBITURATES,URINE NEGATIVE (NEGATIVE); BENZODIAZEPINE,URINE NEGATIVE (NEGATIVE); MDMA (ECSTASY), URINE NEGATIVE (NEGATIVE); METHADONE,URINE NEGATIVE (NEGATIVE); METHAMPHETAMINES,URINE NEGATIVE (NEGATIVE); OPIATES,URINE POSITIVE (NEGATIVE); OXYCODONE,URINE POSITIVE (NEGATIVE); PHENCYCLIDINE,URINE NEGATIVE (NEGATIVE); TCA,URINE NEGATIVE (NEGATIVE)
[2021-07-12] MEDS ORDERED: Ibuprofen 600 MG Tab PO ONE (00:20)
[2021-07-12 00:31] VITALS: PULSE 74
[2021-07-12] MEDS ORDERED: Ondansetron 4 MG/2 ML SDV IVPUSH ONE (00:53)
[2021-07-12] MEDS ORDERED: fentaNYL 100 MCG/2 ML SDV IVPUSH ONE (00:53)
[2021-07-12] MEDS ORDERED: Sodium Chloride 0.9% 1,000 ML IV ONE (00:53)
--- NOTE | 2021-07-12 07:39 | EDM.PDOC ---
ED HPI GENERAL MEDICAL PROBLEM - General Chief Complaint: Flank Pain Stated Complaint: NIKKI ARE ACTING UP Time Seen by Provider: 07/11/21 23:00 Source of Information: Reports: Patient, RN History Limitations: Reports: No Limitations - History of Present Illness INITIAL COMMENTS - FREE TEXT/NARRATIVE: ED with c/o right flank pain with hx kidney stones, states onset 3 days ago. Has tried muscle relaxant and didn't help. Seen in ED recently and told had kidney stone and stomach bug. No vomiting, slight nausea. States tried to get to clinic today but no openings. Review of chart, punctate stone on left patient c/o pain on right. Right Flank Pain Score (Numeric/FACES): 6 - Related Data Allergies Allergy/AdvReac Type Severity Reaction Status Date / Time No Known Allergies Allergy Verified 07/11/21 23:06 Home Meds: Home Meds Acetaminophen [Tylenol Extra Strength] 1,000 mg PO Q5H PRN 06/03/21 [History] QUEtiapine Fumarate [Seroquel] 50 mg PO BEDTIME 06/03/21 [History] Cyclobenzaprine [Flexeril] 10 mg PO ASDIRECTED PRN 06/27/21 [History] Diclofenac Sodium [Voltaren Arthritis Pain] 1 appful TOP ASDIRECTED PRN 06/27/21 [History] Past Medical History - Past Health History Medical/Surgical History: Denies Medical/Surgical History HEENT History: Reports: Impaired Vision Other HEENT History: WEARS GLASSES Cardiovascular History: Reports: Heart Murmur, Other (See Below) Other Cardiovascular History: as child Respiratory History: Reports: None Gastrointestinal History: Reports: PUD Genitourinary History: Reports: Renal Calculus, STD, Other (See Below) Other Genitourinary History: GENITAL WARTS REAMER HAND History: Reports: , Other (See Below) Other REAMER HAND History: HX OF GENITAL WARTS Musculoskeletal History: Reports: Arthritis, Back Pain, Chronic Other Musculoskeletal History: LEFT FOOT Neurological History: Reports: Seizure Other Neuro History: Seizure in Sep. or October 2015, Seizure 01/03/16: Seizure [id number] states they are from "PTSD, and only happen when she is stressed and sick", and describes them as her staring into space and not responding to people who are talking to her. Psychiatric History: Reports: Anxiety, Depression, PTSD, Suicide Attempt, Other (See Below) Other Psychiatric History: CONVERSION DISORDER;. Suicide attempt 2008, Hosp. 2014 with suicidal feelings. 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), Novel Coronavirus Other Infectious Disease History: genital warts - Past Surgical History Head Surgeries/Procedures: Reports: None HEENT Surgical History: Reports: Other (See Below) Other HEENT Surgeries/Procedures: LACERATION OF PINNA Cardiovascular Surgical History: Reports: None Respiratory Surgical History: Reports: None GI Surgical History: Reports: None Female Surgical History: Reports: None, Tubal Ligation Endocrine Surgical History: Reports: None Neurological Surgical History: Reports: None Musculoskeletal Surgical History: Reports: Amputation, Other (See Below) Other Musculoskeletal Surgeries/Procedures:: left foot surgeries 3rd toe Social & Family History - Family History Family Medical History: No Pertinent Family History - Tobacco Use Tobacco Use Status *Q: Current Every Day Tobacco User Years of Tobacco use: 15 Packs/Tins Daily: 0.5 Second Hand Smoke Exposure: Yes - Caffeine Use Caffeine Use: Reports: Coffee Other Caffeine Use: OCCASIONAL COFEE. OCCASIONAL ENERGY DRINK - Recreational Drug Use Recreational Drug Use: No - Living Situation & Occupation Living situation: Reports: with Family Occupation: Employed ED ROS GENERAL - Review of Systems Review Of Systems: Comprehensive ROS is negative, except as noted in HPI. ED EXAM, RENAL/ - Physical Exam Exam: See Below Exam Limited By: No Limitations General Appearance: Alert, Mild Distress Eye Exam: Bilateral Eye: EOMI Ears: Normal External Exam Nose: Normal Inspection Throat/Mouth: Normal Inspection Head: Atraumatic, Normocephalic Neck: Normal Inspection Respiratory/Chest: No Respiratory Distress, Lungs Clear, Normal Breath Sounds Cardiovascular: Regular Rate, Rhythm GI/Abdominal: Normal Bowel Sounds, Soft Back Exam: Muscle Spasm (left), Paraspinal Tenderness (light palpaption lateral lower thoracic and lumbar. ). No: CVA Tenderness (R), Vertebral Tenderness Neurological: Alert, Oriented, Normal Cognition, Normal Gait Psychiatric: Flat Affect, Other (irritable when opoiods not immediately offered ) Skin Exam: Warm, Dry, Intact, Normal Color Course - Vital Signs Last Recorded V/S: Last Vital Signs Temp 97.7 F 07/11/21 22:59 Pulse 74 07/12/21 00:31 Resp 18 07/11/21 22:59 BP 138/93 H 07/11/21 22:59 Pulse Ox 98 07/12/21 00:31 - Orders/Labs/Meds Labs: Laboratory Tests 07/11/21 07/11/21 Range/Units 23:13 23:13 Urine Color Yellow (YELLOW) Urine Appearance Clear (CLEAR) Urine pH 6.5 (5.0-9.0) Ur Specific [place] >= 1.030 (1.005-1.030) Urine Protein Negative (NEGATIVE) Urine Glucose (UA) Negative (NEGATIVE) Urine Ketones Trace H (NEGATIVE) Urine Occult Blood Negative (NEGATIVE) Urine Nitrite Negative (NEGATIVE) Urine Bilirubin Negative (NEGATIVE) Urine Urobilinogen 0.2 (0.2-1.0) mg/dL Ur Leukocyte Esterase Negative (NEGATIVE) Urine Opiates Screen Positive H (NEGATIVE) Ur Oxycodone Screen Positive H (NEGATIVE) Urine Methadone Screen Negative (NEGATIVE) Ur Barbiturates Screen Negative (NEGATIVE) U Tricyclic Antidepress Negative (NEGATIVE) Ur Phencyclidine Scrn Negative (NEGATIVE) Ur Amphetamine Screen Negative (NEGATIVE) U Methamphetamines Scrn Negative (NEGATIVE) Urine MDMA Screen Negative (NEGATIVE) U Benzodiazepines Scrn Negative (NEGATIVE) Urine Cocaine Screen Negative (NEGATIVE) U Marijuana (THC) Screen Positive H (NEGATIVE) Meds: Medications Discontinued Medications Generic Name Dose Route Start Last Admin Trade Name Angelq PRN Reason Stop Dose Admin Fentanyl 50 mcg 07/12/21 00:53 Fentanyl 100 Mcg/2 Ml Sdv IVPUSH 07/12/21 00:54 ONETIME ONE Protocol Sodium Chloride 1,000 mls @ 999 mls/hr 07/12/21 00:53 Normal Saline IV 07/12/21 01:53 .BOLUS ONE Ibuprofen 600 mg 07/12/21 00:20 07/12/21 00:30 Ibuprofen 600 Mg Tab PO 07/12/21 00:21 600 mg ONETIME ONE Administration Ondansetron HCl 4 mg 07/12/21 00:53 Ondansetron 4 Mg/2 Ml Sdv IVPUSH 07/12/21 00:54 ONETIME ONE - Re-Assessments/Exams Free Text/Narrative Re-Assessment/Exam: 07/12/21 07:32 Patient observed entering ED No acute distress. Intake completed by RN at time of completion, some quiet moaning, Labs reviewed and recent visit note. Patient questioned regarding presentation and onset of pain on opposite side from previous visit. Also regarding home medications as urine drug screen positive. Patient agitated. c/o that questioning is only because she is g[place]. Patient has been seen numerus times in ED Primary c/o pain and has had multiple abdominal CT in recent 45 days. Trial oral ibuprofen. Reported not effective. Additional IVF and IV pain medications ordered, patient agitated and left, refused medications stating she was just going to go to . Departure - Departure Time of Disposition: 01:05 Disposition: Left Without Being Seen 07 Condition: Undetermined Clinical Impression: Back pain Qualifiers: Back pain location: back pain in other location Chronicity: acute Qualified Code(s): M54.9 - Dorsalgia, unspecified - Discharge Information Referrals: Vitaliy Agosto [employer] [Primary Care Provider] - Forms: ED Department Discharge Sepsis Event Note (ED) - Focused Exam Vital Signs: Vital Signs Temp Pulse Resp BP Pulse Ox 07/12/21 00:31 74 98 07/11/21 22:59 97.7 F 116 H 18 138/93 H 94 L
== END 2021-07-12 01:02 | disposition left against medical advice (07) ==
LOC: DL.ED 22:18
DX: M54.50 Low back pain, unspecified (principal); M54.6 Pain in thoracic spine; M62.830 Muscle spasm of back; E66.9 Obesity, unspecified; Z68.39 Body mass index [BMI] 39.0-39.9, adult; Z86.16 Personal history of COVID-19; Z72.0 Tobacco use
CPT/HCPCS: 80305-QW; 81003; 99284; A9270-GY

== ENCOUNTER 2022-01-09 22:25 | Emergency (ER) | payer MEDICAID ==
[2022-01-09 22:56] VITALS: BP 128/89; PULSE 88
[2022-01-09 23:30] LABS: CORONAVIRUS COVID-19 NAA NEGATIVE (NEGATIVE)
[2022-01-09 23:33] LABS: ACETAMINOPHEN 6 ug/mL (10-30 (Therapeutic)); ANION GAP 12.9 mEq/L (7-13); CHLORIDE,CL 105 mmol/L (98-107); SODIUM,NA 141 mmol/L (136-145)
[2022-01-09 23:34] LABS: ESTIMATED GFR > 60
== END 2022-01-10 00:08 | disposition left against medical advice (07) ==
LOC: DL.ED 22:25
DX: R07.89 Other chest pain (principal); F17.210 Nicotine dependence, cigarettes, uncomplicated; E66.9 Obesity, unspecified; Z68.36 Body mass index [BMI] 36.0-36.9, adult; Z86.16 Personal history of COVID-19; Z20.822 Contact with and (suspected) exposure to COVID-19
CPT/HCPCS: 0240U; 36415; 80053; 80143; 80179; 80307; 83605; 84484; 85025; 85379; 87040; 93005; 99285

== ENCOUNTER 2022-09-23 05:10 | Emergency (ER) | payer MEDICAID ==
[2022-09-23 05:42] VITALS: BP 122/96; PULSE 97
[2022-09-23] MEDS: Sodium Chloride 0.9% 10 ML Syringe FLUSH PRN (05:58)
[2022-09-23] MEDS: Sodium Chloride 0.9% 1,000 ML IV ONE (05:59)
[2022-09-23 06:29] LABS: ANION GAP 12.8 mEq/L (7-13)
[2022-09-23] MEDS: Ketorolac 30 MG/ML SDV IVPUSH ONE (06:41)
== END 2022-09-23 06:55 | disposition home or self-care (01) ==
LOC: DL.ED 05:10
DX: R07.89 Other chest pain (principal); K21.9 Gastro-esophageal reflux disease without esophagitis; E66.9 Obesity, unspecified; Z68.29 Body mass index [BMI] 29.0-29.9, adult
CPT/HCPCS: 36415; 71046; 80053; 83880; 84484; 85025; 93005; 93010; 96374; 99284; 99285-25; J1885; J3490; J7030

== ENCOUNTER 2022-10-20 06:06 | Emergency (ER) | payer MEDICAID ==
[2022-10-20 06:40] VITALS: BP 134/103; PULSE 115
[2022-10-20] MEDS ORDERED: Ibuprofen 600 MG Tab PO ONE (07:01)
== END 2022-10-20 09:03 | disposition home or self-care (01) ==
LOC: DL.ED 06:06
DX: S90.32XA Contusion of left foot, initial encounter (principal); E66.9 Obesity, unspecified; Z68.30 Body mass index [BMI] 30.0-30.9, adult; Z86.16 Personal history of COVID-19; Z72.0 Tobacco use; W00.0XXA Fall on same level due to ice and snow, initial encounter
CPT/HCPCS: 73630-LT; 99282; 99283; A9270-GY

== ENCOUNTER 2022-12-16 06:09 | Emergency (ER) | payer MEDICAID ==
[2022-12-16 06:53] VITALS: BP 133/95; PULSE 87
== END 2022-12-16 06:49 | disposition home or self-care (01) ==
LOC: DL.ED 06:09
DX: M25.511 Pain in right shoulder (principal); M79.651 Pain in right thigh; E66.9 Obesity, unspecified; Z68.31 Body mass index [BMI] 31.0-31.9, adult; Z86.16 Personal history of COVID-19; W18.09XA Striking against other object with subsequent fall, initial encounter
CPT/HCPCS: 99283

== ENCOUNTER 2023-01-05 18:05 | Emergency (ER) | payer MEDICAID ==
[2023-01-05 18:24] VITALS: BP 104/78; PULSE 10
== END 2023-01-05 19:10 | disposition left against medical advice (07) ==
LOC: DL.ED 18:05
DX: Z53.21 Procedure and treatment not carried out due to patient leaving prior to being seen by health care provider (principal)

== ENCOUNTER 2023-02-02 02:49 | Emergency (ER) | payer MEDICAID ==
[2023-02-02 03:16] VITALS: BP 144/106; PULSE 101
[2023-02-02] MEDS ORDERED: Lidocaine 1% 5 ML VIAL INJECT ONE (03:16)
[2023-02-02] MEDS ORDERED: Diphtheria,Pertussis(Acell),Tetanus Vaccine 0.5 ML Syringe IM ONE (03:16)
[2023-02-02] MEDS ORDERED: Lidocaine 1% 5 ML VIAL ONE (03:35)
[2023-02-02] MEDS ORDERED: Bacitracin Oint 1 GM U/D Packet ONE (03:36)
[2023-02-02] MEDS ORDERED: Cephalexin 500 MG Cap ONE (03:36)
[2023-02-02] MEDS ORDERED: Cephalexin 500 MG Cap PO ONE (03:38)
[2023-02-02] MEDS ORDERED: Bacitracin Oint 1 GM U/D Packet TOP ONE (03:41)
[2023-02-02] MEDS ORDERED: Ibuprofen 600 MG Tab PO ONE (04:01)
== END 2023-02-02 04:10 | disposition home or self-care (01) ==
LOC: DL.ED 02:49
DX: S61.511A Laceration without foreign body of right wrist, initial encounter (principal); F17.210 Nicotine dependence, cigarettes, uncomplicated; Z23 Encounter for immunization; Z86.16 Personal history of COVID-19; Y04.0XXA Assault by unarmed brawl or fight, initial encounter
CPT/HCPCS: 12002; 90471; 90715; 99282; A9270; J3490

== ENCOUNTER 2023-02-10 04:39 | Emergency (ER) | payer MEDICAID ==
[2023-02-10 05:37] VITALS: BP 141/87; PULSE 88
== END 2023-02-10 05:51 | disposition home or self-care (01) ==
LOC: DL.ED 04:39
DX: S61.511D Laceration without foreign body of right wrist, subsequent encounter (principal); F17.210 Nicotine dependence, cigarettes, uncomplicated; Z86.16 Personal history of COVID-19; W26.8XXD Contact with other sharp object(s), not elsewhere classified, subsequent encounter
CPT/HCPCS: 99282; 99283

== ENCOUNTER 2023-02-19 23:25 | Emergency (ER) | payer MEDICAID ==
[2023-02-19] MEDS ORDERED: ceFAZolin 1 GM Vial IM ONE (23:53)
[2023-02-19 23:58] VITALS: PULSE 100
== END 2023-02-20 00:11 | disposition left against medical advice (07) ==
LOC: DL.ED 23:25
DX: S51.802A Unspecified open wound of left forearm, initial encounter (principal); L03.90 Cellulitis, unspecified; Z86.16 Personal history of COVID-19; X58.XXXA Exposure to other specified factors, initial encounter
CPT/HCPCS: 96372; 99282

== ENCOUNTER 2023-03-01 15:06 | Emergency (ER) | payer MEDICAID ==
[2023-03-01] MEDS ORDERED: Lidocaine 2% with EPINEPHrine 1:200,000 20 ML SDV INJECT ONE (15:07)
[2023-03-01] MEDS ORDERED: Bacitracin Oint 1 GM U/D Packet TOP ONE (15:35)
[2023-03-01] MEDS ORDERED: Acetaminophen 500 MG Tab PO ONE (15:38)
== END 2023-03-01 15:50 | disposition home or self-care (01) ==
LOC: DL.ED 15:06
DX: S01.81XA Laceration without foreign body of other part of head, initial encounter (principal); Z86.16 Personal history of COVID-19; W26.8XXA Contact with other sharp object(s), not elsewhere classified, initial encounter
CPT/HCPCS: 12013; 99283; A9270; 99282; J3490

== ENCOUNTER 2023-03-19 06:08 | Observation (INO) | payer MEDICAID ==
[2023-03-19] MEDS ORDERED: Sodium Chloride 0.9% 1,000 ML IV ONE (06:53)
[2023-03-19] MEDS ORDERED: fentaNYL 100 MCG/2 ML SDV IVPUSH ONE (06:53)
[2023-03-19] MEDS ORDERED: Ondansetron 4 MG/2 ML SDV IVPUSH ONE (06:53)
[2023-03-19 07:01] LABS: BASOPHILS PERCENT AUTO 0.1 % (0.0-1.0); EOSINOPHILS PERCENT AUTO 0.5 % (1.0-3.0); HEMATOCRIT 34.7 % (37.0-47.0); HEMOGLOBIN 10.6 g/dL (12.0-16.0); LYMPHOCYTES PERCENT AUTO 10.2 % (20.5-50.1); MEAN CORPUSCULAR HEMOGLOBIN 23.2 pg (27.0-34.0); MEAN CORPUSCULAR HGB CONC 30.5 g/dL (33.0-35.0); MEAN CORPUSCULAR VOLUME 76.1 fL (80-100); NEUTROPHILS PERCENT AUTO 83.2 % (42.2-75.2); PLATELET COUNT,PLT 319 10^3/uL (150-450); RED BLOOD CELL COUNT 4.56 10^6/uL (4.2-5.4); WHITE BLOOD CELL COUNT,WBC 15.9 10^3/uL (5.0-10.0)
[2023-03-19] MEDS: Sodium Chloride 0.9% 10 ML Syringe FLUSH PRN ×2 (07:02→19:40)
[2023-03-19 07:21] LABS: ALANINE AMINOTRANSFERASE,ALT 20 U/L (14-59); ALBUMIN 3.3 g/dL (3.4-5.0); ALKALINE PHOSPHATASE 90 U/L (46-116); ANION GAP 14.4 mEq/L (7-13); ASPARTATE AMNIOTRANSFERASE,AST 15 U/L (15-37); BILIRUBIN TOTAL 0.4 mg/dL (0.2-1.0); BLOOD UREA NITROGEN,BUN 15 mg/dL (7-18); BUN/CREATININE RATIO 17.4 (No establ ref range); C-REACTIVE PROTEIN 5.5 mg/dL (0.0-0.9); CALCIUM 8.5 mg/dL (8.5-10.1); CARBON DIOXIDE,CO2 27 mmol/L (21-32); CHLORIDE,CL 102 mmol/L (98-107); CREATININE 0.86 mg/dL (0.55-1.02); EST CRCL DRUG DOSING (CG) 84.66 mL/min; GLUCOSE RANDOM 113 mg/dL (70-99); POTASSIUM,K 3.4 mmol/L (3.5-5.1); SODIUM,NA 140 mmol/L (136-145)
[2023-03-19 07:24] LABS: LACTIC ACID 0.8 mmol/L (0.4-2.0)
[2023-03-19 07:26] LABS: A/G RATIO 0.89; ESTIMATED GFR 90 mL/min (>=60)
[2023-03-19 07:31] LABS: HCG QUALITATIVE,SERUM NEGATIVE (NEGATIVE)
[2023-03-19] MEDS ORDERED: Lactated Ringers 1,000 ML IV SCH (09:15)
[2023-03-19 09:48] LABS: APPEARANCE,URINE SLIGHTLY CLOUDY (CLEAR); BILIRUBIN,URINE NEGATIVE (NEGATIVE); COLOR,URINE YELLOW (YELLOW); GLUCOSE,URINE NEGATIVE (NEGATIVE); KETONES,URINE NEGATIVE (NEGATIVE); LEUKOCYTE ESTERASE,URINE TRACE (NEGATIVE); NITRITE,URINE POSITIVE (NEGATIVE); OCCULT BLOOD,URINE NEGATIVE (NEGATIVE); PH,URINE 5.5 (5.0-9.0); PROTEIN,URINE 30 (NEGATIVE)
[2023-03-19 09:52] LABS: AMPHETAMINES,URINE NEGATIVE (NEGATIVE); BARBITURATES,URINE NEGATIVE (NEGATIVE); BENZODIAZEPINE,URINE NEGATIVE (NEGATIVE); MDMA (ECSTASY), URINE POSITIVE (NEGATIVE); METHADONE,URINE NEGATIVE (NEGATIVE); METHAMPHETAMINES,URINE POSITIVE (NEGATIVE); OPIATES,URINE NEGATIVE (NEGATIVE); OXYCODONE,URINE NEGATIVE (NEGATIVE); PHENCYCLIDINE,URINE NEGATIVE (NEGATIVE); TCA,URINE NEGATIVE (NEGATIVE)
[2023-03-19 09:58] LABS: EPITHELIAL CELLS,URINE MANY /HPF (NOT SEEN); RBC,URINE 0-5 /HPF (0-5)
[2023-03-19 09:59] LABS: AMORPHOUS SEDIMENT,URINE FEW /HPF (NOT SEEN); BACTERIA,URINE MANY /HPF (0-FEW/HPF); MUCUS,URINE MODERATE /LPF (NOT SEEN)
[2023-03-19] MEDS ORDERED: Metoprolol Tartrate 5 MG/5 ML SDV IVPUSH PRN (12:50)
[2023-03-19] MEDS ORDERED: hydrALAZINE 20 MG/ML SDV IVPUSH PRN (12:50)
[2023-03-19] MEDS ORDERED: Sennosides/Docusate Sodium 50-8.6 MG Tab PO PRN (12:51)
[2023-03-19] MEDS ORDERED: Polyethylene Glycol 3350 Powder 17 GM Packet PO PRN (12:51)
[2023-03-19] MEDS ORDERED: Albuterol/Ipratropium 3.0-0.5 MG/3 ML Neb Soln NEB PRN (12:51)
[2023-03-19] MEDS ORDERED: HYDROmorphone 0.5 MG/0.5 ML Syringe IVPUSH PRN (12:51)
[2023-03-19] MEDS ORDERED: Acetaminophen 325 MG Tab PO PRN (12:51)
[2023-03-19] MEDS ORDERED: Ketorolac 30 MG/ML SDV IVPUSH PRN (12:51)
[2023-03-19] MEDS ORDERED: Magnesium Hydroxide 400 MG/5 ML Susp 30 ML Cup PO PRN (12:51)
[2023-03-19] MEDS ORDERED: Diclofenac Sodium 1% Gel 100 GM Tube TOP PRN (12:55)
[2023-03-19] MEDS ORDERED: Cyclobenzaprine 10 MG Tab PO PRN (12:55)
[2023-03-19] MEDS ORDERED: Flumazenil 0.1 MG/ML 5 ML MDV IVPUSH PRN (13:00)
[2023-03-19] MEDS ORDERED: MVI, Adult with Vitamin K 10 ML, Folic Acid 1 MG, Thiamine 100 MG in Lactated Ringers 1... IV SCH ×4 (13:00)
[2023-03-19] MEDS ORDERED: LORazepam 2 MG/ML SDV IVPUSH PRN (13:00)
[2023-03-19] MEDS ORDERED: Potassium Chloride 10 MEQ Tab.ER PO ONE (13:08)
[2023-03-19] MEDS: Nicotine 21 MG/24 Hr Patch TRDERM SCH (13:37)
[2023-03-19] MEDS: cefTRIAXone 2 GM Vial IVPUSH SCH (13:38)
[2023-03-19] MEDS: Benzocaine/Cetylpyridinium/Menthol Lozenge MUCMEM PRN (20:03)
[2023-03-19] MEDS: Acetaminophen/oxyCODONE 325-5 MG Tab PO PRN (20:03)
[2023-03-19] MEDS: Ondansetron 4 MG/2 ML SDV IVPUSH PRN (20:05)
[2023-03-19] MEDS: Saccharomyces Boulardii (Probiotic) 250 MG Cap PO SCH (20:09)
[2023-03-19] MEDS: Temazepam 15 MG Cap PO PRN (21:53)
[2023-03-20] MEDS: Acetaminophen/oxyCODONE 325-5 MG Tab PO PRN ×3 (04:17→21:12)
[2023-03-20 06:35] LABS: BASOPHILS PERCENT AUTO 0.3 % (0.0-1.0); EOSINOPHILS PERCENT AUTO 1.9 % (1.0-3.0); HEMATOCRIT 32.4 % (37.0-47.0); HEMOGLOBIN 9.9 g/dL (12.0-16.0); LYMPHOCYTES PERCENT AUTO 19.7 % (20.5-50.1); MEAN CORPUSCULAR HEMOGLOBIN 23.4 pg (27.0-34.0); MEAN CORPUSCULAR HGB CONC 30.6 g/dL (33.0-35.0); MEAN CORPUSCULAR VOLUME 76.6 fL (80-100); MONOCYTES PERCENT AUTO 7.3 % (2-8); NEUTROPHILS PERCENT AUTO 70.8 % (42.2-75.2); PLATELET COUNT,PLT 319 10^3/uL (150-450); RED BLOOD CELL COUNT 4.23 10^6/uL (4.2-5.4); WHITE BLOOD CELL COUNT,WBC 12.5 10^3/uL (5.0-10.0)
[2023-03-20 06:56] LABS: ALBUMIN 2.7 g/dL (3.4-5.0); ANION GAP 11.3 mEq/L (7-13); BILIRUBIN TOTAL 0.2 mg/dL (0.2-1.0); BUN/CREATININE RATIO 13.4 (No establ ref range); CALCIUM 8.3 mg/dL (8.5-10.1); CREATININE 0.67 mg/dL (0.55-1.02); EST CRCL DRUG DOSING (CG) 108.67 mL/min; MAGNESIUM 1.7 mg/dL (1.8-2.4); POTASSIUM,K 4.3 mmol/L (3.5-5.1); PROTEIN TOTAL,TP 6.1 g/dL (6.4-8.2)
[2023-03-20 07:01] LABS: A/G RATIO 0.79
[2023-03-20] MEDS: Nicotine 21 MG/24 Hr Patch TRDERM SCH (08:44)
[2023-03-20] MEDS: Benzocaine/Cetylpyridinium/Menthol Lozenge MUCMEM PRN ×2 (08:51→21:12)
[2023-03-20] MEDS: Saccharomyces Boulardii (Probiotic) 250 MG Cap PO SCH ×2 (08:51→21:12)
[2023-03-20] MEDS ORDERED: Magnesium Sulfate/Water 2 GM in Premix Bag 1 BAG IV ONE (09:20)
[2023-03-20] MEDS: cefTRIAXone 2 GM Vial IVPUSH SCH (15:19)
[2023-03-20] MEDS: Ondansetron 4 MG/2 ML SDV IVPUSH PRN (21:47)
[2023-03-20] MEDS: Temazepam 15 MG Cap PO PRN (21:49)
[2023-03-21 06:24] LABS: HEMATOCRIT 34.9 % (37.0-47.0); HEMOGLOBIN 10.5 g/dL (12.0-16.0); MEAN CORPUSCULAR HEMOGLOBIN 22.9 pg (27.0-34.0); MEAN CORPUSCULAR HGB CONC 30.1 g/dL (33.0-35.0); PLATELET COUNT,PLT 356 10^3/uL (150-450); RED BLOOD CELL COUNT 4.59 10^6/uL (4.2-5.4)
[2023-03-21 06:28] LABS: BASOPHILS PERCENT AUTO 0.6 % (0.0-1.0); EOSINOPHILS PERCENT AUTO 3.9 % (1.0-3.0); NEUTROPHILS PERCENT AUTO 44.5 % (42.2-75.2)
[2023-03-21 06:51] LABS: ALBUMIN 2.8 g/dL (3.4-5.0); ANION GAP 11.3 mEq/L (7-13); BILIRUBIN TOTAL 0.2 mg/dL (0.2-1.0); BUN/CREATININE RATIO 20.3 (No establ ref range); C-REACTIVE PROTEIN 5.3 mg/dL (0.0-0.9); CALCIUM 8.5 mg/dL (8.5-10.1); CREATININE 0.79 mg/dL (0.55-1.02); EST CRCL DRUG DOSING (CG) 92.16 mL/min; MAGNESIUM 1.9 mg/dL (1.8-2.4); POTASSIUM,K 4.3 mmol/L (3.5-5.1); PROTEIN TOTAL,TP 6.7 g/dL (6.4-8.2)
[2023-03-21 07:02] LABS: A/G RATIO 0.72
[2023-03-21 07:17] LABS: BAND PERCENT MAN 1 %; EOSINOPHILS PERCENT MAN 4 % (1-3); LYMPHOCYTES PERCENT MAN 39 % (20-50); MONOCYTES PERCENT MAN 9 % (2-8); SEG NEUTROPHILS PERCENT MAN 47 % (42-75)
[2023-03-21 07:18] LABS: HYPOCHROMASIA 1+ SLIGHT
[2023-03-21] MEDS: Nicotine 21 MG/24 Hr Patch TRDERM SCH (08:30)
[2023-03-21] MEDS: Saccharomyces Boulardii (Probiotic) 250 MG Cap PO SCH (08:35)
[2023-03-21] MEDS: Benzocaine/Cetylpyridinium/Menthol Lozenge MUCMEM PRN (08:42)
[2023-03-21] MEDS: Acetaminophen/oxyCODONE 325-5 MG Tab PO PRN (11:41)
[2023-03-21 12:07] VITALS: BP 117/71; PULSE 70
[2023-03-21] MEDS: cefTRIAXone 2 GM Vial IVPUSH SCH (13:37)
== END 2023-03-21 14:15 | disposition home or self-care (01) ==
LOC: DL.ED 06:08 → UNDOADMOB 10:51 → DL.MS 10:51
PROVIDERS: ADMIT Internal Medicine; ATTEND Internal Medicine
DX: L03.113 Cellulitis of right upper limb (principal); N39.0 Urinary tract infection, site not specified; B96.20 Unspecified Escherichia coli [E. coli] as the cause of diseases classified elsewhere; E87.6 Hypokalemia; E11.65 Type 2 diabetes mellitus with hyperglycemia; E88.09 Other disorders of plasma-protein metabolism, not elsewhere classified; E86.0 Dehydration; D72.829 Elevated white blood cell count, unspecified; D50.9 Iron deficiency anemia, unspecified; R00.0 Tachycardia, unspecified; F41.9 Anxiety disorder, unspecified; F32.A Depression, unspecified; F43.10 Post-traumatic stress disorder, unspecified; Z79.899 Other long term (current) drug therapy; Z59.00 Homelessness unspecified
CPT/HCPCS: 36415; 80053; 80305; 80307; 81001; 83605; 83735; 84145; 84703; 85025; 86140; 87040; 87070; 87077; 87081; 87086; 87088; 87186; 87205; 87430; 94010; 96365; 96366; 96367; 96368; 96375; 96376; 99222; 99232; 99238; 99284; A9270; G0378; J0696; J2405; J3010; J3370; J3411; J3475; J7030; J7040; J7050; J7120; J3490

== ENCOUNTER 2023-06-16 16:28 | Emergency (ER) | payer MEDICAID ==
[2023-06-16 17:45] LABS: APPEARANCE,URINE CLEAR (CLEAR); BILIRUBIN,URINE NEGATIVE (NEGATIVE); COLOR,URINE YELLOW (YELLOW); GLUCOSE,URINE NEGATIVE (NEGATIVE); KETONES,URINE TRACE (NEGATIVE); LEUKOCYTE ESTERASE,URINE TRACE (NEGATIVE); NITRITE,URINE NEGATIVE (NEGATIVE); OCCULT BLOOD,URINE NEGATIVE (NEGATIVE); PROTEIN,URINE NEGATIVE (NEGATIVE); UROBILINOGEN,URINE 0.2 mg/dL (0.2-1.0)
[2023-06-16 17:53] LABS: BACTERIA,URINE FEW /HPF (0-FEW/HPF); EPITHELIAL CELLS,URINE MODERATE /HPF (NOT SEEN); MUCUS,URINE MODERATE /LPF (NOT SEEN)
[2023-06-16 17:54] LABS: RBC,URINE 0-5 /HPF (0-5)
[2023-06-16] MEDS ORDERED: Sodium Chloride 0.9% 10 ML Syringe FLUSH PRN (17:54)
[2023-06-16 18:06] LABS: BASOPHILS PERCENT AUTO 0.3 % (0.0-1.0); EOSINOPHILS PERCENT AUTO 2.4 % (1.0-3.0); HEMATOCRIT 32.5 % (37.0-47.0); HEMOGLOBIN 10.2 g/dL (12.0-16.0); LYMPHOCYTES PERCENT AUTO 14.8 % (20.5-50.1); MEAN CORPUSCULAR HEMOGLOBIN 25.1 pg (27.0-34.0); MEAN CORPUSCULAR HGB CONC 31.4 g/dL (33.0-35.0); NEUTROPHILS PERCENT AUTO 75.5 % (42.2-75.2); PLATELET COUNT,PLT 381 10^3/uL (150-450); RED BLOOD CELL COUNT 4.06 10^6/uL (4.2-5.4); WHITE BLOOD CELL COUNT,WBC 7.2 10^3/uL (5.0-10.0)
[2023-06-16 18:13] LABS: ALBUMIN 3.3 g/dL (3.4-5.0); ANION GAP 10.9 mEq/L (7-13); BILIRUBIN TOTAL 0.2 mg/dL (0.2-1.0); BUN/CREATININE RATIO 20.8 (No establ ref range); CALCIUM 8.2 mg/dL (8.5-10.1); CREATININE 0.72 mg/dL (0.55-1.02); EST CRCL DRUG DOSING (CG) 101.12 mL/min; MAGNESIUM 1.8 mg/dL (1.8-2.4); POTASSIUM,K 3.9 mmol/L (3.5-5.1); PROTEIN TOTAL,TP 6.8 g/dL (6.4-8.2)
[2023-06-16 18:18] LABS: A/G RATIO 0.94
[2023-06-16] MEDS ORDERED: Acetaminophen 500 MG Tab PO ONE (18:44)
[2023-06-16 19:12] VITALS: BP 132/89; PULSE 82
== END 2023-06-16 19:06 | disposition home or self-care (01) ==
LOC: DL.ED 16:28
DX: R10.9 Unspecified abdominal pain (principal); M54.9 Dorsalgia, unspecified; F17.210 Nicotine dependence, cigarettes, uncomplicated; Z86.16 Personal history of COVID-19; Z79.899 Other long term (current) drug therapy
CPT/HCPCS: 36415; 80053; 81001; 83690; 83735; 85025; 87086; 87088; 87186; 99283; 99284; A9270-GY; J3490

== ENCOUNTER 2024-06-03 14:44 | Emergency (ER) | payer SELFPAY ==
[2024-06-03 14:57] VITALS: BP 142/100; PULSE 78
[2024-06-03] MEDS ORDERED: Sodium Chloride 0.9% 10 ML Syringe FLUSH PRN (15:14)
[2024-06-03 15:26] LABS: BASOPHILS PERCENT AUTO 0.5 % (0.0-1.0); EOSINOPHILS PERCENT AUTO 2.7 % (1.0-3.0); HEMOGLOBIN 10.8 g/dL (12.0-16.0); LYMPHOCYTES PERCENT AUTO 41.4 % (20.5-50.1); MEAN CORPUSCULAR HEMOGLOBIN 23.4 pg (27.0-34.0); MEAN CORPUSCULAR VOLUME 77.9 fL (80-100); MONOCYTES PERCENT AUTO 6.9 % (2-8); NEUTROPHILS PERCENT AUTO 48.5 % (42.2-75.2); PLATELET COUNT,PLT 419 10^3/uL (150-450); RED BLOOD CELL COUNT 4.62 10^6/uL (4.2-5.4); WHITE BLOOD CELL COUNT,WBC 5.5 10^3/uL (5.0-10.0)
[2024-06-03] MEDS: Ondansetron 4 MG/2 ML SDV IVPUSH ONE (15:30)
[2024-06-03] MEDS: GI Cocktail Oral Solution 30 ML PO ONE (15:31)
[2024-06-03 15:34] LABS: BILIRUBIN,URINE NEGATIVE (NEGATIVE); COLOR,URINE YELLOW (YELLOW); GLUCOSE,URINE NEGATIVE (NEGATIVE); KETONES,URINE NEGATIVE (NEGATIVE); LEUKOCYTE ESTERASE,URINE NEGATIVE (NEGATIVE); NITRITE,URINE NEGATIVE (NEGATIVE); OCCULT BLOOD,URINE NEGATIVE (NEGATIVE); PROTEIN,URINE NEGATIVE (NEGATIVE)
[2024-06-03 15:40] LABS: APPEARANCE,URINE CLEAR (CLEAR)
[2024-06-03 15:50] LABS: A/G RATIO 1.1; ALANINE AMINOTRANSFERASE,ALT 19 U/L (14-59); ALKALINE PHOSPHATASE 70 U/L (46-116); ANION GAP 11.5 mEq/L (7-13); ASPARTATE AMNIOTRANSFERASE,AST 19 U/L (15-37); BILIRUBIN TOTAL 0.2 mg/dL (0.2-1.0); BLOOD UREA NITROGEN,BUN 15 mg/dL (7-18); BUN/CREATININE RATIO 20.3 (No establ ref range); CALCIUM 9.3 mg/dL (8.5-10.1); CARBON DIOXIDE,CO2 28 mmol/L (21-32); CHLORIDE,CL 107 mmol/L (98-107); CREATININE 0.74 mg/dL (0.55-1.02); EST CRCL DRUG DOSING (CG) 97.44 mL/min; GLUCOSE RANDOM 88 mg/dL (70-99); LACTIC ACID 0.6 mmol/L (0.4-2.0); LIPASE 30 U/L (16-77); MAGNESIUM 2.1 mg/dL (1.8-2.4); POTASSIUM,K 3.5 mmol/L (3.5-5.1); PROTEIN TOTAL,TP 7.7 g/dL (6.4-8.2); SODIUM,NA 143 mmol/L (136-145)
[2024-06-03 15:54] LABS: C-REACTIVE PROTEIN < 0.50 ng/dL (<=0.50); ESTIMATED GFR 107 mL/min (>=60)
[2024-06-03] MEDS: Pantoprazole 40 MG Vial IVPUSH ONE (16:14)
[2024-06-03 16:48] LABS: INR 0.9 (0.9-1.2); PROTHROMBIN TIME 9.3 SEC (9.0-12.0); PTT,PARTIAL THROMBOPLSTIN TIME 24.5 SEC (22.0-34.0)
== END 2024-06-03 16:20 | disposition home or self-care (01) ==
LOC: DL.ED 14:44
DX: R07.89 Other chest pain (principal); R10.13 Epigastric pain; R11.2 Nausea with vomiting, unspecified; Z86.16 Personal history of COVID-19; Z90.49 Acquired absence of other specified parts of digestive tract; F17.210 Nicotine dependence, cigarettes, uncomplicated; Z79.899 Other long term (current) drug therapy
CPT/HCPCS: 36415; 71045; 80053; 81003; 81025; 83605; 83690; 83735; 84484; 85025; 85610; 85730; 86140; 93005; 93010; 96374; 96375; 99283; 99284; A9270; J2405; J2470

== ENCOUNTER 2024-07-11 13:36 | Emergency (ER) | payer SELFPAY ==
[2024-07-11] MEDS: Iopamidol 612 MG/ML 100 ML Bottle IVPUSH ONE (13:34)
[2024-07-11 13:47] LABS: BASOPHILS PERCENT AUTO 0.4 % (0.0-1.0); EOSINOPHILS PERCENT AUTO 0.9 % (1.0-3.0); HEMATOCRIT 33.8 % (37.0-47.0); HEMOGLOBIN 10.2 g/dL (12.0-16.0); LYMPHOCYTES PERCENT AUTO 34.5 % (20.5-50.1); MEAN CORPUSCULAR HEMOGLOBIN 23.1 pg (27.0-34.0); MEAN CORPUSCULAR HGB CONC 30.2 g/dL (33.0-35.0); MEAN CORPUSCULAR VOLUME 76.6 fL (80-100); MONOCYTES PERCENT AUTO 6.3 % (2-8); NEUTROPHILS PERCENT AUTO 57.9 % (42.2-75.2); PLATELET COUNT,PLT 424 10^3/uL (150-450); RED BLOOD CELL COUNT 4.41 10^6/uL (4.2-5.4); WHITE BLOOD CELL COUNT,WBC 6.7 10^3/uL (5.0-10.0)
[2024-07-11] MEDS: Sodium Chloride 0.9% 1,000 ML IV ONE (13:53)
[2024-07-11 14:10] LABS: A/G RATIO 1.2; ALANINE AMINOTRANSFERASE,ALT 20 U/L (14-59); ALBUMIN 3.8 g/dL (3.4-5.0); ALKALINE PHOSPHATASE 65 U/L (46-116); ANION GAP 16.9 mEq/L (7-13); ASPARTATE AMNIOTRANSFERASE,AST 13 U/L (15-37); BILIRUBIN TOTAL 0.5 mg/dL (0.2-1.0); BLOOD UREA NITROGEN,BUN 16 mg/dL (7-18); BUN/CREATININE RATIO 18.6 (No establ ref range); CALCIUM 8.8 mg/dL (8.5-10.1); CARBON DIOXIDE,CO2 25 mmol/L (21-32); CHLORIDE,CL 103 mmol/L (98-107); CREATININE 0.86 mg/dL (0.55-1.02); EST CRCL DRUG DOSING (CG) 83.84 mL/min; GLUCOSE RANDOM 92 mg/dL (70-99); LIPASE 24 U/L (16-77); MAGNESIUM 1.9 mg/dL (1.8-2.4); POTASSIUM,K 3.9 mmol/L (3.5-5.1); PROTEIN TOTAL,TP 7.1 g/dL (6.4-8.2); SODIUM,NA 141 mmol/L (136-145)
[2024-07-11 14:11] LABS: ESTIMATED GFR 89 mL/min (>=60); ETHANOL BLOOD MEDICAL < 3 mg/dL (0)
[2024-07-11] MEDS: Famotidine 20 MG/2 ML SDV IVPUSH ONE (14:15)
[2024-07-11] MEDS: Promethazine 25 MG/ML SDV IM ONE (14:16)
[2024-07-11] MEDS: diphenhydrAMINE 50 MG/ML SDV IVPUSH ONE (14:21)
[2024-07-11 14:47] LABS: APPEARANCE,URINE SLIGHTLY CLOUDY (CLEAR); BILIRUBIN,URINE NEGATIVE (NEGATIVE); COLOR,URINE YELLOW (YELLOW); GLUCOSE,URINE NEGATIVE (NEGATIVE); KETONES,URINE 15 (NEGATIVE); LEUKOCYTE ESTERASE,URINE NEGATIVE (NEGATIVE); NITRITE,URINE NEGATIVE (NEGATIVE); OCCULT BLOOD,URINE NEGATIVE (NEGATIVE); PH,URINE 6.5 (5.0-9.0); PROTEIN,URINE 100 (NEGATIVE)
[2024-07-11 14:48] LABS: LACTIC ACID 1.4 mmol/L (0.4-2.0)
[2024-07-11] MEDS: Bisacodyl 10 MG Supp RECTAL ONE (14:48)
[2024-07-11 14:49] LABS: METHAMPHETAMINES,URINE POSITIVE (NEGATIVE)
[2024-07-11 14:50] LABS: AMPHETAMINES,URINE POSITIVE (NEGATIVE); BARBITURATES,URINE NEGATIVE (NEGATIVE); BENZODIAZEPINE,URINE NEGATIVE (NEGATIVE); MDMA (ECSTASY), URINE POSITIVE (NEGATIVE); METHADONE,URINE NEGATIVE (NEGATIVE); OPIATES,URINE NEGATIVE (NEGATIVE); OXYCODONE,URINE NEGATIVE (NEGATIVE); PHENCYCLIDINE,URINE NEGATIVE (NEGATIVE); TCA,URINE NEGATIVE (NEGATIVE)
[2024-07-11 14:54] LABS: BACTERIA,URINE RARE /HPF (0-FEW/HPF); EPITHELIAL CELLS,URINE MODERATE /HPF (NOT SEEN); MUCUS,URINE FEW /LPF (NOT SEEN); RBC,URINE 0-5 /HPF (0-5); WBC,URINE NOT SEEN /HPF (0-5/HPF)
[2024-07-11 15:35] VITALS: BP 149/99; PULSE 76
[2024-07-11 15:45] LABS: TSH ULTRASENSITIVE 2.42 uIU/mL (0.36-3.74)
== END 2024-07-11 15:55 | disposition left against medical advice (07) ==
LOC: DL.ED 13:36
DX: K59.00 Constipation, unspecified (principal); F15.10 Other stimulant abuse, uncomplicated; E86.0 Dehydration; R45.851 Suicidal ideations; F17.210 Nicotine dependence, cigarettes, uncomplicated; Z86.16 Personal history of COVID-19; Z90.49 Acquired absence of other specified parts of digestive tract; Z79.899 Other long term (current) drug therapy
CPT/HCPCS: 36415; 74177; 80053; 80143; 80179; 80305; 80307; 81001; 81025; 83605; 83690; 83735; 84443; 84484; 85025; 93005; 96361; 96372; 96374; 96375; 99285; A9270; J1200; J2550; J3490; J7030; Q9967

== ENCOUNTER 2024-07-17 14:02 | Emergency (ER) | payer SELFPAY ==
[2024-07-17] MEDS: Midazolam 1 MG/ML 2 ML SDV IM ONE (14:00)
[2024-07-17] MEDS ORDERED: Sodium Chloride 0.9% 10 ML Syringe FLUSH PRN (14:06)
[2024-07-17 14:25] LABS: BASOPHILS PERCENT AUTO 0.6 % (0.0-1.0); EOSINOPHILS PERCENT AUTO 0.4 % (1.0-3.0); HEMATOCRIT 31.7 % (37.0-47.0); HEMOGLOBIN 9.7 g/dL (12.0-16.0); LYMPHOCYTES PERCENT AUTO 38.1 % (20.5-50.1); MEAN CORPUSCULAR HEMOGLOBIN 23.5 pg (27.0-34.0); MEAN CORPUSCULAR HGB CONC 30.6 g/dL (33.0-35.0); MEAN CORPUSCULAR VOLUME 76.8 fL (80-100); MONOCYTES PERCENT AUTO 5.3 % (2-8); NEUTROPHILS PERCENT AUTO 55.6 % (42.2-75.2); PLATELET COUNT,PLT 324 10^3/uL (150-450); RED BLOOD CELL COUNT 4.13 10^6/uL (4.2-5.4); WHITE BLOOD CELL COUNT,WBC 5.4 10^3/uL (5.0-10.0)
[2024-07-17 14:51] LABS: HCG QUALITATIVE,SERUM NEGATIVE (NEGATIVE)
[2024-07-17 14:58] LABS: A/G RATIO 1.2; ALANINE AMINOTRANSFERASE,ALT 19 U/L (14-59); ALBUMIN 3.9 g/dL (3.4-5.0); ALKALINE PHOSPHATASE 62 U/L (46-116); ANION GAP 15.4 mEq/L (7-13); ASPARTATE AMNIOTRANSFERASE,AST 18 U/L (15-37); BILIRUBIN TOTAL 0.3 mg/dL (0.2-1.0); BLOOD UREA NITROGEN,BUN 14 mg/dL (7-18); BUN/CREATININE RATIO 16.9 (No establ ref range); CALCIUM 8.8 mg/dL (8.5-10.1); CARBON DIOXIDE,CO2 25 mmol/L (21-32); CHLORIDE,CL 101 mmol/L (98-107); CREATININE 0.83 mg/dL (0.55-1.02); GLUCOSE RANDOM 100 mg/dL (70-99); POTASSIUM,K 3.4 mmol/L (3.5-5.1); PROTEIN TOTAL,TP 7.2 g/dL (6.4-8.2); SODIUM,NA 138 mmol/L (136-145); TSH ULTRASENSITIVE 2.81 uIU/mL (0.36-3.74)
[2024-07-17 14:59] LABS: ESTIMATED GFR 93 mL/min (>=60)
[2024-07-17 15:00] LABS: ACETAMINOPHEN 0 ug/mL (10-30 (Therapeutic)); ETHANOL BLOOD MEDICAL < 3 mg/dL (0)
[2024-07-17] MEDS: diphenhydrAMINE 25 MG Tab PO ONE (15:37)
[2024-07-17] MEDS: Haloperidol 1 MG Tab PO ONE (15:37)
[2024-07-17] MEDS ORDERED: Melatonin 3 MG Tab PO PRN (18:05)
[2024-07-17] MEDS: Nicotine 14 MG/24 Hr Patch TRDERM ONE (18:17)
[2024-07-17] MEDS: QUEtiapine 25 MG Tab PO ONE (18:20)
[2024-07-17 19:17] LABS: AMPHETAMINES,URINE POSITIVE (NEGATIVE); BARBITURATES,URINE NEGATIVE (NEGATIVE); BENZODIAZEPINE,URINE NEGATIVE (NEGATIVE); MDMA (ECSTASY), URINE POSITIVE (NEGATIVE); METHADONE,URINE NEGATIVE (NEGATIVE); METHAMPHETAMINES,URINE POSITIVE (NEGATIVE); OPIATES,URINE NEGATIVE (NEGATIVE); OXYCODONE,URINE NEGATIVE (NEGATIVE); PHENCYCLIDINE,URINE NEGATIVE (NEGATIVE); TCA,URINE NEGATIVE (NEGATIVE)
[2024-07-17] MEDS: OLANZapine 10 MG Vial IM ONE (23:05)
[2024-07-17 23:20] VITALS: BP 121/75; PULSE 78
== END 2024-07-17 23:18 ==
LOC: DL.ED 14:02
DX: F15.10 Other stimulant abuse, uncomplicated (principal); F29 Unspecified psychosis not due to a substance or known physiological condition; Z86.16 Personal history of COVID-19; Z90.49 Acquired absence of other specified parts of digestive tract; Z79.899 Other long term (current) drug therapy
CPT/HCPCS: 36415; 71045; 80053; 80143; 80179; 80305; 80307; 84443; 84703; 85025; 87428; 93005; 96372; 99285; A9270; J2250; J2359

== ENCOUNTER 2024-09-13 19:26 | Emergency (ER) | payer MEDICAID ==
[2024-09-13] MEDS ORDERED: Sodium Chloride 0.9% 10 ML Syringe FLUSH PRN (19:47)
[2024-09-13 20:02] LABS: BASOPHILS PERCENT AUTO 0.3 % (0.0-1.0); EOSINOPHILS PERCENT AUTO 2.8 % (1.0-3.0); HEMOGLOBIN 8.6 g/dL (12.0-16.0); LYMPHOCYTES PERCENT AUTO 34.7 % (20.5-50.1); MEAN CORPUSCULAR HEMOGLOBIN 23.6 pg (27.0-34.0); MEAN CORPUSCULAR HGB CONC 29.7 g/dL (33.0-35.0); MEAN CORPUSCULAR VOLUME 79.7 fL (80-100); MONOCYTES PERCENT AUTO 6.5 % (2-8); NEUTROPHILS PERCENT AUTO 55.7 % (42.2-75.2); PLATELET COUNT,PLT 382 10^3/uL (150-450); RED BLOOD CELL COUNT 3.64 10^6/uL (4.2-5.4)
[2024-09-13 20:24] LABS: A/G RATIO 0.92; ALANINE AMINOTRANSFERASE,ALT 18 U/L (14-59); ALBUMIN 3.3 g/dL (3.4-5.0); ALKALINE PHOSPHATASE 131 U/L (46-116); ANION GAP 12.9 mEq/L (7-13); ASPARTATE AMNIOTRANSFERASE,AST 9 U/L (15-37); BILIRUBIN TOTAL 0.1 mg/dL (0.2-1.0); BLOOD UREA NITROGEN,BUN 16 mg/dL (7-18); BUN/CREATININE RATIO 20.8 (No establ ref range); C-REACTIVE PROTEIN < 0.50 ng/dL (<=0.50); CALCIUM 8.7 mg/dL (8.5-10.1); CARBON DIOXIDE,CO2 27 mmol/L (21-32); CHLORIDE,CL 108 mmol/L (98-107); CREATININE 0.77 mg/dL (0.55-1.02); EST CRCL DRUG DOSING (CG) 100.91 mL/min; ESTIMATED GFR 102 mL/min (>=60); ETHANOL BLOOD MEDICAL 58 mg/dL (0); GLUCOSE RANDOM 97 mg/dL (70-99); MAGNESIUM 1.7 mg/dL (1.8-2.4); POTASSIUM,K 3.9 mmol/L (3.5-5.1); PROTEIN TOTAL,TP 6.9 g/dL (6.4-8.2); SODIUM,NA 144 mmol/L (136-145)
[2024-09-13 21:08] LABS: APPEARANCE,URINE CLEAR (CLEAR); BILIRUBIN,URINE NEGATIVE (NEGATIVE); COLOR,URINE YELLOW (YELLOW); GLUCOSE,URINE NEGATIVE (NEGATIVE); KETONES,URINE NEGATIVE (NEGATIVE); LEUKOCYTE ESTERASE,URINE NEGATIVE (NEGATIVE); NITRITE,URINE NEGATIVE (NEGATIVE); OCCULT BLOOD,URINE NEGATIVE (NEGATIVE); PH,URINE 5.5 (5.0-9.0); PROTEIN,URINE NEGATIVE (NEGATIVE); UROBILINOGEN,URINE 0.2 mg/dL (0.2-1.0)
[2024-09-13 21:12] LABS: METHAMPHETAMINES,URINE NEGATIVE (NEGATIVE)
[2024-09-13 21:13] LABS: AMPHETAMINES,URINE NEGATIVE (NEGATIVE); BARBITURATES,URINE NEGATIVE (NEGATIVE); BENZODIAZEPINE,URINE NEGATIVE (NEGATIVE); MDMA (ECSTASY), URINE NEGATIVE (NEGATIVE); METHADONE,URINE NEGATIVE (NEGATIVE); OPIATES,URINE NEGATIVE (NEGATIVE); OXYCODONE,URINE NEGATIVE (NEGATIVE); PHENCYCLIDINE,URINE NEGATIVE (NEGATIVE); TCA,URINE NEGATIVE (NEGATIVE)
[2024-09-13] MEDS: Potassium Chloride 10 MEQ Tab.ER PO ONE (21:37)
[2024-09-13] MEDS: Magnesium Sulfat/D5W 1GM/100ML 1 GM in Premix Bag 1 BAG IV ONE (21:41)
[2024-09-13] MEDS: Ketorolac 30 MG/ML SDV IM ONE (21:47)
[2024-09-13] MEDS: Pantoprazole 40 MG Vial IVPUSH ONE (22:23)
[2024-09-13 22:36] VITALS: BP 119/107; PULSE 95
== END 2024-09-13 22:58 | disposition home or self-care (01) ==
LOC: DL.ED 19:26
DX: R07.89 Other chest pain (principal); D50.8 Other iron deficiency anemias; Z86.16 Personal history of COVID-19; Z90.49 Acquired absence of other specified parts of digestive tract
CPT/HCPCS: 36415; 70450; 71046; 72125; 80053; 80305; 80307; 81003; 83735; 83880; 84484; 84703; 85025; 85379; 86140; 93005; 93010; 96365; 96375; 99284; 99285; A9270; J2470; J3475

== ENCOUNTER 2024-09-14 12:22 | Emergency (ER) | payer MEDICAID ==
[2024-09-14 12:44] VITALS: BP 122/82; PULSE 72
== END 2024-09-14 12:50 | disposition home or self-care (01) ==
LOC: DL.ED 12:22
DX: Z13.9 Encounter for screening, unspecified (principal); Z79.899 Other long term (current) drug therapy; Z86.16 Personal history of COVID-19; Z90.49 Acquired absence of other specified parts of digestive tract
CPT/HCPCS: 99282; 99284

== ENCOUNTER 2024-10-02 17:30 | Emergency (ER) | payer MEDICAID ==
[2024-10-02 18:33] LABS: HEMATOCRIT 32.5 % (37.0-47.0); HEMOGLOBIN 9.7 g/dL (12.0-16.0); MEAN CORPUSCULAR HEMOGLOBIN 23.4 pg (27.0-34.0); MEAN CORPUSCULAR HGB CONC 29.8 g/dL (33.0-35.0); MEAN CORPUSCULAR VOLUME 78.3 fL (80-100); RED BLOOD CELL COUNT 4.15 10^6/uL (4.2-5.4); WHITE BLOOD CELL COUNT,WBC 6.1 10^3/uL (5.0-10.0)
[2024-10-02 18:45] VITALS: BP 152/99; PULSE 100
[2024-10-02 19:00] LABS: A/G RATIO 1.1; ACETAMINOPHEN 4 ug/mL (10-30 (Therapeutic)); ALANINE AMINOTRANSFERASE,ALT 18 U/L (14-59); ALKALINE PHOSPHATASE 74 U/L (46-116); ASPARTATE AMNIOTRANSFERASE,AST 16 U/L (15-37); BILIRUBIN TOTAL 0.4 mg/dL (0.2-1.0); BLOOD UREA NITROGEN,BUN 15 mg/dL (7-18); BUN/CREATININE RATIO 17.2 (No establ ref range); CARBON DIOXIDE,CO2 27 mmol/L (21-32); CHLORIDE,CL 106 mmol/L (98-107); CREATININE 0.87 mg/dL (0.55-1.02); GLUCOSE RANDOM 83 mg/dL (70-99); MAGNESIUM 1.9 mg/dL (1.8-2.4); PROTEIN TOTAL,TP 7.6 g/dL (6.4-8.2); SODIUM,NA 143 mmol/L (136-145); TSH ULTRASENSITIVE 1.13 uIU/mL (0.36-3.74)
[2024-10-02 19:01] LABS: ESTIMATED GFR 88 mL/min (>=60); ETHANOL BLOOD MEDICAL < 3 mg/dL (0)
== END 2024-10-03 02:12 ==
LOC: DL.ED 17:30
DX: Z00.8 Encounter for other general examination (principal); Z79.899 Other long term (current) drug therapy; Z86.16 Personal history of COVID-19; Z90.49 Acquired absence of other specified parts of digestive tract
CPT/HCPCS: 36415; 80053; 80143; 80179; 80307; 83735; 84443; 85027; 99283; 99285